=== PATIENT | female | born 1995 | race Caucasian/White ===

== ENCOUNTER 2021-09-30 15:33 | Emergency (ER) | payer MEDICAID, SELFPAY ==
[2021-09-30 15:35] VITALS: BP 120/62; PULSE 78; RESP 16; TEMP 36.8; O2SAT 98; BMI 53.8
[2021-09-30 15:49] LABS: Microscopic, Urine URINE MICROSCOPIC (MICROSCOPIC)
[2021-09-30 15:54] LABS: Appearance,Urine SL CLOUDY (Clear); Bilirubin,Urine Negative (Negative); Blood, Urine Negative (Negative); Color,Urine DK YELLOW (Yellow); Glucose,Urine (UA) Negative (Negative); Ketones,Urine Negative (Negative); Leukocyte Esterase,Urine Negative (Negative); Nitrate,Urine Negative (Negative); PH,Urine 5.5 (5.0-8.5); Protein,Urine Negative (Negative); Specific Gravity, Urine 1.025 (1.005-1.030)
--- NOTE | 2021-09-30 15:56 | HMH.EDGENADL ---
ED Disposition Clinical Impression: Flank pain, Gastroenteritis Disposition: Home, Self-Care Condition on Discharge: Good Instructions: DI for Viral Gastroenteritis -- Adult, DI for Flank Pain Additional Instructions: Ibuprofen for pain. Zofran as needed for nausea. Follow-up with your primary care provider this week if not improved. Prescriptions: Ondansetron [Zofran 4mg ODT] 4 mg PO TIDP PRN #10 tab PRN Reason: Nausea And Vomiting Transmission Status: Pending to [facility] Referrals: Mirtha Lomas [Primary Care Provider] - - Critical Care Critical Care Time: No Attestation: On , the high probability of a clinically significant, sudden or life threatening deterioration of the following system(s) required my full and direct attention, intervention and personal management. The time I documented below is in addition to time spent performing reported procedures but includes the following listed in this critical care notation. Medical Decision Making - Gilberto Inquiry Pt receiving controlled substance: No Gilberto was queried for this patient: Yes Vital Signs: 09/30/21 15:35 Temperature 98.2 F Temperature Source Oral Pulse Rate [Radial] 78 Respiratory Rate 16 Blood Pressure [Right Arm] 120/62 Blood Pressure Mean [Right Arm] 81 Blood Pressure Position [Right Arm] Sitting 02 Sat by Pulse Oximetry 98 Oxygen Delivery Method Room Air - Lab Data Lab Results 09/30/21 15:39: Urine Color Dk yellow, Urine Appearance Sl cloudy, Urine pH 5.5, Ur Specific [place] 1.025, Urine Protein Negative, Urine Glucose (UA) Negative, Urine Ketones Negative, Urine Blood Negative, Urine Nitrate Negative, Urine Bilirubin Negative, Urine Urobilinogen 1.0, Ur Leukocyte Esterase Negative, Urine RBC Occasional, Urine WBC 3-5, Ur Squamous Epith Cells 10-20, Urine Bacteria 1+ 09/30/21 15:39: Urine HCG, Qual Negative 09/30/21 16:05: WBC 3.5 L, RBC 4.75, Hgb 13.3, Hct 39.1, MCV 82.3, MCH 28.1, MCHC 34.1, RDW 14.7, Plt Count 213, MPV 8.9, Neut % (Auto) 58.7, Lymph % (Auto) 31.0, [place] % (Auto) 7.6, Eos % (Auto) 1.1, Baso % (Auto) 1.5, Neut # (Auto) 2.1, Lymph # (Auto) 1.1, [place] # (Auto) 0.3, Eos # (Auto) 0.0, Baso # (Auto) 0.1 09/30/21 16:05: Sodium 141, Potassium 3.4 L, Chloride 109 H, Carbon Dioxide 29, Anion Gap 6.4, BUN 13, Creatinine 0.80, Estimated Creat Clear 80, Estimated GFR 86, Est GFR ( Amer) 104, Glucose 92, Calcium 8.4, Total Bilirubin 0.5, AST 50 H, ALT 57, Alkaline Phosphatase 53, Total Protein 6.5, Albumin 3.9, Globulin 2.6, Albumin/Globulin Ratio 1.5 09/30/21 16:05: Lipase 69 Result diagrams: 09/30/21 16:05 09/30/21 16:05 Orders (Tests/Meds): ED MEDICATIONS Discontinued Medications Generic Name Dose Route Start Last Admin Trade Name Freq PRN Reason Stop Dose Admin Lactated Ringer's 1,000 mls @ 999 mls/hr 09/30/21 16:00 09/30/21 16:10 Lactated Ringer's 1000 Ml Bag IV 09/30/21 17:00 999 mls/hr .Q1H1M BRIANDA Administration Ketorolac Tromethamine 30 mg 09/30/21 15:54 09/30/21 16:10 Ketorolac 30mg/Ml Vial IV 09/30/21 15:55 30 mg ONCE ONE Administration Ondansetron HCl 4 mg 09/30/21 15:54 09/30/21 16:10 Ondansetron 4mg/2ml Vial IV 09/30/21 15:55 4 mg ONCE ONE Administration Ondansetron HCl 4 mg 09/30/21 17:34 09/30/21 17:38 Ondansetron 4mg/2ml Vial IV 09/30/21 17:35 4 mg ONCE ONE Administration - CT Data CT Scan: Abdomen, Pelvis Time Received: 17:[address] Reviewed: Yes: I have viewed the radiologist's interpretation Findings Narrative: PROCEDURE INFORMATION: Exam: CT Abdomen And Pelvis Without Contrast Exam date and time: 09/30/2021 4:34 PM Age: 26 years old Clinical indication: Abdominal pain; Flank; Left; Additional info: Left flank pain, h/o stones TECHNIQUE: Imaging protocol: Computed tomography of the abdomen and pelvis without contrast. Radiation optimization: All CT scans at this facility use at least one of these dose
[2021-09-30 16:11] LABS: Urine Pregnancy, HCG Qual. Negative (Negative)
[2021-09-30 16:13] LABS: Bacteria,Urine 1+ /lpf; RBC,Urine Occasional #/hpf (0-3)
--- NOTE | 2021-09-30 16:22 | CT_ITS ---
PROCEDURE INFORMATION: Exam: CT Abdomen And Pelvis Without Contrast Exam date and time: 09/30/2021 4:34 PM Age: 26 years old Clinical indication: Abdominal pain; Flank; Left; Additional info: Left flank pain, h/o stones TECHNIQUE: Imaging protocol: Computed tomography of the abdomen and pelvis without contrast. Radiation optimization: All CT scans at this facility use at least one of these dose optimization techniques: automated exposure control; mA and/or kV adjustment per patient size (includes targeted exams where dose is matched to clinical indication); or iterative reconstruction. COMPARISON: No relevant prior studies available. FINDINGS: Liver: Fatty infiltration of the liver. Mild hepatomegaly. Gallbladder and bile ducts: Gallbladder partially contracted. Mild increased density suggesting sludge. Pancreas: Normal. No ductal dilation. Spleen: Accessory splenic nodule. Adrenal glands: Normal. No mass. Kidneys and ureters: 4 mm nonobstructing left renal calculus in the lower pole. There is a 2nd smaller punctate focus of calcification in the lower pole of the left kidney which appears to reside within the renal cortex. Stomach and bowel: Unremarkable. No obstruction. No mucosal thickening. Appendix: Postoperative changes in the right lower quadrant which may reflect previous appendectomy. The appendix is not identified. Intraperitoneal space: Unremarkable. No free air. No significant fluid collection. Arteries: Unremarkable. No abdominal aortic aneurysm. Lymph nodes: Unremarkable. No enlarged lymph nodes. Urinary bladder: Unremarkable as visualized. Reproductive: The uterus is anteverted. Bones/joints: Unremarkable. No acute fracture. Soft tissues: Unremarkable. IMPRESSION: 1. 4 mm nonobstructing left renal calculus lower pole. No evidence of hydronephrosis or hydroureter. 2. Appendix not identified. Postoperative changes demonstrated in the right lower quadrant. 3. Mild hepatomegaly. Hepatic steatosis.
[2021-09-30 16:24] LABS: Basophils # 0.1 K/mm3 (0-0.2); Basophils % 1.5 % (0.1-2.0); Eosinophils % 1.1 % (0.1-12.0); Hematocrit 39.1 % (37.0-47.0); Hemoglobin 13.3 g/dL (12.2-16.2); Lymphocytes # 1.1 K/mm3 (0.7-4.5); Mean Corpuscular HGB Conc 34.1 g/dL (31.8-35.4); Mean Corpuscular Hemoglobin 28.1 pg (27.0-31.2); Mean Corpuscular Volume 82.3 fl (81-99); Mean Platelet Volume 8.9 fl (7.4-10.4); Monocytes # 0.3 K/mm3 (0.1-1.0); Monocytes % 7.6 % (1.7-9.3); Neutrophils # 2.1 K/mm3 (1.8-7.8); Neutrophils % 58.7 % (37.0-80.0); Platelet Count 213 K/mm3 (142-424); Red Blood Count 4.75 M/mm3 (4.20-5.40); Red Cell Distribution Width 14.7 % (11.5-17.5); White Blood Count 3.5 K/mm3 (4.8-10.8)
[2021-09-30 16:25] LABS: Alanine Aminotransferase 57 U/L (12-78); Albumin Level 3.9 g/dl (3.5-5.0); Albumin/Globulin Ratio 1.5 (1.1-1.8); Alkaline Phosphatase 53 U/L (38-126); Anion Gap 6.4 mEq/L (5-15); Aspartate Amino Transferase 50 U/L (14-36); Bilirubin,Total 0.5 mg/dl (0.2-1.3); Blood Urea Nitrogen 13 mg/dl (7-17); Calcium 8.4 mg/dl (8.4-10.2); Carbon Dioxide 29 mmol/L (22.0-30.0); Chloride 109 mmol/L (98-107); Creatinine Clearance Estimated 80 mL/min (50-200); Estimated Glomerular Filt Rate 86 ml/min (>60); GFR (African American) 104 ML/MIN (>60); Globulin 2.6 g/dL (1.3-3.2); Glucose 92 mg/dl (74-100); Potassium 3.4 mmoL/L (3.5-5.1); Sodium 141 mmol/L (136-145); Total Protein,Serum 6.5 g/dl (6.3-8.2)
[2021-09-30 16:34] LABS: Lipase 69 U/L (23-300)
[2021-09-30 18:02] VITALS: BP 107/78; PULSE 78; RESP 16; TEMP 36.6; O2SAT 98
== END 2021-09-30 18:04 | disposition home or self-care (01) ==
PROVIDERS: Emergency Provider Emergency Medicine; PCP Family Medicine
DX: K52.9 Noninfective gastroenteritis and colitis, unspecified (principal); R10.30 Lower abdominal pain, unspecified; R30.0 Dysuria; Z88.2 Allergy status to sulfonamides
CPT/HCPCS: 74176; 80053; 81001; 81025; 83690; 85025; 96360; 96374; 96375; 96376; 99284; J2405

== ENCOUNTER 2021-10-08 19:28 | Emergency (ER) | payer MEDICAID, SELFPAY ==
[2021-10-08 20:57] VITALS: BP 153/89; PULSE 69; RESP 18; TEMP 36.7; O2SAT 100; BMI 53.8
--- NOTE | 2021-10-08 21:03 | HMH.EDUTC ---
[facility] [place] Disposition Clinical Impression: UTI (urinary tract infection) Qualifiers: Urinary tract infection type: site unspecified Hematuria presence: with hematuria Qualified Code(s): N39.0 - Urinary tract infection, site not specified Disposition: Home, Self-Care Condition on Discharge: Good Instructions: Urinary Tract Infection, DI for Urinary Tract Infection (UTI) Additional Instructions: Drink plenty of fluids. Take tylenol or ibuprofen for pain or fever. Take the medications as directed. Follow up with your regular doctor. GO TO THE ER FOR ANY WORSENING SYMPTOMS The pyridium will make your urine turn orange, this is an expected side effect. It will stain your clothes if it comes into contact with them. We will culture the urine. That will tell what bacteria is causing your infection and which antibiotics will treat it best. Sometimes the first antibiotic we prescribe turns out to not work against different bacteria. So, make sure you follow up within 3 days if you are not getting better. Prescriptions: Ondansetron [Zofran 4mg ODT] 4 mg PO Q8HP PRN #12 tab PRN Reason: Nausea Transmission Status: Received by [id number] Ciprofloxacin HCl [Cipro 500mg Tab] 500 mg PO BID 7 Days #14 tab Transmission Status: Received by [id number] Phenazopyridine HCl [Pyridium 200mg Tablet] 200 pow PO TID #6 tab Transmission Status: Received by [id number] Referrals: Mirtha Lomas [Primary Care Provider] - Forms: Work/School Release Time of Disposition: 21:52 Medical Decision Making - Medical Records Medical records reviewed: No: I reviewed the patient's medical records. - Gilberto Inquiry Pt receiving controlled substance: No Vital Signs: 10/08/21 20:57 10/08/21 21:51 Temperature 98.0 F 98.0 F Temperature Source Oral Oral Pulse Rate 69 Pulse Rate [Left] 69 Respiratory Rate 18 18 Blood Pressure 153/89 H Blood Pressure [Right Arm] 153/89 H Blood Pressure Mean [Right Arm] 110 02 Sat by Pulse Oximetry 100 - Lab Data Lab results reviewed: Yes: I reviewed the patient's lab results. Lab Results 10/08/21 21:00: Urine Color Liss[place], Urine Appearance Cloudy, Urine pH 6.5, Ur Specific [place] >= 1.030, Urine Protein 1+, Urine Glucose (UA) 1+, Urine Ketones Negative, Urine Blood Negative, Urine Nitrate Positive A, Urine Bilirubin Negative, Urine Urobilinogen 1, Ur Leukocyte Esterase Trace Orders (Tests/Meds): ORDERS Category Date Time Status Urine Culture Stat Micro 10/08/21 21:00 Results [facility] HPI - General Stated complaint: poss UTI Time Seen by Provider: 10/08/21 21:03 Mode of Arrival: Ambulatory Source of Information: Patient Limitations: No Limitations Description of Symptoms (Recalled from Triage Doc. by RN): pt states that she is having UTI symptoms, she was seen in the ER recently and diagnosed with a kidney stone, but hasnot been able to pass it. pt states she has pain in lower back HEENT Symptoms (Recalled from RN notes): No Resp Symptoms (Recalled from RN notes): No Skin Symptoms (Recalled from RN notes): No MS Symptoms (Recalled from RN notes): No Functional Status (Recalled from RN notes): wnl - History of Present Illness Provider Complaint: She has been having dysuria and low back pain for the past 1 day. - Related Data Previous Rx's Medication Instructions Recorded Ondansetron [Zofran 4mg ODT] 4 mg PO TIDP PRN #10 tab 09/30/21 Ciprofloxacin HCl [Cipro 500mg 500 mg PO BID 7 Days #14 tab 10/08/21 Tab] Ondansetron [Zofran 4mg ODT] 4 mg PO Q8HP PRN #12 tab 10/08/21 Phenazopyridine HCl [Pyridium 200 pow PO TID #6 tab 10/08/21 200mg Tablet] Allergies Allergy/AdvReac Type Severity Reaction Status Date / Time nitrofurantoin Allergy Verified 10/08/21 20:59 [From Macrobid] Sulfa (Sulfonamide Allergy Verified 10/08/21 20:59 Antibiotics) - Worker's Comp Is this a Worker's Comp case?: No
[2021-10-08 21:26] LABS: Apearance,Urine Cloudy (Clear); Color,Urine Amber (Yellow); PH,Urine 6.5 (5.0-8.5)
[2021-10-08 21:27] LABS: Protein,Urine 1+ (Negative); Specific Gravity, Urine >= 1.030 (1.005-1.030)
[2021-10-08 21:28] LABS: Bilirubin,Urine Negative (Negative); Blood, Urine Negative (Negative); Glucose,Urine (UA) 1+ (Negative); Ketones,Urine Negative (Negative); UTC Leukocyte Esterase,Urine Trace (Negative); Urobilinogen,Urine 1 EU/dl (0.2)
[2021-10-08 21:29] LABS: UTC Nitrate,Urine Positive (Negative)
[2021-10-08 21:51] VITALS: BP 153/89; PULSE 69; RESP 18; TEMP 36.7
== END 2021-10-08 21:58 | disposition home or self-care (01) ==
PROVIDERS: Emergency Provider Nurse Practitioner Family; PCP Family Medicine
DX: N39.0 Urinary tract infection, site not specified (principal)
CPT/HCPCS: 81003; 87086; 87088; 87186; 99212; G0463

== ENCOUNTER 2021-11-16 17:03 | Emergency (ER) | payer MEDICAID, SELFPAY ==
[2021-11-16 17:15] VITALS: BP 123/74; PULSE 80; RESP 17; TEMP 36.7; O2SAT 97; BMI 42.5
--- NOTE | 2021-11-16 17:24 | HMH.EDUTC ---
[facility] [place] Impression: Viral syndrome Pharyngitis Qualifiers: Pharyngitis/tonsillitis etiology: unspecified etiology Qualified Code(s): J02.9 - Acute pharyngitis, unspecified Disposition: Home, Self-Care Condition on Discharge: Good Instructions: DI for Strep Throat, Preventing the Spread of Coronavirus Discharge Instructions Additional Instructions: Drink plenty of fluids. Take tylenol or ibuprofen for pain or fever. Take the medications as directed. Follow up with your regular doctor. GO TO THE ER FOR ANY WORSENING SYMPTOMS Quarantine until you know the results of your covid-19 test. Notify your school or workplace of your results and follow their instructions regarding return to work/school. Prescriptions: Ondansetron [Zofran 4mg ODT] 4 mg PO Q8HP PRN #20 tab PRN Reason: Nausea Transmission Status: Received by [id number] Benzonatate [Benzonatate 100mg cap] 100 mg PO TIDP PRN #30 cap PRN Reason: Cough Transmission Status: Received by [id number] methylPREDNISolone [Medrol] 4 mg PO DIRECTED 6 Days #21 packet Transmission Status: Received by [id number] Cefdinir [Omnicef 300mg Capsule] 300 mg PO BID #20 cap Transmission Status: Received by [id number] Referrals: Mirtha Lomas [Primary Care Provider] - Forms: Work/School Release Time of Disposition: 19:09 Medical Decision Making - Medical Records Medical records reviewed: No: I reviewed the patient's medical records. - Gilberto Inquiry Pt receiving controlled substance: No Vital Signs: 11/16/21 17:15 11/16/21 18:05 Temperature 98.0 F 98.0 F Temperature Source Oral Pulse Rate 80 Pulse Rate [Right Brachial] 80 Respiratory Rate 17 17 Blood Pressure 123/74 Blood Pressure [Right Arm] 123/74 Blood Pressure Mean [Right Arm] 90 Blood Pressure Source [Right Arm] Automatic Cuff Blood Pressure Position [Right Arm] Sitting 02 Sat by Pulse Oximetry 97 Oxygen Delivery Method Room Air - Lab Data Lab results reviewed: Yes: I reviewed the patient's lab results. Lab Results 11/16/21 17:14: Group A Strep Rapid Negative Orders (Tests/Meds): ORDERS Category Date Time Status Full Resp Panel w/COVID ([facility]) Routine Lab 11/16/21 17:23 Received Strep Screen Confirmation Stat Micro 11/16/21 17:14 Received [facility] UTC HPI - General Stated complaint: Sore throat Time Seen by Provider: 11/16/21 17:24 - History of Present Illness Provider Complaint: She states that she has had a sore throat for the past 2 days. She has ran a low grade fever and had a dry cough also. She denies any known covid-19 exposure. - Related Data Previous Rx's Medication Instructions Recorded Benzonatate [Benzonatate 100mg 100 mg PO TIDP PRN #30 cap 11/16/21 cap] Cefdinir [Omnicef 300mg Capsule] 300 mg PO BID #20 cap 11/16/21 Ondansetron [Zofran 4mg ODT] 4 mg PO Q8HP PRN #20 tab 11/16/21 methylPREDNISolone [Medrol] 4 mg PO DIRECTED 6 Days #21 11/16/21 packet Allergies Allergy/AdvReac Type Severity Reaction Status Date / Time nitrofurantoin Allergy Verified 10/08/21 20:59 [From Macrobid] Sulfa (Sulfonamide Allergy Verified 10/08/21 20:59 Antibiotics) [facility] History - Hepatitis A Screen Attestation statement:: This patient has been screened for Hepatitis A risk factors. I have reviewed the patient's past medical history: Yes ROS Obtained: Yes All systems reviewed & no additional complaints - Constitutional Constitutional: Reports as per HPI - Eyes Eyes: Denies eye discharge - ENT Ears, Nose, Mouth, and Throat: Reports as per HPI - Cardiovascular Cardiovascular: Denies chest pain - Respiratory Respiratory: Denies chest congestion, Reports cough, Denies dyspnea, Denies stridor, Denies wheezing - Gastrointestinal Gastrointestingal: Reports: nausea. Denies: abdominal pain, diarrhea, vomiting - Integumentary
[2021-11-16 17:38] LABS: Adenovirus,PCR Not Detected (NotDetected); Bordetella Pertussis Not Detected (NotDetected); Chlamydophila Pneumoniae, PCR Not Detected (NotDetected); Coronavirus 19, PCR Not Detected (NotDetected); Coronavirus 229E Not Detected (NotDetected); Coronavirus NL63 Not Detected (NotDetected); Coronavirus OC43 Not Detected (NotDetected); Coronovirus HKU1,PCR Not Detected (NotDetected); Human Metapneumovirus Not Detected (NotDetected); Influenza A, PCR Not Detected (NotDetected); Influenza AH1, 2009 Not Detected (NotDetected); Influenza AH1, PCR Not Detected (NotDetected); Influenza AH3,PCR Not Detected (NotDetected); Influenza B, PCR Not Detected (NotDetected); Mycoplasma Pneumoniae, PCR Not Detected (NotDetected); Parainfluenza 1, PCR Not Detected (NotDetected); Parainfluenza 2, PCR Not Detected (NotDetected); Parainfluenza 3, PCR Not Detected (NotDetected); Parainfluenza 4, PCR Not Detected (NotDetected); Respiratory Syncytial Virus Not Detected (NotDetected); Rhinovirus/Enterovirus Not Detected (NotDetected)
[2021-11-16 17:59] LABS: Strep Scrn Group A (Rapid) Negative (Negative)
[2021-11-16 18:05] VITALS: BP 123/74; PULSE 80; RESP 17; TEMP 36.7; O2SAT 97
== END 2021-11-16 18:06 | disposition home or self-care (01) ==
PROVIDERS: Emergency Provider Nurse Practitioner Family; PCP Family Medicine
DX: J02.9 Acute pharyngitis, unspecified (principal); B34.9 Viral infection, unspecified; Z88.2 Allergy status to sulfonamides
CPT/HCPCS: 87430; 87581; 87632; 87798; 87880; 99212; C9803; G0463; U0003; U0005

== ENCOUNTER 2022-01-17 11:20 | Emergency (ER) | payer MEDICAID, SELFPAY ==
[2022-01-17 11:30] VITALS: BP 137/73; PULSE 86; RESP 18; TEMP 37; O2SAT 98; BMI 48.5
[2022-01-17 11:44] LABS: Apearance,Urine Cloudy (Clear); Color,Urine Dark Yellow (Yellow)
[2022-01-17 11:45] LABS: Bilirubin,Urine Negative (Negative); Blood, Urine Negative (Negative); Glucose,Urine (UA) 100 (Negative); Ketones,Urine Negative (Negative); Protein,Urine Negative (Negative); UTC Leukocyte Esterase,Urine Negative (Negative); UTC Nitrate,Urine Positive (Negative); Urobilinogen,Urine 1 EU/dl (0.2)
--- NOTE | 2022-01-17 11:49 | HMH.EDUTC ---
[facility] [place] Clinical Impression: UTI (urinary tract infection) Qualifiers: Urinary tract infection type: site unspecified Hematuria presence: without hematuria Qualified Code(s): N39.0 - Urinary tract infection, site not specified Disposition: Home, Self-Care Condition on Discharge: Good Instructions: Urinary Tract Infection, DI for Urinary Tract Infection (UTI) Additional Instructions: *Increase fluids. Water not Soda or Tea *Start antibiotic immediately and be sure to take as ordered for the FULL length of time although you should start to see improvement over the next 48 hours *Be SURE to follow up anytime for new or worsening symptoms with your family doctor. AND in 48 hours for urine culture results with your family doctor, if you do not have a doctor then you may call back to the [facility] for urine culture results and further treatment. We do recommend that you choose and establish care with a Primary Care Physician. AND follow up with them in 10-14 days to repeat UA to ensure infection is resolved and blood no longer present *Be sure to let your PCP know that we sent urine cultures from the [facility] so they can follow up to ensure that you area the on the correct antibiotic Call your doctor office and make appointment for 48 hours (2 days from today) to follow up and get the results of your urine culture and further treatment Prescriptions: Amoxicillin/Potassium Clav [Amox-Clav 875-125 mg Tablet] 1 tab PO BID 14 Days #28 tab Transmission Status: Pending to [id number] Referrals: Mirtha Lomas [Primary Care Provider] - As needed Jonathan Buitrago MD [Staff Physician] - Time of Disposition: 12:01 Medical Decision Making - Gilberto Inquiry Pt receiving controlled substance: No Gilberto was queried for this patient: No Vital Signs: 01/17/22 11:30 01/17/22 11:53 Temperature 98.6 F 98.6 F Temperature Source Oral Pulse Rate 86 Pulse Rate [Right Brachial] 86 Respiratory Rate 18 18 Blood Pressure 137/73 Blood Pressure [Right Arm] 137/73 Blood Pressure Mean [Right Arm] 94 Blood Pressure Source [Right Arm] Automatic Cuff Blood Pressure Position [Right Arm] Sitting 02 Sat by Pulse Oximetry 98 Oxygen Delivery Method Room Air - Lab Data Lab results reviewed: Yes: I reviewed the patient's lab results. Lab Results 01/17/22 11:25: Urine Color Dark yellow, Urine Appearance Cloudy, Urine pH 7.0, Ur Specific [place] 1.020, Urine Protein Negative, Urine Glucose (UA) 100, Urine Ketones Negative, Urine Blood Negative, Urine Nitrate Positive A, Urine Bilirubin Negative, Urine Urobilinogen 1, Ur Leukocyte Esterase Negative Orders (Tests/Meds): ORDERS Category Date Time Status Urine Culture Stat Micro 01/17/22 11:30 Received Medical Decision Narrative: Due to last urine culture showing ecoli and resistant to Cipro and just got off Cefdinir discussed with pharmacy and will treat with Augmentin for 14 days [facility] [place]PI - General Stated complaint: Possible UTI Time Seen by Provider: 01/17/22 11:49 Mode of Arrival: Ambulatory Source of Information: Patient Limitations: No Limitations Description of Symptoms (Recalled from Triage Doc. by RN): PATIENT C/O RECURRING UTI. SHE REPORTS SHE WAS LAST TREATED ON 01/03 AND JUST FINISHED CEFDINIR HEENT Symptoms (Recalled from RN notes): No Resp Symptoms (Recalled from RN notes): No Skin Symptoms (Recalled from RN notes): No MS Symptoms (Recalled from RN notes): No Functional Status (Recalled from RN notes): WNL - History of Present Illness Provider Complaint: Patient states that she has been having several UTI back to back States that she is having pressure like feeling like she has to go and feeling of urgency and frequency States that she just finished Cefdinir for UTI and now it is back - Related Data Previous Rx's Medication Instructions Recorded Amoxicillin/Potassium Clav 1 tab PO BID 14 Days #28 tab 01/17/22 [Amox-Clav 875-125 mg Tablet] All
[2022-01-17 11:53] VITALS: BP 137/73; PULSE 86; RESP 18; TEMP 37; O2SAT 98
== END 2022-01-17 12:06 | disposition home or self-care (01) ==
PROVIDERS: Emergency Provider Nurse Practitioner; PCP Family Medicine
DX: N39.0 Urinary tract infection, site not specified (principal)
CPT/HCPCS: 81003; 87086; 87088; 87186; 99212; G0463

== ENCOUNTER 2022-02-03 03:02 | Emergency (ER) | payer MEDICAID, SELFPAY ==
[2022-02-03 03:04] VITALS: BP 171/96; PULSE 107; RESP 16; TEMP 36.7; O2SAT 98; BMI 51.3
[2022-02-03 03:18] LABS: Appearance,Urine SL CLOUDY (Clear); Bilirubin,Urine Negative (Negative); Blood, Urine 2+ (Negative); Color,Urine YELLOW (Yellow); Glucose,Urine (UA) Negative (Negative); Ketones,Urine Negative (Negative); Leukocyte Esterase,Urine Negative (Negative); Microscopic, Urine URINE MICROSCOPIC (MICROSCOPIC); Nitrate,Urine Negative (Negative); Protein,Urine Negative (Negative); Specific Gravity, Urine >= 1.030 (1.005-1.030); Urobilinogen,Urine 0.2 EU/dl (0.2)
[2022-02-03 03:23] VITALS: BMI 51.3
--- NOTE | 2022-02-03 03:24 | CT_ITS ---
PROCEDURE INFORMATION: Exam: CT Abdomen And Pelvis With Contrast Exam date and time: 02/03/2022 3:48 AM Age: 26 years old Clinical indication: Nausea and vomiting and other: Diarrhea; Prior surgery; Surgery date: 6+ months; Surgery type: 2 c sections, tubal ligation, appendectomy, d and c; Patient HX: Recent UTI, now nausea , vomiting, diarrhea; Additional info: Abd pain, n/v/d TECHNIQUE: Imaging protocol: Computed tomography of the abdomen and pelvis with contrast. Total images: 44 Radiation optimization: All CT scans at this facility use at least one of these dose optimization techniques: automated exposure control; mA and/or kV adjustment per patient size (includes targeted exams where dose is matched to clinical indication); or iterative reconstruction. Contrast material: ISOVUE; Contrast volume: 75 ml; Contrast route: IV; COMPARISON: CT ABDOMEN PELVIS WO CON 09/30/2021 4:34 PM FINDINGS: Lungs: Clear lung bases. Liver: Suspect hepatic steatosis. Hepatomegaly. Gallbladder and bile ducts: Normal. No calcified stones. No ductal dilation. Pancreas: Normal. No ductal dilation. Spleen: Borderline splenomegaly. Adrenal glands: Normal. No mass. Kidneys and ureters: Nonobstructive bilateral kidney stones measure as large as 5 mm. Stomach and bowel: Moderate infectious/inflammatory colitis. Appendix: Prior appendectomy noted. Intraperitoneal space: Unremarkable. No free air. No significant fluid collection. Vasculature: Unremarkable. No abdominal aortic aneurysm. Lymph nodes: Nonspecific prominent ileocecal distribution lymph nodes are potentially reactive. Urinary bladder: Unremarkable as visualized. Reproductive: Unremarkable as visualized. Bones/joints: Moderate disc space height loss at L5/S1. Soft tissues: Unremarkable. IMPRESSION: 1. Moderate infectious/inflammatory colitis of the ascending colon with mild involvement of the proximal descending colon. 2. Hepatomegaly with suspected hepatic steatosis.
[2022-02-03 03:40] LABS: Basophils # 0.1 K/mm3 (0-0.2); Basophils % 1.2 % (0.1-2.0); Eosinophils # 0.2 K/mm3 (0.0-0.4); Eosinophils % 3.7 % (0.1-12.0); Hematocrit 41.7 % (37.0-47.0); Hemoglobin 13.6 g/dL (12.2-16.2); Lymphocytes # 1.5 K/mm3 (0.7-4.5); Lymphocytes % 28.3 % (10-50); Mean Corpuscular HGB Conc 32.5 g/dL (31.8-35.4); Mean Corpuscular Hemoglobin 27.7 pg (27.0-31.2); Mean Corpuscular Volume 85.2 fl (81-99); Mean Platelet Volume 8.4 fl (7.4-10.4); Monocytes # 0.3 K/mm3 (0.1-1.0); Monocytes % 5.8 % (1.7-9.3); Neutrophils # 3.1 K/mm3 (1.8-7.8); Neutrophils % 61.1 % (37.0-80.0); Platelet Count 229 K/mm3 (142-424); Red Cell Distribution Width 14.1 % (11.5-17.5); White Blood Count 5.1 K/mm3 (4.8-10.8)
--- NOTE | 2022-02-03 03:42 | HMH.EDABDPAI ---
Discharge Plan Disposition Patient Disposition: Home, Self-Care Chief Complaint: Abdominal Pain Prescriptions Prescriptions: New ciprofloxacin HCl [Cipro] 500 mg tablet 500 mg PO BID Qty: 20 0RF Referrals Follow up/Referrals: Mirtha Lomas [Primary Care Provider] - See instructions Clinical Impressions Clinical Impression: Other specified Shiga toxin-producing Escherichia coli [e. coli] [stec] as the cause of diseases classified elsewhere, Enteritis due to Rotavirus, Colitis Instructions Patient Instructions: DI for Rotavirus -- Adult Discharge ED Provider: Moisés Pettit Abdominal Pain HPI General Chief Complaint: Abdominal Pain Stated Complaint: Stomach pain,diarrhea,nausea,chilles Time Seen by Provider: 02/03/22 03:42 Mode of Arrival: Family Vehicle Source of Information: Patient and Medical Record Limitations: No Limitations Description of Symptoms (Recalled from ER Triage Doc. by RN): Pt c/o mid abd pain with n/v/d. She reports she has had a recurrent hx of uti's most recently tx'ed with augmentin on 01/17 from [facility]. Urine cx was + for staph saprophyticus which was resistant to Penicillin. Pt also c/o fever and chills. She was suppposed to follow up with Dr. Buitrago regarding frequent uti's, however pt has not. History of Present Illness HPI narrative: mid abd pain over the last 4 days with bldy diarrhea - has fever/chills complaint: abdominal pain Onset (ago): day(s) Consistency: constant Location: periumbilical Severity: moderate Quality: cramping Context: recent antibiotic use Associated symptoms: denies other symptoms Related Data Previous Rx's Medication Instructions Recorded ciprofloxacin HCl 500 mg tablet 500 mg PO BID #20 tabs 02/03/22 (Cipro) Allergies Allergy/AdvReac Type Severity Reaction Status Date / Time nitrofurantoin Allergy Verified 10/08/21 20:59 [From Macrobid] Sulfa (Sulfonamide Allergy Verified 10/08/21 20:59 Antibiotics) PFSH PFS Surgical History (Updated 02/03/22 @ 03:59 by Padmini Fink RN) H/O dilation and curettage History of appendectomy Previous section Social History (Updated 02/03/22 @ 04:00 by Padmini Fink RN) Smoking Status: Current every day smoker alcohol intake: never current occupational status: other Travel in the last 8 weeks: None ROS Obtained: Yes All systems reviewed & no additional complaints except as documented Gastrointestinal Gastrointestingal: Reports abdominal pain, cramping, diarrhea and hematochezia Physical Exam General General appearance: alert Head Head exam: normocephalic Eye Eye exam: Present PERRL and EOMI ENT ENT exam: Present mucous membranes moist Neck Neck exam: Present trachea midline Respiratory Respiratory exam: Present normal lung sounds bilaterally Cardiovascular Cardiovascular exam: Present regular rate Abdominal Exam Abdominal exam: Present soft and tenderness; Absent guarding or rebound Abdominal tenderness: Present diffuse and moderate Extremities Exam Extremities exam: Absent joint swelling Neurological Exam Neurological exam: Present alert, oriented X3 and CN II-XII intact Psychiatric Psychiatric exam: Present normal affect Skin Skin exam: Absent rash Medical Decision Making Medical Records Medical records reviewed: Yes I reviewed the patient's medical records. Gilberto Inquiry Pt receiving controlled substance: No Vital Signs: 02/03/22 03:04 Temperature 98.1 F Temperature Source Oral Pulse Rate [Right] 107 H Respiratory Rate 16 Blood Pressure [Right Arm] 171/96 H Blood Pressure Mean [Right Arm] 121 Blood Pressure Source [Right Arm] Automatic Cuff 02 Sat by Pulse Oximetry 98 Oxygen Delivery Method Room Air Lab Data Lab results reviewed: Yes I reviewed the patient's lab results. Lab Results 02/03/22 03:07: Urine Color Yellow, Urine Appearance Sl cloudy, Urine pH 6.0, Ur Specific [place] >= 1.030, Urine Protein Negative, Urine Gluc
[2022-02-03 03:45] LABS: Urine Pregnancy, HCG Qual. Negative (Negative)
[2022-02-03 03:51] LABS: Alanine Aminotransferase 33 U/L (12-78); Albumin Level 3.8 g/dl (3.5-5.0); Albumin/Globulin Ratio 1.3 (1.1-1.8); Alkaline Phosphatase 76 U/L (38-126); Amylase 53 U/L (30-110); Anion Gap 10.6 mEq/L (5-15); Aspartate Amino Transferase 38 U/L (14-36); Bilirubin,Total 0.2 mg/dl (0.2-1.3); Blood Urea Nitrogen 7 mg/dl (7-17); Calcium 8.7 mg/dl (8.4-10.2); Carbon Dioxide 27 mmol/L (22.0-30.0); Chloride 106 mmol/L (98-107); Creatinine Clearance Estimated 80 mL/min (50-200); Estimated Glomerular Filt Rate 86 ml/min (>60); GFR (African American) 104 ML/MIN (>60); Globulin 2.9 g/dL (1.3-3.2); Glucose 112 mg/dl (74-100); Lipase 72 U/L (23-300); Potassium 3.6 mmoL/L (3.5-5.1); Sodium 140 mmol/L (136-145); Total Protein,Serum 6.7 g/dl (6.3-8.2)
[2022-02-03 03:56] LABS: C-Reactive Protein 10.7 mg/L (0-4)
[2022-02-03 04:08] LABS: Coronavirus 19, PCR Not Detected (NotDetected); Influenza A, PCR Not Detected (NotDetected); Influenza B, PCR Not Detected (NotDetected)
[2022-02-03 04:10] LABS: Procalcitonin 0.095 ng/mL (0.0-2.0)
[2022-02-03 04:14] LABS: Erythrocyte Sedimentation Rate 21 mm/hr (0-20)
[2022-02-03 04:36] LABS: Adenovirus F 40/41, stool Not Detected (NotDetected); Astrovirus Not Detected (NotDetected); Campylobacter Not Detected (NotDetected); Clostridium Difficile A/B, PCR Not Detected (NotDetected); Cryptosporidium Not Detected (NotDetected); Cyclospora Cayetanesis Not Detected (NotDetected); Entamoeba histolytica Not Detected (NotDetected); Enteroaggregative E coli Not Detected (NotDetected); Enteropathogenic E coli Not Detected (NotDetected); Enterotoxigenic E coli Not Detected (NotDetected); Giardia lamblia Not Detected (NotDetected); Norovirus Not Detected (NotDetected); Plesimonas Shigalloides, PCR Not Detected (NotDetected); Salmonella, PCR Not Detected (NotDetected); Sapovirus Not Detected (NotDetected); Shigella Enterovasive E coli Not Detected (NotDetected); Vibrio Cholerae Not Detected (NotDetected); Vibrio, PCR Not Detected (NotDetected); Yersinia Entercolitica, PCR Not Detected (NotDetected)
[2022-02-03 04:37] LABS: Occult Blood,Stool Positive (Negative)
--- NOTE | 2022-02-03 06:32 | PC.NURSE ---
Pt has ambulated to the bathroom without difficulty
--- NOTE | 2022-02-03 06:34 | PC.NURSE ---
Dr. Pettit notified of diarrhea panel + for Rotavirus and E.Coli Shiga toxin
[2022-02-03 06:35] LABS: Rotavirus A Detected (NotDetected); Shiga-like toxin E coli Detected (NotDetected)
--- NOTE | 2022-02-03 07:26 | PC.NURSE ---
iv fluids infusing pt resting c/o pain
--- NOTE | 2022-02-03 08:04 | PC.NURSE ---
pt given feminine products
[2022-02-03 08:22] VITALS: BP 132/74; PULSE 78; RESP 16; TEMP 36.6; O2SAT 98
== END 2022-02-03 08:24 | disposition home or self-care (01) ==
PROVIDERS: Emergency Provider Emergency Medicine; PCP Family Medicine
DX: R10.9 Unspecified abdominal pain (principal); R11.2 Nausea with vomiting, unspecified; R19.7 Diarrhea, unspecified; R50.9 Fever, unspecified; Z20.822 Contact with and (suspected) exposure to COVID-19; F17.210 Nicotine dependence, cigarettes, uncomplicated; Z79.899 Other long term (current) drug therapy; Z88.2 Allergy status to sulfonamides; Z88.8 Allergy status to other drugs, medicaments and biological substances; Z87.440 Personal history of urinary (tract) infections
CPT/HCPCS: 74177; 80053; 81001; 81025; 82150; 82272; 83605; 83690; 84145; 85025; 85651; 86140; 87040; 87077; 87186; 87507; 96361; 96374; 96375; 99285; C9803; G0328; Q9967; U0003; U0005

== ENCOUNTER 2022-06-17 19:18 | Emergency (ER) | payer MEDICAID, SELFPAY ==
[2022-06-17 19:50] VITALS: BP 113/74; RESP 19; TEMP 37.1; O2SAT 99; BMI 53.8
--- NOTE | 2022-06-17 19:59 | EXP.UTC ---
Discharge Plan Disposition Patient Disposition: Still a Patient Condition: Fair Referrals Follow up/Referrals: Filiberto Baumann [Primary Care Provider] - See instructions Clinical Impressions Clinical Impression: Flank pain Discharge ED Provider: Moisés Pettit [facility] – [place] HPI General Stated complaint: POSS KIDNEY INFECTION Time Seen by Provider: 06/17/22 19:59 History of Present Illness Provider Complaint: She c/o right flank pain for the past 1 day. She states that she has a history of kidney stones and she feels like this pain is one starting. She has had urinary frequency too. She denies fever, but she has had some chilling today. Related Data Allergies Allergy/AdvReac Type Severity Reaction Status Date / Time nitrofurantoin Allergy Verified 06/17/22 20:00 [From Macrobid] Sulfa (Sulfonamide Allergy Verified 06/17/22 20:00 Antibiotics) [facility] Disclaimer: The information contained in this section may have been updated after the patient was seen, as this information can be updated by other users. Surgical History H/O dilation and curettage History of appendectomy Previous section Social History Smoking Status: Current every day smoker alcohol intake: never current occupational status: other Travel in the last 8 weeks: None ROS Obtained: Yes All systems reviewed & no additional complaints except as documented Constitutional Constitutional: Reports system reviewed and no additional complaints, except as documented, Denies chills and Denies fever(s) Eyes Eyes: Denies eye discharge ENT Ears, Nose, Mouth, and Throat: Denies dysphagia, Denies sore throat and Denies throat swelling Cardiovascular Cardiovascular: Denies chest pain and Denies dyspnea Respiratory Respiratory: Denies chest congestion, Denies cough and Denies dyspnea Gastrointestinal Gastrointestingal: Denies abdominal pain, constipation, diarrhea, dysphagia, nausea or vomiting Genitourinary Female Genitourinary: Reports as per HPI, Reports dysuria, Reports urinary frequency, Denies urinary incontinence, Denies urinary hesitancy and Denies urinary urgency Musculoskeletal Musculoskeletal: Denies arthralgias and Reports back pain Integumentary/Breasts Skin/Breast: Denies rash Neurologic Neurologic: Denies paresthesias Allergic/Immunologic Allergic/Immunologic: Denies throat swelling Physical Exam General General appearance: alert and in no apparent distress Head Head exam: atraumatic, normocephalic and normal inspection Eye Eye exam: Present normal appearance, PERRL and EOMI ENT ENT exam: Present normal exam, normal oropharynx, mucous membranes moist, TM's normal bilaterally and normal external ear exam Neck Neck exam: Present normal inspection, full ROM and trachea midline; Absent meningismus or lymphadenopathy Chest Chest inspection: Present normal inspection and symmetric chest wall rise; Absent tenderness Respiratory Respiratory exam: Present normal lung sounds bilaterally; Absent respiratory distress Cardiovascular Cardiovascular exam: Present regular rate and normal rhythm; Absent JVD Abdominal Exam Abdominal exam: Present soft and normal bowel sounds; Absent distention, tenderness or guarding Extremities Exam Extremities exam: Present normal inspection, full ROM and normal capillary refill; Absent calf tenderness Back Exam Back exam: Present normal inspection; Absent tenderness, CVA tenderness (R) or CVA tenderness (L) Neurological Exam Neurological exam: Present alert and oriented X3 Psychiatric Psychiatric exam: Present normal affect and normal mood Skin Skin exam: Present warm, dry, intact and normal color Lymphatic Lymphatic Findings: no adenopathy Medical Decision Making Medical Records Medical records reviewed: No I reviewed the patient's medical records. Gilberto Inquiry Pt receiving controlled subst
[2022-06-17 20:02] LABS: Apearance,Urine Clear (Clear); Color,Urine Dark Yellow (Yellow)
[2022-06-17 20:03] LABS: Bilirubin,Urine Negative (Negative); Blood, Urine Negative (Negative); Glucose,Urine (UA) Negative (Negative); Ketones,Urine Negative (Negative); Protein,Urine 3+ (Negative); UTC Leukocyte Esterase,Urine Negative (Negative); UTC Nitrate,Urine Negative (Negative); Urobilinogen,Urine 0.2 EU/dl (0.2)
[2022-06-17 20:26] VITALS: BP 117/65; PULSE 80; RESP 18; TEMP 36.6; O2SAT 98; BMI 53.8
--- NOTE | 2022-06-17 20:33 | CT_ITS ---
PROCEDURE INFORMATION: Exam: CT Abdomen And Pelvis Without Contrast Exam date and time: 06/17/2022 8:47 PM Age: 27 years old Clinical indication: Abdominal pain; Prior surgery; Surgery type: Appendectomy, 3 csections; Patient HX: C/O right lower and flank pain; Additional info: Abd pain TECHNIQUE: Imaging protocol: Computed tomography of the abdomen and pelvis without contrast. Radiation optimization: All CT scans at this facility use at least one of these dose optimization techniques: automated exposure control; mA and/or kV adjustment per patient size (includes targeted exams where dose is matched to clinical indication); or iterative reconstruction. COMPARISON: CT ABDOMEN PELVIS W CON 02/03/2022 3:48 AM FINDINGS: Liver: Normal. No mass. Gallbladder and bile ducts: Normal. No calcified stones. No ductal dilation. Pancreas: Normal. No ductal dilation. Spleen: Normal. No splenomegaly. Adrenal glands: Normal. No mass. Kidneys and ureters: 2 mm nonobstructing left renal stone. No hydronephrosis. Stomach and bowel: Unremarkable. No obstruction. No mucosal thickening. Appendix: Appendectomy. Intraperitoneal space: Unremarkable. No free air. No significant fluid collection. Vasculature: Unremarkable. No abdominal aortic aneurysm. Lymph nodes: Unremarkable. No enlarged lymph nodes. Urinary bladder: Unremarkable as visualized. Reproductive: Unremarkable as visualized. Bones/joints: Unremarkable. No acute fracture. Soft tissues: Unremarkable. IMPRESSION: No acute findings.
[2022-06-17 20:38] LABS: Microscopic, Urine URINE MICROSCOPIC (MICROSCOPIC)
[2022-06-17 20:41] LABS: Basophils # 0.1 K/mm3 (0-0.2); Basophils % 1.3 % (0.1-2.0); Eosinophils # 0.1 K/mm3 (0.0-0.4); Eosinophils % 2.6 % (0.1-12.0); Hematocrit 39.3 % (37.0-47.0); Hemoglobin 13.3 g/dL (12.2-16.2); Lymphocytes % 38.3 % (10-50); Mean Corpuscular HGB Conc 33.8 g/dL (31.8-35.4); Mean Corpuscular Hemoglobin 27.7 pg (27.0-31.2); Mean Corpuscular Volume 81.9 fl (81-99); Mean Platelet Volume 7.8 fl (7.4-10.4); Monocytes # 0.3 K/mm3 (0.1-1.0); Monocytes % 5.1 % (1.7-9.3); Neutrophils # 2.8 K/mm3 (1.8-7.8); Neutrophils % 52.8 % (37.0-80.0); Platelet Count 240 K/mm3 (142-424); Red Cell Distribution Width 14.5 % (11.5-17.5); White Blood Count 5.3 K/mm3 (4.8-10.8)
[2022-06-17 20:43] LABS: Appearance,Urine CLEAR (Clear); Bilirubin,Urine Negative (Negative); Blood, Urine Negative (Negative); Glucose,Urine (UA) Negative (Negative); Ketones,Urine Negative (Negative); Leukocyte Esterase,Urine Negative (Negative); Nitrate,Urine Negative (Negative); Protein,Urine Negative (Negative); Specific Gravity, Urine >= 1.030 (1.005-1.030); Urobilinogen,Urine 0.2 EU/dl (0.2)
[2022-06-17 20:45] LABS: Color,Urine Dark Yellow (Yellow)
[2022-06-17 20:48] LABS: Chloride 105 mmol/L (98-107); Potassium 3.8 mmoL/L (3.5-5.1); Sodium 140 mmol/L (136-145)
--- NOTE | 2022-06-17 20:49 | PC.NURSE ---
pt going to scan at this time
[2022-06-17 20:50] LABS: Alanine Aminotransferase 41 U/L (12-78); Aspartate Amino Transferase 40 U/L (14-36); Blood Urea Nitrogen 22 mg/dl (7-17); Creatinine Clearance Estimated 90 mL/min (50-200); Estimated Glomerular Filt Rate 100 ml/min (>60); GFR (African American) 121 ML/MIN (>60)
[2022-06-17 20:51] LABS: Albumin/Globulin Ratio 1.4 (1.1-1.8); Alkaline Phosphatase 57 U/L (38-126); Anion Gap 9.8 mEq/L (5-15); Bilirubin,Total 0.4 mg/dl (0.2-1.3); Calcium 8.9 mg/dl (8.4-10.2); Carbon Dioxide 29 mmol/L (22.0-30.0); Globulin 2.8 g/dL (1.3-3.2); Glucose 99 mg/dl (74-100); Total Protein,Serum 6.8 g/dl (6.3-8.2)
[2022-06-17 21:27] LABS: WBC,Urine Occasional #/hpf (0-3)
--- NOTE | 2022-06-17 21:50 | HMH.EDBACK ---
Discharge Plan Disposition Patient Disposition: Home, Self-Care Condition: Fair Prescriptions Prescriptions: New prednisone [prednisone] 20 mg tablet 20 mg PO BID Qty: 10 0RF Referrals Follow up/Referrals: Filiberto Baumann [Primary Care Provider] - See instructions Clinical Impressions Clinical Impression: Flank pain, Sacro-iliac pain Instructions Patient Instructions: DI for Low Back Pain Discharge ED Provider: Moisés Pettit Back Pain HPI General Chief Complaint: Back Pain/Injury Stated Complaint: POSS KIDNEY INFECTION Time Seen by Provider: 06/17/22 19:59 Mode of Arrival: Ambulatory Source of Information: Patient Limitations: No Limitations Description of Symptoms (Recalled from ER Triage Doc. by RN): pt c/o right sided lower back pain since yesterday afternoon. Denies any injury. States the pain radiates into her right lower flank. Also c/o nausea. Denies any painful urination. History of Present Illness HPI Narrative: rt sided back pain - si jt area w/o trauma - no injury - no fever or rash MD Complaint: back pain Onset (ago): day(s) Duration: intermittent Similar Symptoms Previously: No Severity: moderate Associated symptoms: denies other symptoms Related Data Previous Rx's Medication Instructions Recorded prednisone 20 mg tablet 20 mg PO BID #10 tabs 06/17/22 Allergies Allergy/AdvReac Type Severity Reaction Status Date / Time nitrofurantoin Allergy Verified 06/17/22 20:00 [From Macrobid] Sulfa (Sulfonamide Allergy Verified 06/17/22 20:00 Antibiotics) [facility] Disclaimer: The information contained in this section may have been updated after the patient was seen, as this information can be updated by other users. Surgical History H/O dilation and curettage History of appendectomy Previous section Social History Smoking Status: Current every day smoker alcohol intake: never current occupational status: other Travel in the last 8 weeks: None ROS Obtained: Yes All systems reviewed & no additional complaints except as documented Constitutional Constitutional: Reports system reviewed and no additional complaints, except as documented Physical Exam General General appearance: alert and in no apparent distress Head Head exam: normocephalic Eye Eye exam: Present PERRL and EOMI ENT ENT exam: Present mucous membranes moist Neck Neck exam: Present trachea midline Respiratory Respiratory exam: Absent respiratory distress Cardiovascular Cardiovascular exam: Present regular rate Abdominal Exam Abdominal exam: Present soft Extremities Exam Extremities exam: Present normal inspection Back Exam Back exam: Present other (tender rt s/i jt area ); Absent CVA tenderness (R) Neurological Exam Neurological exam: Present alert, oriented X3 and CN II-XII intact; Absent motor sensory deficit Psychiatric Psychiatric exam: Present normal affect Skin Skin exam: Absent rash Medical Decision Making Medical Records Medical records reviewed: Yes I reviewed the patient's medical records. Gilberto Inquiry Pt receiving controlled substance: No Vital Signs: 06/17/22 19:50 06/17/22 20:26 Temperature 98.8 F 98 F Temperature Source Oral Oral Pulse Rate [Apical] 80 Respiratory Rate 19 18 Blood Pressure [Right Arm] 113/74 117/65 Blood Pressure Mean [Right Arm] 87 82 Blood Pressure Source [Right Arm] Automatic Cuff Automatic Cuff Blood Pressure Position [Right Arm] Sitting Sitting 02 Sat by Pulse Oximetry 99 98 Oxygen Delivery Method Room Air Room Air Lab Data Lab results reviewed: Yes I reviewed the patient's lab results. Lab Results 06/17/22 20:01: Urine Color Dark yellow, Urine Appearance Clear, Urine pH 6.0, Ur Specific [place] 1.030, Urine Protein 3+, Urine Glucose (UA) Negative, Urine Ketones Negative, Urine Blood Negative, Urine Nitrate Negative
[2022-06-17 22:06] VITALS: BP 117/62; PULSE 78; RESP 18; TEMP 36.6; O2SAT 99
== END 2022-06-17 22:14 | disposition home or self-care (01) ==
LOC: UTC 19:22 → ER 20:17
PROVIDERS: Nurse Practitioner Family; Emergency Provider Emergency Medicine; PCP Pediatrics
DX: R10.9 Unspecified abdominal pain (principal); M54.50 Low back pain, unspecified; R11.0 Nausea; F17.210 Nicotine dependence, cigarettes, uncomplicated; Z87.59 Personal history of other complications of pregnancy, childbirth and the puerperium; Z90.89 Acquired absence of other organs
CPT/HCPCS: 74176; 80053; 81001; 81003; 85025; 87086; 87088; 87186; 96361; 96374; 96375; 99285; J2405

== ENCOUNTER 2022-07-11 08:00 | Emergency (ER) | payer MEDICAID, SELFPAY ==
[2022-07-11 08:15] VITALS: BP 127/55; PULSE 88; RESP 20; TEMP 37; O2SAT 97; BMI 52.5
--- NOTE | 2022-07-11 08:35 | EXP.UTC ---
Discharge Plan Disposition Patient Disposition: Home, Self-Care Condition: Good Prescriptions Prescriptions: New azithromycin [Zithromax] 250 mg tablet 250 mg PO UD DOSE PK Qty: 6 0RF Rx Instructions: Take two (2) tablets today, then one (1) tablet days #2 thru #5 guaifenesin [Mucinex] 600 mg tablet extended release 12hr 600 - 1,200 mg PO BIDP PRN (Reason: Congestion) Qty: 30 0RF benzonatate [benzonatate] 100 mg capsule 100 mg PO TIDP PRN (Reason: Cough) Qty: 30 0RF methylprednisolone 4 mg Tablets,Dose Pack 4 mg PO DIRECTED Qty: 21 0RF Referrals Follow up/Referrals: Filiberto Baumann [Primary Care Provider] - See instructions Activity Restrictions/Add. Instructions Additional Instructions/Restrictions: Drink plenty of fluids. Take tylenol or ibuprofen for pain or fever. Take the medications as directed. Follow up with your regular doctor. GO TO THE ER FOR ANY WORSENING SYMPTOMS Clinical Impressions Clinical Impression: Acute bronchitis Stand Alone Forms Stand Alone Forms: Work/School Release Instructions Patient Instructions: Acute Bronchitis, DI for Acute Bronchitis Discharge ED Provider: Marshall Meyer [facility] General Stated complaint: cough soa congestion Time Seen by Provider: 07/11/22 08:34 History of Present Illness Provider Complaint: She states that for the past 4 days she has had sinus and chest congestion. Related Data Previous Rx's Medication Instructions Recorded azithromycin 250 mg tablet 250 mg PO UD DOSE PK #6 tabs 07/11/22 (Zithromax) benzonatate 100 mg capsule 100 mg PO TIDP PRN Cough #30 caps 07/11/22 guaifenesin 600 mg tablet, 600 - 1,200 mg PO BIDP PRN 07/11/22 extended release 12 hr (Mucinex) Congestion #30 tabs methylprednisolone 4 mg tablets in 4 mg PO DIRECTED #21 tabs 07/11/22 a dose pack Allergies Allergy/AdvReac Type Severity Reaction Status Date / Time nitrofurantoin Allergy Verified 07/11/22 08:39 [From Macrobid] Sulfa (Sulfonamide Allergy Verified 07/11/22 08:39 Antibiotics) [facility] Disclaimer: The information contained in this section may have been updated after the patient was seen, as this information can be updated by other users. Surgical History H/O dilation and curettage History of appendectomy Previous section Social History Smoking Status: Current every day smoker alcohol intake: never current occupational status: other Travel in the last 8 weeks: None ROS Obtained: Yes All systems reviewed & no additional complaints except as documented Constitutional Constitutional: Reports chills and Denies fever(s) Eyes Eyes: Denies eye discharge ENT Ears, Nose, Mouth, and Throat: Reports as per HPI Cardiovascular Cardiovascular: Denies chest pain Respiratory Respiratory: Denies chest congestion and Reports cough Gastrointestinal Gastrointestingal: Reports nausea; Denies abdominal pain, constipation, cramping, diarrhea or vomiting Musculoskeletal Musculoskeletal: Denies arthralgias Integumentary/Breasts Skin/Breast: Denies rash Neurologic Neurologic: Denies paresthesias Physical Exam General General appearance: alert and in no apparent distress Head Head exam: atraumatic, normocephalic and normal inspection Eye Eye exam: Present normal appearance, PERRL and EOMI ENT ENT exam: Present normal exam, normal oropharynx, mucous membranes moist, TM's normal bilaterally and normal external ear exam Neck Neck exam: Present normal inspection, full ROM and trachea midline; Absent meningismus or lymphadenopathy Chest Chest inspection: Present normal inspection and symmetric chest wall rise; Absent tenderness Respiratory Respiratory exam: Present normal lung sounds bilaterally; Absent respiratory distress Cardiovascular Cardiovascular exam: Present regular rate and normal
[2022-07-11 09:24] VITALS: BP 127/55; PULSE 88; RESP 20; TEMP 37; O2SAT 97
== END 2022-07-11 09:24 | disposition home or self-care (01) ==
PROVIDERS: Emergency Provider Nurse Practitioner Family; PCP Pediatrics
DX: J20.9 Acute bronchitis, unspecified (principal)
CPT/HCPCS: 99212; 99213; G0463

== ENCOUNTER 2022-08-29 07:22 | Emergency (ER) | payer MEDICAID, SELFPAY ==
[2022-08-29 07:23] VITALS: BP 152/97; PULSE 82; RESP 18; TEMP 36.7; O2SAT 100; BMI 52.0
--- NOTE | 2022-08-29 07:38 | CT_ITS ---
FINAL REPORT TECHNIQUE: Axial images through the abdomen and pelvis were performed without contrast. This study was performed with techniques to keep radiation doses as low as reasonably achievable, (ALARA). Individualized dose reduction techniques using automated exposure control or adjustment of mA and/or kV according to the patient's size were employed. CLINICAL HISTORY: left flank pain COMPARISON: 06/17/2022 FINDINGS: ABDOMEN: The lung bases are clear. The heart size is normal. There is moderate fatty infiltration of the liver. The gallbladder is present. The spleen is normal. No adrenal mass is identified. The aorta is normal in caliber. There is no significant free fluid or adenopathy. There is moderate left hydronephrosis. There are small bilateral nonobstructing kidney stones. There is a stone in the left UPJ measuring 5 mm. This is new since the prior. PELVIS: The appendix is not identified. The urinary bladder is contracted. There is no significant free fluid or adenopathy. IMPRESSION: Moderate left hydronephrosis secondary to an obstructing UPJ stone. Bilateral nephrolithiasis. Reviewed, Interpreted and Dictated by Kumar Sears MD Transcribed by Christine Chun Authenticated and [facility]
[2022-08-29 07:39] LABS: Microscopic, Urine URINE MICROSCOPIC (MICROSCOPIC)
[2022-08-29 07:40] LABS: Appearance,Urine CLOUDY (Clear); Blood, Urine 3+ (Negative); Color,Urine YELLOW (Yellow); Glucose,Urine (UA) Negative (Negative); Ketones,Urine Negative (Negative); Leukocyte Esterase,Urine Negative (Negative); Nitrate,Urine Negative (Negative); PH,Urine 5.5 (5.0-8.5); Protein,Urine 1+ (Negative); Specific Gravity, Urine >= 1.030 (1.005-1.030); Urobilinogen,Urine 0.2 EU/dl (0.2)
[2022-08-29 07:43] LABS: Bilirubin,Urine 1+ (Negative); Urine Pregnancy, HCG Qual. Negative (Negative)
--- NOTE | 2022-08-29 07:44 | HMH.EDGENADL ---
Discharge Plan Disposition Patient Disposition: Home, Self-Care Condition: Good Prescriptions Prescriptions: New oxycodone-acetaminophen [Percocet] 5-325 mg tablet 1 tab PO Q6H PRN (Reason: pain) Qty: 14 0RF tamsulosin [Flomax] 0.4 mg capsule 0.4 mg PO HS Qty: 10 0RF ondansetron 4 mg tablet,disintegrating 4 mg PO Q8H PRN (Reason: nausea and vomiting) Qty: 10 0RF ketorolac 10 mg tablet 10 mg PO Q6H PRN (Reason: pain) 3 Days Qty: 10 0RF No Action azithromycin [Zithromax] 250 mg tablet 250 mg PO UD DOSE PK Qty: 6 0RF Rx Instructions: Take two (2) tablets today, then one (1) tablet days #2 thru #5 guaifenesin [Mucinex] 600 mg tablet extended release 12hr 600 - 1,200 mg PO BIDP PRN (Reason: Congestion) Qty: 30 0RF benzonatate [benzonatate] 100 mg capsule 100 mg PO TIDP PRN (Reason: Cough) Qty: 30 0RF methylprednisolone 4 mg Tablets,Dose Pack 4 mg PO DIRECTED Qty: 21 0RF Referrals Follow up/Referrals: Filiberto Baumann [Primary Care Provider] - See instructions Jonathan Buitrago MD [Referring] - See instructions Activity Restrictions/Add. Instructions Additional Instructions/Restrictions: Flomax as prescribed. Toradol and Percocet as needed for pain. Zofran as needed for nausea. Additional instructions for KIDNEY STONE (URETERAL CALCULUS): See your primary care provider or Dr. Buitrago (urology) as soon as possible for further evaluation. Drink plenty of fluids. Strain your urine and save any stones you catch. Return immediately if you develop a fever or have uncontrollable vomiting or uncontrollable pain. Additional instructions for CONTROLLED SUBSTANCES: You have been prescribed a medication that is a controlled substance. Controlled substances include pain medications known as opiates and sedative nerve medications known as benzodiazepines. Tramadol, fioricet, and gabapentin are also controlled substances. Some common opiates include: Codeine (such as Tylenol #3) Hydrocodone (Vicodin, Lortab, Lorcet, [place]) Oxycodone (Percocet, Percodan, Oxycodone, Oxy IR) Some common benzodiazepines include: Diazepam (Valium) Lorazepam (Ativan) Alprazolam (Xanax) Clonazepam (Klonopin) Oxazepam (Serax) All of these controlled substances are highly addictive and frequently abused. Misuse can and frequently does lead to addiction as well as overdose and . Medication should be stored in a locked cabinet or other secure storage unit. Do not store the medication in a motor vehicle. Short term supplies, 3 days or less, are prescribed because of the highly addictive nature of the medication. Any of the controlled substance medication NOT taken should be disposed of properly and NOT SAVED. The recommended method of disposing of unused medications is: Place the medicines in a sealable plastic bag. If the medicine is a solid, crush it or add water to dissolve it. Add something undesirable (cat litter, coffee grounds, etc.) Dispose of sealed bag in household trash Do not flush or pour unused medicines down a sink or drain. Controlled substances should not be shared, given away or sold. Because of the addictive nature and frequent abuse, these medications are sometimes stolen. These medications should be kept in a safe place where they cannot be stolen. Do not keep them in your car or purse. Lost or stolen prescriptions for controlled substances WILL NOT BE REFILLED in this emergency department, regardless of whether a police report was filed. Clinical Impressions Clinical Impression: Left ureteral calculus Stand Alone Forms Stand Alone Forms: Work/School Release Instructions Patient Instructions: DI for Kidney Stones Discharge ED Provider: Herson Conrad General Adult HPI <Tyler Dillard MD - Last Filed: 08/29/22 07:46> General Chief complaint: Abdominal Pain Stated complaint: left side to back pain Time Seen by Provider: 08/29/22 07:30 History
[2022-08-29 07:49] LABS: Basophils # 0.1 K/mm3 (0-0.2); Basophils % 1.5 % (0.1-2.0); Eosinophils # 0.1 K/mm3 (0.0-0.4); Eosinophils % 3.2 % (0.1-12.0); Hematocrit 41.3 % (37.0-47.0); Hemoglobin 13.7 g/dL (12.2-16.2); Lymphocytes # 1.3 K/mm3 (0.7-4.5); Lymphocytes % 34.1 % (10-50); Mean Corpuscular HGB Conc 33.3 g/dL (31.8-35.4); Mean Corpuscular Hemoglobin 27.5 pg (27.0-31.2); Mean Corpuscular Volume 82.8 fl (81-99); Monocytes # 0.2 K/mm3 (0.1-1.0); Monocytes % 4.2 % (1.7-9.3); Neutrophils # 2.2 K/mm3 (1.8-7.8); Platelet Count 207 K/mm3 (142-424); Red Blood Count 4.99 M/mm3 (4.20-5.40); Red Cell Distribution Width 14.4 % (11.5-17.5); White Blood Count 3.9 K/mm3 (4.8-10.8)
--- NOTE | 2022-08-29 07:53 | PC.NURSE ---
Assumed pt care. Pt complains of pain/nausea. Pt just received medications. Will continue to observe for relief.
[2022-08-29 07:55] LABS: Alanine Aminotransferase 35 U/L (12-78); Albumin/Globulin Ratio 1.5 (1.1-1.8); Alkaline Phosphatase 49 U/L (38-126); Aspartate Amino Transferase 35 U/L (14-36); Bilirubin,Total 0.5 mg/dl (0.2-1.3); Blood Urea Nitrogen 15 mg/dl (7-17); Calcium 8.3 mg/dl (8.4-10.2); Carbon Dioxide 24 mmol/L (22.0-30.0); Chloride 106 mmol/L (98-107); Creatinine Clearance Estimated 90 mL/min (50-200); Estimated Glomerular Filt Rate 100 ml/min (>60); GFR (African American) 121 ML/MIN (>60); Globulin 2.6 g/dL (1.3-3.2); Glucose 99 mg/dl (74-100); Sodium 139 mmol/L (136-145); Total Protein,Serum 6.6 g/dl (6.3-8.2)
[2022-08-29 08:01] LABS: Anion Gap 12.9 mEq/L (5-15); Potassium 3.9 mmoL/L (3.5-5.1)
[2022-08-29 08:09] LABS: Bacteria,Urine 4+ /lpf; RBC,Urine 50-100 #/hpf (0-3); WBC,Urine Occasional #/hpf (0-3)
[2022-08-29 08:24] LABS: Lipase 64 U/L (23-300)
[2022-08-29 08:30] VITALS: BP 130/77; PULSE 83; O2SAT 99
[2022-08-29 09:00] VITALS: BP 125/74; PULSE 54; O2SAT 100
[2022-08-29 09:30] VITALS: BP 139/83; PULSE 62; O2SAT 100
--- NOTE | 2022-08-29 09:54 | PC.NURSE ---
Updated patient on awaiting results. Pt verbalizes increased pain. MD notified.
--- NOTE | 2022-08-29 09:56 | PC.NURSE ---
Per MELISSA RIVERO Dilaudid 1mg IV once.
--- NOTE | 2022-08-29 09:58 | PC.NURSE ---
pt resting in bed, told nurse she said her pain meds worked for few and she was hurting again.
[2022-08-29 10:00] VITALS: BP 142/90; PULSE 88; O2SAT 97
[2022-08-29 10:56] VITALS: BP 142/90; PULSE 88; RESP 16; TEMP 36.7; O2SAT 97
--- NOTE | 2022-08-31 14:56 | PC.NURSE ---
pt called ER today stating that she had seen her urine culture results on her patient portal and was concerned. Spoke with ER MD that is on shift today who gave verbal order for levaquin, called into [facility]. Educated pt to follow up with urology, states she was given information to follow up with dr. raphael. encouraged pt to get reseen in an ER if symptoms worsen
== END 2022-08-29 10:58 | disposition home or self-care (01) ==
PROVIDERS: Emergency Medicine; Emergency Provider Emergency Medicine; PCP Pediatrics
DX: N13.0 Hydronephrosis with ureteropelvic junction obstruction (principal); R10.32 Left lower quadrant pain; M54.59 Other low back pain
CPT/HCPCS: 74176; 80053; 81001; 81025; 83690; 85025; 87086; 87088; 87186; 96374; 96375; 99285; J2405

== ENCOUNTER 2022-09-17 16:07 | Emergency (ER) | payer MEDICAID, SELFPAY ==
[2022-09-17 16:20] VITALS: BP 138/88; PULSE 96; RESP 19; TEMP 36.8; O2SAT 100; BMI 49.2
[2022-09-17 16:28] LABS: Apearance,Urine Clear (Clear); Bilirubin,Urine Negative (Negative); Blood, Urine Negative (Negative); Color,Urine Dark Yellow (Yellow); Glucose,Urine (UA) Negative (Negative); Ketones,Urine Negative (Negative); PH,Urine 5.5 (5.0-8.5); Protein,Urine Negative (Negative); UTC Leukocyte Esterase,Urine Negative (Negative); UTC Nitrate,Urine Negative (Negative); Urobilinogen,Urine 0.2 EU/dl (0.2)
--- NOTE | 2022-09-17 17:00 | EXP.UTC ---
Discharge Plan Disposition Patient Disposition: Home, Self-Care Condition: Good Prescriptions Prescriptions: No Action tamsulosin [Flomax] 0.4 mg capsule 0.4 mg PO HS ondansetron 4 mg tablet,disintegrating 4 mg PO Q8H PRN (Reason: nausea and vomiting) Qty: 10 0RF Referrals Follow up/Referrals: Filiberto Baumann [Primary Care Provider] - See instructions Activity Restrictions/Add. Instructions Additional Instructions/Restrictions: Keep appointment with Urology as scheduled Straight to ER if any fever, chills, body aches or difficulty urinating Return if needed Clinical Impressions Clinical Impression: UTI symptoms Instructions Patient Instructions: DI for Kidney Stones, Kidney Stones -- Adult Discharge ED Provider: Eunice Albrecht [facility] [place] General Stated complaint: nausea, weak, back pain Mode of Arrival: Ambulatory Source of Information: Patient Limitations: No Limitations Time Seen by Provider: 09/17/22 17:00 Description of Symptoms (Recalled from Triage Doc. by RN): lower back pain, pressure when urination, nausea, stomach ache, weakness, fatigue HEENT Symptoms (Recalled from RN notes): Yes Resp Symptoms (Recalled from RN notes): No Skin Symptoms (Recalled from RN notes): No MS Symptoms (Recalled from RN notes): No Functional Status (Recalled from RN notes): n/a History of Present Illness Provider Complaint: Patient states that she was seen in the ED the end of August and was told that she had a kidney stone States she had been having back pain, weakness, nausea pain and pressure with urination but that is better States that a few days ago she did pass a stone and she got it out of the toilet and saved it to take to urology with her for her appointment on Friday but today she was feeling a little achy again in her back and feeling a little irritated down there when she urinated and was worried that she may have a UTI and wanted to get her urine checked for it Denies fever, denies abdominal pain denies chills and denies difficulty urinating States that she has been urinating ok Related Data Home Medications Medication Instructions Recorded Confirmed tamsulosin 0.4 mg capsule (Flomax) 0.4 mg PO HS . 09/17/22 09/17/22 Previous Rx's Medication Instructions Recorded ondansetron 4 mg disintegrating 4 mg PO Q8H PRN nausea and 08/29/22 tablet vomiting #10 tabs Allergies Allergy/AdvReac Type Severity Reaction Status Date / Time nitrofurantoin Allergy Verified 09/17/22 16:31 [From Macrobid] Sulfa (Sulfonamide Allergy Verified 09/17/22 16:31 Antibiotics) Worker's Comp Is this a Worker's Comp case?: No [facility] Disclaimer: The information contained in this section may have been updated after the patient was seen, as this information can be updated by other users. Surgical History H/O dilation and curettage History of appendectomy Previous section Social History Smoking Status: Current every day smoker alcohol intake: never current occupational status: other Travel in the last 8 weeks: None ROS Obtained: Yes All systems reviewed & no additional complaints except as documented and Yes Systems reviewed as appropriate & no additional complaints except as documented Constitutional Constitutional: Reports system reviewed and no additional complaints, except as documented, Reports as per HPI, Denies body ache, Denies chills and Denies fever(s) ENT Ears, Nose, Mouth, and Throat: Reports system reviewed and no additional complaints, except as documented and Reports as per HPI Cardiovascular Cardiovascular: Reports system reviewed and no additional complaints, except as documented and Reports as per HPI Respiratory Respiratory: Reports system reviewed and no additional complaints, except as documented and Reports as per HPI Gastrointestinal Gastrointestingal: R
[2022-09-17 17:22] VITALS: BP 136/88; PULSE 96; RESP 20; TEMP 36.8; O2SAT 100
== END 2022-09-17 17:20 | disposition home or self-care (01) ==
PROVIDERS: Emergency Provider Nurse Practitioner; PCP Pediatrics
DX: M54.59 Other low back pain (principal); R30.0 Dysuria; F17.210 Nicotine dependence, cigarettes, uncomplicated; Z87.442 Personal history of urinary calculi
CPT/HCPCS: 81003; 99212; 99214; G0463

== ENCOUNTER 2022-12-13 11:46 | Emergency (ER) | payer MEDICAID, SELFPAY ==
--- NOTE | 2022-12-13 11:54 | XR_ITS ---
FINAL REPORT CLINICAL HISTORY: PAIN. heard a pop FINDINGS: Right wrist Three views were obtained. There is no acute fracture or dislocation. The joint spaces appear normal. No soft tissue abnormality is identified. IMPRESSION: No acute process. Reviewed, Interpreted and Dictated by Dg Ashford III, MD Transcribed by Christine Chun Authenticated and [facility]
--- NOTE | 2022-12-13 11:54 | XR_ITS ---
FINAL REPORT CLINICAL HISTORY: PAIN. heard a pop FINDINGS: Right hand Three views were obtained. There is no acute fracture or dislocation. The joint spaces appear normal. No soft tissue abnormality is identified. IMPRESSION: No acute process. Reviewed, Interpreted and Dictated by Dg Ashford III, MD Transcribed by Christine Chun Authenticated and . [facility]
[2022-12-13 11:55] VITALS: BP 116/46; PULSE 78; RESP 18; TEMP 37; O2SAT 97; BMI 50.4
--- NOTE | 2022-12-13 12:20 | EXP.UTC ---
Discharge Plan Disposition Patient Disposition: Home, Self-Care Condition: Good Referrals Follow up/Referrals: Fernie Sena DO [Staff Physician] - See instructions (Call office for appointment) Provider,Referral, [Primary Care Provider] - See instructions Activity Restrictions/Add. Instructions Additional Instructions/Restrictions: *RICE, Rest the extremity, Ice 15-20 minutes 3-4 times daily, Compress- wear the jamie wrap as discussed as much as possible to help reduce swelling and pain, Elevate the extremity when at rest *Jamie wrap is for support and help control swelling, use it except in the shower. Be sure that is not to tight but not to loose either *Elevate when resting? *Ibuprofen 600-800mg every 6-8 hours as needed for pain an inflammation. If need something more can take Tylenol in between doses of Ibuprofen to help Immediately follow up with your family doctor for new or worsening of symptoms, or no noticeable improvement over the next 3-5 days Clinical Impressions Clinical Impression: Pain in wrist Qualifiers: Laterality: right Qualified Code(s): M25.531 - Pain in right wrist Stand Alone Forms Stand Alone Forms: Work/School Release Instructions Patient Instructions: How To Perform RICE (Rest, Ice, Compress, Elevate), DI for Wrist Pain, Ibuprofen Discharge ED Provider: Eunice Albrecht [facility] General Stated complaint: pain in Rt wrist, no accident Mode of Arrival: Ambulatory Source of Information: Patient Limitations: No Limitations Time Seen by Provider: 12/13/22 12:21 Description of Symptoms (Recalled from Triage Doc. by RN): PATIENT C/O RIGHT HAND AND WRIST PAIN THAT STARTED AROUND THE BEGINNING OF NOVEMBER. NO KNOWN INJURY. SHE STATES TODAY SHE PICKED UP A CLIPBOARD AT WORK AND FELT A POP IN HER RIGHT WRIST HEENT Symptoms (Recalled from RN notes): No Resp Symptoms (Recalled from RN notes): No Skin Symptoms (Recalled from RN notes): No MS Symptoms (Recalled from RN notes): Yes Functional Status (Recalled from RN notes): WNL History of Present Illness Provider Complaint: Patient states that she has been having pain in her right wrist/hand since around the first november States that pain occurs when she bends her wrist, lifting something heavy or certain ways she moves her hand States that the pain will go from her fingers into wrist/forearm area Denies known injury but earlier today she was picking up her clip board and felt a pop Related Data Allergies Allergy/AdvReac Type Severity Reaction Status Date / Time nitrofurantoin Allergy Verified 09/17/22 16:31 [From Macrobid] Sulfa (Sulfonamide Allergy Verified 09/17/22 16:31 Antibiotics) Worker's Comp Is this a Worker's Comp case?: No [facility] Disclaimer: The information contained in this section may have been updated after the patient was seen, as this information can be updated by other users. Medical History (Updated 12/13/22 @ 12:54 by Eunice Albrecht APRN) Anxiety Asthma Depression History of gastroesophageal reflux (GERD) Kidney stone Migraine Urinary tract infection Surgical History (Updated 12/13/22 @ 12:02 by Wendy Zavala RN) H/O dilation and curettage History of appendectomy History of tubal ligation Previous section Social History Smoking Status: Current every day smoker alcohol intake: never current occupational status: other Travel in the last 8 weeks: None ROS Obtained: Yes All systems reviewed & no additional complaints except as documented and Yes Systems reviewed as appropriate & no additional complaints except as documented Constitutional Constitutional: Reports system reviewed and no additional complaints, except as documented and Reports as per HPI ENT Ears, Nose, Mouth, and Throat: Reports system reviewed and no additional complaints, except as documented and Reports as per HPI Cardiovascular Cardiovascular: Rep
[2022-12-13 13:17] VITALS: BP 116/46; PULSE 78; RESP 18; TEMP 37; O2SAT 97
== END 2022-12-13 13:20 | disposition home or self-care (01) ==
PROVIDERS: Emergency Provider Nurse Practitioner
DX: M25.531 Pain in right wrist (principal); F17.210 Nicotine dependence, cigarettes, uncomplicated; J45.909 Unspecified asthma, uncomplicated; F41.9 Anxiety disorder, unspecified; F32.A Depression, unspecified
CPT/HCPCS: 73110; 73130; 99212; 99214; G0463

== ENCOUNTER 2023-02-07 22:06 | Emergency (ER) | payer MEDICAID, SELFPAY ==
[2023-02-07 22:07] VITALS: BP 106/59; PULSE 103; RESP 18; TEMP 37; O2SAT 99; BMI 47.0
[2023-02-07 22:33] LABS: Microscopic, Urine URINE MICROSCOPIC (MICROSCOPIC)
[2023-02-07 22:46] LABS: Urine Pregnancy, HCG Qual. Negative (Negative)
[2023-02-07 22:51] LABS: Basophils % 0.3 % (0.1-2.0); Chloride 106 mmol/L (98-107); Eosinophils # 0.1 K/mm3 (0.0-0.4); Eosinophils % 0.7 % (0.1-12.0); Hematocrit 41.6 % (37.0-47.0); Hemoglobin 14.1 g/dL (12.2-16.2); Lymphocytes # 1.2 K/mm3 (0.7-4.5); Lymphocytes % 13.1 % (10-50); Mean Corpuscular HGB Conc 33.9 g/dL (31.8-35.4); Mean Corpuscular Hemoglobin 29.2 pg (27.0-31.2); Mean Corpuscular Volume 86.3 fl (81-99); Mean Platelet Volume 8.2 fl (7.4-10.4); Monocytes # 0.5 K/mm3 (0.1-1.0); Monocytes % 5.2 % (1.7-9.3); Neutrophils # 7.3 K/mm3 (1.8-7.8); Neutrophils % 80.7 % (37.0-80.0); Platelet Count 181 K/mm3 (142-424); Potassium 3.5 mmoL/L (3.5-5.1); Red Blood Count 4.82 M/mm3 (4.20-5.40); Red Cell Distribution Width 14.1 % (11.5-17.5); White Blood Count 9.1 K/mm3 (4.8-10.8)
[2023-02-07 22:52] LABS: Sodium 140 mmol/L (136-145)
[2023-02-07 22:54] LABS: Alanine Aminotransferase 61 U/L (12-78); Albumin Level 3.7 g/dl (3.5-5.0); Albumin/Globulin Ratio 1.5 (1.1-1.8); Alkaline Phosphatase 48 U/L (38-126); Anion Gap 12.5 mEq/L (5-15); Aspartate Amino Transferase 43 U/L (14-36); Bilirubin,Total 0.6 mg/dl (0.2-1.3); Blood Urea Nitrogen 14 mg/dl (7-17); Calcium 9.1 mg/dl (8.4-10.2); Carbon Dioxide 25 mmol/L (22.0-30.0); Creatinine Clearance Estimated 70 mL/min (50-200); Estimated Glomerular Filt Rate 74 ml/min (>60); GFR (African American) 90 ML/MIN (>60); Globulin 2.5 g/dL (1.3-3.2); Glucose 108 mg/dl (74-100); Total Protein,Serum 6.2 g/dl (6.3-8.2)
[2023-02-07 23:02] LABS: Appearance,Urine Cloudy (Clear); Blood, Urine 2+ (Negative); Color,Urine Yellow (Yellow); Glucose,Urine (UA) Negative (Negative); Ketones,Urine Negative (Negative); PH,Urine 7.5 (5.0-8.5); Protein,Urine 1+ (Negative)
[2023-02-07 23:03] LABS: Bacteria,Urine 1+ /lpf; Bilirubin,Urine Negative (Negative); Leukocyte Esterase,Urine 2+ (Negative); Nitrate,Urine Negative (Negative); Squamous Epithelial Cell,Urine 50-100 #/hpf (0-5); Urobilinogen,Urine 0.2 EU/dl (0.2); WBC,Urine TNTC #/hpf (0-3)
--- NOTE | 2023-02-07 23:13 | HMH.EDGENADL ---
Discharge Plan Disposition Patient Disposition: Home, Self-Care Condition: Good Prescriptions Prescriptions: New cefadroxil 1 gram tablet 1,000 mg PO DAILY 10 Days Qty: 10 0RF ondansetron HCl 4 mg tablet 4 mg PO Q8H PRN (Reason: nausea and vomiting) 5 Days Qty: 30 0RF Referrals Follow up/Referrals: Provider,Referral, [Primary Care Provider] - See instructions Activity Restrictions/Add. Instructions Additional Instructions/Restrictions: Please follow-up with your primary care provider. Please return to the emergency department if you develop any new or worsening symptoms or become concerned for your health. Please take antibiotics as prescribed for kidney infection. Please take Zofran as needed for nausea and vomiting. Clinical Impressions Clinical Impression: Pyelonephritis Instructions Patient Instructions: DI for Acute Abdominal Pain Discharge ED Provider: Nick Mccray Adult HPI General Chief complaint: Abdominal Pain Stated complaint: back pain, abd/pelvic pain Time Seen by Provider: 02/07/23 23:00 Mode of Arrival: Family Vehicle Source of Information: Patient Limitations: No Limitations Description of Symptoms (Recalled from ER Triage Doc. by RN): Pt stated that she has has bilateral flank pain on and off for the last 2 weeks. Last night the pain got worse. She is stated that she has pressure like she needs to urinate and just does little at a time. She stated that she has pelvic pain. She was seen in the [facility] earlier to day and was told to come back if pain got worse. She rates her pain a 4. History of Present Illness HPI narrative: 28-year-old female history of prior urinary tract infections, pyelonephritis and kidney stones in addition to obesity presents with nausea and predominantly right-sided flank pain for the last week or so. Pain is sometimes on the left side as well. Reports that her last kidney stone was in December. She denies fevers at home. Last menstrual period was approximate 2 weeks ago. Related Data Previous Rx's Medication Instructions Recorded cefadroxil 1 gram tablet 1,000 mg PO DAILY 10 days #10 tabs 02/08/23 ondansetron HCl 4 mg tablet 4 mg PO Q8H PRN nausea and 02/08/23 vomiting 5 days #30 tabs Allergies Allergy/AdvReac Type Severity Reaction Status Date / Time nitrofurantoin Allergy Verified 02/07/23 22:24 [From Macrobid] Sulfa (Sulfonamide Allergy Verified 02/07/23 22:24 Antibiotics) [facility] Disclaimer: The information contained in this section may have been updated after the patient was seen, as this information can be updated by other users. Medical History (Updated 02/08/23 @ 00:40 by Nick Mccray MD) Anxiety Asthma Depression History of gastroesophageal reflux (GERD) Kidney stone Migraine Urinary tract infection Surgical History H/O dilation and curettage History of appendectomy History of tubal ligation Previous section Social History Smoking Status: Current every day smoker alcohol intake: never current occupational status: other Travel in the last 8 weeks: None ROS Obtained: Yes All systems reviewed & no additional complaints except as documented Physical Exam General General appearance: alert, in no apparent distress and obese Head Head exam: atraumatic and normocephalic Eye Eye exam: Present normal appearance, PERRL and EOMI ENT ENT exam: Present normal oropharynx and normal external ear exam Neck Neck exam: Present normal inspection and full ROM Chest Chest inspection: Present normal inspection and symmetric chest wall rise; Absent tenderness Respiratory Respiratory exam: Present normal lung sounds bilaterally; Absent respiratory distress Cardiovascular Cardiovascular exam: Present regular rate and normal rhythm Abdominal Exam Abdominal exam: Present soft and tenderness
--- NOTE | 2023-02-07 23:19 | CT_ITS ---
PROCEDURE INFORMATION: Exam: CT Abdomen And Pelvis With Contrast Exam date and time: 02/07/2023 11:41 PM Age: 28 years old Clinical indication: Abdominal pain; Additional info: UTI flank/abd pain HX stones TECHNIQUE: Imaging protocol: Computed tomography of the abdomen and pelvis with contrast. Radiation optimization: All CT scans at this facility use at least one of these dose optimization techniques: automated exposure control; mA and/or kV adjustment per patient size (includes targeted exams where dose is matched to clinical indication); or iterative reconstruction. Contrast material: ISOVUE; Contrast volume: 75 ml; Contrast route: IV; REPORTING DATA: Count of CT and Cardiac NM exams in prior 12 months: This patient has received 2 known CTs and 0 known cardiac nuclear medicine studies in the 12 months prior to the current study. COMPARISON: CT ABDOMEN PELVIS WO CON 08/29/2022 7:57 AM FINDINGS: Liver: Diffuse decreased attenuation within the liver compatible with hepatic steatosis. Gallbladder and bile ducts: Contracted gallbladder. No biliary ductal dilatation. Pancreas: Fatty infiltrative changes of the pancreatic head. Spleen: Normal. No splenomegaly. Adrenal glands: Normal. No mass. Kidneys and ureters: Few punctate nonobstructing nephrolith within the bilateral kidneys inferior poles. Stomach and bowel: Unremarkable. No obstruction. No mucosal thickening. Appendix: Postsurgical changes of appendectomy. Intraperitoneal space: Unremarkable. No free air. No significant fluid collection. Vasculature: Unremarkable. No abdominal aortic aneurysm. Lymph nodes: Unremarkable. No enlarged lymph nodes. Urinary bladder: Mild perivesicular fat stranding. Reproductive: Unremarkable as visualized. Bones/joints: No acute osseous findings. Soft tissues: Chronic fat stranding in the region of the umbilicus. IMPRESSION: 1. Bilateral punctate nonobstructing nephrolithiasis. 2. Mild perivesicular fat stranding which may be seen with cystitis.
[2023-02-08] VITALS: BP 111/70; PULSE 58; RESP 20; O2SAT 98
[2023-02-08 00:30] VITALS: BP 106/61; PULSE 56; RESP 20; O2SAT 96
--- NOTE | 2023-02-08 00:35 | PC.NURSE ---
Rounded on pt stated she is fine and didn't need anything
[2023-02-08 00:47] VITALS: BP 106/61; PULSE 70; RESP 18; TEMP 36.7; O2SAT 95
== END 2023-02-08 00:48 | disposition home or self-care (01) ==
PROVIDERS: Emergency Medicine; Emergency Provider Emergency Medicine
DX: N12 Tubulo-interstitial nephritis, not specified as acute or chronic (principal); F41.9 Anxiety disorder, unspecified; J45.909 Unspecified asthma, uncomplicated; F32.A Depression, unspecified; F17.200 Nicotine dependence, unspecified, uncomplicated
CPT/HCPCS: 74177; 80053; 81001; 81025; 85025; 87040; 87086; 96361; 96365; 96375; 99285; J0696; J2405; Q9967

== ENCOUNTER 2023-04-14 14:03 | Emergency (ER) | payer MEDICAID, SELFPAY ==
[2023-04-14 14:40] VITALS: BP 138/86; PULSE 99; RESP 19; TEMP 37; O2SAT 98; BMI 42.3
--- NOTE | 2023-04-14 15:32 | EXP.UTC ---
Discharge Plan Disposition Patient Disposition: Home, Self-Care Condition: Good Prescriptions Prescriptions: New hydrocortisone acetate [Proctocort] 30 mg suppository 30 mg [place] BID PRN (Reason: hemorrhoids) Qty: 12 0RF ondansetron 4 mg tablet,disintegrating 4 mg PO Q8H PRN (Reason: nausea and vomiting) Qty: 10 0RF Referrals Follow up/Referrals: Provider,Referral, MD [Primary Care Provider] - See instructions Activity Restrictions/Add. Instructions Additional Instructions/Restrictions: Increase fiber Sitz baths Try not to strain Follow up with your Family Doctor Return if needed Clinical Impressions Clinical Impression: Nausea Hemorrhoid Qualifiers: Hemorrhoid type: unspecified Qualified Code(s): K64.9 - Unspecified hemorrhoids Instructions Patient Instructions: DI for Hemorrhoids, Hemorrhoids, DI for Nausea -- Adult Discharge ED Provider: Eunice Albrecht [facility] General Stated complaint: nausea, stomach cramping Mode of Arrival: Ambulatory Source of Information: Patient Limitations: No Limitations Time Seen by Provider: 04/14/23 15:32 Description of Symptoms (Recalled from Triage Doc. by RN): PATIENT C/O NAUSEA, STOMACH CRAMPING, DIARRHEA/CONSTIPATION, BLOOD WITH STOOL, DECREASED APPETITE, AND RECTAL PAIN WITH SITTING HEENT Symptoms (Recalled from RN notes): No Resp Symptoms (Recalled from RN notes): No Skin Symptoms (Recalled from RN notes): No MS Symptoms (Recalled from RN notes): No Functional Status (Recalled from RN notes): WNL History of Present Illness Provider Complaint: Patient states that she is not sure if she may around someone with stomach bug States that she has been having some cramping and nausea but her son has had similar symptoms not sure if she may have a stomach bug States that also she is having issues with a hemorrhoid States she has noticed a little blood on the tissue when she wipes and having itching and burning an hurts when she sits Related Data Previous Rx's Medication Instructions Recorded hydrocortisone acetate 30 mg 30 mg NJ BID PRN hemorrhoids #12 ea 04/14/23 rectal suppository (Proctocort) ondansetron 4 mg disintegrating 4 mg PO Q8H PRN nausea and 04/14/23 tablet vomiting #10 tabs Allergies Allergy/AdvReac Type Severity Reaction Status Date / Time nitrofurantoin Allergy Verified 02/07/23 22:24 [From Macrobid] Sulfa (Sulfonamide Allergy Verified 02/07/23 22:24 Antibiotics) Worker's Comp Is this a Worker's Comp case?: No [facility] Disclaimer: The information contained in this section may have been updated after the patient was seen, as this information can be updated by other users. Medical History (Updated 04/14/23 @ 15:44 by Eunice Albrecht APRN) Anxiety Asthma Depression History of gastroesophageal reflux (GERD) Kidney stone Migraine Urinary tract infection Surgical History H/O dilation and curettage History of appendectomy History of tubal ligation Previous section Social History Smoking Status: Current every day smoker alcohol intake: never current occupational status: other Travel in the last 8 weeks: None ROS Obtained: Yes All systems reviewed & no additional complaints except as documented and Yes Systems reviewed as appropriate & no additional complaints except as documented Constitutional Constitutional: Reports system reviewed and no additional complaints, except as documented, Reports as per HPI, Denies body ache, Denies chills and Denies fever(s) ENT Ears, Nose, Mouth, and Throat: Reports system reviewed and no additional complaints, except as documented and Reports as per HPI Cardiovascular Cardiovascular: Reports system reviewed and no additional complaints, except as documented and Reports as per HPI Respiratory Respiratory: Reports system reviewed and no additional complaints, except as
[2023-04-14 15:36] VITALS: BP 138/86; PULSE 99; RESP 19; TEMP 37; O2SAT 98
== END 2023-04-14 15:49 | disposition home or self-care (01) ==
PROVIDERS: Emergency Provider Nurse Practitioner
DX: R11.0 Nausea (principal); K64.9 Unspecified hemorrhoids; F17.210 Nicotine dependence, cigarettes, uncomplicated; J45.909 Unspecified asthma, uncomplicated
CPT/HCPCS: 99212; 99214; G0463

== ENCOUNTER 2023-04-17 12:01 | Emergency (ER) | payer MEDICAID, SELFPAY ==
[2023-04-17 12:03] VITALS: BP 116/76; PULSE 86; RESP 20; TEMP 36.8; O2SAT 98; BMI 40.2
[2023-04-17 12:12] VITALS: BP 116/76; PULSE 87; O2SAT 96
--- NOTE | 2023-04-17 12:18 | PC.NURSE ---
Dr. Decker at BS for patient eval
--- NOTE | 2023-04-17 12:20 | CT_ITS ---
FINAL REPORT TECHNIQUE: Thin section axial images were obtained through the abdomen after intravenous contrast. Reconstruction images were obtained from the axial data. Exam was performed using dose reduction techniques. CLINICAL HISTORY: no BM or flatus 5 days COMPARISON: 02/07/2023 FINDINGS: The lung bases are clear. There is fatty infiltration of the liver. No focal lesion is seen. The gallbladder is present. The spleen, adrenal glands, and pancreas are unremarkable. There is no hydronephrosis or solid renal mass. Abdominal GI tract is without acute abnormality. There is no evidence of small-bowel obstruction. There is no abdominal lymphadenopathy or ascites. The pelvic solid organs are unremarkable. There is a surgical clip adjacent to the cecum. The appendix is not visualized. The pelvic portions of the GI tract are without acute abnormality. There is no pelvic lymphadenopathy or ascites. No acute osseous abnormalities identified. IMPRESSION: No CT evidence of acute intra-abdominal or intrapelvic abnormality. Fatty liver. Reviewed, Interpreted and Dictated by Mirna Szymanski MD Transcribed by Maylin Lux Authenticated and [facility]
--- NOTE | 2023-04-17 12:21 | HMH.EDGENADL ---
Discharge Plan Disposition Patient Disposition: Home, Self-Care Condition: Good Prescriptions Prescriptions: New polyethylene glycol 3350 [Miralax] 17 gram/dose powder 17 g PO DAILY Qty: 510 0RF sennosides [senna] 8.6 mg tablet 8.6 mg PO DAILY Qty: 30 0RF No Action hydrocortisone acetate [Proctocort] 30 mg suppository 30 mg [place] BID PRN (Reason: hemorrhoids) Qty: 12 0RF ondansetron 4 mg tablet,disintegrating 4 mg PO Q8H PRN (Reason: nausea and vomiting) Qty: 10 0RF Referrals Follow up/Referrals: Zander Rao [Primary Care Provider] - See instructions Activity Restrictions/Add. Instructions Additional Instructions/Restrictions: At this time it was felt you are safe to be discharged home. If new or worsening symptoms please do not hesitate to return the emergency department. Please buy MiraLAX [id number] and take as the package instructs daily to prevent constipation. Clinical Impressions Clinical Impression: Constipation Stand Alone Forms Stand Alone Forms: Work/School Release Instructions Patient Instructions: DI for Acute Abdominal Pain Discharge ED Provider: Lissette Gilbert General Adult HPI <Cole Decker MD - Last Filed: 04/17/23 15:36> General Chief complaint: Abdominal Pain Stated complaint: CANT POOP FOR 2 WEEKS Time Seen by Provider: 04/17/23 12:15 History of Present Illness HPI narrative: Patient is a 28-year-old female with past medical history of GI issues who presents emergency department for evaluation of constipation. Patient has had worsening constipation over the last 2 weeks however has not had a bowel movement since Friday. No flatus since Friday. No vomiting. There is generalized abdominal discomfort. Surgical abdominal history includes previous appendectomy, section x3, tubal ligation. No dysuria, last menstrual period recent. No other acute complaints at this time. Related Data Previous Rx's Medication Instructions Recorded hydrocortisone acetate 30 mg 30 mg [place] BID PRN hemorrhoids #12 ea 04/14/23 rectal suppository (Proctocort) ondansetron 4 mg disintegrating 4 mg PO Q8H PRN nausea and 04/14/23 tablet vomiting #10 tabs polyethylene glycol 3350 17 17 g PO DAILY #510 grams 04/17/23 gram/dose oral powder (Miralax) sennosides 8.6 mg tablet (senna) 8.6 mg PO DAILY #30 tabs 04/17/23 Allergies Allergy/AdvReac Type Severity Reaction Status Date / Time nitrofurantoin Allergy Verified 02/07/23 22:24 [From Macrobid] Sulfa (Sulfonamide Allergy Verified 02/07/23 22:24 Antibiotics) PFSH <Cole Decker MD - Last Filed: 04/17/23 15:36> [facility] Disclaimer: The information contained in this section may have been updated after the patient was seen, as this information can be updated by other users. Medical History (Updated 04/17/23 @ 15:35 by Cole Decker MD) Anxiety Asthma Depression History of gastroesophageal reflux (GERD) Kidney stone Migraine Urinary tract infection Surgical History H/O dilation and curettage History of appendectomy History of tubal ligation Previous section Social History Smoking Status: Current every day smoker alcohol intake: never current occupational status: other Travel in the last 8 weeks: None <Cole Decker MD - Last Filed: 04/17/23 15:36> ROS Obtained: Yes Systems reviewed as appropriate & no additional complaints except as documented Physical Exam <Cole Decker MD - Last Filed: 04/17/23 15:36> General General appearance: alert and in no apparent distress Head Head exam: atraumatic and normocephalic Eye Eye exam: Present PERRL and EOMI ENT ENT exam: Present mucous membranes moist Neck Neck exam: Present normal inspection Chest Chest inspection: Present normal inspection and symmetric chest wall rise Respiratory Respiratory exam: Absent
--- NOTE | 2023-04-17 12:27 | PC.NURSE ---
UA sent to lab; pt given a warm blanket for comfort
[2023-04-17 12:34] LABS: Microscopic, Urine URINE MICROSCOPIC (MICROSCOPIC)
[2023-04-17 12:38] LABS: Blood, Urine 3+ (Negative); Glucose,Urine (UA) Negative (Negative); Ketones,Urine 3+ (Negative); Leukocyte Esterase,Urine TRACE (Negative); Nitrate,Urine Negative (Negative); Protein,Urine 1+ (Negative); Specific Gravity, Urine >= 1.030 (1.005-1.030)
[2023-04-17 12:42] LABS: Appearance,Urine Cloudy (Clear); Bilirubin,Urine 1+ (Negative); Color,Urine Dark Yellow (Yellow)
[2023-04-17 12:44] LABS: Basophils % 0.5 % (0.1-2.0); Eosinophils % 0.6 % (0.1-12.0); Hematocrit 41.5 % (37.0-47.0); Lymphocytes # 0.7 K/mm3 (0.7-4.5); Lymphocytes % 13.6 % (10-50); Mean Corpuscular HGB Conc 36.2 g/dL (31.8-35.4); Mean Corpuscular Hemoglobin 30.8 pg (27.0-31.2); Mean Corpuscular Volume 85.2 fl (81-99); Mean Platelet Volume 8.6 fl (7.4-10.4); Monocytes # 0.2 K/mm3 (0.1-1.0); Monocytes % 4.3 % (1.7-9.3); Neutrophils # 4.4 K/mm3 (1.8-7.8); Platelet Count 199 K/mm3 (142-424); Red Blood Count 4.88 M/mm3 (4.20-5.40); Red Cell Distribution Width 13.5 % (11.5-17.5); White Blood Count 5.4 K/mm3 (4.8-10.8)
[2023-04-17 12:50] LABS: Chloride 106 mmol/L (98-107); Potassium 3.6 mmoL/L (3.5-5.1); Sodium 140 mmol/L (136-145)
[2023-04-17 12:50] LABS: Bacteria,Urine 3+ /lpf
[2023-04-17 12:52] LABS: Blood Urea Nitrogen 15 mg/dl (7-17); Creatinine Clearance Estimated 145 mL/min (50-200); Estimated Glomerular Filt Rate 74 ml/min (>60); GFR (African American) 90 ML/MIN (>60)
[2023-04-17 12:53] LABS: Alanine Aminotransferase 57 U/L (12-78); Albumin Level 4.5 g/dl (3.5-5.0); Albumin/Globulin Ratio 1.6 (1.1-1.8); Alkaline Phosphatase 50 U/L (38-126); Anion Gap 11.6 mEq/L (5-15); Aspartate Amino Transferase 51 U/L (14-36); Bilirubin,Total 0.9 mg/dl (0.2-1.3); Calcium 9.3 mg/dl (8.4-10.2); Carbon Dioxide 26 mmol/L (22.0-30.0); Globulin 2.9 g/dL (1.3-3.2); Glucose 107 mg/dl (74-100); HCG Qualitative, Serum Negative (Negative); Lipase 59 U/L (23-300); Total Protein,Serum 7.4 g/dl (6.3-8.2)
--- NOTE | 2023-04-17 13:25 | PC.NURSE ---
pt taken to ct scan
[2023-04-17 15:15] VITALS: BP 116/78; PULSE 51; O2SAT 94
[2023-04-17 16:57] VITALS: BP 116/61; PULSE 60; O2SAT 100
[2023-04-17 17:52] VITALS: BP 125/71; PULSE 60; RESP 18; TEMP 36.8; O2SAT 100
--- NOTE | 2023-04-21 16:38 | PC.NURSE ---
notified dr. watson of urine culture result- states no treatment needed.
--- NOTE | 2023-04-23 16:45 | PC.NURSE ---
urine results MD Mahendra vizcaino states that no action is needed at this time due to pt being asymptomatic.
== END 2023-04-17 18:15 | disposition home or self-care (01) ==
PROVIDERS: Emergency Medicine; Emergency Provider Emergency Medicine; PCP Internal Medicine
DX: R10.817 Generalized abdominal tenderness (principal); K59.00 Constipation, unspecified; B96.29 Other Escherichia coli [E. coli] as the cause of diseases classified elsewhere; F17.210 Nicotine dependence, cigarettes, uncomplicated
CPT/HCPCS: 74177; 80053; 81001; 83690; 84703; 85025; 87086; 99284; Q9967

== ENCOUNTER 2023-05-23 06:28 | Emergency (ER) | payer MEDICAID, SELFPAY ==
[2023-05-23 06:30] VITALS: BP 118/80; PULSE 85; RESP 18; TEMP 36.4; O2SAT 98; BMI 40.0
[2023-05-23 06:35] VITALS: PULSE 99; O2SAT 100
--- NOTE | 2023-05-23 06:39 | HMH.EDGENADL ---
Discharge Plan Disposition Patient Disposition: Home, Self-Care Condition: Good Prescriptions Prescriptions: New hydroxyzine pamoate [Vistaril] 25 mg capsule 25 mg PO Q8H PRN (Reason: anxiety and panic attack) Qty: 14 0RF No Action hydrocortisone acetate [Proctocort] 30 mg suppository 30 mg [place] BID PRN (Reason: hemorrhoids) Qty: 12 0RF ondansetron 4 mg tablet,disintegrating 4 mg PO Q8H PRN (Reason: nausea and vomiting) Qty: 10 0RF polyethylene glycol 3350 [Miralax] 17 gram/dose powder 17 g PO DAILY Qty: 510 0RF sennosides [senna] 8.6 mg tablet 8.6 mg PO DAILY Qty: 30 0RF Referrals Follow up/Referrals: Zander Rao [Primary Care Provider] - See instructions Cat Madison APRN [Nurse Practitioner] - See instructions (Undiagnosed anxiety, depression, BPD) Clinical Impressions Clinical Impression: Anxiety, Depression Instructions Patient Instructions: Anxiety Disorders, Anxiety and Panic Attacks (Alternative Therapy), Yoga May Help Reduce Anxiety and Stress Discharge ED Provider: Foreign Jarrell General Adult HPI General Chief complaint: Anxiety Stated complaint: anxiety, heart racing, sweating Time Seen by Provider: 05/23/23 06:39 History of Present Illness HPI narrative: Patient has a PMHx significant for Gandhi cirrhosis, anxiety, depression, panic attacks, asthma, unofficially bipolar disease who presents to the ED with complaints of anxiety. Patient notes that last week, she was sick with flulike symptoms prior over the past 3 days, patient notes that she has been having worsening anxiety. Patient notes that she has been having numbness and tingling in all extremities and her face patient is also having insomnia, not able to sleep due to her anxiety, increased agitation, decreased appetite intermittent palpitations when she is anxious. Patient does not identify any triggers, but notes that she has been more stressed due to financial issues. Patient notes that she is not on any medications at this time. Patient has not seen a psychiatrist. Related Data Previous Rx's Medication Instructions Recorded hydrocortisone acetate 30 mg 30 mg [place] BID PRN hemorrhoids #12 ea 04/14/23 rectal suppository (Proctocort) ondansetron 4 mg disintegrating 4 mg PO Q8H PRN nausea and 04/14/23 tablet vomiting #10 tabs polyethylene glycol 3350 17 17 g PO DAILY #510 grams 04/17/23 gram/dose oral powder (Miralax) sennosides 8.6 mg tablet (senna) 8.6 mg PO DAILY #30 tabs 04/17/23 hydroxyzine pamoate 25 mg capsule 25 mg PO Q8H PRN anxiety and panic 05/23/23 (Vistaril) attack #14 caps Allergies Allergy/AdvReac Type Severity Reaction Status Date / Time nitrofurantoin Allergy Verified 02/07/23 22:24 [From Macrobid] Sulfa (Sulfonamide Allergy Verified 02/07/23 22:24 Antibiotics) [facility] Disclaimer: The information contained in this section may have been updated after the patient was seen, as this information can be updated by other users. Medical History (Updated 05/23/23 @ 06:44 by Maude Urias RN) Anxiety Asthma Chronic pancreatitis Depression Gallstones History of gastroesophageal reflux (GERD) Kidney stone Migraine GANDHI (nonalcoholic steatohepatitis) Urinary tract infection Surgical History H/O dilation and curettage History of appendectomy History of tubal ligation Previous section Social History Smoking Status: Current every day smoker alcohol intake: never current occupational status: other Travel in the last 8 weeks: None ROS Obtained: Yes All systems reviewed & no additional complaints except as documented Physical Exam General General appearance: alert and in no apparent distress Head Head exam: atraumatic, normocephalic and normal inspection Eye Eye exam: Present normal appearance, PERRL and EOMI; Absent scleral icterus or nystag
[2023-05-23 06:47] LABS: POC Glucose,Bedside 123 (70-110)
[2023-05-23 07:00] VITALS: BP 106/74; PULSE 76; O2SAT 98
--- NOTE | 2023-05-23 07:27 | PC.NURSE ---
Dr. Morris at bedside
[2023-05-23 07:30] VITALS: BP 113/84; PULSE 86; O2SAT 100
[2023-05-23 08:00] VITALS: BP 102/70; PULSE 63; O2SAT 98
--- NOTE | 2023-05-23 08:18 | HMH.EDGENADL ---
Discharge Plan Disposition Patient Disposition: Home, Self-Care Condition: Good Prescriptions Prescriptions: New hydroxyzine pamoate [Vistaril] 25 mg capsule 25 mg PO Q8H PRN (Reason: anxiety and panic attack) Qty: 14 0RF No Action hydrocortisone acetate [Proctocort] 30 mg suppository 30 mg CO BID PRN (Reason: hemorrhoids) Qty: 12 0RF ondansetron 4 mg tablet,disintegrating 4 mg PO Q8H PRN (Reason: nausea and vomiting) Qty: 10 0RF polyethylene glycol 3350 [Miralax] 17 gram/dose powder 17 g PO DAILY Qty: 510 0RF sennosides [senna] 8.6 mg tablet 8.6 mg PO DAILY Qty: 30 0RF Referrals Follow up/Referrals: Zander Rao [Primary Care Provider] - See instructions Cat Madison APRN [Nurse Practitioner] - See instructions (Undiagnosed anxiety, depression, BPD) Activity Restrictions/Add. Instructions Additional Instructions/Restrictions: Please follow-up with your primary care provider. Please return to the emergency department if you develop any new or worsening symptoms or become concerned for your health. You have been provided with a prescription for hydroxyzine, please take this as directed. Additionally, recommend that you establish care with a primary care provider for management of underlying anxiety, depression. You have also been given follow-up with behavioral health to assist with this as well. Clinical Impressions Clinical Impression: Anxiety, Depression Instructions Patient Instructions: Anxiety Disorders, Anxiety and Panic Attacks (Alternative Therapy), Yoga May Help Reduce Anxiety and Stress Discharge ED Provider: Donato Morris I General Adult HPI General Chief complaint: Anxiety Stated complaint: anxiety, heart racing, sweating Time Seen by Provider: 05/23/23 06:39 Mode of Arrival: Ambulatory Source of Information: Patient Limitations: No Limitations Description of Symptoms (Recalled from ER Triage Doc. by RN): Patient reports that for the last 3 days she has had generalized shaking, skin tingling and numbness, insomnia, decreased appetite and eating without any known trigger or stressor. Patient reports that they have financial stress but had this before symptoms started. Patient also reports the family was recently diagnosed with the flu and symptoms started 1 week ago. Related Data Previous Rx's Medication Instructions Recorded hydrocortisone acetate 30 mg 30 mg CO BID PRN hemorrhoids #12 ea 04/14/23 rectal suppository (Proctocort) ondansetron 4 mg disintegrating 4 mg PO Q8H PRN nausea and 04/14/23 tablet vomiting #10 tabs polyethylene glycol 3350 17 17 g PO DAILY #510 grams 04/17/23 gram/dose oral powder (Miralax) sennosides 8.6 mg tablet (senna) 8.6 mg PO DAILY #30 tabs 04/17/23 hydroxyzine pamoate 25 mg capsule 25 mg PO Q8H PRN anxiety and panic 05/23/23 (Vistaril) attack #14 caps Allergies Allergy/AdvReac Type Severity Reaction Status Date / Time nitrofurantoin Allergy Verified 02/07/23 22:24 [From Macrobid] Sulfa (Sulfonamide Allergy Verified 02/07/23 22:24 Antibiotics) [facility] Disclaimer: The information contained in this section may have been updated after the patient was seen, as this information can be updated by other users. Medical History (Updated 05/23/23 @ 06:44 by Maude Urias RN) Anxiety Asthma Chronic pancreatitis Depression Gallstones History of gastroesophageal reflux (GERD) Kidney stone Migraine HERNANDEZ (nonalcoholic steatohepatitis) Urinary tract infection Surgical History H/O dilation and curettage History of appendectomy History of tubal ligation Previous section Social History Smoking Status: Current every day smoker alcohol intake: never current occupational status: other Travel in the last 8 weeks: None Physical Exam General General appearance: alert and in no apparent distr
[2023-05-23 08:53] VITALS: BP 104/77; PULSE 70; RESP 18; TEMP 36.6; O2SAT 99
== END 2023-05-23 08:55 | disposition home or self-care (01) ==
PROVIDERS: Emergency Medicine; Emergency Provider Emergency Medicine; PCP Internal Medicine
DX: F41.9 Anxiety disorder, unspecified (principal); F32.A Depression, unspecified; J45.909 Unspecified asthma, uncomplicated; K75.81 Nonalcoholic steatohepatitis (NASH); F17.200 Nicotine dependence, unspecified, uncomplicated
CPT/HCPCS: 82962; 99283

== ENCOUNTER 2023-06-12 03:15 | Emergency (ER) | payer MEDICAID, SELFPAY ==
[2023-06-12 03:18] VITALS: BP 134/83; PULSE 101; RESP 18; TEMP 36.6; O2SAT 98; BMI 40.4
[2023-06-12 03:48] LABS: Urine Pregnancy, HCG Qual. Negative (Negative)
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
[2023-06-12 04:25] VITALS: BP 132/80; PULSE 77; RESP 16; TEMP 36.6; O2SAT 98
== END 2023-06-12 04:26 | disposition home or self-care (01) ==
PROVIDERS: Emergency Provider Emergency Medicine; PCP Internal Medicine
DX: S13.4XXA Sprain of ligaments of cervical spine, initial encounter (principal); R51.9 Headache, unspecified; F17.200 Nicotine dependence, unspecified, uncomplicated; V49.00XA Driver injured in collision with unspecified motor vehicles in nontraffic accident, initial encounter
CPT/HCPCS: 81025; 96372; 99283

== ENCOUNTER 2023-06-21 11:30 | Emergency (ER) | payer MEDICAID, SELFPAY ==
[2023-06-21 11:45] VITALS: BP 127/73; PULSE 79; RESP 18; TEMP 36.6; O2SAT 99; BMI 39.6
[2023-06-21 12:00] LABS: Apearance,Urine Clear (Clear); Bilirubin,Urine 1+ (Negative); Blood, Urine Negative (Negative); Color,Urine Dark Yellow (Yellow); Glucose,Urine (UA) Negative (Negative); Ketones,Urine Negative (Negative); Protein,Urine Negative (Negative); Specific Gravity, Urine 1.025 (1.005-1.030); UTC Leukocyte Esterase,Urine Negative (Negative); UTC Nitrate,Urine Negative (Negative); Urobilinogen,Urine 0.2 EU/dl (0.2)
--- NOTE | 2023-06-21 12:24 | ED_ITS ---
Discharge Plan Disposition Patient Disposition: Home, Self-Care Condition: Good Prescriptions Prescriptions: No Action hydroxyzine pamoate [Vistaril] 25 mg capsule 25 mg PO Q8H PRN (Reason: anxiety and panic attack) Qty: 14 0RF ondansetron 4 mg tablet,disintegrating 4 mg PO Q8H 4 Days Qty: 12 1RF omeprazole 20 mg capsule,delayed release(DR/EC) 20 mg PO DAILY Patient Comments: TAKE 1 CAPSULE BY MOUTH ONCE DAILY 30 MINUTES BEFORE A MEAL FOR 30 DAYS Referrals Follow up/Referrals: Zander Rao [Primary Care Provider] - See instructions Clinical Impressions Clinical Impression: Constipation Qualifiers: Constipation type: unspecified constipation type Qualified Code(s): K59.00 - Constipation, unspecified Instructions Patient Instructions: DI for Constipation, Increased Dietary Fiber May Improve Constipation Conditions With Pelvic Bakari Discharge ED Provider: Chery Aguirre [facility] [place] General Stated complaint: bladder pain, freguent urinating Mode of Arrival: Ambulatory Source of Information: Patient Limitations: No Limitations Time Seen by Provider: 06/21/23 12:24 Description of Symptoms (Recalled from Triage Doc. by RN): Pt's symptoms are urgency, pain in bladder, and nausea. HEENT Symptoms (Recalled from RN notes): Yes Resp Symptoms (Recalled from RN notes): No Skin Symptoms (Recalled from RN notes): No MS Symptoms (Recalled from RN notes): No Functional Status (Recalled from RN notes): n/a History of Present Illness Provider Complaint: Pt relates that she has had urinary frequency and abdominal discomfort and low back pain today. She is concerned that she may have an UTI. Related Data Home Medications Medication Instructions Recorded Confirmed omeprazole 20 mg capsule,delayed 20 mg PO DAILY 06/21/23 06/21/23 release Previous Rx's Medication Instructions Recorded hydroxyzine pamoate 25 mg capsule 25 mg PO Q8H PRN anxiety and panic 05/23/23 (Vistaril) attack #14 caps ondansetron 4 mg disintegrating 4 mg PO Q8H 4 days #12 tabs 05/23/23 tablet Allergies Allergy/AdvReac Type Severity Reaction Status Date / Time nitrofurantoin Allergy Verified 06/21/23 12:01 [From Macrobid] Sulfa (Sulfonamide Allergy Verified 06/21/23 12:01 Antibiotics) Worker's Comp Is this a Worker's Comp case?: No [facility] Disclaimer: The information contained in this section may have been updated after the patient was seen, as this information can be updated by other users. Medical History Anxiety Asthma Chronic pancreatitis Depression Gallstones History of gastroesophageal reflux (GERD) Kidney stone Migraine HERNANDEZ (nonalcoholic steatohepatitis) Urinary tract infection Surgical History H/O dilation and curettage History of appendectomy History of tubal ligation Previous section Social History Smoking Status: Current every day smoker alcohol intake: never current occupational status: other Travel in the last 8 weeks: None ROS Obtained: Yes All systems reviewed & no additional complaints except as documented Constitutional Constitutional: Reports system reviewed and no additional complaints, except as documented Eyes Eyes: Reports system reviewed and no additional complaints, except as documented ENT Ears, Nose, Mouth, and Throat: Reports system reviewed and no additional complaints, except as documented Cardiovascular Cardiovascular: Reports system reviewed and no additional complaints, except as documented Respiratory Respiratory: Reports system reviewed and no additional complaints, except as documented Gastrointestinal Gastrointestingal: Reports system reviewed and no additional complaints, except as documented, abdominal pain, constipation and nausea Genitourinary Female Genitourinary: Reports system reviewed and no additional complaints, except as documented, Reports urinary frequency and Reports urinary incontinence Musculoskeletal Musculoskeletal: Reports system reviewed and no additional complaints, except as documented and Reports back pain Integumentary/Breasts Skin/Breast: Reports system reviewed and no additional complaints, except as documented Neurologic Neurologic: Reports system reviewed and no additional complaints, except as documented Endocrine Endocrine: Reports system reviewed and no additional complaints, except as documented Hematologic/Lymphatic Henatologic/Lymphatic: Reports system reviewed and no additional complaints, except as documented Allergic/Immunologic Allergic/Immunologic: Reports system reviewed and no additional complaints, except as documented Physical Exam General General appearance: alert and in no apparent distress Head Head exam: atraumatic and normocephalic Eye Eye exam: Present normal appearance ENT ENT exam: Present normal exam and normal oropharynx Neck Neck exam: Present normal inspection Chest Chest inspection: Present normal inspection and symmetric chest wall rise Respiratory Respiratory exam: Present normal lung sounds bilaterally Cardiovascular Cardiovascular exam: Present regular rate and normal rhythm Abdominal Exam Abdominal exam: Present soft, tenderness and normal bowel sounds Abdominal tenderness: Present diffuse and mild Extremities Exam Extremities exam: Present normal inspection Back Exam Back exam: Present normal inspection; Absent tenderness, CVA tenderness (R) or CVA tenderness (L) Neurological Exam Neurological exam: Present alert and oriented X3 Psychiatric Psychiatric exam: Present normal affect and normal mood Skin Skin exam: Present warm, dry and intact Lymphatic Lymphatic Findings: no adenopathy Medical Decision Making Gilberto Inquiry Pt receiving controlled substance: No Gilberto was queried for this patient: No Vital Signs: 06/21/23 11:45 Temperature 97.9 F Temperature Source Oral Pulse Rate [Right Radial] 79 Respiratory Rate 18 Blood Pressure [Right Arm] 127/73 Blood Pressure Mean [Right Arm] 91 Blood Pressure Source [Right Arm] Automatic Cuff Blood Pressure Position [Right Arm] Sitting 02 Sat by Pulse Oximetry 99 Oxygen Delivery Method Room Air Lab Data Lab results reviewed: Yes I reviewed the patient's lab results. 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 Saw GI yesterday.
[2023-06-21 12:39] VITALS: BP 127/73; PULSE 79; RESP 18; TEMP 36.6; O2SAT 99
== END 2023-06-21 12:39 | disposition home or self-care (01) ==
PROVIDERS: Emergency Provider Nurse Practitioner Family; PCP Internal Medicine
DX: R10.84 Generalized abdominal pain (principal); K59.00 Constipation, unspecified; R30.0 Dysuria; R35.0 Frequency of micturition; M54.59 Other low back pain; F17.210 Nicotine dependence, cigarettes, uncomplicated; K21.9 Gastro-esophageal reflux disease without esophagitis
CPT/HCPCS: 81003; 99212; 99213; G0463

== ENCOUNTER 2023-09-05 13:08 | Emergency (ER) | payer MEDICAID, SELFPAY ==
[2023-09-05 13:20] VITALS: BP 105/44; PULSE 66; RESP 20; TEMP 36.6; O2SAT 100; BMI 42.5
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
[2023-09-05 13:37] LABS: Apearance,Urine Cloudy (Clear); Bilirubin,Urine Negative (Negative); Blood, Urine Negative (Negative); Color,Urine Yellow (Yellow); Glucose,Urine (UA) Negative (Negative); Ketones,Urine Negative (Negative); PH,Urine 5.5 (5.0-8.5); Protein,Urine Negative (Negative); Specific Gravity, Urine >= 1.030 (1.005-1.030); UTC Leukocyte Esterase,Urine Negative (Negative); UTC Nitrate,Urine Negative (Negative); Urobilinogen,Urine 0.2 EU/dl (0.2)
[2023-09-05 13:46] LABS: UTC Pregnancy Test, Urine Negative (Negative)
[2023-09-05 13:50] VITALS: BP 105/44; PULSE 66; RESP 20; TEMP 36.6; O2SAT 100
== END 2023-09-05 13:52 | disposition home or self-care (01) ==
PROVIDERS: Emergency Provider Physician Assistant
DX: N39.0 Urinary tract infection, site not specified (principal); B96.89 Other specified bacterial agents as the cause of diseases classified elsewhere; M54.59 Other low back pain; F17.210 Nicotine dependence, cigarettes, uncomplicated; K21.9 Gastro-esophageal reflux disease without esophagitis; Z56.0 Unemployment, unspecified
CPT/HCPCS: 81003; 81025; 87086; 99212; 99214; G0463

== ENCOUNTER 2024-02-11 08:19 | Emergency (ER) | payer MEDICAID, SELFPAY ==
[2024-02-11 08:30] VITALS: BP 114/61; PULSE 83; RESP 20; TEMP 36.9; O2SAT 99; BMI 42.1
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
[2024-02-11 08:53] VITALS: BP 114/61; PULSE 83; RESP 20; TEMP 36.9; O2SAT 99
== END 2024-02-11 08:56 | disposition home or self-care (01) ==
PROVIDERS: Emergency Provider Nurse Practitioner
DX: J01.90 Acute sinusitis, unspecified (principal); J20.9 Acute bronchitis, unspecified; R09.81 Nasal congestion; R09.89 Other specified symptoms and signs involving the circulatory and respiratory systems
CPT/HCPCS: 99212; 99214; G0463

== ENCOUNTER 2024-07-29 17:52 | Emergency (ER) | payer MEDICAID, SELFPAY ==
[2024-07-29] VITALS (9 sets, daily range): BP systolic 121–156; BP diastolic 58–96; PULSE 62–87; RESP 16–18; TEMP 36.7–36.9; O2SAT 98–99; BMI 42.5
[2024-07-29 18:46] LABS: Microscopic, Urine URINE MICROSCOPIC (MICROSCOPIC)
[2024-07-29 18:56] LABS: Bilirubin,Urine Negative (Negative); Blood, Urine Negative (Negative); Color,Urine YELLOW (Yellow); Glucose,Urine (UA) Negative (Negative); Ketones,Urine Negative (Negative); Leukocyte Esterase,Urine TRACE (Negative); Nitrate,Urine Negative (Negative); Protein,Urine Negative (Negative); Specific Gravity, Urine 1.025 (1.005-1.030); Urobilinogen,Urine 0.2 EU/dl (0.2)
[2024-07-29 18:57] LABS: Urine Pregnancy, HCG Qual. Negative (Negative)
[2024-07-29 19:21] LABS: Appearance,Urine Slightly Cloudy (Clear)
[2024-07-29 19:22] LABS: Bacteria,Urine 4+ /lpf; Mucus,Urine 3+ /lpf; Squamous Epithelial Cell,Urine 20-50 #/hpf (0-5); WBC,Urine 20-50 #/hpf (0-3)
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
--- NOTE | 2024-07-29 19:56 | PC.NURSE ---
pt ambulatory to restroom with slow steady gait to attempt to provide second urine sample.
--- NOTE | 2024-07-29 19:59 | CT_ITS ---
PROCEDURE INFORMATION: Exam: CT Abdomen And Pelvis With Contrast Exam date and time: 07/29/2024 8:44 PM Age: 29 years old Clinical indication: Abdominal pain TECHNIQUE: Imaging protocol: Computed tomography of the abdomen and pelvis with contrast. Radiation optimization: All CT scans at this facility use at least one of these dose optimization techniques: automated exposure control; mA and/or kV adjustment per patient size (includes targeted exams where dose is matched to clinical indication); or iterative reconstruction. Contrast material: ISOVUE; Contrast volume: 75 ml; Contrast route: IV; COMPARISON: 1. CT ABDOMEN PELVIS W CON 04/17/2023 2:[address] ABDOMEN PELVIS WO CON 08/29/2022 7:57 AM FINDINGS: Lungs: Lung bases are clear. Liver: Fatty liver changes with associated hepatomegaly measuring 20 cm. Liver otherwise unremarkable. Gallbladder and biliary ducts: Normal. No calcified stones. No ductal dilation. Pancreas: Normal. No ductal dilation. Spleen: Normal. No splenomegaly. Adrenal glands: Normal. No mass. Kidneys and ureters: A 1 mm nonobstructing stone in the anterior inferior left kidney redemonstrated. Kidneys and ureters otherwise unremarkable with no obstructing stones or uropathy. Stomach and bowel: Unremarkable. No obstruction. No mucosal thickening. Appendix: Appendectomy. Intraperitoneal space: Unremarkable. No free air. No significant fluid collection. Vasculature: Unremarkable. No abdominal aortic aneurysm. Lymph nodes: Unremarkable. No enlarged lymph nodes. Urinary bladder: Unremarkable as visualized. Reproductive: Unremarkable as visualized. Bones/joints: Unremarkable. No acute fracture. Soft tissues: Unremarkable. IMPRESSION: No acute abnormalities of the abdomen and pelvis. Nonemergent findings as above.
[2024-07-29 20:08] LABS: Microscopic, Urine URINE MICROSCOPIC (MICROSCOPIC)
[2024-07-29 20:14] LABS: Appearance,Urine CLEAR (Clear); Bilirubin,Urine Negative (Negative); Blood, Urine Negative (Negative); Color,Urine YELLOW (Yellow); Glucose,Urine (UA) Negative (Negative); Ketones,Urine Negative (Negative); Leukocyte Esterase,Urine Negative (Negative); Nitrate,Urine Negative (Negative); PH,Urine 6.5 (5.0-8.5); Protein,Urine Negative (Negative); Urobilinogen,Urine 0.2 EU/dl (0.2)
[2024-07-29 20:25] LABS: Basophils % 0.5 % (0.1-2.0); Eosinophils # 0.2 K/mm3 (0.0-0.4); Eosinophils % 2.3 % (0.1-12.0); Hematocrit 40.2 % (37.0-47.0); Hemoglobin 13.7 g/dL (12.2-16.2); Lymphocytes # 1.5 K/mm3 (0.7-4.5); Lymphocytes % 23.6 % (10-50); Mean Corpuscular HGB Conc 34.1 g/dL (31.8-35.4); Mean Corpuscular Hemoglobin 28.1 pg (27.0-31.2); Mean Corpuscular Volume 82.4 fl (81-99); Mean Platelet Volume 10.1 fl (7.4-10.4); Monocytes # 0.4 K/mm3 (0.1-1.0); Monocytes % 5.5 % (1.7-9.3); Neutrophils # 4.3 K/mm3 (1.8-7.8); Neutrophils % 67.9 % (37.0-80.0); Platelet Count 211 K/mm3 (142-424); Red Blood Count 4.88 M/mm3 (4.20-5.40); Red Cell Distribution Width 12.2 % (11.5-17.5); White Blood Count 6.4 K/mm3 (4.8-10.8)
[2024-07-29 20:30] LABS: Albumin Level 4.2 g/dl (3.5-5.0); Chloride 105 mmol/L (98-107)
[2024-07-29] MEDS: ACETAMINOPHEN 500MG TAB 1000 MG PO (20:30)
[2024-07-29 20:31] LABS: Potassium 4.2 mmoL/L (3.5-5.1); Sodium 137 mmol/L (136-145)
[2024-07-29 20:31] LABS: Bacteria,Urine 1+ /lpf; Mucus,Urine 1+ /lpf; WBC,Urine 20-50 #/hpf (0-3)
[2024-07-29 20:33] LABS: Alanine Aminotransferase 20 U/L (12-78); Albumin/Globulin Ratio 1.6 (1.1-1.8); Alkaline Phosphatase 44 U/L (38-126); Anion Gap 10.2 mEq/L (5-15); Aspartate Amino Transferase 37 U/L (14-36); Bilirubin,Total 0.3 mg/dl (0.2-1.3); Blood Urea Nitrogen 16 mg/dl (7-17); Carbon Dioxide 26 mmol/L (22.0-30.0); Creatinine Clearance Estimated 78 mL/min (50-200); Estimated Glomerular Filt Rate 84 ml/min (>60); GFR (African American) 102 ML/MIN (>60); Globulin 2.7 g/dL (1.3-3.2); Total Protein,Serum 6.9 g/dl (6.3-8.2)
[2024-07-29 20:34] LABS: Glucose 93 mg/dl (74-100); Lipase 80 U/L (23-300)
[2024-07-29] MEDS: KETOROLAC 30MG/ML VIAL 15 MG IV (20:34)
[2024-07-29] MEDS: IOPAMIDOL-370 (76%);100ML BOTTLE 75 ML IV (20:44)
[2024-07-29] MEDS: SODIUM CHLORIDE 0.9% 10ML SYR (RAD ONLY) 10 ML IV (20:44)
[2024-07-29 21:20] LABS: Procalcitonin 0.049 ng/mL (0.0-2.0)
--- NOTE | 2024-08-01 10:37 | PC.NURSE ---
URINE CULTURE DISCUSSED WITH DR CHAMPAGNE, NO NEW ORDERS
== END 2024-07-29 22:27 | disposition home or self-care (01) ==
PROVIDERS: Physician Assistant; Emergency Provider Emergency Medicine; PCP Nurse Practitioner Family
DX: N12 Tubulo-interstitial nephritis, not specified as acute or chronic (principal); R10.31 Right lower quadrant pain; R11.0 Nausea; R39.15 Urgency of urination; R30.9 Painful micturition, unspecified
CPT/HCPCS: 74177; 80053; 81001; 81025; 83690; 84145; 85025; 87086; 87088; 87186; 96374; 99285; J1885; Q9967

== ENCOUNTER 2025-03-31 08:25 | Outpatient (CLI) | payer MEDICAID, SELFPAY ==
--- OUTSIDE RECORDS SUMMARY | 2025-03-17 15:20 | XMS_ITS | Encounter Summary ---
Author Organization [facility] Address [address] [place] [address] Care Team Providers Care Stem Assembler Name Role Phone Jazmyn Mattson APRN Primary Care Provider [phone] Reason for Referral * Consultation (Routine) - Authorized Specialty Diagnoses / Procedures Referred By Contac t Referred To Contact Diagnoses PVC (premature ventricular contraction) Destini Ojeda MD [address] [place] [address] Phone: tel: fax: Referral ID Status Reason Start Date Expiration Date V isits Requested Visits Authorized [id number] Authorized 03/17/2025 09/16/2026 1 1 * Consultation (Routine) - Authorized Specialty Diagnoses / Procedures Referred By Contac t Referred To Contact Internal Medicine Diagnoses Class 3 obesity Destini Ojeda MD [address] [place] [address] Phone: tel: fax: [facility] [address], [address] [place] [address] Phone: tel: fax: Referral ID Status Reason Start Date Expiration Date Visits Requested Visits Authorized [id number] Authorized Specialty Services Required 03/17/2025 09/16/2026 1 1 * Imaging (Routine) - Authorized Specialty Diagnoses / Procedures Referred By Olman santos Referred To Contact Cardiology Diagnoses PVC (premature ventricular contraction) Procedures Echo, Adult Transthoracic Complete Destini Ojeda MD [address] [place] [address] Phone: tel: fax: Referral ID Status Reason Start Date Expiration Date Visits Requested Visits Authorized [id number] Authorized Perform Procedure 03/17/2025 09/16/2026 1 1 Reason for Visit * Consultation (Routine) - Closed Specialty Diagnoses / Procedures Referred By Olman santos Referred To Contact Cardiology Diagnoses PVC's (premature ventricular contractions) Dizziness Tachycardia Marcia Thacker, WATCH DIAL STONER, [facility] [address] [place] [address] Phone: tel: fax: Referral ID Status Reason Start Date Expiration Date V isits Requested Visits Authorized [id number] Closed Specialty Services Required 12/22/2024 06/23/2026 1 1 Encounter Details Date Type Department Care Team (Late st Contact Info) Description 03/17/2025 3:20 PM EDT Office Visit [facility] [address], [address] [place] [address] Destini Ojeda MD [address] [place] [address] Bradycardia (Primary Dx); PVC (premature ventricular contraction); Class 3 obesity Social History Tobacco Use Types Packs/Day Years Used Date Smoking Tobacco: Former Cigarettes Q uit: 03/2022 Passive Smoke Exposure: Never Smokeless Tobacco: Never Alcohol Use Standard Drinks/Week Comments Not Currently 0 (1 standard drink = 0.6 oz pur e alcohol) Social Connection and Isolation Panel Answer Date Recorded In a typical week, how many times do you talk on the phone with family, friends, or neighbors? More than three times a week 07/06/2024 How often do you get togethe r with friends or relatives? More than three times a week 07/06/2024 How often do you attend chur or zoroastrianism services? More than 4 times per year 07/06/2024 Do you belong to any clubs o r organizations such as religion groups, unions, fraternal or athletic groups, or school groups? Yes 07/06/2024 How often do you attend meet ings of the clubs or organizations you belong to? More than 4 times per year 07/06/2024 Are you , , di vorced, , never , or living with a partner? Living with partner 07/06/2024 AUDIT-C Answer Date Recorded Q1: How often do you have a drink containing alcohol? Never 07/06/2024 Q2: How many drinks containi ng alcohol do you have on a typical day when you are drinking? Patient does not drink Q3: How often do you have si x or more drinks on one occasion? Never 07/06/2024 Overall Financial Resource Strain (CARDIA) Answe r Date Recorded How hard is it for you to pa y for the very basics like food, housing, medical care, and heating? Not hard at all 07/06/2024 PHQ-2 Answer Date Recorded Patient Health Questionnaire-2 Score 0 12/22/2024 [facility] - Occupational Stress Questionnaire Answer Date Recorded Do you feel stress - tense, restless, nervous, or anxious, or unable to sleep at night because your mind is troubled all the time - these days? Only a little 07/06/2024 Exercise Vital Sign Answer Date Recorde d On average, how many days pe r week do you engage in moderate to strenuous exercise (like a brisk walk)? 3 days 07/06/2024 On average, how many minutes do you engage in exercise at this level? 30 min 07/06/2024 PHQ-9 Answer Date Recorded Patient Health Questionnaire-9 Score 0 12/22/2024 Humiliation, Afraid, Rape, and Kick questionnair e Answer Date Recorded Within the last year, have y ou been afraid of your partner or ex-partner? No 12/22/2024 Within the last year, have y ou been humiliated or emotionally abused in other ways by your partner or ex-partner? No Within the last year, have y ou been kicked, hit, slapped, or otherwise physically hurt by your partner or ex-partner? No 12/22/2024 Within the last year, have y ou been raped or forced to have any kind of sexual activity by your partner or ex-partner? No 12/22/2024 Hunger Vital Sign Answer Date Recorded Within the past 12 months, y ou worried that your food would run out before you got the money to buy more. Never true 12/23/19 25 Within the past 12 months, t he food you bought just didn't last and you didn't have money to get more. Never true 12/22/2024 PRAPARE - Transportation Answer Date Re corded In the past 12 months, has l ack of transportation kept you from medical appointments or from getting medications? No 12/07 In the past 12 months, has l ack of transportation kept you from meetings, work, or from getting things needed for daily living? No 12/22/2024 Housing Stability Vital Sign Answer Santosh e Recorded In the last 12 months, was t here a time when you were not able to pay the mortgage or rent on time? No 12/22/2024 In the past 12 months, how m any times have you moved where you were living? 1 12/22/2024 At any time in the past 12 m [facility], were you homeless or living in a custodial (including now)? No 12/22/2024 Utilities Answer Date Recorded In the past 12 months has th e Between, gas, oil, or water company threatened to shut off services in your home? No 12/22/2024 PHQ-2A Answer Date Recorded Patient Health Questionnaire-2 Score 0 10/21/2022 Comments No Sex and Gender Information Value Date Recorded Sex Assigned at Female 12/24/2022 9:54 PM EDT Legal Sex Female 8:45 PM EDT Gender Identity Female 12/24/2022 9:54 PM EDT Sexual Orientation Straight 12/24/2022 9: 54 PM EDT documented as of this encounter Last Filed Vital Signs Vital Sign Reading Time Taken Comments Blood Pressure 115/80 03/17/2025 3:46 PM EDT Patient is shaking and dizzy. Hands got red. She states sometimes they swell. Pulse 104 03/17/2025 3:46 PM EDT Temperature - - Respiratory Rate - - Oxygen Saturation 97% 03/17/2025 3:4 6 PM EDT Inhaled Oxygen Concentration - - Weight 104 kg (228 lb 9.9 oz) 03/17/2025 3:23 PM EDT Height 154.9 cm (5' 1 ) 03/17/2025 3:23 PM EDT Body Mass Index 43.2 03/17/2025 3:23 PM EDT documented in this encounter Plan of Treatment Upcoming Encounters Date Type Department Care Team (Late st Contact Info) Description 04/05/2025 9:30 AM EDT Appointment Medical Office Building Cardiac Diagnostic Testing Medical Office Building Echo Lab [address], [address] [place] [address] 06/20/2025 9:40 AM EST Office Visit [facility] [place] [address], [address] [place] [address] Destini Ojeda MD [address] [place] [address] 10/07/2025 8:40 AM EDT Office Visit [facility] [address] [place] [address] Winter Pineda MD [address] [place] [address] Scheduled Orders Name Type Priority Associated Diagnoses Orde r Schedule Echo, Adult Transthoracic Complete Echocardiography Routine PVC (premature ventricular contraction) Expected: 03/17/2025 (Approximate), Expires: 09/18/2026 Scheduled Referrals Name Type Priority Associated Diagnoses Order Schedule Ambulatory referral to [facility] Outpatient Referral Routine Class 3 obesity 1 Occurrences starting 03/17/2025 until 09/18/2026 Follow Up Cardiology Outpatient Referral Routine PVC (premature ventricular contraction) Expected: 06/17/2025, Expires: 09/15/2026 documented as of this encounter Procedures Procedure Name Priority Date/Time Associated Diagnosis Comments BASIC METABOLIC PANEL, PLASMA Routine 03/17/2025 4:38 PM EDT PVC (premature ventricular contraction) ECG ADULT Routine 03/17/2025 3:38 PM EDT Bradycardia documented in this encounter Results * (ABNORMAL) Basic metabolic panel (03/17/2025 4:38 PM EDT) Glucose, Plasma 106(H) 74 - 99 mg/dL 03/17/2025 5:48 PM EDT [facility] BUN, Plasma 9 7 - 21 mg/dL 03/17/2025 5:48 PM EDT [facility] Creatinine, Plasma 0.82 0.60 - 1.10 mg/dL 03/17/2025 5:48 PM EDT [facility] BUN/Creatinine Ratio 11 03/17/2025 5:48 PM EDT [facility] Sodium, Plasma 140 136 - 145 mmol/L 03/17/2025 5:48 PM EDT [facility] Potassium, Plasma 4.0 3.6 - 4.9 mmol/L 03/17/2025 5:48 PM EDT [facility] Chloride, Plasma 106 97 - 107 mmol/L 03/17/2025 5:48 PM EDT [facility] CO2, Plasma 23 22 - 29 mmol/L 03/17/2025 5:48 PM EDT [facility] Anion Gap 11 6 - 16 mmol/L 03/17/2025 5:48 PM EDT [facility] Total Calcium, Plasma 9.0 8.9 - 10.2 mg/dL 03/17/2025 5:48 PM EDT [facility] eGFRcr 98.2 mL/min/1.7 3m*2 03/17/2025 5:48 PM EDT [facility] Comment:Reported eGFRcr in m L/min/1.73m2 is based the CKD-EPI 2020 equation that does not use a race coefficient. Blood Venous blood specimen / Unknown Venipuncture / Unknown 03/17/2025 4:38 PM EDT 03/17/2025 4:39 PM EDT us Destini Ojeda MD LAB BLOOD ORDERABLES Final Re sult [facility] [address] [place] [address] * ECG Adult (Now - Performed in your clinic) (03/17/2025 3:38 PM EDT) EKG DIAGNOSIS CLASS Abnormal MUSE ECG Ventricular Rate 73 BPM MUSE ECG Atrial Rate 73 BPM MUSE ECG IA Interval 146 ms MUSE ECG QRSD Interval 82 ms MUSE ECG QT Interval 372 ms MUSE ECG QTC Interval 409 ms MUSE ECG P [place] 19 degrees MUSE ECG R [place] 8 degrees MUSE ECG T Wave [place] 41 degrees MUSE ECG Diagnosis Sinus rhythm with sinus arrhythmia with occasional premature ventricular complexes MUSE ECG Diagnosis Nonspecific T wave abnormality MUSE ECG Diagnosis Abnormal ECG MUSE ECG Diagnosis MUSE ECG Diagnosis Confirmed by Joel Cullen ([id number]) on 03/17/2025 4:21:39 PM MUSE ECG 03/17/2025 3:38 PM EDT 03/17/2025 4:21 PM EDT Destini Ojeda MD ECG ORDERABLES Final Result Performing Organization Address [facility] Co de Phone Number MUSE ECG documented in this encounter Visit Diagnoses Diagnosis Bradycardia- Primary Other specified cardiac dysrhythmias PVC (premature ventricular contraction) Other premature beats Class 3 obesity documented in this encounter Additional Health Concerns Infection Onset Date Last Indicated Resolved Time C. difficile 07/05/2024 07/05/2024 Assessment Noted Time PHQ-9 Depression Total Score: 0 12/23/19 1:23 PM EDT A fall risk assessment has been complete d for the patient 03/17/2025 3:32 PM EDT A Body Mass Index follow-up plan has been documented for the patient 12/22/2024 1:48 PM EDT documented as of this encounter Care Teams Stem Assembler Relationship Specialty Start Date End Date Jazmyn Mattson APRN [facility] [place] [address] PCP - General Family Medicine 07/06/24 documented as of this encounter
--- OUTSIDE RECORDS SUMMARY | 2025-04-01 10:44 | XMS_ITS | Encounter Summary ---
Author Organization [employer] ([place], [place], [place], [place]) Address [address] [place] [address] Care Team Providers Care Rug Cleaner Name Role Phone Unavailable Primary Care Provider Unavailabl e Encounter Details Date Type Department Care Team (Late st Contact Info) Description 01/24/2021 Transcribed Document [facility] Family Medicine [facility] [place] [address] ProviderKmi MD [address] [place] [id number] Social History Tobacco Use Types Packs/Day Years Used Date Smoking Tobacco: Never Assessed Comments Unknown Sex and Gender Information Value Date Recorded Sex Assigned at Not on file Legal Sex Female 5:43 PM CDT Gender Identity Not on file Sexual Orientation Not on file documented as of this encounter Miscellaneous Notes * Cerner Conversion Note - Historical ProviderMD - 01/24/2021 7:52 PM CDT ED Event Note Entered On: 01/24/2021 19:54 EDT Performed On: 01/24/2021 19:52 EDT by Zaki Kwong RN-PATIENT CARE BEDSIDE NON-EXEMPT ED Event Note ED Event Date/Time : 01/24/2021 19:52 EDT ED Description of Event : Walking pulse Ox compelted as ordered. Patient maintained O2 of 90-91 % for the majority of the walk, but did desat to 87-88% towards end of walk. Dr. Reza notified Zaki Kwong RN-PATIENT CARE BEDSIDE NON-EXEMPT - 01/24/2021 19:52 EDT Electronically signed by Ramos Del Valle Conversion Acute Care Occupational Therapist Cerner at 09/23/2022 5:00 PM CDT documented in this encounter Plan of Treatment Not on file documented as of this encounter Visit Diagnoses Not on filedocumented in this encounter
--- OUTSIDE RECORDS SUMMARY | 2025-04-01 10:44 | XMS_ITS | Encounter Summary ---
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 Name Role Phone Unavailable Primary Care Provider Unavailabl e Encounter Details Date Type Department Care Team (Late st Contact Info) Description 01/24/2021 Transcribed Document [facility] [place] [facility] Family Medicine [facility] [place] [address] ProviderKim MD [address] [place] [id number] Social History Tobacco Use Types Packs/Day Years Used Date Smoking Tobacco: Never Assessed Comments Unknown Sex and Gender Information Value Date Recorded Sex Assigned at Not on file Legal Sex Female 5:43 PM CDT Gender Identity Not on file Sexual Orientation Not on file documented as of this encounter Miscellaneous Notes * Cerner Conversion Note - Kim Guillaume MD - 01/24/2021 9:43 PM CDT [facility] [place] [address] ANIBAL CAM :1995 Visit Time:01/24/2021 Your Visit Summary Your Care Team Primary Provider: MARGARETTE LANG MD Secondary Provider: Your Diagnosis Cough COVID-19 virus infection Fever Sepsis SOA - Shortness of Air Medical Information You may obtain a copy of your Emergency Department visit from Medical Records by calling the hospital phone number listed above and asking to be directed to the Medical Records Department. If you had special tests, such as EKG???s or X-rays, the interpretation of your tests given to you by the Emergency Department Physician is a preliminary report. Some fractures and illnesses fail to show up on preliminary tests. These will be reviewed again and we will call you if there are any new suggestions. If your symptoms continue notify your physician. After you leave, you should follow the instructions provided. What to do next Follow-Up Appointments Follow Up with ROSA THOMAS When Within 2 to 3 days Where: [place] [address]- Business (1) Allergies Macrobid (Nausea present) sulfa drugs (Rash) Immunizations This Visit No Immunizations Found Medications What How Much When Instructions Next Dose multivitamin, ( Multivitamins) Oral Every Day tamsulosin (Flomax 0.4 mg oral capsule) 1 Capsule(s) Oral Every Day Duration: 7 Day(s) The home medications listed are only as accurate as the information you provided. Please continue taking all of your medications prescribed by your Primary Care Provider unless specifically told to change or discontinue the medication. Please direct any questions regarding your home medications to your Primary Care Provider. Take your medications faithfully. Do NOT skip medication. Do NOT stop taking medications without the direction of a physician. Carry a list of your medications with you at all times, and take this medication list with you to your first follow up visit. Report any side effects. Avoid herbal remedies unless discussed with your physician. As part of your treatment plan, your physician may have prescribed a limited course of a controlled substance. This medication may be given to help people with moderate or severe pain or for other medical conditions, but there are risks involved with treatment. Common side effects may include nausea, constipation, drowsiness, sweating, itching, dry mouth, and rash. More serious side effects may include cognitive and motor impairment, like problems with thinking, concentrating, alertness, and movement (e.g. slowed reflexes), and driving and operating heavy machinery can be dangerous. It is important for you to talk to your physician if you have these side effects or questions. These controlled substances can produce physical dependence and be habit-forming if taken for an extended period of time, which means that the body has gotten used to them and may experience withdrawal symptoms if they are abruptly stopped. Withdrawal symptoms can include runny nose, sweating, goose bumps, diarrhea, abdominal cramping, rapid heartbeat, difficulty sleeping, and nervousness. Please dispose of unused and medications per pharmacy guidance. Test Results Laboratory or Other Results This Visit (last charted value for your 01/24/2021 visit) Hematology 01/24/2021 5:46 PM WBC: 2.8 K/uL -- Normal range between ( 4.5 and 10.5 ) RBC: 4.83 Million/uL -- Normal range between ( 3.93 and 5.22 ) Hct: 38.0 % -- Normal range between ( 34.1 and 44.9 ) Hgb: 11.8 g/dL -- Normal range between ( 11.2 and 15.7 ) Platelet Count: 172 K/uL -- Normal range between ( 163 and 369 ) MCH: 24.4 pg -- Normal range between ( 25.6 and 32.2 ) MCHC: 31.1 Gram/dL -- Normal range between ( 32.2 and 36.5 ) MCV: 78.7 fL -- Normal range between ( 79.0 and 94.8 ) Slide Review: Add Diff Man ALYC #: 1 K/uL Microcytosis: 2+ Band Percent Man: 7 % -- Normal range between ( 5 and 11 ) Hypochromia: 1+ RBC Morphology: Abnormal Polychromasia: 1+ RDW: 14.9 % -- Normal range between ( 11.7 and 14.9 ) ANC #: 2 K/uL [place] Percent Man: 9 % -- Normal range between ( 4 and 5 ) Neutrophil Percent Man: 60 % -- Normal range between ( 50 and 65 ) Anisocytosis: 2+ Platelet Ct Estimate: Adequate MPV: 10.2 fL -- Normal range between ( 9.4 and 12.4 ) Poikilocytosis: 1+ Lymph Percent Man: 24 % -- Normal range between ( 24 and 44 ) General Chemistry 01/24/2021 5:46 PM Creatinine Level: 0.70 mg/dL -- Normal range between ( 0.55 and 1.02 ) Sodium Level: 140 mmol/L -- Normal range between ( 136 and 146 ) Potassium Level: 3.6 mmol/L -- Normal range between ( 3.5 and 5.1 ) Chloride Level: 106 mmol/L -- Normal range between ( 102 and 112 ) Carbon Dioxide Level: 28 mmol/L -- Normal range between ( 21 and 32 ) Anion Gap: 10 -- Normal range between ( 9 and 20 ) Bilirubin Total: 0.4 mg/dL -- Normal range between ( 0.2 and 1.2 ) A/G Ratio: 0.8 -- Normal range between ( 1.1 and 2.5 ) ALT: 46 Units/Liter -- Normal range between ( 13 and 56 ) AST: 46 Units/Liter -- Normal range between ( 5 and 37 ) Globulin: 3.9 Gram/dL -- Normal range between ( 1.5 and 4.5 ) Alk Phos: 86 Units/Liter -- Normal range between ( 27 and 136 ) Bun/Creatinine: 11.4 -- Normal range between ( 8.0 and 20.0 ) Calcium Level: 8.9 mg/dL -- Normal range between ( 8.4 and 10.1 ) eGFR : >60 mL/min/1.73m2 eGFR NonAfrican: >60 mL/min/1.73m2 Glucose Level: 103 mg/dL -- Normal range between ( 74 and 106 ) Blood Urea Nitrogen: 8 mg/dL -- Normal range between ( 7 and 22 ) Lactic Acid Level: .83 mmol/L -- Normal range between ( .90 and 1.70 ) Protein Total: 7.1 Gram/dL -- Normal range between ( 6.4 and 8.2 ) Albumin Level: 3.2 Gram/dL -- Normal range between ( 3.4 and 5.0 ) Education Materials COVID-19: How to Protect Yourself and Others Know how it spreads ??? There is currently no vaccine to prevent coronavirus disease 2019 (COVID-19). ??? The best way to prevent illness is to avoid being exposed to this virus. ??? The virus is thought to spread mainly from winhvl-cq-cngygg. ? Between people who are in close contact with one another (within about 6 feet). ? Through respiratory droplets produced when an infected person coughs, sneezes or talks. ? These droplets can land in the mouths or noses of people who are nearby or possibly be inhaled into the lungs. ? COVID-19 may be spread by people who are not showing symptoms. Everyone should Clean your hands often ??? Wash your hands often with soap and water for at least 20 seconds especially after you have been in a public place, or after blowing your nose, coughing, or sneezing. ??? If soap and water are not readily available, use a hand utility assembler that contains at least 60% alcohol. Cover all surfaces of your hands and rub them together until they feel dry. ??? Avoid touching your eyes, nose, and mouth with unwashed hands. Avoid close contact ??? Limit contact with others as much as possible. ??? Avoid close contact with people who are sick. ??? Put distance between yourself and other people. ? Remember that some people without symptoms may be able to spread virus. ? This is especially important for people who are at higher risk of getting very sick.www.cdc.gov/coronavirus/2019-ncov/ohjb-mvgpr-vpaleumroju/kjpxod-gm-ugctkh -risk.html Cover your mouth and nose with a mask when around others ??? You could spread COVID-19 to others even if you do not feel sick. ??? Everyone should wear a mask in public settings and when around people not living in their household, especially when social distancing is difficult to maintain. ? Masks should not be placed on young children under age 2, anyone who has trouble breathing, or is unconscious, incapacitated or otherwise unable to remove the mask without assistance. ??? The mask is meant to protect other people in case you are infected. ??? Do NOT use a facemask meant for a healthcare worker. ??? Continue to keep about 6 feet between yourself and others. The mask is not a substitute for social distancing. Cover coughs and sneezes ??? Always cover your mouth and nose with a tissue when you cough or sneeze or use the inside of your elbow. ??? Throw used tissues in the trash. ??? Immediately wash your hands with soap and water for at least 20 seconds. If soap and water are not readily available, clean your hands with a hand utility assembler that contains at least 60% alcohol. Clean and disinfect ??? Clean AND disinfect frequently touched surfaces daily. This includes tables, doorknobs, light switches, countertops, handles, desks, phones, keyboards, toilets, faucets, and sinks. www.cdc.gov/coronavirus/2019-ncov/kllvjuc-gmceovf-dlnq/iokswojxaorh-rnyy-qhec. html ??? If surfaces are dirty, clean them: Use detergent or soap and water prior to disinfection. ??? Then, use a household disinfectant. You can see a list of [facility]-registered household disinfectants here. cdc.gov/coronavirus 02/09/2020 This information is not intended to replace advice given to you by your health care provider. Make sure you discuss any questions you have with your health care provider. Document Revised: 02/17/2020 Document Reviewed: 12/16/2019 Elsevier Patient Education ?? 2020 [employer] COVID-19 COVID-19 is a respiratory infection that is caused by a virus called severe acute respiratory syndrome coronavirus 2 (SARS-CoV-2). The disease is also known as coronavirus disease or novel coronavirus. In some people, the virus may not cause any symptoms. In others, it may cause a serious infection. The infection can get worse quickly and can lead to complications, such as: ??? Pneumonia, or infection of the lungs. ??? Acute respiratory distress syndrome, or ARDS. This is a condition in which fluid buildup in the lungs prevents the lungs from filling with air and passing oxygen into the blood. ??? Acute respiratory failure. This is a condition in which there is not enough oxygen passing from the lungs to the body or when carbon dioxide is not passing from the lungs out of the body. ??? Sepsis or septic shock. This is a serious bodily reaction to an infection. ??? Blood-clotting problems. ??? Secondary infections due to bacteria or fungus. ??? Organ failure. This is when your body's organs stop working. The virus that causes COVID-19 is contagious. This means that it can spread from person to person through droplets from coughs and sneezes (respiratory secretions). What are the causes? This illness is caused by a virus. You may catch the virus by: ??? Breathing in droplets from an infected person. Droplets can be spread by a person breathing, speaking, singing, coughing, or sneezing. ??? Touching something, like a table or a doorknob, that was exposed to the virus (contaminated) and then touching your mouth, nose, or eyes. What increases the risk? Risk for infection You are more likely to be infected with this virus if you: ??? Are within 6 ft (2 m) of a person with COVID-19. ??? Provide care for or live with a person who is infected with COVID-19. ??? Spend time in crowded indoor spaces or live in shared housing. Risk for serious illness You are more likely to become seriously ill from the virus if you: ??? Are 50 years of age or older. The higher your age, the more you are at risk for serious illness. ??? Live in a prison or long-term care facility. ??? Have cancer. ??? Have a long-term (chronic) disease such as: ? Chronic lung disease, including chronic obstructive pulmonary disease or asthma. ? A long-term disease that lowers your body's ability to fight infection (immunocompromised). ? Heart disease, including: ? Heart failure. ? Coronary artery disease, a condition in which the arteries that lead to the heart become narrow or blocked. ? A disease that makes the heart muscle thick, weak, or stiff (cardiomyopathy). ? Diabetes. ? Chronic kidney disease. ? Sickle cell disease, a condition in which red blood cells have an abnormal sickle shape. ? Liver disease. ??? Are obese. What are the signs or symptoms? Symptoms of this condition can range from mild to severe. Symptoms may appear any time from 2 to 14 days after being exposed to the virus. They include: ??? A fever or chills. ??? A cough. ??? Difficulty breathing or feeling short of breath. ??? Feeling tired. ??? Headaches, body aches, or muscle aches. ??? Runny or stuffy (congested) nose. ??? A sore throat. ??? New loss of taste or smell. Some people may also have stomach problems, such as nausea, vomiting, or diarrhea. Other people may not have any symptoms of COVID-19. How is this diagnosed? This condition may be diagnosed based on: ??? Your signs and symptoms, especially if: ? You provide care for or live with a person who was diagnosed with COVID-19. ? You were exposed to a person who was diagnosed with COVID-19. ??? A physical exam. ??? Lab tests, which may include: ? Using a swab to take a sample of fluid from the back of your nose and throat (nasopharyngeal fluid), from your nose, or from your throat. ? Testing a sample of saliva from your mouth. ? Testing a sample of coughed-up mucus from your lungs (sputum). ? Blood tests. ??? Imaging tests, which may include X-rays, CT scan, or ultrasound. How is this treated? Your health care provider will talk with you about ways to treat your symptoms. For most people, the infection is mild and can be managed at home with rest, fluids, and owpy-gxu-noghrmj medicines. There are currently no prescription medicines that have been approved for treatment of people with mild cases of COVID-19. Some medicines that treat other diseases are being used on a trial basis to see if they are effective for treating mild cases of COVID-19. Treatment for a serious infection usually takes place in a hospital intensive care unit (ICU). It may include one or more of the following treatments. These treatments are given until your symptoms improve. ??? Receiving fluids and medicines through an IV. ? Some medicines have been approved for the treatment of people with serious infection who are being treated in the hospital. In addition, certain medicines that treat other diseases are being used on a trial basis to see if they are effective for treating severe cases of COVID-19. ??? Supplemental oxygen. Extra oxygen is given through a tube in the nose, a face mask, or a manriquez. ??? Positioning you to lie on your stomach (prone position). This makes it easier for oxygen to get into the lungs. ??? Continuous positive airway pressure (CPAP) or bi-level positive airway pressure (BPAP) machine. This treatment uses mild air pressure to keep the airways open. A tube that is connected to a motor delivers oxygen to the body. ??? Ventilator. This treatment moves air into and out of the lungs by using a tube that is placed in your windpipe. ??? Tracheostomy. This is a procedure to create a hole in the neck so that a breathing tube can be inserted. ??? Extracorporeal membrane oxygenation (ECMO). This procedure gives the lungs a chance to recover by taking over the functions of the heart and lungs. It supplies oxygen to the body and removes carbon dioxide. Follow these instructions at home: Lifestyle ??? If you are sick, stay home except to get medical care. Your health care provider will tell you how long to stay home. Call your health care provider before you go for medical care. ??? Rest at home as told by your health care provider. ??? Do not use any products that contain nicotine or tobacco, such as cigarettes, e-cigarettes, and chewing tobacco. If you need help quitting, ask your health care provider. ??? Return to your normal activities as told by your health care provider. Ask your health care provider what activities are safe for you. General instructions ??? Take amye-wef-xguqjha and prescription medicines only as told by your health care provider. ??? Drink enough fluid to keep your urine pale yellow. ??? Keep all follow-up visits as told by your health care provider. This is important. How is this prevented? Some vaccines to prevent the virus that causes COVID-19 have been authorized for emergency use. This means that the vaccines are still being tested, but they have been deemed safe for use and have been effective in preventing COVID-19 in trials. These vaccines may not be available to everyone right away. The vaccines will likely be given to certain groups at higher risk first until there is enough supply available for everyone. Until the vaccines are available for everyone, it is important to continue to take steps to protect yourself and others from this virus. To protect yourself: Take precautions to avoid infection. ??? Stay away from people who are sick. ??? Wash your hands often with soap and water for at least 20 seconds. If soap and water are not available, use an alcohol-based hand utility assembler. ??? Avoid touching your mouth, face, eyes, or nose. ??? Avoid going out in public. Follow guidance from your state and local health authorities. ??? If you must go out in public, wear a cloth face covering or face mask. Make sure your mask covers your nose and mouth. ??? Avoid crowded indoor spaces. Stay at least 6 ft (2 m) away from others. ??? Disinfect objects and surfaces that are frequently touched every day. This may include: ? Counters and tables. ? Doorknobs and light switches. ? Sinks and faucets. ? Electronics such as phones, remote controls, keyboards, computers, and tablets. To protect others: If you have symptoms of COVID-19, take steps to prevent the virus from spreading to others. ??? If you think you have a COVID-19 infection, contact your health care provider right away. Tell your health care team that you think you may have a COVID-19 infection. ??? Stay home. Leave your house only to seek medical care. Do not use public transport, if possible. ??? Do not travel while you are sick. ??? Wash your hands often with soap and water for at least 20 seconds. If soap and water are not available, use alcohol-based hand utility assembler. ??? Stay away from other members of your household. Let healthy household members care for children and pets, if possible. If you have to care for children or pets, wash your hands often and wear a mask. If possible, stay in your own room, separate from others. Use a different bathroom. ??? Make sure that all people in your household wash their hands well and often. ??? Cough or sneeze into a tissue or your sleeve or elbow. Do not cough or sneeze into your hand or into the air. ??? Wear a cloth face covering or face mask. Make sure your mask covers your nose and mouth. Where to find more information ??? Centers for Disease Control and Prevention: www.cdc.gov/coronavirus ??? World Health Organization: www.who.int/health-topics/coronavirus Contact a health care provider if: ??? You have symptoms of COVID-19. ??? You have been exposed to someone who has COVID-19, even if you do not have symptoms. Get help right away if: ??? You have trouble breathing. ??? You have pain or pressure in your chest. ??? You have confusion. ??? You have bluish lips and fingernails. ??? You have difficulty waking from sleep. ??? You have symptoms that get worse. These symptoms may represent a serious problem that is an emergency. Do not wait to see if the symptoms will go away. Get medical help right away. Call your local emergency services (911 in the [place] Do not drive yourself to the hospital. Let the emergency medical personnel know if you think you have COVID-19. Summary ??? COVID-19 is a respiratory infection that is caused by a virus. It is also known as coronavirus disease or novel coronavirus. It can cause serious infections, such as pneumonia, acute respiratory distress syndrome, acute respiratory failure, or sepsis. ??? The virus that causes COVID-19 is contagious. This means that it can spread from person to person through droplets from breathing, speaking, singing, coughing, or sneezing. ??? You are more likely to develop a serious illness if you are 50 years of age or older, have a weak immune system, live in a prison, or have a chronic disease. ??? There is no approved medicine to treat mild cases of COVID-19. Your health care provider will talk with you about ways to treat your symptoms. ??? Take steps to protect yourself and others from infection. Wash your hands often and disinfect objects and surfaces that are frequently touched every day. Stay away from people who are sick, and wear a mask if you are sick. This information is not intended to replace advice given to you by your health care provider. Make sure you discuss any questions you have with your health care provider. Document Revised: 05/23/2020 Document Reviewed: 05/23/2020 [employer] Patient Education ?? 2020 [employer]. Emergency Awareness and Preventative Care STROKE is an EMERGENCY Every Minute Counts Act FAST and Check for these signs: FACE Does the face look uneven? ARM Does one arm drift down? SPEECH Does their speech sound strange? TIME Call at any sign of stroke Stroke Risk Factors Atrial Fibrillation (irregular heartbeat) Diabetes Family history of stroke Heart Disease Heavy alcohol use High Blood Pressure High Cholesterol Physical inactivity and obesity Smoking Cigarette Smoking The facts are clear, cigarette smoking will shorten your life. Smoking can cause many illnesses along the way. As a healthcare provider, we recommend that you stop smoking. Assistance with quitting is available by contacting 6-878-PKAX-NOW. This is a free resource providing counseling, support, and referral. Or you may contact your personal physician. National Suicide Prevention Lifeline: The National Suicide Prevention Lifeline is a national network of local crisis centers that provides free and confidential emotional support to people in suicidal crisis or emotional distress 24 hours a day, 7 days a week. Don't Wait! Stop a Heart Attack Before it Starts What is a heart attack? A heart attack is damage or to a part of the heart from severely decreased or lack of blood flow to the heart. Over time, arteries can become narrow from the buildup of fat and cholesterol, which is called plaque. The plaque can rupture causing a blood clot to form. When the blood clot forms, the artery can become severely narrowed or completely blocked, causing a heart attack. Heart attack is the leading cause of in the [place]. 85% of muscle damage occurs within the first 2 hours. Delay in the recognition of heart attack symptoms increases the chances of . Know the early symptoms of a heart attack: Nausea Feeling of fullness in chest Jaw Pain Pain that travels down one or both arms Fatigue/being tired Anxiety Back Pain Chest pressure, squeezing, or discomfort Shortness of breath Sweating, or a cold sweat Feeling of impending doom There are unusual signs of a heart attack, too! Women, the elderly, and diabetics may present with atypical symptoms: Fainting/dizziness Weakness Confusion Risk Factors for a Heart Attack Some heart disease risk factors, such as age and family history, cannot be changed. Others, like smoking and lack of exercise, can be changed. Smoking High Cholesterol High Blood Pressure Family History Obesity Age Gender (Males are at higher risk) Lack of Exercise Diabetes Diet Stress Excessive Alcohol Intake If you or someone you know is experiencing the signs and symptoms of a heart attack, DON???T DELAY. Call immediately and seek help. If someone collapses, perform CPR! Do not attempt to drive if you are having symptoms of heart attack. Hands-Only CPR Why Hands-Only CPR? Hands-Only CPR has been shown to be as effective as conventional CPR for cardiac arrests that occur outside of a hospital. Survival depends on immediately receiving CPR from someone nearby. How do you perform Hands-Only CPR? There are two easy steps: Call if you see a teen or adult collapse Push hard and fast in the center of the chest at a beat of 100 beats per minute. Save a life! 4 WAYS TO GET AHEAD OF SEPSIS SEPSIS is a MEDICAL EMERGENCY. Time matters! Infections put you and your family at risk for a life-threatening condition called sepsis. Sepsis is the body's extreme response to an infection. It is life-threatening, and without timely treatment, sepsis can rapidly lead to tissue damage, organ failure, and . Sepsis happens when an infection you already have-in your skin, lungs, urinary tract or somewhere else-triggers a chain reaction throughout your body. 1 PREVENT INFECTIONS Take good care of chronic conditions. Talk to your doctor about getting the recommended vaccines. 2 PRACTICE GOOD HYGIENE Wash your hands frequently. Keep cuts or open sores clean and covered until they are healed. 3 KNOW THE SYMPTOMS Confusion or disorientation Shortness of breath High heart rate Fever, shivering, or feeling very cold Extreme pain or discomfort Clammy or sweaty skin 4 ACT FAST Get medical care IMMEDIATELY if you suspect sepsis or if you have an infection that is not getting better or is getting worse. To learn more about sepsis and how to prevent infections, visit www.cdc.gov/sepsis. The examination and treatment you have received in the Emergency Department has been done to provide an appropriate evaluation and stabilizing treatment on an emergency basis only. Given the limited resources, it is not meant to be a substitute for complete medical care. The follow-up doctor you named will receive a copy of your records and all test reports. IT IS IMPORTANT THAT YOU SCHEDULE A FOLLOW-UP APPOINTMENT AND ARE RE-EVALUATED. You should report any new complaints, symptoms, or remaining problems at that time. IT IS IMPOSSIBLE FOR THE EMERGENCY DEPARTMENT TO RECOGNIZE AND TREAT ALL ELEMENTS OF INJURY OR ILLNESS IN A SINGLE VISIT. If you have been referred to a specialist physician, it means that we believe you may have a condition that requires the expertise of a specialist. These physicians work in partnership with the hospital and have agreed to see referred patients in their office for further evaluation. KEEP IN MIND THAT THE SPECIALIST HAS HIS/HER OWN OFFICE POLICIES WHICH MAY REQUIRE PROPER INSURANCE OR PAYMENT UP FRONT BEFORE THE SPECIALIST WILL SEE YOU. It is your responsibility to call the specialist physician to make an appointment. We do not have the ability to refer patients to specialists/physicians that work with specific insurance companies. Please be advised that all financial charges or billing practices are determined by that practice, not the hospital. If your insurance company requires that you see a specialist from their approved list, it is your responsibility to contact your insurance company to make those arrangements. It is also your responsibility to follow any other requirements of your insurance company necessary to obtain coverage for claims submitted. We will bill your insurance; however, you are responsible today for any co-pay amounts. You will receive a separate bill for any services you may have received including: emergency, radiology, or pathology physicians. Patient Name:ANIBAL CAM I have received this information and was given the opportunity to ask questions. Patient/Group Fitness Instructor Name: Patient/Group Fitness Instructor Signature: Relationship to Patient: Clinician/Hospital Group Fitness Instructor Signature: Please Provide a Telephone Number Where You Can Be Reached: Is it Permissible To Leave a Message? Date: documented in this encounter Plan of Treatment Not on file documented as of this encounter Visit Diagnoses Not on filedocumented in this encounter
--- OUTSIDE RECORDS SUMMARY | 2025-04-01 10:44 | XMS_ITS | Encounter Summary ---
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 Name Role Phone Unavailable Primary Care Provider Unavailabl e Encounter Details Date Type Department Care Team (Late st Contact Info) Description 12/30/2020 Transcribed Document [facility] Family Medicine [place] [address] ProviderKim MD [facility] [place] [id number] Social History Tobacco Use Types Packs/Day Years Used Date Smoking Tobacco: Never Assessed Comments Unknown Sex and Gender Information Value Date Recorded Sex Assigned at Not on file Legal Sex Female 5:43 PM CDT Gender Identity Not on file Sexual Orientation Not on file documented as of this encounter Miscellaneous Notes * Cerner Conversion Note - Kim ProviderMD - 12/30/2020 11:16 AM CDT ED Triage Entered On: 12/30/2020 11:30 EDT Performed On: 12/30/2020 11:25 EDT by Anabell Howard RN-PATIENT CARE BEDSIDE NON-EXEMPT ED Triage Across the Room Chief Complaint : Pt complains of L flank pain starting 0300. Took tylenol & ibuprofen at 0300. Pt stated she has had kidney stones in the past. Pt complains of N Triage Date/Time : 12/30/2020 11:25 EDT Anabell Howard RN-PATIENT CARE BEDSIDE NON-EXEMPT - 12/30/2020 11:25 EDT DCP GENERIC CODE Tracking Acuity : 3 - Urgent Tracking Group : [facility] Anabell Howard RN-PATIENT CARE BEDSIDE NON-EXEMPT - 12/30/2020 11:25 EDT Mode of Arrival : Ambulatory Transported to ED by : Private vehicle To Room Via : Ambulate Accompanied By : Unaccompanied ED Vital Signs : Document Height & Weight : Document ED Allergies : Document ED Reason for Visit : Document Last Menstrual Period : 10/07/2020 EDT Tetanus Immunization : Unknown Anabell Howard RN-PATIENT CARE BEDSIDE NON-EXEMPT - 12/30/2020 11:25 EDT Infectious Disease History Has the patient ever been tested for COVID-19? : Yes, Patient stated results Negative Date of COVID-19 test known? : No Does patient have symptoms of COVID-19? : No COVID19 Screening : No Experiencing Infectious Disease Symptoms : No symptoms Physical contact outside [place] in the last 30 days : No Infectious Disease History : None Tuberculosis Symptoms : None Anabell Howard RN-PATIENT CARE BEDSIDE NON-EXEMPT - 12/30/2020 11:25 EDT Vital Signs ED Temperature Source : Oral Temperature Mode : Fahrenheit Temperature, Fahrenheit : 98.4 Deg F ED Pain : Yes Clinical Temperature, C : 36.9 Deg C Oxygen Therapy Mode : Room air Peripheral Pulse Rate : 89 bpm Respiratory Rate : 18 Breaths/Min Systolic Blood Pressure : 147 mmHg (HI) Diastolic Blood Pressure : 82 mmHg Oxygen Saturation : 97 % Anabell Howard RN-PATIENT CARE BEDSIDE NON-EXEMPT - 12/30/2020 11:25 EDT Allergy (As Of: 12/30/2020 11:30:55 EDT) Allergies (Active) Macrobid Estimated Onset Date: Unspecified ; Reactions: Nausea present ; Created By: RONY GROSSMAN RN; Reaction Status: Active ; Category: Drug ; Substance: Macrobid ; Type: Allergy ; Updated By: RONY GROSSMAN RN; Reviewed Date: 12/30/2020 11:29 EDT sulfa drugs Estimated Onset Date: Unspecified ; Reactions: Rash ; Created By: RONY GROSSMAN RN; Reaction Status: Active ; Category: Drug ; Substance: sulfa drugs ; Type: Allergy ; Updated By: RONY GROSSMAN RN; Reviewed Date: 12/30/2020 11:29 EDT Diagnosis Control ED (As Of: 12/30/2020 11:30:55 EDT) Problems(Active) Dislocated knee (SNOMED CT :9671009861 ) Name of Problem: Dislocated knee ; Recorder: TRANG GONZALEZ MD-OBG; Confirmation: Confirmed ; Classification: Medical ; Code: [id number] ; Contributor System: [id number] ; Last Updated: 11/18/2013 19:27 EDT ; Life Cycle Date: 07/07/2013 ; Life Cycle Status: Active ; Responsible Provider: TRANG GONZALEZ MD-OBG; Vocabulary: SNOMED CT Vaginal delivery with forceps including care (SNOMED CT :[id number] ) Name of Problem: Vaginal delivery with forceps including care ; Recorder: TRANG GONZALEZ MD-OBG; Confirmation: Confirmed ; Classification: Medical ; Code: [id number] ; Contributor System: PowerChart ; Last Updated: 11/23/2013 15:16 EDT ; Life Cycle Date: 07/07/2013 ; Life Cycle Status: Active ; Responsible Provider: TRANG GONZALEZ MD-OBG; Vocabulary: SNOMED CT Diagnoses(Active) Flank pain Date: 12/30/2020 ; Diagnosis Type: Reason For Visit ; Confirmation: Complaint of ; Clinical Dx: Flank pain ; Classification: Medical ; Clinical Service: Emergency medicine ; Code: PNED ; Probability: 0 ; Diagnosis Code: [id number] Nausea Date: 12/30/2020 ; Diagnosis Type: Reason For Visit ; Confirmation: Complaint of ; Clinical Dx: Nausea ; Classification: Medical ; Clinical Service: Emergency medicine ; Code: PNED ; Probability: 0 ; Diagnosis Code: [id number] ED Height and Weight Height Source : Stated Height Entry Format : [place] Height, Feet : 5 ft(Converted to: 152 cm, 60 Inch) Height, Inches : 1 Inch(Converted to: 0 ft 1 Inch, 2.54 cm) Clinical Height : 154.94 cm Weight Source, ED : Critical estimated dosing weight Weight Entry Format : [place] Weight, Pounds : 285 lb Clinical Dosing Weight : 129.55 kg Body Surface Area (BSA) : 2.2 m2 Body Mass Index : 54 kg/m2 (>HHI) [place] Body Weight (IBW) : 47.45 kg Anabell Howard RN-PATIENT CARE BEDSIDE NON-EXEMPT - 12/30/2020 11:25 EDT Pain Assessment Pain Assessment : Initial assessment Pain Scale Used : 0-10 Scale Anabell Howard RN-PATIENT CARE BEDSIDE NON-EXEMPT - 12/30/2020 11:25 EDT Pain Scale Intensity : 7 Anabell Howard RN-PATIENT CARE BEDSIDE NON-EXEMPT - 12/30/2020 11:25 EDT Image 4 - Images currently included in the form version of this document have not been included in the text rendition version of the form. documented in this encounter Plan of Treatment Not on file documented as of this encounter Visit Diagnoses Not on filedocumented in this encounter
--- OUTSIDE RECORDS SUMMARY | 2025-04-01 10:44 | XMS_ITS | Encounter Summary ---
Author Organization [employer] ([place], [place], [place], [place]) Address [address] [place] [address] Care Team Providers Care Sports Equipment Supervisor Name Role Phone Unavailable Primary Care Provider Unavailabl e Encounter Details Date Type Department Care Team (Late st Contact Info) Description 12/30/2020 Transcribed Document [facility] [place] [address] ProviderKim MD [address] [place] [address] [id number] Social History Tobacco Use Types Packs/Day Years Used Date Smoking Tobacco: Never Assessed Comments Unknown Sex and Gender Information Value Date Recorded Sex Assigned at Not on file Legal Sex Female 5:43 PM CDT Gender Identity Not on file Sexual Orientation Not on file documented as of this encounter Miscellaneous Notes * Cerner Conversion Note - Kim ProviderMD - 12/30/2020 3:24 PM CDT [address] [address] ANIBAL CAM :1995 Visit Time:12/30/2020 Your Visit Summary Your Care Team Primary Provider: TABITHA SHAY MD Secondary Provider: Your Diagnosis Flank pain Hypertension Nausea Ureterolithiasis Medical Information You may obtain a copy [...] do next Follow-Up Appointments Follow Up with [facility] When Within 2 to 3 days Comments Your blood pressure was elevated during your visit to the emergency department today. There are many reasons as to why this may be, including your condition upon arrival to the hospital, as well as the stress involved with your situation. I have provided you a phone contact in order to arrange follow-up for this condition and its potential complications. You may certainly arrange follow up with your primary provider. Return or go to the nearest ER for worsening uncontrolled pain, fever inability urinate and/or persistent vomiting with inability keep medications down. Prescriptions (3) Active Flomax 0.4 mg oral capsule 0.4 mg = 1 Cap, Daily, Oral, 7 Day(s), 7 Cap, 0 refill(s), Route to Pharmacy Electronically, [place] [address] Percocet 7.5/325 oral tablet 1 Tab, Tab, Q4H, Oral, PRN, for pain, 2 Day(s), 12 Tab, 0 refill(s), Route to Pharmacy Electronically, [place] [address] Zofran ODT 8 mg oral tablet, disintegrating 8 mg = 1 Tab, TID, Oral, PRN, Vomiting, 3 Day(s), 9 Tab, 0 refill(s), Route to Pharmacy Electronically, [place] [address] Where: [address] [facility] [place] [address]- Business (1) Follow Up with ROSA THOMAS When Within 2 to 3 days Where: [address] [place] [phone] Business (1) Allergies Macrobid (Nausea present) sulfa drugs (Rash) Immunizations This Visit No Immunizations Found Medications What How Much When Instructions Next Dose acetaminophen-oxyCODONE (Percocet 7.5/ 325 oral tablet) 1 Tablet(s) Oral Every 4 Hours as needed for for pain Duration: 2 Day(s) Pickup at [place] [address] ondansetron (Zofran ODT 8 mg oral tablet, disintegrating) 1 Tablet(s) Oral Three Times A Day as needed for Vomiting Duration: 3 Day(s) Pickup at [facility] [address] tamsulosin (Flomax 0.4 mg oral capsule) 1 Capsule(s) Oral Every Day Duration: 7 Day(s) Pickup at [facility] 737 multivitamin, ( Multivitamins) Oral Every Day Pharmacy Information [facility] 737: [address] [place], [place] [id number] [phone] The home medications listed are only as [...] This Visit (last charted value for your 12/30/2020 visit) Hematology 12/30/2020 11:51 AM WBC: 4.8 K/uL -- Normal range between ( 3.9 and 10.0 ) RBC: 4.79 Million/uL -- Normal range between ( 3.93 and 5.22 ) Hct: 38.2 % -- Normal range between ( 34.1 and 44.9 ) Hgb: 12.0 Gram/dL -- Normal range between ( 11.2 and 15.7 ) Platelet Count: 218 K/uL -- Normal range between ( 163 and 369 ) MCH: 25.1 pg -- Normal range between ( 25.6 and 32.2 ) MCHC: 31.4 Gram/dL -- Normal range between ( 32.3 and 36.5 ) MCV: 79.7 fL -- Normal range between ( 79.0 and 94.8 ) Slide Review: No Eos %: 2.5 % -- Normal range between ( 1.0 and 7.0 ) [place] #: 0.37 K/uL -- Normal range between ( 0.24 and 0.82 ) Eos #: 0.12 K/uL -- Normal range between ( 0.04 and 0.54 ) [place] %: 7.8 % -- Normal range between ( 4.7 and 12.5 ) Baso %: 0.4 % -- Normal range between ( 0.0 and 1.0 ) Baso #: 0.02 K/uL -- Normal range between ( 0.01 and 0.08 ) RDW: 15.2 % -- Normal range between ( 11.6 and 14.4 ) Neut %: 59.4 % -- Normal range between ( 34.0 and 71.0 ) Neut #: 2.82 K/uL -- Normal range between ( 1.56 and 6.13 ) Lymph %: 29.9 % -- Normal range between ( 19.3 and 53.0 ) Lymph #: 1.42 K/uL -- Normal range between ( 1.18 and 3.74 ) MPV: 9.9 fL -- Normal range between ( 9.4 and 12.4 ) Urinalysis 12/30/2020 11:29 AM Ur RBC: 10-20 /HPF Urine Nitrite: Negative Urine Leukocyte Esterase: Negative Urine Appearance: Cloudy Urine Glucose Dipstick: Negative Urine Blood Dipstick: Large Urine Urobilinogen Dipstick: 0.2 EU/dL -- Normal range between ( 0.2 and 1.0 ) Urine Protein Dipstick: Trace Ur Bacteria: 3+ Ur Squamous Epithelial Cells: 20-50 /HPF Urine Color: Yellow Ur WBC: 5-10 /HPF Urine Ketones Dipstick: Negative Urine pH Dipstick: 5.5 -- Normal range between ( 6.0 and 8.0 ) Urine Bilirubin Dipstick: Negative Urine Specific [place]: 1.016 -- Normal range between ( 1.005 and 1.030 ) Urine Type.: U CleanCatch Urine Culture if Indicated: Not Indicated General Chemistry 12/30/2020 11:51 AM Creatinine Level: 0.86 mg/dL -- Normal range between ( 0.55 and 1.02 ) Sodium Level: 142 mmol/L -- Normal range between ( 136 and 146 ) Potassium Level: 3.6 mmol/L -- Normal range between ( 3.5 and 5.1 ) Chloride Level: 111 mmol/L -- Normal range between ( 102 and 112 ) Carbon Dioxide Level: 25 mmol/L -- Normal range between ( 21 and 32 ) Anion Gap: 10 -- Normal range between ( 9 and 20 ) Bun/Creatinine: 22.1 -- Normal range between ( 8.0 and 20.0 ) Calcium Level: 8.4 mg/dL -- Normal range between ( 8.5 and 10.1 ) eGFR : >60 mL/min/1.73m2 eGFR NonAfrican: >60 mL/min/1.73m2 Glucose Level: 86 mg/dL -- Normal range between ( 74 and 106 ) Blood Urea Nitrogen: 19 mg/dL -- Normal range between ( 7 and 22 ) Endocrinology 12/30/2020 11:51 AM HCG Serum Quant: <1.0 mIU/mL Computed Tomography 12/30/2020 12:[address] Abdomen Pelvis WO: CT Abdomen Pelvis WO [employer] Managing Your Hypertension Hypertension is commonly called high blood pressure. This is when the force of your blood pressing against the samuel of your arteries is too strong. Arteries are blood vessels that carry blood from your heart throughout your body. Hypertension forces the heart to work harder to pump blood, and may cause the arteries to become narrow or stiff. Having untreated or uncontrolled hypertension can cause heart attack, stroke, kidney disease, and other problems. What are blood pressure readings? A blood pressure reading consists of a higher number over a lower number. Ideally, your blood pressure should be below 120/80. The first ( top ) number is called the systolic pressure. It is a measure of the pressure in your arteries as your heart beats. The second ( bottom ) number is called the diastolic pressure. It is a measure of the pressure in your arteries as the heart relaxes. What does my blood pressure reading mean? Blood pressure is classified into four stages. Based on your blood pressure reading, your health care provider may use the following stages to determine what type of treatment you need, if any. Systolic pressure and diastolic pressure are measured in a unit called mm Hg. Normal ??? Systolic pressure: below 120. ??? Diastolic pressure: below 80. Elevated ??? Systolic pressure: 120-129. ??? Diastolic pressure: below 80. Hypertension stage 1 ??? Systolic pressure: 130-139. ??? Diastolic pressure: 80-89. Hypertension stage 2 ??? Systolic pressure: 140 or above. ??? Diastolic pressure: 90 or above. What health risks are associated with hypertension? Managing your hypertension is an important responsibility. Uncontrolled hypertension can lead to: ??? A heart attack. ??? A stroke. ??? A weakened blood vessel (aneurysm). ??? Heart failure. ??? Kidney damage. ??? Eye damage. ??? Metabolic syndrome. ??? Memory and concentration problems. What changes can I make to manage my hypertension? Hypertension can be managed by making lifestyle changes and possibly by taking medicines. Your health care provider will help you make a plan to bring your blood pressure within a normal range. Eating and drinking ??? Eat a diet that is high in fiber and potassium, and low in salt (sodium), added sugar, and fat. An example eating plan is called the DASH (Dietary Approaches to Stop Hypertension) diet. To eat this way: ? Eat plenty of fresh fruits and vegetables. Try to fill half of your plate at each meal with fruits and vegetables. ? Eat whole grains, such as whole wheat pasta, brown rice, or whole grain bread. Fill about one quarter of your plate with whole grains. ? Eat low-fat diary products. ? Avoid fatty cuts of meat, processed or cured meats, and poultry with skin. Fill about one quarter of your plate with lean proteins such as fish, chicken without skin, beans, eggs, and tofu. ? Avoid premade and processed foods. These tend to be higher in sodium, added sugar, and fat. ??? Reduce your daily sodium intake. Most people with hypertension should eat less than 1,500 mg of sodium a day. ??? Limit alcohol intake to no more than 1 drink a day for non women and 2 drinks a day for men. One drink equals 12 oz of beer, 5 oz of wine, or 1?? oz of hard liquor. Lifestyle ??? Work with your health care provider to maintain a healthy body weight, or to lose weight. Ask what an ideal weight is for you. ??? Get at least 30 minutes of exercise that causes your heart to beat faster (aerobic exercise) most days of the week. Activities may include walking, swimming, or biking. ??? Include exercise to strengthen your muscles (resistance exercise), such as weight lifting, as part of your weekly exercise routine. Try to do these types of exercises for 30 minutes at least 3 days a week. ??? Do not use any products that contain nicotine or tobacco, such as cigarettes and e-cigarettes. If you need help quitting, ask your health care provider. ??? Control any long-term (chronic) conditions you have, such as high cholesterol or diabetes. Monitoring ??? Monitor your blood pressure at home as told by your health care provider. Your personal target blood pressure may vary depending on your medical conditions, your age, and other factors. ??? Have your blood pressure checked regularly, as often as told by your health care provider. Working with your health care provider ??? Review all the medicines you take with your health care provider because there may be side effects or interactions. ??? Talk with your health care provider about your diet, exercise habits, and other lifestyle factors that may be contributing to hypertension. ??? Visit your health care provider regularly. Your health care provider can help you create and adjust your plan for managing hypertension. Will I need medicine to control my blood pressure? Your health care provider may prescribe medicine if lifestyle changes are not enough to get your blood pressure under control, and if: ??? Your systolic blood pressure is 130 or higher. ??? Your diastolic blood pressure is 80 or higher. Take medicines only as told by your health care provider. Follow the directions carefully. Blood pressure medicines must be taken as prescribed. The medicine does not work as well when you skip doses. Skipping doses also puts you at risk for problems. Contact a health care provider if: ??? You think you are having a reaction to medicines you have taken. ??? You have repeated (recurrent) headaches. ??? You feel dizzy. ??? You have swelling in your ankles. ??? You have trouble with your vision. Get help right away if: ??? You develop a severe headache or confusion. ??? You have unusual weakness or numbness, or you feel faint. ??? You have severe pain in your chest or abdomen. ??? You vomit repeatedly. ??? You have trouble breathing. Summary ??? Hypertension is when the force of blood pumping through your arteries is too strong. If this condition is not controlled, it may put you at risk for serious complications. ??? Your personal target blood pressure may vary depending on your medical conditions, your age, and other factors. For most people, a normal blood pressure is less than 120/80. ??? Hypertension is managed by lifestyle changes, medicines, or both. Lifestyle changes include weight loss, eating a healthy, low-sodium diet, exercising more, and limiting alcohol. This information is not intended to replace advice given to you by your health care provider. Make sure you discuss any questions you have with your health care provider. Document Revised: 09/17/2019 Document Reviewed: 04/23/2017 [employer] Patient Education ?? 2020 [employer]. Hypertension, Adult High blood pressure (hypertension) is when the force of blood pumping through the arteries is too strong. The arteries are the blood vessels that carry blood from the heart throughout the body. Hypertension forces the heart to work harder to pump blood and may cause arteries to become narrow or stiff. Untreated or uncontrolled hypertension can cause a heart attack, heart failure, a stroke, kidney disease, and other problems. A blood pressure reading consists of a higher number over a lower number. Ideally, your blood pressure should be below 120/80. The first ( top ) number is called the systolic pressure. It is a measure of the pressure in your arteries as your heart beats. The second ( bottom ) number is called the diastolic pressure. It is a measure of the pressure in your arteries as the heart relaxes. What are the causes? The exact cause of this condition is not known. There are some conditions that result in or are related to high blood pressure. What increases the risk? Some risk factors for high blood pressure are under your control. The following factors may make you more likely to develop this condition: ??? Smoking. ??? Having type 2 diabetes mellitus, high cholesterol, or both. ??? Not getting enough exercise or physical activity. ??? Being overweight. ??? Having too much fat, sugar, calories, or salt (sodium) in your diet. ??? Drinking too much alcohol. Some risk factors for high blood pressure may be difficult or impossible to change. Some of these factors include: ??? Having chronic kidney disease. ??? Having a family history of high blood pressure. ??? Age. Risk increases with age. ??? Race. You may be at higher risk if you are . ??? Gender. Men are at higher risk than women before age 45. After age 65, women are at higher risk than men. ??? Having obstructive sleep apnea. ??? Stress. What are the signs or symptoms? High blood pressure may not cause symptoms. Very high blood pressure (hypertensive crisis) may cause: ??? Headache. ??? Anxiety. ??? Shortness of breath. ??? Nosebleed. ??? Nausea and vomiting. ??? Vision changes. ??? Severe chest pain. ??? Seizures. How is this diagnosed? This condition is diagnosed by measuring your blood pressure while you are seated, with your arm resting on a flat surface, your legs uncrossed, and your feet flat on the floor. The cuff of the blood pressure monitor will be placed directly against the skin of your upper arm at the level of your heart. It should be measured at least twice using the same arm. Certain conditions can cause a difference in blood pressure between your right and left arms. Certain factors can cause blood pressure readings to be lower or higher than normal for a short period of time: ??? When your blood pressure is higher when you are in a health care provider's office than when you are at home, this is called white coat hypertension. Most people with this condition do not need medicines. ??? When your blood pressure is higher at home than when you are in a health care provider's office, this is called masked hypertension. Most people with this condition may need medicines to control blood pressure. If you have a high blood pressure reading during one visit or you have normal blood pressure with other risk factors, you may be asked to: ??? Return on a different day to have your blood pressure checked again. ??? Monitor your blood pressure at home for 1 week or longer. If you are diagnosed with hypertension, you may have other blood or imaging tests to help your health care provider understand your overall risk for other conditions. How is this treated? This condition is treated by making healthy lifestyle changes, such as eating healthy foods, exercising more, and reducing your alcohol intake. Your health care provider may prescribe medicine if lifestyle changes are not enough to get your blood pressure under control, and if: ??? Your systolic blood pressure is above 130. ??? Your diastolic blood pressure is above 80. Your personal target blood pressure may vary depending on your medical conditions, your age, and other factors. Follow these instructions at home: Eating and drinking ??? Eat a diet that is high in fiber and potassium, and low in sodium, added sugar, and fat. An example eating plan is called the DASH (Dietary Approaches to Stop Hypertension) diet. To eat this way: ? Eat plenty of fresh fruits and vegetables. Try to fill one half of your plate at each meal with fruits and vegetables. ? Eat whole grains, such as whole-wheat pasta, brown rice, or whole-grain bread. Fill about one fourth of your plate with whole grains. ? Eat or drink low-fat dairy products, such as skim milk or low-fat yogurt. ? Avoid fatty cuts of meat, processed or cured meats, and poultry with skin. Fill about one fourth of your plate with lean proteins, such as fish, chicken without skin, beans, eggs, or tofu. ? Avoid pre-made and processed foods. These tend to be higher in sodium, added sugar, and fat. ??? Reduce your daily sodium intake. Most people with hypertension should eat less than 1,500 mg of sodium a day. ??? Do not drink alcohol if: ? Your health care provider tells you not to drink. ? You are , may be , or are planning to become . ??? If you drink alcohol: ? Limit how much you use to: ? 0???1 drink a day for women. ? 0???2 drinks a day for men. ? Be aware of how much alcohol is in your drink. In the [place] one drink equals one 12 oz bottle of beer (355 mL), one 5 oz glass of wine (148 mL), or one 1?? oz glass of hard liquor (44 mL). Lifestyle ??? Work with your health care provider to maintain a healthy body weight or to lose weight. Ask what an ideal weight is for you. ??? Get at least 30 minutes of exercise most days of the week. Activities may include walking, swimming, or biking. ??? Include exercise to strengthen your muscles (resistance exercise), such as Pilates or lifting weights, as part of your weekly exercise routine. Try to do these types of exercises for 30 minutes at least 3 days a week. ??? Do not use any products that contain nicotine or tobacco, such as cigarettes, e-cigarettes, and chewing tobacco. If you need help quitting, ask your health care provider. ??? Monitor your blood pressure at home as told by your health care provider. ??? Keep all follow-up visits as told by your health care provider. This is important. Medicines ??? Take yavm-vuh-vfgrgcy and prescription medicines only as told by your health care provider. Follow directions carefully. Blood pressure medicines must be taken as prescribed. ??? Do not skip doses of blood pressure medicine. Doing this puts you at risk for problems and can make the medicine less effective. ??? Ask your health care provider about side effects or reactions to medicines that you should watch for. Contact a health care provider if you: ??? Think you are having a reaction to a medicine you are taking. ??? Have headaches that keep coming back (recurring). ??? Feel dizzy. ??? Have swelling in your ankles. ??? Have trouble with your vision. Get help right away if you: ??? Develop a severe headache or confusion. ??? Have unusual weakness or numbness. ??? Feel faint. ??? Have severe pain in your chest or abdomen. ??? Vomit repeatedly. ??? Have trouble breathing. Summary ??? Hypertension is when the force of blood pumping through your arteries is too strong. If this condition is not controlled, it may put you at risk for serious complications. ??? Your personal target blood pressure may vary depending on your medical conditions, your age, and other factors. For most people, a normal blood pressure is less than 120/80. ??? Hypertension is treated with lifestyle changes, medicines, or a combination of both. Lifestyle changes include losing weight, eating a healthy, low-sodium diet, exercising more, and limiting alcohol. This information is not intended to replace advice given to you by your health care provider. Make sure you discuss any questions you have with your health care provider. Document Revised: 02/03/2019 Document Reviewed: 02/03/2019 [employer] Patient Education ?? 2020 [employer]. Kidney Stones Kidney stones are solid, rock-like deposits that form inside of the kidneys. The kidneys are a pair of organs that make urine. A kidney stone may form in a kidney and move into other parts of the urinary tract, including the tubes that connect the kidneys to the bladder (ureters), the bladder, and the tube that carries urine out of the body (urethra). As the stone moves through these areas, it can cause intense pain and block the flow of urine. Kidney stones are created when high levels of certain minerals are found in the urine. The stones are usually passed out of the body through urination, but in some cases, medical treatment may be needed to remove them. What are the causes? Kidney stones may be caused by: ??? A condition in which certain glands produce too much parathyroid hormone (primary hyperparathyroidism), which causes too much calcium buildup in the blood. ??? A buildup of uric acid crystals in the bladder (hyperuricosuria). Uric acid is a chemical that the body produces when you eat certain foods. It usually exits the body in the urine. ??? Narrowing (stricture) of one or both of the ureters. ??? A kidney blockage that is present at (congenital obstruction). ??? Past surgery on the kidney or the ureters, such as gastric bypass surgery. What increases the risk? The following factors may make you more likely to develop this condition: ??? Having had a kidney stone in the past. ??? Having a family history of kidney stones. ??? Not drinking enough water. ??? Eating a diet that is high in protein, salt (sodium), or sugar. ??? Being overweight or obese. What are the signs or symptoms? Symptoms of a kidney stone may include: ??? Pain in the side of the abdomen, right below the ribs (flank pain). Pain usually spreads (radiates) to the groin. ??? Needing to urinate frequently or urgently. ??? Painful urination. ??? Blood in the urine (hematuria). ??? Nausea. ??? Vomiting. ??? Fever and chills. How is this diagnosed? This condition may be diagnosed based on: ??? Your symptoms and medical history. ??? A physical exam. ??? Blood tests. ??? Urine tests. These may be done before and after the stone passes out of your body through urination. ??? Imaging tests, such as a CT scan, abdominal X-ray, or ultrasound. ??? A procedure to examine the inside of the bladder (cystoscopy). How is this treated? Treatment for kidney stones depends on the size, location, and makeup of the stones. Kidney stones will often pass out of the body through urination. You may need to: ??? Increase your fluid intake to help pass the stone. In some cases, you may be given fluids through an IV and may need to be monitored at the hospital. ??? Take medicine for pain. ??? Make changes in your diet to help prevent kidney stones from coming back. Sometimes, medical procedures are needed to remove a kidney stone. This may involve: ??? A procedure to break up kidney stones using: ? A focused beam of light (laser therapy). ? Shock waves (extracorporeal shock wave lithotripsy). ??? Surgery to remove kidney stones. This may be needed if you have severe pain or have stones that block your urinary tract. Follow these instructions at home: Medicines ??? Take osxe-qaf-yxmkvoj and prescription medicines only as told by your health care provider. ??? Ask your health care provider if the medicine prescribed to you requires you to avoid driving or using heavy machinery. Eating and drinking ??? Drink enough fluid to keep your urine pale yellow. You may be instructed to drink at least 8???10 glasses of water each day. This will help you pass the kidney stone. ??? If directed, change your diet. This may include: ? Limiting how much sodium you eat. ? Eating more fruits and vegetables. ? Limiting how much animal protein???such as red meat, poultry, fish, and eggs???you eat. ??? Follow instructions from your health care provider about eating or drinking restrictions. General instructions ??? Collect urine samples as told by your health care provider. You may need to collect a urine sample: ? 24 hours after you pass the stone. ? 8???12 weeks after passing the kidney stone, and every 6???12 months after that. ??? Strain your urine every time you urinate, for as long as directed. Use the strainer that your health care provider recommends. ??? Do not throw out the kidney stone after passing it. Keep the stone so it can be tested by your health care provider. Testing the makeup of your kidney stone may help prevent you from getting kidney stones in the future. ??? Keep all follow-up visits as told by your health care provider. This is important. You may need follow-up X-rays or ultrasounds to make sure that your stone has passed. How is this prevented? To prevent another kidney stone: ??? Drink enough fluid to keep your urine pale yellow. This is the best way to prevent kidney stones. ??? Eat a healthy diet and follow recommendations from your health care provider about foods to avoid. You may be instructed to eat a low-protein diet. Recommendations vary depending on the type of kidney stone that you have. ??? Maintain a healthy weight. Where to find more information ??? National Kidney Foundation (NKF): www.kidney.org ??? U[employer] Care Foundation (UCF): www.urologyhealth.org Contact a health care provider if: ??? You have pain that gets worse or does not get better with medicine. Get help right away if: ??? You have a fever or chills. ??? You develop severe pain. ??? You develop new abdominal pain. ??? You faint. ??? You are unable to urinate. Summary ??? Kidney stones are solid, rock-like deposits that form inside of the kidneys. ??? Kidney stones can cause nausea, vomiting, blood in the urine, abdominal pain, and the urge to urinate frequently. ??? Treatment for kidney stones depends on the size, location, and makeup of the stones. Kidney stones will often pass out of the body through urination. ??? Kidney stones can be prevented by drinking enough fluids, eating a healthy diet, and maintaining a healthy weight. This information is not intended to replace advice given to you by your health care provider. Make sure you discuss any questions you have with your health care provider. Document Revised: 10/12/2019 Document Reviewed: 10/12/2019 [employer] Patient Education ?? 2020 [employer]. Emergency Awareness and Preventative Care STROKE is [...] Assistance with quitting is available by contacting 8-356-OUDTNOW. This is a free resource providing counseling, [...] was given the opportunity to ask questions. Patient/Banana Room Cutter Name: Patient/Banana Room Cutter Signature: Relationship to Patient: Clinician/Hospital Banana Room Cutter Signature: Please Provide a Telephone Number Where You Can Be Reached: Is it Permissible To Leave a Message? Date: documented in this encounter Plan of Treatment Not on file documented as of this encounter Visit Diagnoses Not on filedocumented in this encounter
--- OUTSIDE RECORDS SUMMARY | 2025-04-01 10:44 | XMS_ITS | Encounter Summary ---
Author Organization [email or web address] ([place], [place], [place], [place]) Address [address] [place] [address] Care Team Providers Care Streetcar Repairer Name Role Phone Unavailable Primary Care Provider Unavailabl e Encounter Details Date Type Department Care Team (Late st Contact Info) Description 12/30/2020 Transcribed Document [facility] [place] Family Medicine [facility] [place] [place] [address] ProviderKim MD [address] [place] [id number] Social History Tobacco Use Types Packs/Day Years Used Date Smoking Tobacco: Never Assessed Comments Unknown Sex and Gender Information Value Date Recorded Sex Assigned at Not on file Legal Sex Female 5:43 PM CDT Gender Identity Not on file Sexual Orientation Not on file documented as of this encounter Miscellaneous Notes * Cerner Conversion Note - Kim Guillaume MD - 12/30/2020 11:20 AM CDT Patient: ANIBAL CAM Age: 25 years Sex: Female : 1995 Associated Diagnoses: Ureterolithiasis; Hypertension Author: TABITHA SHAY MD Basic Information Time seen: Date & time 12/30/2020 11:20:00, Voice recognition / batch still operator technology used for some documentation in this chart in attempt to mitigate substantial inefficiencies created by this electronic health record technology. As a result, there may be some typos and/or non-sensical language introduced into the chart that either are overlooked in editing/review and/or that I am unable to correct as patient care needs require me to prioritize my attention to bedside patient care rather than electronic documentation.. . History source: Patient. Arrival mode: Private vehicle. History limitation: None. Additional information: Chief Complaint from Nursing Triage Note : Chief Complaint 12/30/2020 11:25 EDT Chief Complaint Pt complains of L flank pain starting 0300. Took tylenol & ibuprofen at 0300. Pt stated she has had kidney stones in the past. Pt complains of N . History of Present Illness Ms. Cam, presents via POV to room #11, alone. She states that she was awakened abruptly at 3:00 this morning with severe left-sided flank pain that radiates down into her left groin. She states that she has a long history of kidney stones and this is very reminiscent of prior kidney stones. She states that she has the urge to urinate but is unable to urinate other than a few drops at a time. She denies any fevers or chills. There is no precipitating, exacerbating or mitigating measures. She states that she recently had a section in October of this year. The patient presents with flank pain. The onset was 7 hours ago. The course/duration of symptoms is constant and worsening. The character of symptoms is pressure. The degree at onset was moderate. The Location of pain at onset was flank. The degree at present is moderate. The Location of pain at present is left and flank. Radiating pain: left side of the back. lower back. The exacerbating factor is none. The relieving factor is none. Therapy today: none. Risk factors consist of obesity, not diabetes mellitus, not hypertension, not age, not , not recent surgery, not diverticulosis, not coronary artery disease, not arrhythmia, not Crohn's disease, not Irritable bowel syndrome and not immunocompromised patient. Associated symptoms: nausea, back pain, denies chest pain, denies vomiting, denies diarrhea, denies shortness of breath, denies fever, denies chills, denies headache and denies dizziness. Additional history: See note above.. Review of Systems Constitutional symptoms: No fever, no chills, no weakness, no fatigue, no decreased activity. Skin symptoms: No jaundice, no rash, no pruritus, no abrasions, no petechiae. Eye symptoms: Vision unchanged. ENMT symptoms: No sore throat, no nasal congestion. Respiratory symptoms: No shortness of breath, no orthopnea, no cough. Cardiovascular symptoms: No chest pain, no palpitations. Gastrointestinal symptoms: Abdominal pain, nausea, no vomiting, no diarrhea, no constipation, no rectal bleeding. Genitourinary symptoms: No dysuria, no hematuria, no vaginal bleeding, no vaginal discharge. Musculoskeletal symptoms: Back pain, no Muscle pain, no Joint pain. Neurologic symptoms: No headache, no dizziness, no altered level of consciousness, no numbness, no tingling, no weakness. Psychiatric symptoms: No anxiety, no depression. Endocrine symptoms: No polyuria, no polydipsia. Hematologic/Lymphatic symptoms: Bleeding tendency negative, bruising tendency negative, no petechiae. Allergy/immunologic symptoms: No recurrent infections, no impaired immunity. Health Status Allergies: Allergic Reactions (Selected) Severity Not Documented Macrobid- Nausea present. Sulfa drugs- Rash.. Medications: (Selected) Documented Medications Documented Multivitamins: Oral, Daily. Immunizations: Unknown. Menstrual history: Unknown. Past Medical/ Family/ Social History Medical history Genitourinary: renal stone. Surgical history: Appendectomy ([id number]). section ([id number]).. Family history: Kidney stones.. Mother . Social history: Social & Psychosocial Habits Alcohol 06/07/2020 Alcohol Use History, Social Habits No Alcohol Use in Last Twelve Months No Substance Abuse 06/07/2020 Recreational Drug Use History No Recreational Drug Use Last 12 Months No Tobacco 06/07/2020 Second Hand Smoke Exposure No 06/07/2020 Smoking Status Never (less than 100 in l Smokeless Tobacco Status Never . Problem list: Active Problems (2) Dislocated knee Vaginal delivery with forceps including care . Physical Examination Vital Signs Vital Signs/Vital Measures 12/30/2020 11:25 EDT Systolic Blood Pressure 147 mmHg HI Diastolic Blood Pressure 82 mmHg Temperature Source Oral Temperature Mode Fahrenheit Temperature, Fahrenheit 98.4 Deg F Clinical Temperature, C 36.9 Deg C Peripheral Pulse Rate 89 bpm Respiratory Rate 18 Breaths/Min Oxygen Saturation 97 % Oxygen Therapy Mode Room air . Measurements 12/30/2020 11:25 EDT Height Source Stated Height Entry Format Charles Mix Height/Length, GIBRALT[place]IAN (ft) 5 ft Height/Length G[place]RALT[place] 1 Inch CLINICALHEIGHT 154.94 cm [place] Body Weight 47.45 kg Weight Source, ED Critical estimated dosing weight Weight Entry Format Charles Mix Weight [place] lb 285 lb CLINICALWEIGHT 129.55 kg Body Surface Area (BSA) 2.2 m2 Body Mass Index 54 kg/m2 >HHI . Oxygen Saturation 12/30/2020 11:25 EDT Oxygen Saturation 97 % . General: Alert, no acute distress, well nourished, calm, cooperative, well hydrated, Ambulation status: With steady gait. Skin: Warm, dry, pink, intact, no pallor, no rash. Head: Normocephalic, atraumatic. Neck: Supple, trachea midline, no tenderness. Eye: Pupils are equal, round and reactive to light, extraocular movements are intact, normal conjunctiva. Ears, nose, mouth and throat: Oral mucosa moist. Cardiovascular: Regular rate and rhythm, No murmur, Normal peripheral perfusion, No edema. Respiratory: Lungs are clear to auscultation, respirations are non-labored, breath sounds are equal, Symmetrical chest wall expansion. Chest wall: No tenderness, No deformity. Back: Normal range of motion. Musculoskeletal: Normal ROM, normal strength, no tenderness, no swelling. Gastrointestinal: Soft, Non distended, Obese, Tenderness: Mild, left upper quadrant, Guarding: Negative, Rebound: Negative, Bowel sounds: Normal, Organomegaly: Negative. Genitourinary: Exam deferred. Neurological: Alert and oriented to person, place, time, and situation. Lymphatics: No lymphadenopathy. Psychiatric: Cooperative, appropriate mood & affect. Medical Decision Making Documents reviewed: Emergency department nurses' notes. Orders Include Previous Orders (Selected) Inpatient Orders Ordered Consult to Dietitian: Discharge: Durable Medical Equipment for Discharge: Completed .Automated Differential: .Urinalysis Microscopic: BMP Basic Metabolic Panel: Broset Violence Assessment: CBC w/ Auto Diff: CT Abdomen Pelvis WO: ED Adult Fall Risk Assessment: ED Adult Triage: ED C-SSRS: ED Clinical Reconciliation: ED soil conservation teacher: HCG Serum Quantitative: Normal Saline Flush: 10 mL, IV Push, 1-Time, PRN: Other (See Comment) Saline Lock Insert: Toradol: 30 mg, IV Push, 1-Time Urinalysis UA Rflx Microscopic Cult if Ind: Zofran: 4 mg, IV Push, 1-Time Discontinued Toradol: 15 mg, IV Push, 1-Time Prescriptions Prescribed Flomax 0.4 mg oral capsule: 1 Cap, Oral, Daily, for 7 Day(s), 7 Cap, 0 Refill(s) Percocet 7.5/325 oral tablet: 1 Tab, Oral, Q4H, for 2 Day(s), PRN: for pain, 12 Tab, 0 Refill(s) Zofran ODT 8 mg oral tablet, disintegratin Tab, Oral, TID, for 3 Day(s), PRN: Vomiting, 9 Tab, 0 Refill(s). Results review: Lab results : Lab Results 12/30/2020 11:51 EDT Sodium Level 142 mmol/L Potassium Level 3.6 mmol/L Chloride Level 111 mmol/L Carbon Dioxide Level 25 mmol/L Anion Gap 10 Glucose Level 86 mg/dL Blood Urea Nitrogen 19 mg/dL Creatinine Level 0.86 mg/dL eGFR >60 mL/min/1.73m2 eGFR NonAfrican >60 mL/min/1.73m2 Bun/Creatinine 22.1 HI Calcium Level 8.4 mg/dL LOW WBC 4.8 K/uL RBC 4.79 Million/uL Hgb 12.0 Gram/dL Hct 38.2 % MCV 79.7 fL MCH 25.1 pg LOW MCHC 31.4 Gram/dL LOW Platelet Count 218 K/uL MPV 9.9 fL RDW 15.2 % HI Neut % 59.4 % Neut # 2.82 K/uL Lymph % 29.9 % Lymph # 1.42 K/uL [place] % 7.8 % [place] # 0.37 K/uL Eos % 2.5 % Eos # 0.12 K/uL Baso % 0.4 % Baso # 0.02 K/uL Slide Review No HCG Serum Quant <1.0 mIU/mL NA 12/30/2020 11:29 EDT Urine Type. U CleanCatch Urine Color Yellow Urine Appearance Cloudy Urine Specific [place] 1.016 Urine pH Dipstick 5.5 LOW Urine Leukocyte Esterase Negative Urine Nitrite Negative Urine Protein Dipstick Trace Urine Glucose Dipstick Negative Urine Ketones Dipstick Negative Urine Urobilinogen Dipstick 0.2 EU/dL Urine Bilirubin Dipstick Negative Urine Blood Dipstick Large Ur RBC 10-20 /HPF Ur WBC 5-10 /HPF Ur Bacteria 3+ Ur Squamous Epithelial Cells 20-50 /HPF Urine Culture if Indicated Not Indicated . Radiology results: Radiology Results (Last 48 hours) [id number] -- 12/30/2020 11:16 CT Abdomen Pelvis WO (12/30/2020 12:47) Result: CT SCAN OF THE ABDOMEN AND PELVIS WITHOUT CONTRAST; 12/30/2020 11:29AM HISTORY: Left upper flank pain.COMPARISON: None.PROCEDURE: Axial images were obtained from the lung bases to the pubicsymphysis by computed tomography. This study was performed withtechniques to keep radiation doses as low as reasonably achievable,(ALARA). Individualized dose reduction techniques using automatedexposure control or adjustment of mA and/or kV according to the patientsize were employed.FINDINGS: ABDOMEN: The lung bases are clear. The liver is mildly fattyinfiltrated. The gallbladder is unremarkable. The right kidney isunremarkable. There is a 4 mm nonobstructing stone in the left kidney.There is mild left hydronephrosis. The solid organs are otherwiseunremarkable. There is no free fluid or adenopathy.PELVIS: The uterus is midline. The appendix is not identified. There em 4 mm stone in the distal left ureter. There are postoperative changesin the anterior abdominal wall.IMPRESSION: Mild left hydronephrosis from a 4 mm stone in the distalureter.Images reviewed, interpreted, and dictated by Priyanka Peters MD . Impression and Plan Diagnosis Ureterolithiasis - Discharge, Emergency medicine, Medical Hypertension - Discharge, Emergency medicine, Medical Plan Condition: Improved, Stable. Disposition: Discharged Admit/Transfer/Discharge: Discharge (Order): Start: 12/30/2020 14:52 EDT, Discharge to: Home. Prescriptions: Prescription Train Examiner Pharmacy: [facility] ODT 8 mg oral tablet, disintegrating (Prescribe): 1 Tab, Oral, TID, for 3 Day(s), PRN: Vomiting, 9 Tab, 0 Refill(s) Percocet 7.5/325 oral tablet (Prescribe): 1 Tab, Oral, Q4H, for 2 Day(s), PRN: for pain, 12 Tab, 0 Refill(s) Flomax 0.4 mg oral capsule (Prescribe): 1 Cap, Oral, Daily, for 7 Day(s), 7 Cap, 0 Refill(s). Patient was given the following educational materials: Kidney Stones, Hypertension, Adult, Managing Your Hypertension. Limitations: Limited activity. Follow up with: ROSA THOMAS Within 2 to 3 days; TIN KO Within 2 to 3 days Your blood pressure was elevated during your [...] Cap, 0 refill(s), Route to Pharmacy Electronically, [facility] Percocet 7.5/325 oral tablet 1 Tab, Tab, Q4H, Oral, PRN, for pain, 2 Day(s), 12 Tab, 0 refill(s), Route to Pharmacy Electronically, [facility] Zofran ODT 8 mg oral tablet, disintegrating 8 mg = 1 Tab, TID, Oral, PRN, Vomiting, 3 Day(s), 9 Tab, 0 refill(s), Route to Pharmacy Electronically, [facility] . Counseled: Patient, Regarding diagnosis, Regarding diagnostic results, Regarding treatment plan, Regarding prescription, Patient indicated understanding of instructions, Pre-hypertension/Hypertension: The patient has been informed that they may have pre-hypertension or Hypertension based on a blood pressure reading in the emergency department. I recommend that the patient call the primary care provider listed on their discharge instructions or a physician of their choice this week to arrange follow up for further evaluation of possible pre-hypertension or Hypertension.. documented in this encounter Plan of Treatment Not on file documented as of this encounter Visit Diagnoses Not on filedocumented in this encounter
--- OUTSIDE RECORDS SUMMARY | 2025-04-01 10:44 | XMS_ITS | Encounter Summary ---
Author Organization [employer] ([place], [place], [place], [place]) Address [address] [place] [address] Care Team Providers Care Controller Repairer And Tester Name Role Phone Unavailable Primary Care Provider Unavailabl e Encounter Details Date Type Department Care Team (Late st Contact Info) Description 12/30/2020 Transcribed Document [facility] [place] [facility] [place] [address] ProviderKim MD [address] [place] [address] [phone] Social History Tobacco Use Types Packs/Day Years Used Date Smoking Tobacco: Never Assessed Comments Unknown Sex and Gender Information Value Date Recorded Sex Assigned at Not on file Legal Sex Female 5:43 PM CDT Gender Identity Not on file Sexual Orientation Not on file documented as of this encounter Miscellaneous Notes * Cerner Conversion Note - Kim ProviderMD - 12/30/2020 2:57 PM CDT [address] [address] ANIBAL CAM :1995 Visit Time:12/30/2020 [...] Cap, 0 refill(s), Route to Pharmacy Electronically, [place] [address] Percocet 7.5/325 oral tablet 1 Tab, Tab, Q4H, Oral, PRN, for pain, 2 Day(s), 12 Tab, 0 refill(s), Route to Pharmacy Electronically, [place] [address] Zofran ODT 8 mg oral tablet, disintegrating 8 mg = 1 Tab, TID, Oral, PRN, Vomiting, 3 Day(s), 9 Tab, 0 refill(s), Route to Pharmacy Electronically, [place] [address] Where: [address] [facility] [place] [address]- Business (1) Follow Up with ROSA THOMAS When Within 2 to 3 days Where: [address] [place] [phone]- Business (1) Allergies Macrobid (Nausea present) sulfa drugs (Rash) Immunizations This Visit No Immunizations Found Medications What How Much When Instructions Next Dose acetaminophen-oxyCODONE (Percocet 7.5/ 325 oral tablet) 1 Tablet(s) Oral Every 4 Hours as needed for for pain Duration: 2 Day(s) Pickup at [place] [address] ondansetron (Zofran ODT 8 mg oral tablet, disintegrating) 1 Tablet(s) Oral Three Times A Day as needed for Vomiting Duration: 3 Day(s) Pickup at [facility] [address] tamsulosin (Flomax 0.4 mg oral capsule) 1 Capsule(s) Oral Every Day Duration: 7 Day(s) Pickup at [facility] 737 multivitamin, ( Multivitamins) Oral Every Day Pharmacy Information [facility] 737: [address] [place], [place] [id number] [phone] The home medications listed are only as [...] range between ( 1.0 and 7.0 ) [place] #: 0.37 K/uL -- Normal range between ( 0.24 and 0.82 ) Eos #: 0.12 K/uL -- Normal range between ( 0.04 and 0.54 ) [place] %: 7.8 % -- Normal range between [...] ) Urine Bilirubin Dipstick: Negative Urine Specific [place]: 1.016 -- Normal range between ( 1.005 [...] provider. Document Revised: 09/17/2019 Document Reviewed: 04/23/2017 [employer] Patient Education ?? 2020 [employer]. Hypertension, Adult High blood pressure (hypertension) is [...] provider. This is important. Medicines ??? Take wkzz-zdb-wszgatn and prescription medicines only as told by [...] provider. Document Revised: 02/03/2019 Document Reviewed: 02/03/2019 [employer] Patient Education ?? 2020 [employer]. Kidney Stones Kidney stones are solid, rock-like [...] these instructions at home: Medicines ??? Take kdqz-vew-ufyjikj and prescription medicines only as told by [...] provider. Document Revised: 10/12/2019 Document Reviewed: 10/12/2019 [employer] Patient Education ?? 2020 [employer]. Emergency Awareness and Preventative Care STROKE is [...] Assistance with quitting is available by contacting 2-402-TQIANOW. This is a free resource providing counseling, [...] was given the opportunity to ask questions. Patient/Premium Note Interest Calculator Clerk Name: Patient/Premium Note Interest Calculator Clerk Signature: Relationship to Patient: Clinician/Hospital Premium Note Interest Calculator Clerk Signature: Please Provide a Telephone Number Where You Can Be Reached: Is it Permissible To Leave a Message? Date: documented in this encounter Plan of Treatment Not on file documented as of this encounter Visit Diagnoses Not on filedocumented in this encounter
--- OUTSIDE RECORDS SUMMARY | 2025-04-01 10:44 | XMS_ITS | Encounter Summary ---
Author Organization [facility] ([place], [place], [place], [place]) Address [address] [place] [address] Care Team Providers Care Environmental Technical Officer Name Role Phone Unavailable Primary Care Provider Unavailabl e Encounter Details Date Type Department Care Team (Late st Contact Info) Description 12/30/2020 Transcribed Document [facility] [place] Family Medicine [address] [place] [address] ProviderKim MD [address] [place], [place] [address] Social History Tobacco Use Types Packs/Day Years Used Date Smoking Tobacco: Never Assessed Comments Unknown Sex and Gender Information Value Date Recorded Sex Assigned at Not on file Legal Sex Female 5:43 PM CDT Gender Identity Not on file Sexual Orientation Not on file documented as of this encounter Miscellaneous Notes * Cerner Conversion Note - Kim ProviderMD - 12/30/2020 11:16 AM CDT Broset Violence Assessment Entered On: 12/30/2020 11:58 EDT Performed On: 12/30/2020 11:22 EDT by Anabell Howard RN-PATIENT CARE BEDSIDE NON-EXEMPT Broset Violence Assessment Broset Violence Checklist of Symptoms : None Broset Violence Symptoms Subtotal : 0 Broset Violence Symptoms Indicator : Low risk (0) Anabell Howard RN-PATIENT CARE BEDSIDE NON-EXEMPT - 12/30/2020 11:55 EDT documented in this encounter Plan of Treatment Not on file documented as of this encounter Visit Diagnoses Not on filedocumented in this encounter
--- OUTSIDE RECORDS SUMMARY | 2025-04-01 10:45 | XMS_ITS | Encounter Summary ---
Author Organization [employer] ([place], [place], [place], [place]) Address [address] [place] [address] Care Team Providers Care Rubber Cutter And Shape Carver Name Role Phone Unavailable Primary Care Provider Unavailabl e Encounter Details Date Type Department Care Team (Late st Contact Info) Description 01/24/2021 Transcribed Document [facility] [place] Family Medicine [address] [place] [address] ProviderKim MD [address] [place] [place], [place] [address] Social History Tobacco Use Types Packs/Day Years Used Date Smoking Tobacco: Never Assessed Comments Unknown Sex and Gender Information Value Date Recorded Sex Assigned at Not on file Legal Sex Female 5:43 PM CDT Gender Identity Not on file Sexual Orientation Not on file documented as of this encounter Miscellaneous Notes * Cerner Conversion Note - Historical ProviderMD - 01/24/2021 5:08 PM CDT Broset Violence Assessment Entered On: 01/24/2021 18:09 EDT Performed On: 01/24/2021 18:09 EDT by ANDREEA GARCIA RN Broset Violence Assessment Broset Violence Checklist of Symptoms : None Broset Violence Symptoms Subtotal : 0 Broset Violence Symptoms Indicator : Low risk (0) ANDREEA GARCIA RN - 01/24/2021 18:09 EDT documented in this encounter Plan of Treatment Not on file documented as of this encounter Visit Diagnoses Not on filedocumented in this encounter
--- OUTSIDE RECORDS SUMMARY | 2025-04-01 10:45 | XMS_ITS | Encounter Summary ---
Author Organization [employer] ([place], [place], [place], [place]) Address [address] [place] [address] Care Team Providers Care Brass Wind Instrument Maker Name Role Phone Unavailable Primary Care Provider Unavailabl e Encounter Details Date Type Department Care Team (Late st Contact Info) Description 01/11/2021 Transcribed Document [facility] [place] [facility] [place] [address] ProviderKim MD [facility] [place], [place] [address] Social History Tobacco Use Types Packs/Day Years Used Date Smoking Tobacco: Never Assessed Comments Unknown Sex and Gender Information Value Date Recorded Sex Assigned at Not on file Legal Sex Female 5:43 PM CDT Gender Identity Not on file Sexual Orientation Not on file documented as of this encounter Miscellaneous Notes * Cerner Conversion Note - Historical ProviderMD - 01/11/2021 12:01 AM CDT Electronically signed by Eligio [facility] Conversion Bullet Casting Operator Jose Luis at 09/23/2022 4:53 PM CDT documented in this encounter Plan of Treatment Not on file documented as of this encounter Visit Diagnoses Not on filedocumented in this encounter
--- OUTSIDE RECORDS SUMMARY | 2025-04-01 10:45 | XMS_ITS | Encounter Summary ---
Author Organization [employer] ([place], [place], [place], [place]) Address [address] [place] [address] Care Team Providers Care Toll Gate Keeper Name Role Phone Unavailable Primary Care Provider Unavailabl e Encounter Details Date Type Department Care Team (Late st Contact Info) Description 01/11/2021 Transcribed Document [facility] [place] Family Medicine [facility] [place] [address] ProviderKim MD [address] [place] [address] Social History Tobacco Use Types Packs/Day Years Used Date Smoking Tobacco: Never Assessed Comments Unknown Sex and Gender Information Value Date Recorded Sex Assigned at Not on file Legal Sex Female 5:43 PM CDT Gender Identity Not on file Sexual Orientation Not on file documented as of this encounter Miscellaneous Notes * Cerner Conversion Note - Kim Guillaume MD - 01/11/2021 12:11 AM CDT [facility] [place] [address] ANIBAL CAM :1995 Visit Time:01/10/2021 Your Visit Summary Your Care Team Primary Provider: BEN PARK Secondary Provider: Your Diagnosis Flank pain, Flank pain Ureterolithiasis Medical Information You may obtain a [...] do next Follow-Up Appointments Follow Up with KRYSTLE BILLINGS When Within 2 to 3 days Where: [address] [place] [address]- Business (1) Follow Up with ROSA THOMAS When Within 2 to 3 days Where: [address] [place] [address] [place] [address]- Business (1) Allergies Macrobid (Nausea present) sulfa [...] This Visit (last charted value for your 01/10/2021 visit) Hematology 01/10/2021 10:26 PM WBC: 5.0 K/uL -- Normal range between ( 4.5 and 10.5 ) RBC: 4.82 Million/uL -- Normal range between ( 3.93 and 5.22 ) Hct: 38.2 % -- Normal range between ( 34.1 and 44.9 ) Hgb: 11.9 g/dL -- Normal range between ( 11.2 and 15.7 ) Platelet Count: 257 K/uL -- Normal range between ( 163 and 369 ) MCH: 24.7 pg -- Normal range between ( 25.6 and 32.2 ) MCHC: 31.2 Gram/dL -- Normal range between ( 32.2 and 36.5 ) MCV: 79.3 fL -- Normal range between ( 79.0 and 94.8 ) Hypochromia: 1+ RBC Morphology: Abnormal RDW: 14.8 % -- Normal range between ( 11.7 and 14.9 ) Turner Percent Man: 3 % -- Normal range between ( 4 and 5 ) Ovalocytes: 1+ Baso Percent Man: 1 % -- Normal range between ( 0 and 1 ) Neutrophil Percent Man: 50 % -- Normal range between ( 50 and 65 ) Eos Percent Man: 5 % -- Normal range between ( 0 and 3 ) Platelet Ct Estimate: Adequate MPV: 10.1 fL -- Normal range between ( 9.4 and 12.4 ) Poikilocytosis: 1+ Lymph Percent Man: 41 % -- Normal range between ( 24 and 44 ) Urinalysis 01/10/2021 10:43 PM Specimen Type, Urine POC: Urine 01/10/2021 10:26 PM Ur RBC: 2-5 /HPF Urine Nitrite: Negative Urine Leukocyte Esterase: Negative Ur Epithelial Cells: 2-5 /HPF Urine Appearance: Cloudy Urine Glucose Dipstick: Negative Urine Blood Dipstick: Trace Urine Urobilinogen Dipstick: 0.2 EU/dL Urine Protein Dipstick: Negative Ur Amorph: Trace Ur Bacteria: 1+ Urine Color: Yellow Ur WBC: 2-5 /HPF Urine Ketones Dipstick: Negative Ur Mucous: 1+ Urine pH Dipstick: 5.5 -- Normal range between ( 6.0 and 8.0 ) Urine Bilirubin Dipstick: Negative Urine Specific [place]: 1.024 -- Normal range between ( 1.005 and 1.030 ) Urine Type.: U CleanCatch Urine Culture if Indicated: Not Indicated General Chemistry 01/10/2021 10:26 PM Creatinine Level: 0.80 mg/dL -- Normal range between ( 0.55 and 1.02 ) Sodium Level: 141 mmol/L -- Normal range between ( 136 and 146 ) Potassium Level: 3.7 mmol/L -- Normal range between ( 3.5 and 5.1 ) Chloride Level: 108 mmol/L -- Normal range between ( 102 and 112 ) Carbon Dioxide Level: 29 mmol/L -- Normal range between ( 21 and 32 ) Anion Gap: 8 -- Normal range between ( 9 and 20 ) Bilirubin Total: 0.2 mg/dL -- Normal range between ( 0.2 and 1.2 ) A/G Ratio: 1.1 -- Normal range between ( 1.1 and 2.5 ) ALT: 52 Units/Liter -- Normal range between ( 13 and 56 ) AST: 37 Units/Liter -- Normal range between ( 5 and 37 ) Globulin: 3.5 Gram/dL -- Normal range between ( 1.5 and 4.5 ) Alk Phos: 68 Units/Liter -- Normal range between ( 27 and 136 ) Bun/Creatinine: 20.0 -- Normal range between ( 8.0 and 20.0 ) Calcium Level: 9.2 mg/dL -- Normal range between ( 8.4 and 10.1 ) eGFR : >60 mL/min/1.73m2 eGFR NonAfrican: >60 mL/min/1.73m2 Glucose Level: 95 mg/dL -- Normal range between ( 74 and 106 ) Blood Urea Nitrogen: 16 mg/dL -- Normal range between ( 7 and 22 ) Protein Total: 7.2 Gram/dL -- Normal range between ( 6.4 and 8.2 ) Albumin Level: 3.7 Gram/dL -- Normal range between ( 3.4 and 5.0 ) Lipase Level: 119 Units/Liter -- Normal range between ( 73 and 393 ) Computed Tomography 01/10/2021 9:[address] Abdomen Pelvis WO: CT Abdomen Pelvis WO Education Materials Kidney Stones Kidney stones are solid, rock-like [...] these instructions at home: Medicines ??? Take [id number] and prescription medicines only as told by [...] provider. Document Revised: 10/12/2019 Document Reviewed: 10/12/2019 Elsevier Patient Education ?? 2020 [employer] Emergency Awareness and Preventative Care STROKE is [...] Assistance with quitting is available by contacting 3-280-MJXK-NOW. This is a free resource providing counseling, support, and referral. Or you may contact your personal physician. [employer] Suicide Prevention Lifeline: The National Suicide Prevention [...] was given the opportunity to ask questions. Patient/Professor Of Religion Name: Patient/Professor Of Religion Signature: Relationship to Patient: Clinician/Hospital Professor Of Religion Signature: Please Provide a Telephone Number Where You Can Be Reached: Is it Permissible To Leave a Message? Date: Electronically signed by [facility] Conversion Chef Teacher Jose Luis at 09/23/2022 4:59 PM CDT documented in this encounter Plan of Treatment Not on file documented as of this encounter Visit Diagnoses Not on filedocumented in this encounter
--- OUTSIDE RECORDS SUMMARY | 2025-04-01 10:45 | XMS_ITS | Encounter Summary ---
Author Organization [employer] ([place], [place], [place], [place]) Address [address] [place] [address] Care Team Providers Care Director Auto Name Role Phone Unavailable Primary Care Provider Unavailabl e Encounter Details Date Type Department Care Team (Late st Contact Info) Description 01/21/2021 Transcribed Document [facility] [place] Family Medicine [facility] [place] [address] ProviderKim MD [address] [place] [id number] Social History Tobacco Use Types Packs/Day Years Used Date Smoking Tobacco: Never Assessed Comments Unknown Sex and Gender Information Value Date Recorded Sex Assigned at Not on file Legal Sex Female 5:43 PM CDT Gender Identity Not on file Sexual Orientation Not on file documented as of this encounter Miscellaneous Notes * Cerner Conversion Note - Kim ProviderMD - 01/21/2021 6:24 PM CDT Patient: ANIBAL CAM Age: 25 years Sex: Female : 1995 Associated Diagnoses: COVID-19; Fever Author: VICTORIA EVANS APRN Basic Information Time seen: Immediately upon arrival. History source: Patient. Arrival mode: Private vehicle. History limitation: None. Additional information: Chief Complaint from Nursing Triage Note : Chief Complaint 01/21/2021 15:54 EDT Chief Complaint Pt c known covid 19 exposure c/o loss of taste and smell, fever, body aches, STERLING, decreased UOP. Also reports known renal stone. Hx asthma. . History of Present Illness Patient presents to the ER after significant other tested positive for Covid. Patient states that she was tested at [facility] failed but her result was negative. However patient has had loss of taste and smell, body aches, fever, headaches, decreased urine output. Patient states that she has not really been able to eat or drink because she has been nauseated. Patient's temp upon arrival was 103. Patient is alert and in no acute distress. She is nontoxic in appearance. Review of Systems Constitutional symptoms: Fever, chills, weakness, fatigue. Skin symptoms: Negative except as documented in HPI. Eye symptoms: Negative except as documented in HPI. ENMT symptoms: Negative except as documented in HPI. Respiratory symptoms: Cough. Cardiovascular symptoms: Negative except as documented in HPI. Gastrointestinal symptoms: Nausea. Genitourinary symptoms: Negative except as documented in HPI. Musculoskeletal symptoms: Negative except as documented in HPI. Neurologic symptoms: Headache. Psychiatric symptoms: Negative except as documented in HPI. Endocrine symptoms: Negative except as documented in HPI. Hematologic/Lymphatic symptoms: Negative except as documented in HPI. Allergy/immunologic symptoms: Negative except as documented in HPI. Health Status Allergies: Allergic Reactions (Selected) Severity Not Documented Macrobid- Nausea present. Sulfa drugs- Rash.. Medications: (Selected) Prescriptions Prescribed Flomax 0.4 mg oral capsule: 1 Cap, Oral, Daily, for 7 Day(s), 7 Cap, 0 Refill(s) Documented Medications Documented Multivitamins: Oral, Daily. Past Medical/ Family/ Social History Surgical history: Appendectomy ([id number]). section ([id number])., Reviewed as documented in chart. Family history: Kidney stones.. Mother , Reviewed as documented in chart. Social history: Social & Psychosocial Habits Alcohol 06/07/2020 Alcohol Use History, Social Habits No Alcohol Use in Last Twelve Months No Substance Abuse 06/07/2020 Recreational Drug Use History No Recreational Drug Use Last 12 Months No Tobacco 06/07/2020 Second Hand Smoke Exposure No 06/07/2020 Smoking Status Never (less than 100 in l Smokeless Tobacco Status Never , Reviewed as documented in chart. Problem list: Active Problems (3) Disease caused by 2019 novel coronavirus Dislocated knee Vaginal delivery with forceps including care . Physical Examination Vital Signs Vital Signs/Vital Measures 01/21/2021 16:54 EDT Oxygen Saturation 95 % Oxygen Therapy Mode Room air 01/21/2021 15:54 EDT Systolic Blood Pressure 100 mmHg Diastolic Blood Pressure 72 mmHg Temperature Source Oral Temperature Mode Fahrenheit Temperature, Fahrenheit 103 Deg F HI Clinical Temperature, C 39.4 Deg C Peripheral Pulse Rate 123 bpm HI Respiratory Rate 20 Breaths/Min Oxygen Saturation 95 % Oxygen Therapy Mode Room air . Measurements 01/21/2021 15:54 EDT Height Source Stated Height Entry Format [place] Height/Length, ZAMBIAN (ft) 5 ft Height/Length ZAMBIAN 1 Inch CLINICALHEIGHT 154.94 cm [place] Body Weight 47.45 kg Weight Source, ED Critical estimated dosing weight Weight Entry Format [place] Weight Trin[place] lb 286 lb CLINICALWEIGHT 130 kg Body Surface Area (BSA) 2.2 m2 Body Mass Index 54.2 kg/m2 >HHI . Oxygen Saturation 01/21/2021 16:54 EDT Oxygen Saturation 95 % 01/21/2021 15:54 EDT Oxygen Saturation 95 % . General: Alert, no acute distress. Skin: Warm, pink, intact. Cardiovascular: Regular rate and rhythm, No murmur. Respiratory: Lungs are clear to auscultation, respirations are non-labored, breath sounds are equal. Gastrointestinal: Soft, Nontender. Neurological: Alert and oriented to person, place, time, and situation. Lymphatics: No lymphadenopathy. Psychiatric: Cooperative. Medical Decision Making Differential Diagnosis: Fever, viral syndrome, pneumonia, bronchitis, pharyngitis, covid. Orders Include Previous Orders (Selected) Inpatient Orders Completed .Automated Differential: Broset Violence Assessment: CBC w/ Auto Diff: CMP Comprehensive Metabolic Panel: COVID-19: ED Adult Fall Risk Assessment: ED Adult Triage: ED C-SSRS: ED Clinical Reconciliation: ED spray painter: Normal Saline Bolus: 1,000 mL, 1,000 mL/Hr, IV Piggyback, 1-Time Normal Saline Flush: 10 mL, IV Push, 1-Time Toradol: 30 mg, IV Push, 1-Time Tylenol: 325 mg, Oral, 1-Time Tylenol: 650 mg, Oral, 1-Time Urinalysis UA Rflx Microscopic Cult if Ind: Zofran: 8 mg, IV Push, 1-Time. Results review: Lab results : Lab Results 01/21/2021 15:58 EDT Sodium Level 137 mmol/L Potassium Level 3.8 mmol/L Chloride Level 105 mmol/L Carbon Dioxide Level 25 mmol/L Anion Gap 11 Glucose Level 98 mg/dL Blood Urea Nitrogen 8 mg/dL Creatinine Level 0.90 mg/dL eGFR >60 mL/min/1.73m2 eGFR NonAfrican >60 mL/min/1.73m2 Bun/Creatinine 8.9 Calcium Level 8.5 mg/dL Protein Total 7.1 Gram/dL Albumin Level 3.5 Gram/dL Globulin 3.6 Gram/dL A/G Ratio 1.0 LOW Bilirubin Total 0.3 mg/dL Alk Phos 80 Units/Liter AST 55 Units/Liter HI ALT 60 Units/Liter HI WBC 2.4 K/uL LOW RBC 4.78 Million/uL Hgb 12.0 g/dL Hct 38.5 % MCV 80.5 fL MCH 25.1 pg LOW MCHC 31.2 Gram/dL LOW Platelet Count 169 K/uL MPV 10.7 fL RDW 14.9 % Neut % 68.5 % Neut # 1.61 K/uL Lymph % 23.4 % Lymph # 0.55 x10(3)/uL LOW [place] % 7.7 % [place] # 0.18 K/uL Eos % 0.0 % Eos # 0.00 x10(3)/uL Baso % 0.4 % Baso # 0.01 x10(3)/uL Slide Review No IG# 0.00 x10(3)/uL IG% 0.00 % Urine Type. U CleanCatch Urine Color Yellow Urine Appearance Clear Urine Specific [place] 1.019 Urine pH Dipstick 5.5 LOW Urine Leukocyte Esterase Negative Urine Nitrite Negative Urine Protein Dipstick Negative Urine Glucose Dipstick Negative Urine Ketones Dipstick Negative Urine Urobilinogen Dipstick 0.2 EU/dL Urine Bilirubin Dipstick Negative Urine Blood Dipstick Negative Urine Culture if Indicated Not Indicated SARS-CoV-2 (COVID19 PCR) Positive . Radiology results: No Radiology Results Found. Reexamination/ Reevaluation Time: 01/21/2021 18:32:00 . Vital signs per nurse's notes Course: improving. Pain status: decreased. Assessment: exam improved. Impression and Plan Diagnosis COVID-19 - Discharge, Emergency medicine, Medical Fever - Discharge, Emergency medicine, Medical Plan Condition: Stable. Disposition: Discharged Admit/Transfer/Discharge: Discharge (Order): Start: 01/21/2021 18:32 EDT, Discharge to: Home. Prescriptions: Prescription Associate Curator Pharmacy: Michael ODT 8 mg oral tablet, disintegrating (Prescribe): 1 Tab, Oral, TID, for 3 Day(s), 9 Tab, 0 Refill(s). Patient was given the following educational materials: COVID-19, COVID-19 Frequently Asked Questions, COVID-19 Vaccine Information, COVID-19: How to Protect Yourself and Others - CDC, COVID-19: Quarantine vs. Isolation - CDC, COVID-19: What Your Test Results Mean - CDC. Follow up with: ROSA THOMAS Within 2 to 3 days; Follow up with primary care provider Within 2 to 3 days; Return to Emergency Department Within 2 to 3 days Follow-up as instructed Return if condition worsens. Counseled: Patient, Regarding diagnosis, Regarding diagnostic results, Regarding treatment plan, Regarding prescription, Patient indicated understanding of instructions. Electronically signed by Ramos Del Valle Conversion Warehouse Distribution Manager Cerner at 09/23/2022 5:07 PM CDT documented in this encounter Plan of Treatment Not on file documented as of this encounter Visit Diagnoses Not on filedocumented in this encounter
--- OUTSIDE RECORDS SUMMARY | 2025-04-01 10:45 | XMS_ITS | Encounter Summary ---
Author Organization [employer] ([place], [place], [place], [place]) Address [address] [place] [address] Care Team Providers Care Watch Assembly Instructor Name Role Phone Unavailable Primary Care Provider Unavailabl e Encounter Details Date Type Department Care Team (Late st Contact Info) Description 01/21/[address] [facility] [place] Family Medicine [facility] [place] [address] ProviderKim MD [facility] [place], [place] [id number] Social History Tobacco Use Types Packs/Day Years Used Date Smoking Tobacco: Never Assessed Comments Unknown Sex and Gender Information Value Date Recorded Sex Assigned at Not on file Legal Sex Female 5:43 PM CDT Gender Identity Not on file Sexual Orientation Not on file documented as of this encounter Miscellaneous Notes * Cerner Conversion Note - Historical ProviderMD - 01/21/2021 3:23 PM CDT [place] Suicide Severity Rating Scale (C-SSRS) Entered On: 01/21/2021 16:57 EDT Performed On: 01/21/2021 16:54 EDT by BLAYNE OLIVERA RN [place] Suicide Severity Rating Scale (C-SSRS) CSSRS Past Month Wish to be : No CSSRS Past Month Suicidal Thoughts : No CSSRS Lifetime Suicide Behavior : No Suicide Severity Rating Score : 0 Suicide Severity Rating : No Additional Care Required at this time BLAYNE OLIVERA RN - 01/21/2021 16:54 EDT documented in this encounter Plan of Treatment Not on file documented as of this encounter Visit Diagnoses Not on filedocumented in this encounter
--- OUTSIDE RECORDS SUMMARY | 2025-04-01 10:45 | XMS_ITS | Encounter Summary ---
Author Organization [employer] ([place], [place], [place], [place]) Address [address] [place] [address] Care Team Providers Care Billboard Erector Name Role Phone Unavailable Primary Care Provider Unavailabl e Encounter Details Date Type Department Care Team (Late st Contact Info) Description 01/10/2021 Transcribed Document [facility] [place] [address] ProviderKim MD [address] [place] [id number] Social History Tobacco Use Types Packs/Day Years Used Date Smoking Tobacco: Never Assessed Comments Unknown Sex and Gender Information Value Date Recorded Sex Assigned at Not on file Legal Sex Female 5:43 PM CDT Gender Identity Not on file Sexual Orientation Not on file documented as of this encounter Miscellaneous Notes * Cerner Conversion Note - Kim ProviderMD - 01/10/2021 8:18 PM CDT ED Triage Entered On: 01/10/2021 21:53 EDT Performed On: 01/10/2021 21:51 EDT by SOLE JOSEPH RN ED Triage Across the Room Chief Complaint : pt fromhome c/o left flank pain with vaginal pain. states was seen 2wks ago [place] [facility] states does not think she is passing the stone because pain is worse. Triage Date/Time : 01/10/2021 21:51 EDT SOLE JOSEPH RN - 01/10/2021 21:51 EDT DCP GENERIC CODE Tracking Acuity : 3 - Urgent Tracking Group : [facility] ED SOLE JOSEPH RN - 01/10/2021 21:51 EDT Mode of Arrival : Ambulatory Transported to ED by : Walk in To Room Via : Ambulate Accompanied By : Unaccompanied ED Vital Signs : Document Height & Weight : Document ED Allergies : Document ED Reason for Visit : Document Tetanus Immunization : Unknown SOLE JOSEPH RN - 01/10/2021 21:51 EDT Infectious Disease History Has the patient ever been tested for COVID-19? : No, Patient stated Does patient have symptoms of COVID-19? : No COVID19 Screening : No Experiencing Infectious Disease Symptoms : No symptoms Physical contact outside US in the last 30 days : No Infectious Disease History : None Tuberculosis Symptoms : None SOLE JOSEPH RN - 01/10/2021 21:51 EDT Vital Signs ED Temperature Source : Oral Temperature Mode : Fahrenheit Temperature, Fahrenheit : 98.2 Deg F ED Pain : Yes Clinical Temperature, C : 36.8 Deg C Oxygen Therapy Mode : Room air Peripheral Pulse Rate : 91 bpm Respiratory Rate : 16 Breaths/Min Blood Pressure Location : Arm, right upper Blood Pressure Source : Non-Invasive BP Device Systolic Blood Pressure : 115 mmHg Diastolic Blood Pressure : 70 mmHg Oxygen Saturation : 99 % SOLE JOSEPH RN - 01/10/2021 21:51 EDT Allergy (As Of: 01/10/2021 21:53:47 EDT) Allergies (Active) Macrobid Estimated Onset Date: Unspecified ; Reactions: Nausea present ; Created By: RONY GROSSMAN RN; Reaction Status: Active ; Category: Drug ; Substance: Macrobid ; Type: Allergy ; Updated By: RONY GROSSMAN RN; Reviewed Date: 01/10/2021 21:53 EDT sulfa drugs Estimated Onset Date: Unspecified ; Reactions: Rash ; Created By: RONY GROSSMAN RN; Reaction Status: Active ; Category: Drug ; Substance: sulfa drugs ; Type: Allergy ; Updated By: RONY GROSSMAN RN; Reviewed Date: 01/10/2021 21:53 EDT Diagnosis Control ED (As Of: 01/10/2021 21:53:47 EDT) Problems(Active) Dislocated knee (SNOMED CT :3935587766 ) Name of Problem: Dislocated knee ; Recorder: TRANG OGNZALEZ MD-OBG; Confirmation: Confirmed ; Classification: Medical ; Code: [id number] ; Contributor System: Frengo ; Last Updated: 11/18/2013 19:27 EDT ; Life Cycle Date: 07/07/2013 ; Life Cycle Status: Active ; Responsible Provider: TRANG GONZALEZ MD-OBG; Vocabulary: SNOMED CT Vaginal delivery with forceps including care (SNOMED CT :63787171 ) Name of Problem: Vaginal delivery with forceps including care ; Recorder: TRANG GONZALEZ MD-OBG; Confirmation: Confirmed ; Classification: Medical ; Code: [id number] ; Contributor System: [email or web address] ; Last Updated: 11/23/2013 15:16 EDT ; Life Cycle Date: 07/07/2013 ; Life Cycle Status: Active ; Responsible Provider: TRANG GONZALEZ MD-OBG; Vocabulary: SNOMED CT Diagnoses(Active) Flank pain Date: 01/10/2021 ; Diagnosis Type: Reason For Visit ; Confirmation: Complaint of ; Clinical Dx: Flank pain ; Classification: Medical ; Clinical Service: Non-Specified ; Code: PNED ; Probability: 0 ; Diagnosis Code: [id number] ED Height and Weight Height Source : Stated Height Entry Format : [place] Height, Feet : 5 ft(Converted to: 152 cm, 60 Inch) Height, Inches : 1 Inch(Converted to: 0 ft 1 Inch, 2.54 cm) Clinical Height : 154.94 cm Weight Source, ED : Critical estimated dosing weight Weight Entry Format : [place] Weight, Pounds : 286 lb Clinical Dosing Weight : 130 kg Body Surface Area (BSA) : 2.2 m2 Body Mass Index : 54.2 kg/m2 (>HHI) [place] Body Weight (IBW) : 47.45 kg SOLE JOSEPH RN - 01/10/2021 21:51 EDT Pain Assessment Pain Assessment : Initial assessment Pain Scale Used : 0-10 Scale Location : Flank, left, Flank, right, Vaginal Onset : Constant Quality : Throbbing Pain Radiation : No SOLE JOSEPH RN - 01/10/2021 21:51 EDT Pain Scale Intensity : 5 SOLE JOSEPH RN - 01/10/2021 21:51 EDT Image 4 - Images currently included in the form version of this document have not been included in the text rendition version of the form. documented in this encounter Plan of Treatment Not on file documented as of this encounter Visit Diagnoses Not on filedocumented in this encounter
--- OUTSIDE RECORDS SUMMARY | 2025-04-01 10:45 | XMS_ITS | Encounter Summary ---
Author Organization [employer] ([place], [place], [place]) Address [address] [place] [address] Care Team Providers Care Channel Rebuilder Name Role Phone Unavailable Primary Care Provider Unavailabl e Encounter Details Date Type Department Care Team (Late st Contact Info) Description 01/24/2021 Transcribed Document [facility] Family Medicine [facility] [place] [address] ProviderKim MD [address] [place] [address] [id number] Social History Tobacco Use Types Packs/Day Years Used Date Smoking Tobacco: Never Assessed Comments Unknown Sex and Gender Information Value Date Recorded Sex Assigned at Not on file Legal Sex Female 5:43 PM CDT Gender Identity Not on file Sexual Orientation Not on file documented as of this encounter Miscellaneous Notes * Cerner Conversion Note - Historical ProviderMD - 01/24/2021 8:33 PM CDT Electronically signed by Eligio [facility] Conversion Biological Sciences Instructor Jose Luis at 09/23/2022 4:54 PM CDT documented in this encounter Plan of Treatment Not on file documented as of this encounter Visit Diagnoses Not on filedocumented in this encounter
--- OUTSIDE RECORDS SUMMARY | 2025-04-01 10:45 | XMS_ITS | Encounter Summary ---
Author Organization [employer] ([place], [place], [place], [place]) Address [address] [place] [address] Care Team Providers Care Slate Cutter Operator Name Role Phone Unavailable Primary Care Provider Unavailabl e Encounter Details Date Type Department Care Team (Late st Contact Info) Description 01/24/2021 Transcribed Document [facility] Family [place] [facility] [place] [address] ProviderKim MD [address] [place] [address] [id number] Social History Tobacco Use Types Packs/Day Years Used Date Smoking Tobacco: Never Assessed Comments Unknown Sex and Gender Information Value Date Recorded Sex Assigned at Not on file Legal Sex Female 5:43 PM CDT Gender Identity Not on file Sexual Orientation Not on file documented as of this encounter Miscellaneous Notes * Cerner Conversion Note - Historical ProviderMD - 01/24/2021 5:08 PM CDT ED Triage Entered On: 01/24/2021 17:17 EDT Performed On: 01/24/2021 17:15 EDT by Ruth Madison MARITIME GUARD Triage Across the Room Chief Complaint : dx with covid on friday, c/o the inability to keep temp down and increase in soa, portable spo2 monitor provided to pt friday upon discharge. pt reports that her spo2 has been as low as 83% today Triage Date/Time : 01/24/2021 17:15 EDT Ruth Madison RN - 01/24/2021 17:15 EDT DCP GENERIC CODE Tracking Acuity : 2 - Emergent Tracking Group : [facility] ED Ruth Madison RN - 01/24/2021 17:15 EDT Mode of Arrival : Ambulatory Transported to ED by : Private vehicle To Room Via : Wheelchair Accompanied By : Significant other ED Vital Signs : Document Height & Weight : Document ED Allergies : Document ED Reason for Visit : Document Tetanus Immunization : Unknown Grain Ii Farmworker Needed : No Ruth Madison RN - 01/24/2021 17:15 EDT Infectious Disease History Has the patient ever been tested for COVID-19? : Yes, Patient stated results Positive Date of COVID-19 test known? : Yes Date of COVID-19 Test : 01/21/2021 EDT Does patient have symptoms of COVID-19? : No COVID19 Screening : No Experiencing Infectious Disease Symptoms : No symptoms Physical contact outside US in the last 30 days : No Infectious Disease History : None Tuberculosis Symptoms : None Ruth Madison RN - 01/24/2021 17:15 EDT Vital Signs ED Temperature Source : Oral Temperature Mode : Fahrenheit Temperature, Fahrenheit : 102.1 Deg F (HI) Clinical Temperature, C : 38.9 Deg C Oxygen Therapy Mode : Room air Peripheral Pulse Rate : 115 bpm (HI) Respiratory Rate : 23 Breaths/Min (HI) Systolic Blood Pressure : 121 mmHg Diastolic Blood Pressure : 71 mmHg Oxygen Saturation : 94 % Ruth Madison RN - 01/24/2021 17:15 EDT Allergy (As Of: 01/24/2021 17:17:23 EDT) Allergies (Active) Macrobid Estimated Onset Date: Unspecified ; Reactions: Nausea present ; Created By: RONY GROSSMAN RN; Reaction Status: Active ; Category: Drug ; Substance: Macrobid ; Type: Allergy ; Updated By: RONY GROSSMAN RN; Reviewed Date: 01/24/2021 17:16 EDT sulfa drugs Estimated Onset Date: Unspecified ; Reactions: Rash ; Created By: RONY GROSSMAN RN; Reaction Status: Active ; Category: Drug ; Substance: sulfa drugs ; Type: Allergy ; Updated By: RONY GROSSMAN RN; Reviewed Date: 01/24/2021 17:16 EDT Diagnosis Control ED (As Of: 01/24/2021 17:17:23 EDT) Problems(Active) Disease caused by 2019 novel coronavirus (SNOMED CT :2902447264 ) Name of Problem: Disease caused by 2019 novel coronavirus ; Recorder: SYSTEM, SYSTEM; Confirmation: Confirmed ; Classification: Medical ; Code: [id number] ; Last Updated: 01/21/2021 17:22 EDT ; Life Cycle Date: 01/21/2021 ; Life Cycle Status: Active ; Vocabulary: SNOMED CT ; Comments: 01/21/2021 17:22 - SYSTEM, SYSTEM Problem added by a rule: [id number]. Dislocated knee (SNOMED CT :0080692230 ) Name of Problem: Dislocated knee ; Recorder: TRANG GONZALEZ MD-OBG; Confirmation: Confirmed ; Classification: Medical ; Code: [id number] ; Contributor System: PowerChart ; Last Updated: 11/18/2013 19:27 EDT ; Life Cycle Date: 07/07/2013 ; Life Cycle Status: Active ; Responsible Provider: TRANG GONZALEZ MD-OBG; Vocabulary: SNOMED CT Vaginal delivery with forceps including care (SNOMED CT :50840852 ) Name of Problem: Vaginal delivery with forceps including care ; Recorder: TRANG GONZALEZ MD-OBG; Confirmation: Confirmed ; Classification: Medical ; Code: [id number] ; Contributor System: PowerChart ; Last Updated: 11/23/2013 15:16 EDT ; Life Cycle Date: 07/07/2013 ; Life Cycle Status: Active ; Responsible Provider: TRANG GONZALEZ MD-OBG; Vocabulary: SNOMED CT Diagnoses(Active) Fever Date: 01/24/2021 ; Diagnosis Type: Reason For Visit ; Confirmation: Complaint of ; Clinical Dx: Fever ; Classification: Medical ; Clinical Service: Emergency medicine ; Code: PNED ; Probability: 0 ; Diagnosis Code: [id number] SOA - Shortness of Air Date: 01/24/2021 ; Diagnosis Type: Reason For Visit ; Confirmation: Complaint of ; Clinical Dx: SOA - Shortness of Air ; Classification: Medical ; Clinical Service: Emergency medicine ; Code: PNED ; Probability: 0 ; Diagnosis Code: [id number] ED Height and Weight Height Source : Stated Height Entry Format : [place] Height, Feet : 5 ft(Converted to: 152 cm, 60 Inch) Height, Inches : 1 Inch(Converted to: 0 ft 1 Inch, 2.54 cm) Clinical Height : 154.94 cm Weight Source, ED : Critical estimated dosing weight Weight Entry Format : [place] Weight, Pounds : 286 lb Clinical Dosing Weight : 130 kg Body Surface Area (BSA) : 2.2 m2 Body Mass Index : 54.2 kg/m2 (>HHI) [place] Body Weight (IBW) : 47.45 kg Ruth Madison RN - 01/24/2021 17:15 EDT documented in this encounter Plan of Treatment Not on file documented as of this encounter Visit Diagnoses Not on filedocumented in this encounter
--- OUTSIDE RECORDS SUMMARY | 2025-04-01 10:45 | XMS_ITS | Encounter Summary ---
Author Organization [employer] ([place], [place], [place], [place]) Address [address] [place] [address] Care Team Providers Care Cna Caregiver Name Role Phone Unavailable Primary Care Provider Unavailabl e Encounter Details Date Type Department Care Team (Late st Contact Info) Description 01/21/2021 Transcribed Document [facility] Family [place] [facility] [place] [address] ProviderKim MD [address] [place] [id number] Social History Tobacco Use Types Packs/Day Years Used Date Smoking Tobacco: Never Assessed Comments Unknown Sex and Gender Information Value Date Recorded Sex Assigned at Not on file Legal Sex Female 5:43 PM CDT Gender Identity Not on file Sexual Orientation Not on file documented as of this encounter Miscellaneous Notes * Cerner Conversion Note - Kim ProviderMD - 01/21/2021 7:24 PM CDT ED Discharge Entered On: 01/21/2021 19:24 EDT Performed On: 01/21/2021 19:24 EDT by MARIANNE SHEPHERD motel manager Process Patient Disposition : Discharge Personal Belongings With Patient : Yes Patient Education Completed : Yes Teaching Evaluation : Verbalizes understanding IV Discontinued : Yes Nursing Documentation Completed : Yes MARIANNE SHEPHERD RN - 01/21/2021 19:24 EDT ED Discharge Discharge To : Home with ambulatory/outpatient follow-up Mode Of Departure : Ambulatory Accompanied By : Unaccompanied Discharge Instructions Reviewed With, Opportunity For Questions Given : Patient Prescriptions Given to Patient : No Medications Given to Patient : No MARIANNE SHEPHERD RN - 01/21/2021 19:24 EDT documented in this encounter Plan of Treatment Not on file documented as of this encounter Visit Diagnoses Not on filedocumented in this encounter
--- OUTSIDE RECORDS SUMMARY | 2025-04-01 10:45 | XMS_ITS | Encounter Summary ---
Author Organization [employer] ([place], [place], [place], [place]) Address [address] [place] [address] Care Team Providers Care Mailing Specialist Name Role Phone Unavailable Primary Care Provider Unavailabl e Encounter Details Date Type Department Care Team (Late st Contact Info) Description 06/07/2020 Transcribed Document [facility] [place] [facility] [place] [address] ProviderKim MD [address] [place] [id number] Social History Tobacco Use Types Packs/Day Years Used Date Smoking Tobacco: Never Assessed Comments Unknown Sex and Gender Information Value Date Recorded Sex Assigned at Not on file Legal Sex Female 5:43 PM CDT Gender Identity Not on file Sexual Orientation Not on file documented as of this encounter Miscellaneous Notes * Cerner Conversion Note - Historical ProviderMD - 06/07/2020 8:55 PM TOY STUFFER Electronically signed by Eligio [facility] Conversion Mash Filter Press Operator Cerner at 09/23/2022 4:52 PM CDT documented in this encounter Plan of Treatment Not on file documented as of this encounter Visit Diagnoses Not on filedocumented in this encounter
--- OUTSIDE RECORDS SUMMARY | 2025-04-01 10:45 | XMS_ITS | Encounter Summary ---
Author Organization [employer] ([place], [place], [place], [place]) Address [address] [place] [address] Care Team Providers Care Traffic Warehouse Supervisor Name Role Phone Unavailable Primary Care Provider Unavailabl e Encounter Details Date Type Department Care Team (Late st Contact Info) Description 01/22/2021 Transcribed Document [facility] Family [facility] [place] [address] ProviderKim MD [address] [place] [address] [id number] Social History Tobacco Use Types Packs/Day Years Used Date Smoking Tobacco: Never Assessed Comments Unknown Sex and Gender Information Value Date Recorded Sex Assigned at Not on file Legal Sex Female 5:43 PM CDT Gender Identity Not on file Sexual Orientation Not on file documented as of this encounter Miscellaneous Notes * Cerner Conversion Note - Historical ProviderMD - 01/22/2021 5:27 PM CDT CR Chest 2 Vws Ordered: 01/21/2021 Auth (Verified) Reason for Exam: pain 01/22/2021 07:48 01/22/2021 17:27 (RONY CRAFT) No further action required documented in this encounter Plan of Treatment Not on file documented as of this encounter Visit Diagnoses Not on filedocumented in this encounter
--- OUTSIDE RECORDS SUMMARY | 2025-04-01 10:45 | XMS_ITS | Encounter Summary ---
Author Organization [employer] ([place], [place], [place], [place]) Address [address] [place] [address] Care Team Providers Care Personal Development Educator Name Role Phone Unavailable Primary Care Provider Unavailabl e Encounter Details Date Type Department Care Team (Late st Contact Info) Description 12/30/2020 Transcribed Document [facility] [place] [address] [place] [address] ProviderKim MD [facility] [place], [place] [phone] Social History Tobacco Use Types Packs/Day Years [...] ProviderMD - 12/30/2020 11:16 AM CDT ED Assessment Entered On: 12/30/2020 11:58 EDT Performed On: 12/30/2020 11:22 EDT by Anabell Howard RN-PATIENT CARE BEDSIDE NON-EXEMPT ED Quick Look Assessment Level of Consciousness : Alert, Awake Affect/Behavior : Appropriate, Cooperative Orientation : Oriented x 4 Skin Temperature : Warm Anabell Howard RN-PATIENT CARE BEDSIDE NON-EXEMPT - 12/30/2020 11:55 EDT ED General-Functional Assess Information Obtained From : Patient Preferred Communication Mode : Verbal Communication Barrier : None Primary Language : Iranian Any Spiritual/Cultural Needs or Requests : No Currently in Unsafe Situation : No Anabell Howard RN-PATIENT CARE BEDSIDE NON-EXEMPT - 12/30/2020 11:55 EDT Social Habits Smoking Status : Never (less than 100 in lifetime; none in last 30 days) Smokeless Tobacco Status : Never Desires Tobacco Cessation Calc : 0 Anabell Howard RN-PATIENT CARE BEDSIDE NON-EXEMPT - 12/30/2020 11:55 EDT Social History (As Of: 12/30/2020 11:58:38 EDT) Tobacco: Second Hand Smoke Exposure: No. (Last Updated: 06/07/2020 18:45:57 EST by DEBRA CAMARILLO RN) Never (less than 100 in lifetime) Smoking Status. Never Smokeless Tobacco Status. (Last Updated: 06/07/2020 18:46:08 EST by DEBRA CAMARILLO, ZANDRA) Alcohol: Alcohol Use History No. Use in Last 12 Months: No. (Last Updated: 06/07/2020 18:46:14 EST by DEBRA CAMARILLO RN) Substance Abuse: Drug Use Hx: No. Use in Last 12 Months: No. (Last Updated: 06/07/2020 18:46:21 EST by DEBRA CAMARILLO RN) Genitourinary Assessment, ED Genitourinary Assessment WDL : WDL with exceptions Genitourinary Assessment Comment : Pt complains of L flank pain starting at 0300. Pt stated pain of 7 out of 10. Pt stated she has had kidney stones in the past. Anabell Howard RN-PATIENT CARE BEDSIDE NON-EXEMPT - 12/30/2020 11:55 EDT documented in this encounter Plan of Treatment Not on file documented as of this encounter Visit Diagnoses Not on filedocumented in this encounter
--- OUTSIDE RECORDS SUMMARY | 2025-04-01 10:45 | XMS_ITS | Encounter Summary ---
Author Organization [employer] ([place], [place], [place], [place]) Address [address] [place] [address] Care Team Providers Care Full Decator Operator Name Role Phone Unavailable Primary Care Provider Unavailabl e Encounter Details Date Type Department Care Team (Late st Contact Info) Description 06/07/2020 Transcribed Document [facility] [place] Family Medicine [address] [place] [address] ProviderKim MD [address] [place] [address] Social History Tobacco Use Types Packs/Day Years Used Date Smoking Tobacco: Never Assessed Comments Unknown Sex and Gender Information Value Date Recorded Sex Assigned at Not on file Legal Sex Female 5:43 PM CDT Gender Identity Not on file Sexual Orientation Not on file documented as of this encounter Miscellaneous Notes * Cerner Conversion Note - Historical ProviderMD - 06/07/2020 6:08 PM MARKETING BUSINESS ANALYST Broset Violence Assessment Entered On: 06/07/2020 18:48 EST Performed On: 06/07/2020 18:44 EST by DEBRA CAMARILLO RN Broset Violence Assessment Broset Violence Checklist of Symptoms : None Broset Violence Symptoms Subtotal : 0 Broset Violence Symptoms Indicator : Low risk (0) DEBRA CAMARILLO RN - 06/07/2020 18:44 EST Electronically signed by Eligio [facility] Conversion Follow Up Specialist Cerner at 09/23/2022 5:16 PM CDT documented in this encounter Plan of Treatment Not on file documented as of this encounter Visit Diagnoses Not on filedocumented in this encounter
--- OUTSIDE RECORDS SUMMARY | 2025-04-01 10:45 | XMS_ITS | Encounter Summary ---
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 Name Role Phone Unavailable Primary Care Provider Unavailabl e Encounter Details Date Type Department Care Team (Late st Contact Info) Description 01/21/2021 Transcribed Document [facility] Family Medicine [facility] [place] [address] ProviderKim MD [address] [place] [id number] Social History Tobacco Use Types Packs/Day Years Used Date Smoking Tobacco: Never Assessed Comments Unknown Sex and Gender Information Value Date Recorded Sex Assigned at Not on file Legal Sex Female 5:43 PM CDT Gender Identity Not on file Sexual Orientation Not on file documented as of this encounter Miscellaneous Notes * Cerner Conversion Note - Kim ProviderMD - 01/21/2021 7:21 PM CDT [facility] [address] ANIBAL CAM :1995 Visit Time:01/21/2021 Your Visit Summary Your Care Team Primary Provider: VICTORIA EVANS Secondary Provider: Your Diagnosis COVID-19 Fever, Fever Fever Medical Information You may obtain a copy [...] do next Follow-Up Appointments Follow Up with Return to Emergency Department When Within 2 to 3 days Comments Follow-up as instructed Return if condition worsens Follow Up with Follow up with primary care provider When Within 2 to 3 days Follow Up with ROSA THOMAS When Within 2 to 3 days Where: [address] [place] [address]- [facility] (1) Allergies Macrobid (Nausea present) sulfa drugs (Rash) Immunizations This Visit No Immunizations Found Medications What How Much When Instructions Next Dose ondansetron (Zofran ODT 8 mg oral tablet, disintegrating) 1 Tablet(s) Oral Three Times A Day Duration: 3 Day(s) Pickup at [facility] multivitamin, ( Multivitamins) Oral Every Day tamsulosin (Flomax 0.4 mg oral capsule) 1 Capsule(s) Oral Every Day Duration: 7 Day(s) Pharmacy Information [facility]: [address] [place], [place] [id number] [phone] The home medications listed are only as [...] This Visit (last charted value for your 01/21/2021 visit) Hematology 01/21/2021 3:58 PM WBC: 2.4 K/uL -- Normal range between ( 4.5 and 10.5 ) RBC: 4.78 Million/uL -- Normal range between ( 3.93 and 5.22 ) Hct: 38.5 % -- Normal range between ( 34.1 and 44.9 ) Hgb: 12.0 g/dL -- Normal range between ( 11.2 and 15.7 ) Platelet Count: 169 K/uL -- Normal range between ( 163 and 369 ) MCH: 25.1 pg -- Normal range between ( 25.6 and 32.2 ) MCHC: 31.2 Gram/dL -- Normal range between ( 32.2 and 36.5 ) MCV: 80.5 fL -- Normal range between ( 79.0 and 94.8 ) Slide Review: No Eos %: 0.0 % -- Normal range between ( 0.0 and 7.0 ) [place] #: 0.18 K/uL -- Normal range between ( 0.16 and 1.00 ) Eos #: 0.00 x10(3)/uL -- Normal range between ( 0.00 and 0.80 ) [place] %: 7.7 % -- Normal range between ( 3.0 and 9.0 ) Baso %: 0.4 % -- Normal range between ( 0.0 and 1.5 ) Baso #: 0.01 x10(3)/uL -- Normal range between ( 0.00 and 0.20 ) RDW: 14.9 % -- Normal range between ( 11.7 and 14.9 ) Neut %: 68.5 % -- Normal range between ( 34.0 and 71.0 ) Neut #: 1.61 K/uL -- Normal range between ( 1.56 and 6.13 ) Lymph %: 23.4 % -- Normal range between ( 19.3 and 53.1 ) Lymph #: 0.55 x10(3)/uL -- Normal range between ( 1.00 and 3.90 ) MPV: 10.7 fL -- Normal range between ( 9.4 and 12.4 ) IG#: 0.00 x10(3)/uL -- Normal range between ( 0.00 and 0.05 ) IG%: 0.00 % -- Normal range between ( 0.00 and 0.60 ) Urinalysis 01/21/2021 3:58 PM Urine Nitrite: Negative Urine Leukocyte Esterase: Negative Urine Appearance: Clear Urine Glucose Dipstick: Negative Urine Blood Dipstick: Negative Urine Urobilinogen Dipstick: 0.2 EU/dL Urine Protein Dipstick: Negative Urine Color: Yellow Urine Ketones Dipstick: Negative Urine pH Dipstick: 5.5 -- Normal range between ( 6.0 and 8.0 ) Urine Bilirubin Dipstick: Negative Urine Specific [place]: 1.019 -- Normal range between ( 1.005 and 1.030 ) Urine Type.: U CleanCatch Urine Culture if Indicated: Not Indicated Microbiology 01/21/2021 3:58 PM SARS-CoV-2 (COVID19 PCR): Positive General Chemistry 01/21/2021 3:58 PM Creatinine Level: 0.90 mg/dL -- Normal range between ( 0.55 and 1.02 ) Sodium Level: 137 mmol/L -- Normal range between ( 136 and 146 ) Potassium Level: 3.8 mmol/L -- Normal range between ( 3.5 and 5.1 ) Chloride Level: 105 mmol/L -- Normal range between ( 102 and 112 ) Carbon Dioxide Level: 25 mmol/L -- Normal range between ( 21 and 32 ) Anion Gap: 11 -- Normal range between ( 9 and 20 ) Bilirubin Total: 0.3 mg/dL -- Normal range between ( 0.2 and 1.2 ) A/G Ratio: 1.0 -- Normal range between ( 1.1 and 2.5 ) ALT: 60 Units/Liter -- Normal range between ( 13 and 56 ) AST: 55 Units/Liter -- Normal range between ( 5 and 37 ) Globulin: 3.6 Gram/dL -- Normal range between ( 1.5 and 4.5 ) Alk Phos: 80 Units/Liter -- Normal range between ( 27 and 136 ) Bun/Creatinine: 8.9 -- Normal range between ( 8.0 and 20.0 ) Calcium Level: 8.5 mg/dL -- Normal range between ( 8.4 and 10.1 ) eGFR : >60 mL/min/1.73m2 eGFR NonAfrican: >60 mL/min/1.73m2 Glucose Level: 98 mg/dL -- Normal range between ( 74 and 106 ) Blood Urea Nitrogen: 8 mg/dL -- Normal range between ( 7 and 22 ) Protein Total: 7.1 Gram/dL -- Normal range between ( 6.4 and 8.2 ) Albumin Level: 3.5 Gram/dL -- Normal range between ( 3.4 and 5.0 ) Education Materials COVID-19: What Your Test Results Mean If you test positive for COVID-19 Take steps to help prevent the spread of COVID-19 Stay home. Do not leave your home, except to get medical care. Do not visit public areas. Get rest and stay hydrated. Take nbmm-hlj-aslobgm medicines, such as acetaminophen, to help you feel better. Stay in touch with your doctor. Separate yourself from other people. As much as possible, stay in a specific room and away from other people and pets in your home. If you test negative for COVID-19 ??? You probably were not infected at the time your sample was collected. ??? However, that does not mean you will not get sick. ??? It is possible that you were very early in your infection when your sample was collected and that you could test positive later. A negative test result does not mean you won't get sick later. cdc.gov/coronavirus 11/06/2019 This information is not intended to replace advice given to you by your health care provider. Make sure you discuss any questions you have with your health care provider. Document Revised: 05/11/2020 Document Reviewed: 05/11/2020 [employer] Patient Education ?? 2020 [employer] COVID-19: Quarantine vs. Isolation QUARANTINE keeps someone who was in close contact with someone who has COVID-19 away from others. If you had close contact with a person who has COVID-19 ??? Stay home until 14 days after your last contact. ??? Check your temperature twice a day and watch for symptoms of COVID-19. ??? If possible, stay away from people who are at higher-risk for getting very sick from COVID-19. ISOLATION keeps someone who is sick or tested positive for COVID-19 without symptoms away from others, even in their own home. If you are sick and think or know you have COVID-19 ??? Stay home until after ? At least 10 days since symptoms first appeared and ? At least 24 hours with no fever without fever-reducing medication and ? Symptoms have improved If you tested positive for COVID-19 but do not have symptoms ??? Stay home until after ? 10 days have passed since your positive test If you live with others, stay in a specific sick room or area and away from other people or animals, including pets. Use a separate bathroom, if available. cdc.gov/coronavirus 12/27/2019 This information is not intended to replace advice given to you by your health care provider. Make sure you discuss any questions you have with your health care provider. Document Revised: 05/11/2020 Document Reviewed: 05/11/2020 [employer] Patient Education ?? 2020 [employer] COVID-19: How to Protect Yourself and Others Know how it spreads ??? There is currently no vaccine to prevent coronavirus disease 2019 (COVID-19). ??? The best way to prevent illness is to avoid being exposed to this virus. ??? The virus is thought to spread mainly from rrovii-si-wgwiib. ? Between people who are in close [...] are not readily available, use a hand decorative cutting machine tender that contains at least 60% alcohol. Cover [...] are at higher risk of getting very sick.www.cdc.gov/coronavirus/2019-ncov/drcz-ycwyo-rscuqjwksoi/cezzlc-pj-jccfml -risk.html Cover your mouth and nose with [...] available, clean your hands with a hand decorative cutting machine tender that contains at least 60% alcohol. Clean and disinfect ??? Clean AND disinfect frequently touched surfaces daily. This includes tables, doorknobs, light switches, countertops, handles, desks, phones, keyboards, toilets, faucets, and sinks. www.cdc.gov/coronavirus/2019-ncov/pomdyks-oebsmhl-mfav/uofgldqlozsn-dkpm-vzox. html ??? If surfaces are dirty, clean them: Use detergent or soap and water prior to disinfection. ??? Then, use a household disinfectant. You can see a list of EPA-registered household disinfectants here. cdc.gov/coronavirus 02/09/2020 This information is not intended to replace advice given to you by your health care provider. Make sure you discuss any questions you have with your health care provider. Document Revised: 02/17/2020 Document Reviewed: 12/16/2019 [employer] Patient Education ?? 2020 [employer] COVID-19 Vaccine Information The COVID-19 vaccines are vaccines that can help to prevent infection with the virus that causes COVID-19. These vaccines have been authorized for emergency use. These vaccines may not be available to everyone right away. Until the vaccines are available for everyone, it is important to continue taking steps to protect yourself and others from the virus. What does emergency use authorization mean? Emergency use authorization means that the vaccines are still being tested, but that people can receive the vaccines sooner because the vaccines have been deemed safe and effective in preventing COVID-19. Emergency use authorization is not the same as approval. A final approval will be given later after more information is known about the vaccines. The U.S. Food and Drug Administration (FDA) can give emergency use authorization for a vaccine that has not gone through the full approval process if: ??? There is a public health emergency, such as the COVID-19 pandemic. ??? There are no other approved alternatives that can prevent the disease. ??? Enough tests have been done to show that the vaccine is effective against the virus and is safe for people. Are the vaccines safe? No serious safety concerns were found during research studies to test these vaccines. Although the approval process was sped up so that people could get the vaccine sooner, the vaccines are still going through a rigorous approval process to make sure that they are safe. Are the vaccines effective? In research studies to test the vaccines, the COVID-19 vaccines were found to be 90???95% effective. This means that if you get one of these vaccines, your chance of getting COVID-19 is reduced by 90???95%. To put it another way, if 100 people got a vaccine that is 90% effective, then: ??? 90 of those people would not get COVID-19. ??? 10 of those people may get COVID-19. Or, if 100 people got a vaccine that is 95% effective, then: ??? 95 of those people would not get COVID-19. ??? 5 of those people may get COVID-19. Will there be enough vaccines for everyone? No. At the start, there will be a limited supply of the vaccines. Experts are deciding who should get the vaccines first. Everyone else will get the vaccine when more supply becomes available. The people who are likely to get the vaccines first are: ??? Those who are at higher risk of getting COVID-19. These include health care workers, those serving in the , and people who are considered essential workers. Essential workers are people who do any work that is so important that it must continue during the pandemic. Examples include people who work in law enforcement, energy, childcare, transportation, and retail (such as grocery stores). ??? Those who are at higher risk of getting serious illness and complications from COVID-19. These include older people and people with underlying health problems. Talk to your health care provider about your risk for serious complications from COVID-19. Who should not get the vaccine? If you are allergic to any ingredients in the vaccine, you should not receive the vaccine. Also, if you have had a severe allergic reaction to a vaccine or other shot, you should talk to your health care provider before receiving the vaccine. More studies are needed to find out if the vaccines are safe for people who have a weakened disease-fighting system (are immunocompromised) and for women who are or . If you are or or if you are immunocompromised, you should talk to your health care provider about the benefits and risks of receiving the vaccine. You may choose to receive the vaccine if you are at high risk of being exposed to the virus or becoming very ill from the virus. How much will the vaccine cost? The government is working to make sure that the vaccine is available for everyone regardless of cost. Will I get COVID-19 from the vaccine? No. You cannot get COVID-19 from getting the vaccine. It is possible to be infected with COVID-19 before or just after you get the vaccine and then get sick before your body has had enough time to make immunity. Also, as with any vaccine, there is a chance of having some side effects. In research studies of the COVID-19 vaccine, some people had a fever, felt very tired (fatigued), or had a headache. Getting these symptoms does not mean that you have COVID-19. This is a normal reaction to the vaccine when your body is making immunity against the virus. How many shots will I need? Most COVID-19 vaccines that are being tested require you to get more than one shot. The first shot starts the process of building immunity in your body. The second shot ensures that you get the most protection possible from the vaccine. How do the vaccines work? The vaccines that have been authorized for emergency use rely on mRNA (messenger RNA) to help your body build an immune response. When mRNA is put into your body as a vaccine, it gives instructions to your cells to create a protein like that found on the virus. Your body creates this protein, then destroys the instructions. Your body sees this protein as an invader and creates an immune response. This immune response builds memory so that if you are exposed to the virus in the future, your body can fight off the virus. Your body needs time to build immunity after you get the vaccine. You can get COVID-19 if you are exposed to the virus that causes the disease before your body has had a chance to build immunity. Do I still need to social distance and wear a mask if I get the vaccine? Yes. The COVID-19 vaccines are very effective, but even if you get the vaccine, there is still a chance of getting COVID-19. Take the following actions: ??? Stay away from people who are sick. ??? Wash your hands often with soap and water for at least 20 seconds. If soap and water are not available, use alcohol-based hand decorative cutting machine tender. ??? Avoid going out in public. Follow guidance from your state and local health authorities. ??? If you must go out in public, wear a cloth face covering or face mask. Make sure your mask covers your nose and mouth. ??? Avoid crowded indoor spaces. Stay at least 6 ft (2 m) away from others. Where to find more information ??? Centers for Disease Control and Prevention: https://www.cdc.gov/coronavirus/2019-ncov/vaccines/index.html ??? U.S. Food and Drug Administration: https://www.fda.gov/zcrvfrktd-aheqrerlrbnm-kpb-response/bii-mmgml-onpnmtosqy-a ey-flttjh-ykjevkcaf/twpfabmtv-rhw-qahoiajflgcal#gmreu01wofh ??? World Health Organization: https://www.who.int/news-room/q-a-detail/coronavirus-disease-(covid-19)-vaccin es Summary ??? The COVID-19 vaccines are vaccines that can help to prevent infection with the virus that causes COVID-19. These vaccines have been authorized for emergency use. ??? In research studies to test the vaccines, the COVID-19 vaccines were found to be 90???95% effective. ??? You cannot get COVID-19 from getting the vaccine. ??? Until the vaccines are available for everyone, it is important to continue taking steps to protect yourself and others from the virus. This information is not intended to replace advice given to you by your health care provider. Make sure you discuss any questions you have with your health care provider. Document Revised: 06/13/2020 Document Reviewed: 06/13/2020 [employer] Patient Education ?? 2020 [employer] COVID-19 Frequently Asked Questions COVID-19 (coronavirus disease) is an infection that is caused by a virus called severe acute respiratory syndrome coronavirus 2 (SARS-CoV-2). Coronaviruses are a large family of viruses. Some of these viruses cause illness in people, and others cause illness in animals like camels, cats, and bats. In some cases, the viruses that cause illness in animals can spread to humans. Where did the coronavirus come from? In May 2019, [place] told the World Health Organization (WHO) about several cases of lung disease (human respiratory illness). These cases were linked to an open seafood and livestock market in the city of [facility]. The link to the seafood and livestock market suggests that the virus may have spread from animals to humans. However, since that first outbreak in May 2019, the virus has also been shown to spread from person to person. What is the name of the disease and the virus? Disease name Early on, this disease was called novel coronavirus. This is because scientists determined that the disease was caused by a new (novel) respiratory virus. The World Health Organization (WHO) has now named the disease COVID-19, or coronavirus disease. Virus name The virus that causes the disease is called severe acute respiratory syndrome coronavirus 2 (SARS-CoV-2). More information on disease and virus naming ??? World Health Organization: www.who.int/emergencies/diseases/iuifn-zxecwbiprig-2601/technical-guidance Who is at risk for complications from coronavirus disease? Some people may be at higher risk for complications from coronavirus disease. This includes older adults and people who have chronic diseases, such as heart disease, diabetes, and lung disease. If you are at higher risk for complications, take these extra precautions: ??? Stay home as much as possible. ??? Avoid social gatherings and travel. ??? Avoid close contact with others. Stay at least 6 ft (2 m) away from others, if possible. ??? Wash your hands often with soap and water for at least 20 seconds. ??? Avoid touching your face, mouth, nose, or eyes. ??? Keep supplies on hand at home, such as food, medicine, and cleaning supplies. ??? If you must go out in public, wear a cloth face covering or face mask. Make sure your mask covers your nose and mouth. How does coronavirus disease spread? The virus that causes coronavirus disease spreads easily from person to person (is contagious). You may catch the virus by: ??? Breathing in droplets from an infected person. Droplets can be spread by a person breathing, speaking, singing, coughing, or sneezing. ??? Touching something, like a table or a doorknob, that was exposed to the virus (contaminated) and then touching your mouth, nose, or eyes. Can I get the virus from touching surfaces or objects? There is still a lot that we do not know about the virus that causes coronavirus disease. Scientists are basing a lot of information on what they know about similar viruses, such as: ??? Viruses cannot generally survive on surfaces for long. They need a human body (host) to survive. ??? It is more likely that the virus is spread by close contact with people who are sick (direct contact), such as through: ? Shaking hands or hugging. ? Breathing in respiratory droplets that travel through the air. Droplets can be spread by a person breathing, speaking, singing, coughing, or sneezing. ??? It is less likely that the virus is spread when a person touches a surface or object that has the virus on it (indirect contact). The virus may be able to enter the body if the person touches a surface or object and then touches his or her face, eyes, nose, or mouth. Can a person spread the virus without having symptoms of the disease? It may be possible for the virus to spread before a person has symptoms of the disease, but this is most likely not the main way the virus is spreading. It is more likely for the virus to spread by being in close contact with people who are sick and by breathing in the respiratory droplets spread when a person breathes, speaks, sings, coughs, or sneezes. What are the symptoms of coronavirus disease? Symptoms vary from person to person and can range from mild to severe. Symptoms may include: ??? Fever or chills. ??? Cough. ??? Difficulty breathing or feeling short of breath. ??? Feeling tired. ??? Headaches, body aches, or muscle aches. ??? Runny or stuffy (congested) nose. ??? Sore throat. ??? New loss of taste or smell. ??? Nausea, vomiting, or diarrhea. These symptoms can appear anywhere from 2 to 14 days after you have been exposed to the virus. Some people may not have any symptoms. If you develop symptoms, call your health care provider. People with severe symptoms may need hospital care. Should I be tested for this virus? Your health care provider will decide whether to test you based on your symptoms, history of exposure, and your risk factors. How does a health care provider test for this virus? Health care providers will collect samples to send for testing. Samples may include: ??? Taking a swab of fluid from the back of your nose and throat, from your nose, or from your throat. ??? Testing a sample of saliva from your mouth. ??? Taking fluid from the lungs by having you cough up mucus (sputum) into a sterile cup. ??? Taking a blood sample. Is there a treatment or vaccine for this virus? Some medicines have been approved for the treatment of people with severe cases of COVID-19 who are being treated in the hospital. There are no medicines that have been approved for treatment of people with mild cases of COVID-19 who do not need hospitalization. Certain medicines used to treat other diseases are being used on a trial basis to see if there are more options for the treatment of COVID-19. If you develop symptoms, call your health care provider. People with severe symptoms may need hospital care. Some vaccines to prevent the virus that causes COVID-19 have been authorized for emergency use. This means that the vaccines are still being tested, but they have been deemed safe for use and have been effective in preventing COVID-19 in trials. These vaccines may not be available for everyone right away. The vaccines will likely be given to certain groups at higher risk first until there is enough supply available for everyone. Until the vaccines are available for everyone, it is important to continue to take steps to protect yourself and others from this virus. What can I do to protect myself and my family from this virus? You can protect yourself and your family by taking the same actions that you would take to prevent the spread of other viruses. Take the following actions: ??? Wash your hands often with soap and water for at least 20 seconds. If soap and water are not available, use alcohol-based hand decorative cutting machine tender. ??? Avoid touching your face, mouth, nose, or eyes. ??? Cough or sneeze into a tissue, sleeve, or elbow. Do not cough or sneeze into your hand or the air. ? If you cough or sneeze into a tissue, throw it away immediately and wash your hands. ??? Disinfect objects and surfaces that are frequently touched every day. ??? Stay away from people who are sick. ??? Avoid going out in public. Follow guidance from your state and local health authorities. ??? Avoid crowded indoor spaces. Stay at least 6 ft (2 m) away from others. ??? If you must go out in public, wear a cloth face covering or face mask. Make sure your mask covers your nose and mouth. ??? Stay home if you are sick, except to get medical care. Call your health care provider before you get medical care. Your health care provider will tell you how long to stay home. ??? Make sure your vaccines are up to date. Ask your health care provider what vaccines you need. What should I do if I need to travel? Follow travel recommendations from your local health authority, the CDC, and WHO. Travel information and advice ??? Centers for Disease Control and Prevention (CDC): www.cdc.gov/coronavirus/2019-ncov/travelers ??? World Health Organization (WHO): www.who.int/emergencies/diseases/btdhl-olayphvffcc-1412/travel-advice What should I do if I am sick? General instructions to stop the spread of infection ??? Wash your hands often with soap and water for at least 20 seconds. If soap and water are not available, use alcohol-based hand decorative cutting machine tender. ??? Cough or sneeze into a tissue, sleeve, or elbow. Do not cough or sneeze into your hand or the air. ??? If you cough or sneeze into a tissue, throw it away immediately and wash your hands. ??? Stay home unless you must get medical care. Call your health care provider or local health authority before you get medical care. ??? Avoid public areas. Do not take public transportation, if possible. ??? If you can, wear a mask if you must go out of the house or if you are in close contact with someone who is not sick. Make sure your mask covers your nose and mouth. Keep your home clean ??? Disinfect objects and surfaces that are frequently touched every day. This may include: ? Counters and tables. ? Doorknobs and light switches. ? Sinks and faucets. ? Electronics such as phones, remote controls, keyboards, computers, and tablets. ??? Wash dishes in hot, soapy water or use a tool design drafter. Air-dry your dishes. ??? Wash laundry in hot water. Prevent infecting other household members ??? Let healthy household members care for children and pets, if possible. If you have to care for children or pets, wash your hands often and wear a mask. ??? If possible, sleep in a different bedroom or bed, separate from others. Use a different bathroom. ??? Do not share personal items, such as razors, toothbrushes, deodorant, haji, brushes, towels, and washcloths. Where to find more information Centers for Disease Control and Prevention (CDC) ??? Information and news updates: www.cdc.gov/coronavirus/2019-ncov World Health Organization (WHO) ??? Information and news updates: www.who.int/emergencies/diseases/tmlfk-iztkgmfrtox-3567 ??? Coronavirus health topic: www.who.int/health-topics/coronavirus ??? Questions and answers on COVID-19: www.who.int/news-room/q-a-detail/m-m-ncjstprmuqdgq ??? Global tracker: crowdSPRING [employer] (AAP) ??? Information for families: www.healthychildren.org/[place]/health-issues/conditions/chest-lungs/Pages/201 0-Aigol-Keyzpkxagsh.aspx The coronavirus situation is changing rapidly. Check your local health authority website or the CDC and WHO websites for updates and news. When should I contact a health care provider? Contact your health care provider if you have symptoms of an infection, such as fever or cough, and you: ? Have been near anyone who is known to have coronavirus disease. ? Have come into contact with a person who is suspected to have coronavirus disease. ? Have traveled to an area where there is an outbreak of COVID-19. When should I get emergency medical care? Get help right away by calling your local emergency services (911 in the [place] if you have: ? Trouble breathing. ? Pain or pressure in your chest. ? Confusion. ? Blue-tinged lips and fingernails. ? Difficulty waking from sleep. ? Symptoms that get worse. Let the emergency medical personnel know if you think you have coronavirus disease. Summary ??? A new respiratory virus is spreading from person to person and causing COVID-19 (coronavirus disease). ??? The virus that causes COVID-19 appears to spread easily. It spreads from one person to another through droplets from breathing, speaking, singing, coughing, or sneezing. ??? Older adults and those with chronic diseases are at higher risk of disease. If you are at higher risk for complications, take extra precautions. ??? Some vaccines for the virus that causes COVID-19 have been authorized for emergency use. This means that the vaccines are still being tested, but they have been deemed safe for use and have been effective in preventing COVID-19 in trials. ??? You can protect yourself and your family by washing your hands often, avoiding touching your face, and covering your coughs and sneezes. This information is not intended to replace advice given to you by your health care provider. Make sure you discuss any questions you have with your health care provider. Document Revised: 05/23/2020 Document Reviewed: 05/23/2020 [employer] Patient Education ?? 2020 [employer]. COVID-19 COVID-19 is a respiratory infection that [...] for serious illness. ??? Live in a group home or long-term care facility. ??? Have cancer. [...] managed at home with rest, fluids, and vyot-clx-fgbophr medicines. There are currently no prescription medicines [...] safe for you. General instructions ??? Take dkde-jfn-skxooro and prescription medicines only as told by [...] are not available, use an alcohol-based hand decorative cutting machine tender. ??? Avoid touching your mouth, face, eyes, [...] water are not available, use alcohol-based hand decorative cutting machine tender. ??? Stay away from other members of [...] a weak immune system, live in a group home, or have a chronic disease. ??? There [...] provider. Document Revised: 05/23/2020 Document Reviewed: 05/23/2020 [employer] Patient Education ?? 2020 [employer]. Emergency Awareness and Preventative Care STROKE is [...] Assistance with quitting is available by contacting 0-729-MCGQ-NOW. This is a free resource providing counseling, [...] was given the opportunity to ask questions. Patient/Transition Rn Name: Patient/Transition Rn Signature: Relationship to Patient: Clinician/Hospital Transition Rn Signature: Please Provide a Telephone Number Where You Can Be Reached: Is it Permissible To Leave a Message? Date: documented in this encounter Plan of Treatment Not on file documented as of this encounter Visit Diagnoses Not on filedocumented in this encounter
--- OUTSIDE RECORDS SUMMARY | 2025-04-01 10:45 | XMS_ITS | Encounter Summary ---
Author Organization [employer] ([place], [place], [place], [place]) Address [address] [place] [address] Care Team Providers Care Cafe Site Attendant Name Role Phone Unavailable Primary Care Provider Unavailabl e Encounter Details Date Type Department Care Team (Late st Contact Info) Description 01/10/[address] [facility] [place] [facility] [place] [address] ProviderKim MD [address] [place] [id number] Social History Tobacco Use Types Packs/Day Years Used Date Smoking Tobacco: Never Assessed Comments Unknown Sex and Gender Information Value Date Recorded Sex Assigned at Not on file Legal Sex Female 5:43 PM CDT Gender Identity Not on file Sexual Orientation Not on file documented as of this encounter Miscellaneous Notes * Cerner Conversion Note - Kim ProviderMD - 01/10/2021 10:17 PM CDT Patient: ANIBAL CAM Age: 25 years Sex: Female : 1995 Associated Diagnoses: Ureterolithiasis Author: BEN PARK MD Basic Information Additional information: Chief Complaint from Nursing Triage Note : Chief Complaint 01/10/2021 21:51 EDT Chief Complaint pt fromhome c/o left flank pain with vaginal pain. states was seen 2wks ago for kidneys stones at [facility] states does not think she is passing the stone because pain is worse. . History of Present Illness The patient presents with flank pain and L flank pain 2wks ago, dx with 4mm kidney stone. Hasn't seen it pass yet and still has left sided pain. Now has new R flank pain. . The onset was 2 weeks ago. The course/duration of symptoms is worsening. The character of symptoms is sharp. The degree at onset was moderate. The Location of pain at onset was bilateral and flank. The degree at present is moderate. The Location of pain at present is bilateral and flank. Radiating pain: none. The exacerbating factor is none. Risk factors consist of none. Associated symptoms: nausea, denies chest pain, denies vomiting, denies diarrhea, denies back pain, denies shortness of breath, denies fever, denies chills, denies headache and denies dizziness. Review of Systems Constitutional symptoms: No fever, no chills, no sweats, no weakness, no fatigue. Skin symptoms: No rash, Eye symptoms: Vision unchanged, no pain, no discharge, no blurred vision. ENMT symptoms: No ear pain, no sore throat, no nasal congestion. Respiratory symptoms: No shortness of breath, no cough. Cardiovascular symptoms: No chest pain, no palpitations, no syncope. Gastrointestinal symptoms: Abdominal pain, nausea, no vomiting, no diarrhea. Genitourinary symptoms: No dysuria, no hematuria. Musculoskeletal symptoms: No back pain, no Joint pain. Neurologic symptoms: No headache, no dizziness, no numbness, no weakness. Health Status Allergies: Allergic Reactions (Selected) Severity Not Documented Macrobid- Nausea present. Sulfa drugs- Rash.. Medications: (Selected) Inpatient Medications Ordered Normal Saline Flush: 10 mL, IV Push, See Comment Zofran: 4 mg, IV Push, 1-Time fentaNYL: 100 mcg, IV Push, 1-Time Prescriptions Prescribed Flomax 0.4 mg oral capsule: 1 Cap, Oral, Daily, for 7 Day(s), 7 Cap, 0 Refill(s) Documented Medications Documented Multivitamins: Oral, Daily. Past Medical/ Family/ Social History Surgical history: Appendectomy (SNOMED CT [id number]). section (SNOMED CT [id number])., Reviewed as documented in chart. Family history: [...] documented in chart. Problem list: Active Problems (2) Dislocated knee Vaginal delivery with forceps including care , per nurse's notes. Physical Examination Vital Signs Vital Signs/Vital Measures 01/10/2021 21:51 EDT Blood Pressure Location Arm, right upper Blood Pressure Source Non-Invasive BP Device Systolic Blood Pressure 115 mmHg Diastolic Blood Pressure 70 mmHg Temperature Source Oral Temperature Mode Fahrenheit Temperature, Fahrenheit 98.2 Deg F Clinical Temperature, C 36.8 Deg C Peripheral Pulse Rate 91 bpm Respiratory Rate 16 Breaths/Min Oxygen Saturation 99 % Oxygen Therapy Mode Room air . Measurements 01/10/2021 21:51 EDT Height Source Stated Height Entry Format [place] Height/Length, MONTENEGRIN (ft) 5 ft Height/Length MONTENEGRIN 1 Inch CLINICALHEIGHT 154.94 cm [place] Body Weight 47.45 kg Weight Source, ED Critical estimated dosing weight Weight Entry Format [place] Weight [place] lb 286 lb CLINICALWEIGHT 130 kg Body Surface Area (BSA) 2.2 m2 Body Mass Index 54.2 kg/m2 >HHI . Oxygen Saturation 01/10/2021 21:51 EDT Oxygen Saturation 99 % . General: Alert, no acute distress. Skin: Warm. Head: Normocephalic. Neck: Supple. Eye: Sclera: not icteric. Ears, nose, mouth and throat: Oral mucosa moist. Cardiovascular: Regular rate and rhythm, No murmur, Normal peripheral perfusion, No edema. Respiratory: Lungs are clear to auscultation, respirations are non-labored, breath sounds are equal. Chest wall: No tenderness. Back: Nontender. Gastrointestinal: Soft, Non distended, Normal bowel sounds, Tenderness: Moderate, right flank, left flank, Guarding: Negative, Rebound: Negative. Neurological: No focal neurological deficit observed. Lymphatics: No lymphadenopathy. Psychiatric: Cooperative. Medical Decision Making Documents reviewed: Emergency department nurses' notes. Results review: Lab results : Lab Results 01/10/2021 22:43 EDT Specimen Type, Urine POC Urine 01/10/2021 22:28 EDT HCG Result Negative Internal Control Line Present Yes Internal Control Background Clear Yes 01/10/2021 22:26 EDT Sodium Level 141 mmol/L Potassium Level 3.7 mmol/L Chloride Level 108 mmol/L Carbon Dioxide Level 29 mmol/L Anion Gap 8 LOW Glucose Level 95 mg/dL Blood Urea Nitrogen 16 mg/dL Creatinine Level 0.80 mg/dL eGFR >60 mL/min/1.73m2 eGFR NonAfrican >60 mL/min/1.73m2 Bun/Creatinine 20.0 Calcium Level 9.2 mg/dL Protein Total 7.2 Gram/dL Albumin Level 3.7 Gram/dL Globulin 3.5 Gram/dL A/G Ratio 1.1 Bilirubin Total 0.2 mg/dL Alk Phos 68 Units/Liter AST 37 Units/Liter ALT 52 Units/Liter Lipase Level 119 Units/Liter WBC 5.0 K/uL RBC 4.82 Million/uL Hgb 11.9 g/dL Hct 38.2 % MCV 79.3 fL MCH 24.7 pg LOW MCHC 31.2 Gram/dL LOW Platelet Count 257 K/uL MPV 10.1 fL RDW 14.8 % Urine Type. U CleanCatch Urine Color Yellow Urine Appearance Cloudy Urine Specific [place] 1.024 Urine pH Dipstick 5.5 LOW Urine Leukocyte Esterase Negative Urine Nitrite Negative Urine Protein Dipstick Negative Urine Glucose Dipstick Negative Urine Ketones Dipstick Negative Urine Urobilinogen Dipstick 0.2 EU/dL Urine Bilirubin Dipstick Negative Urine Blood Dipstick Trace Ur RBC 2-5 /HPF Ur WBC 2-5 /HPF Ur Bacteria 1+ Ur Mucous 1+ Ur Amorph Trace Ur Epithelial Cells 2-5 /HPF Urine Culture if Indicated Not Indicated . Radiology results: Radiology Results (Last 48 hours) [id number] -- 01/10/2021 20:18 CT Abdomen Pelvis WO (01/10/2021 21:46) Result: CT OF THE ABDOMEN AND PELVIS WITHOUT CONTRASTHISTORY: Flank pain, recurrent stone disease suspected.PROCEDURE: Routine axial images were obtained from the lung bases tothe pubic symphysis. No contrast was given. This study was performedwith techniques to keep radiation doses as low as reasonably achievable,(ALARA). Individualized dose reduction techniques using automatedexposure control or adjustment of mA and/or kV according to the patientsize were employed.COMPARISON: December 30, 2020.FINDINGS: Abdomen: There are nonobstructing left renal calculi. There is anonobstructing 4 mm calculus in the distal ureter, unchanged from theprior examination. The gallbladder is unremarkable. The other solidabdominal organs and right ureter are unremarkable. The GI tract isunremarkable. The appendix has been removed.Pelvis: The uterus, ovaries and urinary bladder are normal. There is nopelvic or abdominal ascites, adenopathy or acute osseous abnormality.IMPRESSION: Stable 4 mm nonobstructing distal left ureteral calculus.Nonobstructing renal calculi.Images reviewed, interpreted, and dictated by Dr. Marshall Fan.Transcribed by Toño Pace.I have personally viewed, interpreted and dictated the examination. Ihave read and agree with the above final transcribed report. . Impression and Plan Diagnosis Ureterolithiasis - Discharge, Medical Plan Condition: Stable. Disposition: Discharged Admit/Transfer/Discharge: Discharge (Order): Start: 01/11/2021 0:00 EDT, Discharge to: Home. Patient was given the following educational materials: Kidney Stones. Follow up with: ROSA THOMAS Within 2 to 3 days; ; KYRSTLE BILLINGS Within 2 to 3 days. Counseled: Patient, Regarding diagnosis, Regarding diagnostic results, Regarding treatment plan, Patient indicated understanding of instructions. Notes: Patient presented ongoing left flank pain and new right flank pain. Left kidney stone in similar location and nonobstructing. No right-sided ureterolithiasis. Labs stable. Discharged home with urology follow-up and given clear return instructions.. documented in this encounter Plan of Treatment Not on file documented as of this encounter Visit Diagnoses Not on filedocumented in this encounter
--- OUTSIDE RECORDS SUMMARY | 2025-04-01 10:45 | XMS_ITS | Encounter Summary ---
Author Organization [employer] ([place], [place], [place], [place]) Address [address] [place] [address] Care Team Providers Care Radio Sportscaster Name Role Phone Unavailable Primary Care Provider Unavailabl e Encounter Details Date Type Department Care Team (Late st Contact Info) Description 06/07/2020 Transcribed Document [facility] [place] [facility] [place] [address] ProviderKim MD [address] [place] [id number] Social History Tobacco Use Types Packs/Day Years Used Date Smoking Tobacco: Never Assessed Comments Unknown Sex and Gender Information Value Date Recorded Sex Assigned at Not on file Legal Sex Female 5:43 PM CDT Gender Identity Not on file Sexual Orientation Not on file documented as of this encounter Miscellaneous Notes * Cerner Conversion Note - Historical ProviderMD - 06/07/2020 6:08 PM LEAD CASHIER ED Triage Entered On: 06/07/2020 18:20 EST Performed On: 06/07/2020 18:18 EST by Ruth Madison FITNESS LEADER Triage Across the Room Chief Complaint : pt is 17 weeks , c/o right flank pain, dx with uti and possible kidney stones @ [facility] friday, pt reports increase in pain in flank pain area that radiates around to right groin Triage Date/Time : 06/10/2020 18:18 EST Ruth Madison RN - 06/07/2020 18:18 EST DCP GENERIC CODE Tracking Acuity : 3 - Urgent Tracking Group : [facility] ED Ruth Madison RN - 06/07/2020 18:18 EST Mode of Arrival : Ambulatory Transported to ED by : Private vehicle To Room Via : Ambulate Accompanied By : Significant other Height & Weight : Document ED Allergies : Document ED Reason for Visit : Document Tetanus Immunization : Unknown Operations Inspector Needed : No Ruth Madison RN - 06/07/2020 18:18 EST Infectious Disease History Has the patient ever been tested for COVID-19? : No, Patient stated Does patient have symptoms of COVID-19? : No COVID19 Screening : No Experiencing Infectious Disease Symptoms : No symptoms Physical contact outside [place] in the last 30 days : No Infectious Disease History : None Tuberculosis Symptoms : None Ruth Madison RN - 06/07/2020 18:18 EST Allergy (As Of: 06/07/2020 18:20:26 EST) Allergies (Active) Macrobid Estimated Onset Date: Unspecified ; Reactions: Nausea present ; Created By: RONY GROSSMAN RN; Reaction Status: Active ; Category: Drug ; Substance: Macrobid ; Type: Allergy ; Updated By: RONY GROSSMAN RN; Reviewed Date: 06/07/2020 18:19 EST sulfa drugs Estimated Onset Date: Unspecified ; Reactions: Rash ; Created By: RONY GROSSMAN RN; Reaction Status: Active ; Category: Drug ; Substance: sulfa drugs ; Type: Allergy ; Updated By: RONY GROSSMAN RN; Reviewed Date: 06/07/2020 18:19 EST Diagnosis Control ED (As Of: 06/07/2020 18:20:26 EST) Problems(Active) Dislocated knee (SNOMED CT :[id number] ) Name of Problem: Dislocated knee ; Recorder: TRANG GONZALEZ MD-OBG; Confirmation: Confirmed ; Classification: Medical ; Code: [id number] ; Contributor System: PowerChart ; Last Updated: 11/18/2013 19:27 EDT ; Life Cycle Date: 07/07/2013 ; Life Cycle Status: Active ; Responsible Provider: TRAGN GONZALEZ MD-OBG; Vocabulary: SNOMED CT Vaginal delivery with forceps including care (SNOMED CT :98996771 ) Name of Problem: Vaginal delivery with forceps including care ; Recorder: TRANG GONZALEZ MD-OBG; Confirmation: Confirmed ; Classification: Medical ; Code: [id number] ; Contributor System: PowerChart ; Last Updated: 11/23/2013 15:16 EDT ; Life Cycle Date: 07/07/2013 ; Life Cycle Status: Active ; Responsible Provider: TRANG GONZALEZ MD-OBG; Vocabulary: SNOMED CT Diagnoses(Active) Flank pain Date: 06/07/2020 ; Diagnosis Type: Reason For Visit ; Confirmation: Complaint of ; Clinical Dx: Flank pain ; Classification: Medical ; Clinical Service: Emergency medicine ; Code: PNED ; Probability: 0 ; Diagnosis Code: [id number] ED Height and Weight Height Source : Stated Height Entry Format : [place] Height, Feet : 5 ft(Converted to: 152 cm, 60 Inch) Height, Inches : 1 Inch(Converted to: 0 ft 1 Inch, 2.54 cm) Clinical Height : 154.94 cm Weight Source, ED : Critical estimated dosing weight Weight Entry Format : [place] Weight, Pounds : 292 lb Clinical Dosing Weight : 132.73 kg Body Surface Area (BSA) : 2.22 m2 Body Mass Index : 55.3 kg/m2 (>HHI) [place] Body Weight (IBW) : 47.45 kg Ruth Madison RN - 06/07/2020 18:18 EST documented in this encounter Plan of Treatment Not on file documented as of this encounter Visit Diagnoses Not on filedocumented in this encounter
--- OUTSIDE RECORDS SUMMARY | 2025-04-01 10:45 | XMS_ITS | Encounter Summary ---
Author Organization [employer] ([place], [place], [place], [place]) Address [address] [place] [address] Care Team Providers Care Improvement Auditor Name Role Phone Unavailable Primary Care Provider Unavailabl e Encounter Details Date Type Department Care Team (Late st Contact Info) Description 01/21/2021 Transcribed Document [facility] [place] [facility] [place] [address] ProviderKim MD [address] [place] [id number] Social History Tobacco Use Types Packs/Day Years Used Date Smoking Tobacco: Never Assessed Comments Unknown Sex and Gender Information Value Date Recorded Sex Assigned at Not on file Legal Sex Female 5:43 PM CDT Gender Identity Not on file Sexual Orientation Not on file documented as of this encounter Miscellaneous Notes * Cerner Conversion Note - Kim ProviderMD - 01/21/2021 3:23 PM CDT ED Triage Entered On: 01/21/2021 15:56 EDT Performed On: 01/21/2021 15:54 EDT by Haydee Lamb RN ED Triage Across the Room Chief Complaint : Pt c known covid 19 exposure c/o loss of taste and smell, fever, body aches, STERLING, decreased UOP. Also reports known renal stone. Hx asthma. Triage Date/Time : 01/21/2021 15:54 EDT Haydee Lamb RN - 01/21/2021 15:54 EDT DCP GENERIC CODE Tracking Acuity : 3 - Urgent Tracking Group : [facility] ED Haydee Lamb RN - 01/21/2021 15:54 EDT Mode of Arrival : Ambulatory Transported to ED by : Private vehicle To Room Via : Ambulate Accompanied By : Unaccompanied ED Vital Signs : Document Height & Weight : Document ED Allergies : Document ED Reason for Visit : Document Tetanus Immunization : Unknown Haydee Lamb RN - 01/21/2021 15:54 EDT Infectious Disease History Has the patient ever been tested for COVID-19? : Yes, Patient stated results Negative Date of COVID-19 test known? : Yes Date of COVID-19 Test : 01/18/2021 EDT Does patient have symptoms of COVID-19? : Yes COVID19 Screening : Yes Experiencing Infectious Disease Symptoms : Fever >/=38.6C/101 F / Physical contact outside [place] in the last 30 days : No Infectious Disease History : None Tuberculosis Symptoms : None Haydee Lamb RN - 01/21/2021 15:54 EDT Vital Signs ED Temperature Source : Oral Temperature Mode : Fahrenheit Temperature, Fahrenheit : 103 Deg F (HI) Clinical Temperature, C : 39.4 Deg C Oxygen Therapy Mode : Room air Peripheral Pulse Rate : 123 bpm (HI) Respiratory Rate : 20 Breaths/Min Systolic Blood Pressure : 100 mmHg Diastolic Blood Pressure : 72 mmHg Oxygen Saturation : 95 % Haydee Lamb RN - 01/21/2021 15:54 EDT Allergy (As Of: 01/21/2021 15:56:53 EDT) Allergies (Active) Macrobid Estimated Onset Date: Unspecified ; Reactions: Nausea present ; Created By: RONY GROSSMAN RN; Reaction Status: Active ; Category: Drug ; Substance: Macrobid ; Type: Allergy ; Updated By: RONY GROSSMAN RN; Reviewed Date: 01/10/2021 22:17 EDT sulfa drugs Estimated Onset Date: Unspecified ; Reactions: Rash ; Created By: RONY GROSSMAN RN; Reaction Status: Active ; Category: Drug ; Substance: sulfa drugs ; Type: Allergy ; Updated By: RONY GROSSMAN RN; Reviewed Date: 01/10/2021 22:17 EDT Diagnosis Control ED (As Of: 01/21/2021 15:56:53 EDT) Problems(Active) Dislocated knee (SNOMED CT :4968321777 ) Name of Problem: Dislocated knee ; Recorder: TRANG GONZALEZ MD-OBG; Confirmation: Confirmed ; Classification: Medical ; Code: [id number] ; Contributor System: [email or web address] ; Last Updated: 11/18/2013 19:27 EDT ; Life Cycle Date: 07/07/2013 ; Life Cycle Status: Active ; Responsible Provider: TRANG GONZALEZ MD-OBG; Vocabulary: SNOMED CT Vaginal delivery with forceps including care (SNOMED CT :50755669 ) Name of Problem: Vaginal delivery with forceps including care ; Recorder: TRANG GONZALEZ MD-OBG; Confirmation: Confirmed ; Classification: Medical ; Code: [id number] ; Contributor System: [email or web address] ; Last Updated: 11/23/2013 15:16 EDT ; Life Cycle Date: 07/07/2013 ; Life Cycle Status: Active ; Responsible Provider: TRANG GONZALEZ MD-OBG; Vocabulary: SNOMED CT Diagnoses(Active) Fever Date: 01/21/2021 ; Diagnosis Type: Reason For Visit ; Confirmation: Complaint of ; Clinical Dx: Fever ; Classification: Medical ; Clinical Service: Non-Specified ; Code: PNED ; Probability: 0 ; Diagnosis Code: [id number] ED Height and Weight Height Source : Stated Height Entry Format : [place] Height, Feet : 5 ft(Converted to: 152 cm, 60 Inch) Height, Inches : 1 Inch(Converted to: 0 ft 1 Inch, 2.54 cm) Clinical Height : 154.94 cm Weight Source, ED : Critical estimated dosing weight Weight Entry Format : [place] Weight, Pounds : 286 lb Clinical Dosing Weight : 130 kg Body Surface Area (BSA) : 2.2 m2 Body Mass Index : 54.2 kg/m2 (>HHI) [place] Body Weight (IBW) : 47.45 kg Haydee Lamb RN - 01/21/2021 15:54 EDT documented in this encounter Plan of Treatment Not on file documented as of this encounter Visit Diagnoses Not on filedocumented in this encounter
--- OUTSIDE RECORDS SUMMARY | 2025-04-01 10:45 | XMS_ITS | Encounter Summary ---
Author Organization [employer] ([place], [place], [place], [place]) Address [address] [place] [address] Care Team Providers Care Rug Renovator Name Role Phone Unavailable Primary Care Provider Unavailabl e Encounter Details Date Type Department Care Team (Late st Contact Info) Description 06/07/2020 Transcribed Document [facility] [place] [address] ProviderKim MD [address] [place] [id number] Social History Tobacco Use Types Packs/Day Years Used Date Smoking Tobacco: Never Assessed Comments Unknown Sex and Gender Information Value Date Recorded Sex Assigned at Not on file Legal Sex Female 5:43 PM CDT Gender Identity Not on file Sexual Orientation Not on file documented as of this encounter Miscellaneous Notes * Cerner Conversion Note - Kim Guillaume MD - 06/07/2020 9:07 PM LIABILITY CLAIM[place] [address] ANIBAL CAM :1995 Visit Time:06/07/2020 Your Visit Summary Your Care Team Primary Provider: GEOFF CLEMENTE MD-EMR Secondary Provider: Your Diagnosis Flank pain Flank pain Kidney stone complicating Medical Information You may obtain a copy [...] do next Follow-Up Appointments Follow Up with Joel Butcher When Within 5 to 7 days Where: [address] [place] [address]- Business (1) Follow Up with KRISTAL KELLY When Within 3 to 5 days Where: [address] [place] [address]- Business (1) Allergies Macrobid (Nausea present) sulfa drugs (Rash) Immunizations This Visit No Immunizations Found Medications What How Much When Instructions Next Dose acetaminophen-hydrocodone ([place] 5 mg-325 mg oral tablet) 1 Tablet(s) Oral Every 4 Hours as needed for for pain Duration: 3 Day(s) Printed Prescription metoclopramide (Reglan 10 mg oral tablet) 1 Tablet(s) Oral Every 6 Hours as needed for Nausea/Vomiting Duration: 7 Day(s) Printed Prescription multivitamin, ( Multivitamins) Oral Every Day The home medications listed are only as [...] This Visit (last charted value for your 06/07/2020 visit) Hematology 06/07/2020 6:51 PM WBC: 9.7 K/uL -- Normal range between ( 4.5 and 10.5 ) RBC: 4.41 Million/uL -- Normal range between ( 3.93 and 5.22 ) Hct: 37.5 % -- Normal range between ( 34.1 and 44.9 ) Hgb: 12.4 g/dL -- Normal range between ( 11.2 and 15.7 ) Platelet Count: 196 K/uL -- Normal range between ( 163 and 369 ) MCH: 28.1 pg -- Normal range between ( 25.6 and 32.2 ) MCHC: 33.1 Gram/dL -- Normal range between ( 32.2 and 36.5 ) MCV: 85.0 fL -- Normal range between ( 79.0 and 94.8 ) Slide Review: No Eos %: 0.3 % -- Normal range between ( 0.0 and 7.0 ) [place] #: 0.50 K/uL -- Normal range between ( 0.16 and 1.00 ) Eos #: 0.03 x10(3)/uL -- Normal range between ( 0.00 and 0.80 ) [place] %: 5.1 % -- Normal range between ( 3.0 and 9.0 ) Baso %: 0.2 % -- Normal range between ( 0.0 and 1.5 ) Baso #: 0.02 x10(3)/uL -- Normal range between ( 0.00 and 0.20 ) RDW: 13.5 % -- Normal range between ( 11.7 and 14.9 ) Neut %: 82.9 % -- Normal range between ( 34.0 and 71.0 ) Neut #: 8.05 K/uL -- Normal range between ( 1.56 and 6.13 ) Lymph %: 11.1 % -- Normal range between ( 19.3 and 53.1 ) Lymph #: 1.08 x10(3)/uL -- Normal range between ( 1.00 and 3.90 ) MPV: 10.4 fL -- Normal range between ( 9.4 and 12.4 ) IG#: 0.04 x10(3)/uL -- Normal range between ( 0.00 and 0.05 ) IG%: 0.40 % -- Normal range between ( 0.00 and 0.60 ) Urinalysis 06/07/2020 7:34 PM Urine Nitrite: Negative Urine Leukocyte Esterase: Large Urine Appearance: Clear Urine Glucose Dipstick: Negative Urine Blood Dipstick: Small Urine Type: U CleanCatch Urine Urobilinogen Dipstick: 0.2 EU/dL Urine Protein Dipstick: Negative Ur Amorph: Trace Ur Squamous Epithelial Cells: 0-2 /HPF Urine Color: Yellow Ur WBC: 0-2 /HPF Urine Ketones Dipstick: Negative Urine pH Dipstick: 6.5 -- Normal range between ( 6.0 and 8.0 ) Urine Bilirubin Dipstick: Negative Urine Specific [place]: 1.006 -- Normal range between ( 1.005 and 1.030 ) General Chemistry 06/07/2020 6:51 PM Creatinine Level: 0.80 mg/dL -- Normal range between ( 0.55 and 1.02 ) Sodium Level: 138 mmol/L -- Normal range between ( 136 and 146 ) Potassium Level: 3.9 mmol/L -- Normal range between ( 3.5 and 5.1 ) Chloride Level: 108 mmol/L -- Normal range between ( 102 and 112 ) Carbon Dioxide Level: 22 mmol/L -- Normal range between ( 21 and 32 ) Anion Gap: 12 -- Normal range between ( 9 and 20 ) Bilirubin Total: 0.2 mg/dL -- Normal range between ( 0.2 and 1.2 ) A/G Ratio: 0.7 -- Normal range between ( 1.1 and 2.5 ) ALT: 19 Units/Liter -- Normal range between ( 13 and 56 ) AST: 20 Units/Liter -- Normal range between ( 5 and 37 ) Globulin: 3.9 Gram/dL -- Normal range between ( 1.5 and 4.5 ) Alk Phos: 42 Units/Liter -- Normal range between ( 27 and 136 ) Bun/Creatinine: 11.2 -- Normal range between ( 8.0 and 20.0 ) Calcium Level: 9.7 mg/dL -- Normal range between ( 8.4 and 10.1 ) eGFR : >60 mL/min/1.73m2 eGFR NonAfrican: >60 mL/min/1.73m2 Glucose Level: 110 mg/dL -- Normal range between ( 74 and 106 ) Blood Urea Nitrogen: 9 mg/dL -- Normal range between ( 7 and 22 ) Protein Total: 6.8 Gram/dL -- Normal range between ( 6.4 and 8.2 ) Albumin Level: 2.9 Gram/dL -- Normal range between ( 3.4 and 5.0 ) Lipase Level: 90 Units/Liter -- Normal range between ( 73 and 393 ) Education Materials Kidney Stones Kidney stones (urolithiasis) are solid, rock-like deposits that form inside of the organs that make urine (kidneys). A kidney stone may form in a kidney and move into the bladder, where it can cause intense pain and block the flow of urine. Kidney stones are created when high levels of certain minerals are found in the urine. They are usually passed through urination, but in some cases, medical treatment may be needed to remove them. What are the causes? Kidney stones may be caused by: ??? A condition in which certain glands produce too much parathyroid hormone (primary hyperparathyroidism), which causes too much calcium buildup in the blood. ??? Buildup of uric acid crystals in the bladder (hyperuricosuria). Uric acid is a chemical that the body produces when you eat certain foods. It usually exits the body in the urine. ??? Narrowing (stricture) of one or both of the tubes that drain urine from the kidneys to the bladder (ureters). ??? A kidney blockage that is present at (congenital obstruction). ??? Past surgery on the kidney or the ureters, such as gastric bypass surgery. What increases the risk? The following factors make you more likely to develop kidney stones: ??? Having had a kidney stone in the past. ??? Having a family history of kidney stones. ??? Not drinking enough water. ??? Eating a diet that is high in protein, salt (sodium), or sugar. ??? Being overweight or obese. What are the signs or symptoms? Symptoms of a kidney stone may include: ??? Nausea. ??? Vomiting. ??? Blood in the urine (hematuria). ??? Pain in the side of the abdomen, right below the ribs (flank pain). Pain usually spreads (radiates) to the groin. ??? Needing to urinate frequently or urgently. How is this diagnosed? This condition may be diagnosed based on: ??? Your medical history. ??? A physical exam. ??? Blood tests. ??? Urine tests. ??? CT scan. ??? Abdominal X-ray. ??? A procedure to examine the inside of the bladder (cystoscopy). How is this treated? Treatment for kidney stones depends on the size, location, and makeup of the stones. Treatment may involve: ??? Analyzing your urine before and after you pass the stone through urination. ??? Being monitored at the hospital until you pass the stone through urination. ??? Increasing your fluid intake and decreasing the amount of calcium and protein in your diet. ??? A procedure to break up kidney stones in the bladder using: ? A focused beam of light (laser therapy). ? Shock waves (extracorporeal shock wave lithotripsy). ??? Surgery to remove kidney stones. This may be needed if you have severe pain or have stones that block your urinary tract. Follow these instructions at home: Eating and drinking ??? Drink enough fluid to keep your urine clear or pale yellow. This will help you to pass the kidney stone. ??? If directed, change your diet. This may include: ? Limiting how much sodium you eat. ? Eating more fruits and vegetables. ? Limiting how much meat, poultry, fish, and eggs you eat. ??? Follow instructions from your health [...] getting kidney stones in the future. ??? Take [id number] and prescription medicines only as told by your health care provider. ??? Keep all follow-up visits as told by your health care provider. This is important. You may need follow-up X-rays or ultrasounds to make sure that your stone has passed. How is this prevented? To prevent another kidney stone: ??? Drink enough fluid to keep your urine clear or pale yellow. This is the best way to prevent kidney stones. ??? Eat a healthy diet and follow recommendations from your health care provider about foods to avoid. You may be instructed to eat a low-protein diet. Recommendations vary depending on the type of kidney stone that you have. ??? Maintain a healthy weight. Contact a health care provider if: ??? You have pain that gets worse or does not get better with medicine. Get help right away if: ??? You have a fever or chills. ??? You develop severe pain. ??? You develop new abdominal pain. ??? You faint. ??? You are unable to urinate. This information is not intended to replace advice given to you by your health care provider. Make sure you discuss any questions you have with your health care provider. Document Released: 05/26/2006 Document Revised: 01/05/2019 Document Reviewed: 11/08/2016 [employer] Patient Education ?? 2020 [employer] Emergency Awareness and Preventative Care STROKE [...] Assistance with quitting is available by contacting 9-716-DWVYNOW. This is a free resource providing counseling, [...] was given the opportunity to ask questions. Patient/Leadership Program Intern Name: Patient/Leadership Program Intern Signature: Relationship to Patient: Clinician/Hospital Leadership Program Intern Signature: Please Provide a Telephone Number Where You Can Be Reached: Is it Permissible To Leave a Message? Date: Electronically signed by Interface, [employer] Sales And Service Associate Cerner at 09/23/2022 4:59 PM CDT documented in this encounter Plan of Treatment Not on file documented as of this encounter Visit Diagnoses Not on filedocumented in this encounter
--- OUTSIDE RECORDS SUMMARY | 2025-04-01 10:45 | XMS_ITS | Encounter Summary ---
Author Organization [employer] ([place], [place], [place], [place]) Address [address] [place] [address] Care Team Providers Care Gas Refrigerator Servicer Name Role Phone Unavailable Primary Care Provider Unavailabl e Encounter Details Date Type Department Care Team (Late st Contact Info) Description 01/11/2021 Transcribed Document [facility] [place] [facility] [place] [address] ProviderKim MD [address] [place] [id number] Social History Tobacco Use Types Packs/Day Years Used Date Smoking Tobacco: Never Assessed Comments Unknown Sex and Gender Information Value Date Recorded Sex Assigned at Not on file Legal Sex Female 5:43 PM CDT Gender Identity Not on file Sexual Orientation Not on file documented as of this encounter Miscellaneous Notes * Cerner Conversion Note - Kim ProviderMD - 01/11/2021 12:18 AM CDT ED Discharge Entered On: 01/11/2021 0:19 EDT Performed On: 01/11/2021 0:18 EDT by Lizette Fuentes Chief Financial Officer Process Patient Disposition : Discharge Personal Belongings With Patient : Yes Patient Education Completed : Yes Teaching Evaluation : Verbalizes understanding IV Discontinued : Yes Nursing Documentation Completed : Yes Lizette Fuentes Rn - 01/11/2021 0:18 EDT ED Discharge Discharge To : Home with ambulatory/outpatient follow-up Mode Of Departure : Ambulatory Accompanied By : Unaccompanied Discharge Instructions Reviewed With, Opportunity For Questions Given : Patient Prescriptions Given to Patient : No Lizette Fuentes Rn - 01/11/2021 0:18 EDT documented in this encounter Plan of Treatment Not on file documented as of this encounter Visit Diagnoses Not on filedocumented in this encounter
--- OUTSIDE RECORDS SUMMARY | 2025-04-01 10:45 | XMS_ITS | Encounter Summary ---
Author Organization [employer] ([place], [place], [place], [place]) Address [address] [place] [address] Care Team Providers Care Claim Trainee Name Role Phone Unavailable Primary Care Provider Unavailabl e Encounter Details Date Type Department Care Team (Late st Contact Info) Description 06/07/2020 Transcribed Document [facility] [place] Family Medicine [address] [place] [address] ProviderKim MD [address] [place] [address] Social History Tobacco Use Types Packs/Day Years Used Date Smoking Tobacco: Never Assessed Comments Unknown Sex and Gender Information Value Date Recorded Sex Assigned at Not on file Legal Sex Female 5:43 PM CDT Gender Identity Not on file Sexual Orientation Not on file documented as of this encounter Miscellaneous Notes * Cerner Conversion Note - Historical ProviderMD - 06/07/2020 6:08 PM PROJECT FINANCE ANALYST [place] Suicide Severity Rating Scale (C-SSRS) Entered On: 06/07/2020 18:49 EST Performed On: 06/07/2020 18:44 EST by DEBRA CAMARILLO RN [place] Suicide Severity Rating Scale (C-SSRS) CSSRS Past Month Wish to be : No CSSRS Past Month Suicidal Thoughts : No CSSRS Lifetime Suicide Behavior : No Suicide Severity Rating Score : 0 Suicide Severity Rating : No Additional Care Required at this time DEBRA CAMARILLO RN - 06/07/2020 18:44 EST Electronically signed by Eligio [facility] Conversion Treater Helper Cerner at 09/23/2022 5:19 PM CDT documented in this encounter Plan of Treatment Not on file documented as of this encounter Visit Diagnoses Not on filedocumented in this encounter
--- OUTSIDE RECORDS SUMMARY | 2025-04-01 10:45 | XMS_ITS | Encounter Summary ---
Author Organization [employer] ([place], [place], [place], [place]) Address [address] [place] [address] Care Team Providers Care Tetryl Boiling Tub Operator Name Role Phone Unavailable Primary Care Provider Unavailabl e Encounter Details Date Type Department Care Team (Late st Contact Info) Description 06/07/2020 Transcribed Document [facility] Family Medicine [facility] [place] [address] ProviderKim MD [address] [place] [id number] Social History Tobacco Use Types Packs/Day Years Used Date Smoking Tobacco: Never Assessed Comments Unknown Sex and Gender Information Value Date Recorded Sex Assigned at Not on file Legal Sex Female 5:43 PM CDT Gender Identity Not on file Sexual Orientation Not on file documented as of this encounter Miscellaneous Notes * Cerner Conversion Note - Kim Guillaume MD - 06/07/2020 6:45 PM SOCIAL WORK MSW Patient: ANIBAL CAM Age: 25 years Sex: Female : 1995 Associated Diagnoses: Kidney stone complicating Author: GEOFF CLEMENTE MD-EMR Basic Information Additional information: Chief Complaint from Nursing Triage Note : Chief Complaint 06/07/2020 18:18 EST Chief Complaint pt is 17 weeks , c/o right flank pain, dx with uti and possible kidney stones @ [facility] friday, pt reports increase in pain in flank pain area that radiates around to right groin . History of Present Illness The patient who is G5, and 17 weeks presents with right-sided flank pain for 2 days. Patient notes she went to an outlying emergency department initially with symptoms. She was diagnosed with a urinary tract infection, started on Keflex and also told she may have a kidney stone. She does have a history of multiple prior kidney stones. She notes that this pain feels similar in quality though it is more intense than usual kidney stones. The pain is worse after urination. Patient states she followed up with her back winder yesterday who rechecked her urine and told her that there did not appear to be any signs of infection. Her pain had improved but has worsened today. There have been no fever or chills. Review of Systems Constitutional symptoms: Negative except as documented in HPI. Skin symptoms: Negative except as documented in HPI. Eye symptoms: Negative except as documented in HPI. ENMT symptoms: Negative except as documented in HPI. Respiratory symptoms: Negative except as documented in HPI. Cardiovascular symptoms: Negative except as documented in HPI. Gastrointestinal symptoms: Negative except as documented in HPI. Genitourinary symptoms: Negative except as documented in HPI. Musculoskeletal symptoms: Negative except as documented in HPI. Neurologic symptoms: Negative except as documented in HPI. Psychiatric symptoms: Negative except as documented in HPI. Endocrine symptoms: Negative except as documented in HPI. Hematologic/Lymphatic symptoms: Negative except as documented in HPI. Allergy/immunologic symptoms: Negative except as documented in HPI. Additional review of systems information: All other systems reviewed and otherwise negative. Health Status Allergies: Allergic Reactions (Selected) Severity Not Documented Macrobid- Nausea present. Sulfa drugs- Rash.. Medications: (Selected) Inpatient Medications Ordered NaCl 0.9% bolus: 1,000 mL, 1,000 mL/Hr, IV Piggyback, 1-Time Zofran: 4 mg, IV Push, 1-Time morphine: 4 mg, IV Push, 1-Time Documented Medications Documented Multivitamins: Oral, Daily, Medication List Active Medications Ordered morphine: 4 mg, IV Push, 1-Time. ondansetron: 4 mg, IV Push, 1-Time. Sodium Chloride 0.9% intravenous solution: 1,000 mL, 1,000 mL/Hr, IV Piggyback, 1-Time. Documented multivitamin, : Oral, Daily. Medications Inactivated in the Last 72 Hours No medications found. . Past Medical/ Family/ Social History Medical history Reviewed as documented in chart. Surgical history: section (SNOMED CT 44625518). Appendectomy (SNOMED CT 426351076).. Family history: No family history items have been selected or recorded.. Social history: Social & Psychosocial Habits Tobacco 06/07/2020 Second Hand Smoke Exposure No 06/07/2020 Smoking Status Never (less than 100 in l Smokeless Tobacco Status Never . Problem list: All Problems Dislocated knee / SNOMED CT 5788911938 / Confirmed Vaginal delivery with forceps including care / SNOMED CT 52740030 / Confirmed, Active Problems (2) Dislocated knee Vaginal delivery with forceps including care . Physical Examination Vital Signs Measurements 06/07/2020 18:18 EST Height Source Stated Height Entry Format [place] Height/Length, MACANESE (ft) 5 ft Height/Length MACANESE 1 Inch CLINICALHEIGHT 154.94 cm [place] Body Weight 47.45 kg Weight Source, ED Critical estimated dosing weight Weight Entry Format [place] Weight Mongolian lb 292 lb CLINICALWEIGHT 132.73 kg Body Surface Area (BSA) 2.22 m2 Body Mass Index 55.3 kg/m2 >HHI . Oxygen saturation. General: Alert, mild distress. Skin: Warm, dry, pink. Cardiovascular: Normal peripheral perfusion. Respiratory: Respirations are non-labored. Gastrointestinal: Soft, Non distended, Tenderness: Mild, right flank, Guarding: Negative, Rebound: Negative. Neurological: Normal sensory observed, normal motor observed. Psychiatric: Cooperative. Medical Decision Making Documents reviewed: Emergency department nurses' notes. Orders Medications (3) Active Scheduled: (3) morphine 4 mg/1 mL inj 4 mg 1 mL, IV Push, 1-Time NaCl 0.9% 1,000 mL, IV Piggyback, 1-Time ondansetron 4 mg/2 mL inj 4 mg 2 mL, IV Push, 1-Time Continuous: (0) PRN: (0) . Results review: Lab results : Lab Results 06/07/2020 19:34 EST Urine Type U CleanCatch Urine Color Yellow Urine Appearance Clear Urine Specific [place] 1.006 Urine pH Dipstick 6.5 Urine Leukocyte Esterase Large Urine Nitrite Negative Urine Protein Dipstick Negative Urine Glucose Dipstick Negative Urine Ketones Dipstick Negative Urine Urobilinogen Dipstick 0.2 EU/dL Urine Bilirubin Dipstick Negative Urine Blood Dipstick Small Ur WBC 0-2 /HPF Ur Amorph Trace Ur Squamous Epithelial Cells 0-2 /HPF 06/07/2020 18:51 EST Sodium Level 138 mmol/L Potassium Level 3.9 mmol/L Chloride Level 108 mmol/L Carbon Dioxide Level 22 mmol/L Anion Gap 12 Glucose Level 110 mg/dL HI Blood Urea Nitrogen 9 mg/dL Creatinine Level 0.80 mg/dL eGFR >60 mL/min/1.73m2 eGFR NonAfrican >60 mL/min/1.73m2 Bun/Creatinine 11.2 Calcium Level 9.7 mg/dL Protein Total 6.8 Gram/dL Albumin Level 2.9 Gram/dL LOW Globulin 3.9 Gram/dL A/G Ratio 0.7 LOW Bilirubin Total 0.2 mg/dL Alk Phos 42 Units/Liter AST 20 Units/Liter ALT 19 Units/Liter Lipase Level 90 Units/Liter WBC 9.7 K/uL RBC 4.41 Million/uL Hgb 12.4 g/dL Hct 37.5 % MCV 85.0 fL MCH 28.1 pg MCHC 33.1 Gram/dL Platelet Count 196 K/uL MPV 10.4 fL RDW 13.5 % Neut % 82.9 % HI Neut # 8.05 K/uL HI Lymph % 11.1 % LOW Lymph # 1.08 x10(3)/uL [place] % 5.1 % [place] # 0.50 K/uL Eos % 0.3 % Eos # 0.03 x10(3)/uL Baso % 0.2 % Baso # 0.02 x10(3)/uL Slide Review No IG# 0.04 x10(3)/uL IG% 0.40 % . Impression and Plan Diagnosis Kidney stone complicating - Discharge, Emergency medicine, Medical Plan Condition: Stable. Prescriptions: Prescription [facility]: Reglan 10 mg oral tablet (Prescribe): 1 Tab, Oral, Q6H, for 7 Day(s), PRN: Nausea/Vomiting, 12 Tab, 0 Refill(s) Clive 5 mg-325 mg oral tablet (Prescribe): 1 Tab, Oral, Q4H, for 3 Day(s), PRN: for pain, 15 Tab, 0 Refill(s). Patient was given the following educational materials: Kidney Stones. Follow up with: ; KRISTAL MENDOZA Within 3 to 5 days; Joel Butcher Within 5 to 7 days. documented in this encounter Plan of Treatment Not on file documented as of this encounter Visit Diagnoses Not on filedocumented in this encounter
--- OUTSIDE RECORDS SUMMARY | 2025-04-01 10:45 | XMS_ITS | Encounter Summary ---
Author Organization [employer] ([place], [place], [place], [place]) Address [address] [place] [address] Care Team Providers Care Associate Oracle Retail Name Role Phone Unavailable Primary Care Provider Unavailabl e Encounter Details Date Type Department Care Team (Late st Contact Info) Description 01/24/2021 Transcribed Document [facility] [place] Family Medicine [facility] [place] [address] ProviderKim MD [facility] [place], [place] [id number] Social History Tobacco Use Types Packs/Day Years Used Date Smoking Tobacco: Never Assessed Comments Unknown Sex and Gender Information Value Date Recorded Sex Assigned at Not on file Legal Sex Female 5:43 PM CDT Gender Identity Not on file Sexual Orientation Not on file documented as of this encounter Miscellaneous Notes * Cerner Conversion Note - Historical ProviderMD - 01/24/2021 5:08 PM CDT Hardy Suicide Severity Rating Scale (C-SSRS) Entered On: 01/24/2021 18:09 EDT Performed On: 01/24/2021 18:09 EDT by ANDREEA GARCIA RN Hardy Suicide Severity Rating Scale (C-SSRS) CSSRS Past Month Wish to be : No CSSRS Past Month Suicidal Thoughts : No CSSRS Lifetime Suicide Behavior : No Suicide Severity Rating Score : 0 Suicide Severity Rating : No Additional Care Required at this time ANDREEA GARCIA RN - 01/24/2021 18:09 EDT Electronically signed by [facility] Conversion Field Crop Ii Farmworker Cerner at 09/23/2022 5:00 PM CDT documented in this encounter Plan of Treatment Not on file documented as of this encounter Visit Diagnoses Not on filedocumented in this encounter
--- OUTSIDE RECORDS SUMMARY | 2025-04-01 10:45 | XMS_ITS | Encounter Summary ---
Author Organization [employer] ([place], [place], [place], [place]) Address [address] [place] [address] Care Team Providers Care Manager Math Name Role Phone Unavailable Primary Care Provider Unavailabl e Encounter Details Date Type Department Care Team (Late st Contact Info) Description 01/24/2021 Transcribed Document [facility] [place] [facility] [place] [address] ProviderKim MD [address] [place] [id number] Social History Tobacco Use Types Packs/Day Years Used Date Smoking Tobacco: Never Assessed Comments Unknown Sex and Gender Information Value Date Recorded Sex Assigned at Not on file Legal Sex Female 5:43 PM CDT Gender Identity Not on file Sexual Orientation Not on file documented as of this encounter Miscellaneous Notes * Cerner Conversion Note - Historical ProviderMD - 01/24/2021 5:33 PM CDT Patient: ANIBAL CAM Age: 25 years Sex: Female : 1995 Associated Diagnoses: Sepsis; COVID-19 virus infection Author: BEN PARK MD Basic Information Additional information: Chief Complaint from Nursing Triage Note : Chief Complaint 01/24/2021 17:15 EDT Chief Complaint dx with covid on friday, c/o the inability to keep temp down and increase in soa, portable spo2 monitor provided to pt friday upon discharge. pt reports that her spo2 has been as low as 83% today . History of Present Illness The patient presents with cough. The onset was 5 days ago. The course/duration of symptoms is worsening. Character productive. The degree at onset was minimal. The degree at present is moderate. The exacerbating factor is none. The relieving factor is none. Risk factors consist of asthma. Prior episodes: occasional. Therapy today: over the counter medications including tylenol. Associated symptoms: shortness of breath, nasal congestion, fever, chills, nausea, denies chest pain and denies sore throat. Review of Systems Constitutional symptoms: Fever, chills, no sweats, no weakness, no fatigue. Skin symptoms: No rash, Eye symptoms: Vision unchanged, no pain, no discharge, no blurred vision. ENMT symptoms: No ear pain, no sore throat, no nasal congestion. Respiratory symptoms: Shortness of breath, cough. Cardiovascular symptoms: No chest pain, no palpitations, no syncope. Gastrointestinal symptoms: Nausea, no abdominal pain, no vomiting, no diarrhea. Genitourinary symptoms: No dysuria, no hematuria. Musculoskeletal symptoms: No back pain, no Joint pain. Neurologic symptoms: No headache, no dizziness, no numbness, no weakness. Health Status Allergies: Allergic Reactions (Selected) Severity Not Documented Macrobid- Nausea present. Sulfa drugs- Rash.. Medications: (Selected) Inpatient Medications Ordered Normal Saline Flush: 10 mL, IV Push, See Comment Sodium Chloride 0.9% bolus: 1,000 mL, 1,000 mL/Hr, IV Piggyback, 1-Time Zofran: 4 mg, IV Push, 1-Time cefTRIAXone: 2 Gram, 100 mL/Hr, IV Piggyback, [id number] dexAMETHasone: 10 mg, IV Push, 1-Time doxycycline: 100 mg, IV Piggyback, [id number] Prescriptions Prescribed Flomax 0.4 mg oral capsule: 1 Cap, Oral, Daily, for 7 Day(s), 7 Cap, 0 Refill(s) Zofran ODT 8 mg oral tablet, disintegratin Tab, Oral, TID, for 3 Day(s), 9 Tab, 0 Refill(s) Documented Medications Documented Multivitamins: Oral, Daily. Past Medical/ Family/ Social History Surgical history: Appendectomy (SNOMED CT 450970157). section (SNOMED CT 11833423)., Reviewed as documented in chart. Family history: [...] Physical Examination Vital Signs Vital Signs/Vital Measures 01/24/2021 17:15 EDT Systolic Blood Pressure 121 mmHg Diastolic Blood Pressure 71 mmHg Temperature Source Oral Temperature Mode Fahrenheit Temperature, Fahrenheit 102.1 Deg F HI Clinical Temperature, C 38.9 Deg C Peripheral Pulse Rate 115 bpm HI Respiratory Rate 23 Breaths/Min HI Oxygen Saturation 94 % Oxygen Therapy Mode Room air . Measurements 01/24/2021 17:15 EDT Height Source Stated Height Entry Format [place] Height/Length, GREEK (ft) 5 ft Height/Length G[place] 1 Inch CLINICALHEIGHT 154.94 cm [place] Body Weight 47.45 kg Weight Source, ED Critical estimated dosing weight Weight Entry Format [place] Weight Togolese lb 286 lb CLINICALWEIGHT 130 kg Body Surface Area (BSA) 2.2 m2 Body Mass Index 54.2 kg/m2 >HHI . Oxygen Saturation 01/24/2021 17:15 EDT Oxygen Saturation 94 % . General: Alert, no acute distress. Skin: Warm. Head: Normocephalic. Neck: Supple. Eye: Sclera: not icteric. Ears, nose, mouth and throat: Oral mucosa moist. Cardiovascular: Regular rate and rhythm, No murmur, Normal peripheral perfusion, No edema, Tachycardia. Respiratory: Respirations are non-labored, breath sounds are equal, Breath sounds: Bilateral, diminished, wheezes present mild. Chest wall: No tenderness. Back: Nontender. Gastrointestinal: Soft, Nontender, Non distended, Normal bowel sounds. Neurological: No focal neurological deficit observed. Lymphatics: No lymphadenopathy. Psychiatric: Cooperative. Medical Decision Making Documents reviewed: Emergency department nurses' notes. Results review: Lab results : Lab Results 01/24/2021 17:46 EDT Sodium Level 140 mmol/L Potassium Level 3.6 mmol/L Chloride Level 106 mmol/L Carbon Dioxide Level 28 mmol/L Anion Gap 10 Glucose Level 103 mg/dL Blood Urea Nitrogen 8 mg/dL Creatinine Level 0.70 mg/dL eGFR >60 mL/min/1.73m2 eGFR NonAfrican >60 mL/min/1.73m2 Bun/Creatinine 11.4 Calcium Level 8.9 mg/dL Protein Total 7.1 Gram/dL Albumin Level 3.2 Gram/dL LOW Globulin 3.9 Gram/dL A/G Ratio 0.8 LOW Bilirubin Total 0.4 mg/dL Alk Phos 86 Units/Liter AST 46 Units/Liter HI ALT 46 Units/Liter Lactic Acid Level 0.83 mmol/L LOW WBC 2.8 K/uL LOW RBC 4.83 Million/uL Hgb 11.8 g/dL Hct 38.0 % MCV 78.7 fL LOW MCH 24.4 pg LOW MCHC 31.1 Gram/dL LOW Platelet Count 172 K/uL MPV 10.2 fL RDW 14.9 % . Impression and Plan Diagnosis Sepsis - Discharge, Medical COVID-19 virus infection - Discharge, Medical Plan Condition: Stable. Disposition: Discharged Admit/Transfer/Discharge: Discharge (Order): Start: 01/24/2021 20:33 EDT, Discharge to: Home , Patient care transitioned to: Time: 01/24/2021 18:41:00, MARGARETTE LANG MD. Patient was given the following educational materials: COVID-19, COVID-19: How to Protect Yourself and Others - [facility]. Follow up with: ROSA THOMAS Within 2 to 3 days. Counseled: Patient, Regarding diagnosis, Regarding diagnostic results, Regarding treatment plan, Patient indicated understanding of instructions. Addendum Patient care transferred to ia at approximately 1900. She is able to ambulate and maintain oxygen saturations primarily around 90 to 91%, is 94% at rest in bed. Patient is a candidate for Regen given her obesity and asthma. Discussed risks and benefits and including allergic reaction, worsening condition, lack of efficacy versus benefit of decreased hospitalization rate. The patient would like to receive the infusion, given the fact sheet. Patient discharged home. documented in this encounter Plan of Treatment Not on file documented as of this encounter Visit Diagnoses Not on filedocumented in this encounter
--- OUTSIDE RECORDS SUMMARY | 2025-04-01 10:45 | XMS_ITS | Encounter Summary ---
Author Organization [employer] ([place], [place], [place], [place]) Address [address] [place] [address] Care Team Providers Care Segmental Paving Supervisor Name Role Phone Unavailable Primary Care Provider Unavailabl e Encounter Details Date Type Department Care Team (Late st Contact Info) Description 01/10/2021 Transcribed Document [facility] [place] Family Medicine [facility] [place] [address] ProviderKim MD [address] [place] [id number] Social History Tobacco Use Types Packs/Day Years Used Date Smoking Tobacco: Never Assessed Comments Unknown Sex and Gender Information Value Date Recorded Sex Assigned at Not on file Legal Sex Female 5:43 PM CDT Gender Identity Not on file Sexual Orientation Not on file documented as of this encounter Miscellaneous Notes * Cerner Conversion Note - Historical ProviderMD - 01/10/2021 8:18 PM CDT ED Assessment Entered On: 01/10/2021 22:45 EDT Performed On: 01/10/2021 22:44 EDT by Lizette Fuentes Rn ED Quick Look Assessment Level of Consciousness : Alert, Awake Affect/Behavior : Appropriate, Calm, Cooperative Orientation : Oriented x 4 Skin Temperature : Warm Skin Description : Normal for ethnicity Lizette Fuentes Rn - 01/10/2021 22:44 EDT ED General-Functional Assess Information Obtained From : Patient Preferred Communication Mode : Verbal Communication Barrier : None Primary Language : Swiss Any Spiritual/Cultural Needs or Requests : No Currently in Unsafe Situation : No Lizette Fuentes Rn - 01/10/2021 22:44 EDT Social Habits Smoking Status : Never (less than 100 in lifetime; none in last 30 days) Smokeless Tobacco Status : Never Desires Tobacco Cessation Calc : 0 Lizette Fuentes Rn - 01/10/2021 22:44 EDT Social History (As Of: 01/10/2021 22:45:12 EDT) Tobacco: Second Hand Smoke Exposure: No. (Last Updated: 06/07/2020 18:45:57 EST by DEBRA CAMARILLO, ZANDRA) Never (less than 100 in lifetime) Smoking Status. Never Smokeless Tobacco Status. (Last Updated: 06/07/2020 18:46:08 EST by DEBRA CAMARILLO, ZANDRA) Alcohol: Alcohol Use History No. Use in Last 12 Months: No. (Last Updated: 06/07/2020 18:46:14 EST by DEBRA CAMARILLO, ZANDRA) Substance Abuse: Drug Use Hx: No. Use in Last 12 Months: No. (Last Updated: 06/07/2020 18:46:21 EST by DEBRA CAMARILLO RN) Cardiovascular ASMT, ED Cardiovascular Assessment WDL : Lizette Workman Rn - 01/10/2021 22:44 EDT Respiratory Respiratory Assessment WDL : Lizette Workman Rn - 01/10/2021 22:44 EDT Genitourinary Assessment, ED Genitourinary Assessment WDL : WDL with exceptions (Comment: pt c/o L flank pain and vaginal pain x 2 wks. pt states she was dx at [facility] w/ kidney stones 2 wks ago, states she was told that she should be able to pass stone, however states she doesnt think that she has. reports pain has increased despite otc meds at home. [Lizette Fuentes Rn - 01/10/2021 22:44 EDT] ) Lizette Fuentes Rn - 01/10/2021 22:44 EDT Neurologic ASMT, ED Neurologic Assessment WDL : Lizette Workman Rn - 01/10/2021 22:44 EDT Electronically signed by [facility] Conversion Aquatics Lifeguard Cerner at 09/23/2022 5:13 PM CDT documented in this encounter Plan of Treatment Not on file documented as of this encounter Visit Diagnoses Not on filedocumented in this encounter
--- OUTSIDE RECORDS SUMMARY | 2025-04-01 10:45 | XMS_ITS | Encounter Summary ---
Author Organization [employer] ([place], [place], [place], [place]) Address [address] [place] [address] Care Team Providers Care Attendant Coin Operated Laundry Name Role Phone Unavailable Primary Care Provider Unavailabl e Encounter Details Date Type Department Care Team (Late st Contact Info) Description 01/21/2021 Transcribed Document [facility] [place] Family Medicine [facility] [place] [address] ProviderKim MD [address] [place] [id number] Social History Tobacco Use Types Packs/Day Years Used Date Smoking Tobacco: Never Assessed Comments Unknown Sex and Gender Information Value Date Recorded Sex Assigned at Not on file Legal Sex Female 5:43 PM CDT Gender Identity Not on file Sexual Orientation Not on file documented as of this encounter Miscellaneous Notes * Cerner Conversion Note - Historical ProviderMD - 01/21/2021 3:23 PM CDT ED Assessment Entered On: 01/21/2021 16:57 EDT Performed On: 01/21/2021 16:54 EDT by BLAYNE OLIVERA RN ED Quick Look Assessment Level of Consciousness : Alert, Awake Affect/Behavior : Appropriate, Calm, Cooperative Orientation : Oriented x 4 Skin Temperature : Warm Skin Description : Normal for ethnicity BLAYNE OLIVERA RN - 01/21/2021 16:54 EDT ED General-Functional Assess Information Obtained From : Patient Preferred Communication Mode : Verbal Communication Barrier : None Primary Language : Italian Any Spiritual/Cultural Needs or Requests : No Currently in Unsafe Situation : No BLAYNE OLIVERA RN - 01/21/2021 16:54 EDT ED Psychosocial Assessment Affect/Behavior : Appropriate, Calm, Cooperative BLAYNE OLIVERA RN - 01/21/2021 16:54 EDT Social Habits Smoking Status : Never (less than 100 in lifetime; none in last 30 days) Smokeless Tobacco Status : Never Desires Tobacco Cessation Calc : 0 BLAYNE OLIVERA RN - 01/21/2021 16:54 EDT Social History (As Of: 01/21/2021 16:57:08 EDT) Tobacco: Second Hand Smoke Exposure: No. [...] (Last Updated: 06/07/2020 18:46:21 EST by DEBRA CAMARILLO, ZANDRA) EENT Assessment EENT Assessment WDL : WDL BLAYNE OLIVERA RN - 01/21/2021 16:54 EDT Cardiovascular ASMT, ED Cardiovascular Assessment WDL : WD Nail Bed Color : [place] Chest Pain : No BLAYNE OLIVERA RN - 01/21/2021 16:54 EDT Respiratory Respiratory Assessment WDL : WD with exceptions Cough : Congested Respiratory Pattern Description : Regular Sputum Amount : None BLAYNE OLIVERA RN - 01/21/2021 16:54 EDT Oxygen Therapy Oxygen Therapy Mode : Room air O2 Saturation Monitoring Frequency : Continuous Oxygen Saturation (%) : 95 % BLAYNE OLIVERA RN - 01/21/2021 16:54 EDT Gastrointestinal ED Gastrointestinal Assessment WDL : WDL with exceptions Gastrointestinal Symptoms : Nausea, Vomiting BLAYNE OLIVERA RN - 01/21/2021 16:54 EDT Genitourinary Assessment, ED Genitourinary Assessment WDL : WDL with exceptions Genitourinary Assessment Comment : pain with urination BLAYNE OLIVERA RN - 01/21/2021 16:54 EDT Musculoskeletal Musculoskeletal Assessment WDL : WDL ALEXANDRE OLIVERAA, RN - 01/21/2021 16:54 EDT Integumentary Assessment Skin Description : Normal for ethnicity Skin Temperature : Warm Integumentary Assessment WDL : WDL Skin Turgor : Elastic BLAYNE OLIVERAZANDRA - 01/21/2021 16:54 EDT Neurologic ASMT, ED Neurologic Assessment WDL : WDL Neurological Symptoms : Dizziness, Headache Level of Consciousness : Alert, Awake Affect/Behavior : Appropriate, Calm, Cooperative Speech : Clear Orientation : Oriented x 4 Pupil Description, Left : Regular Pupil Reaction, Left : Brisk Pupil Description, Right : Regular Pupil Reaction, Right : Brisk OLIVERAANDRZEJ BECKETTZANDRA COREA - 01/21/2021 16:54 EDT Pain Assessment Pain Assessment : Initial assessment Pain Scale Used : 0-10 Scale BLAYNE OLIVERA RN - 01/21/2021 16:54 EDT Pain Scale Intensity : 5 BLAYNE OLIVERA RN - 01/21/2021 16:54 EDT Image 4 - Images currently included in the form version of this document have not been included in the text rendition version of the form. Electronically signed by Ramos Del Valle Conversion Paint Coating Machine Operator Cerner at 09/23/2022 4:57 PM CDT documented in this encounter Plan of Treatment Not on file documented as of this encounter Visit Diagnoses Not on filedocumented in this encounter
--- OUTSIDE RECORDS SUMMARY | 2025-04-01 10:45 | XMS_ITS | Encounter Summary ---
Author Organization [employer] ([place], [place], [place], [place]) Address [address] [place] [address] Care Team Providers Care Clinical Partner Name Role Phone Unavailable Primary Care Provider Unavailabl e Encounter Details Date Type Department Care Team (Late st Contact Info) Description 06/07/2020 Transcribed Document [facility] [place] [address] [place] [address] ProviderKim MD [place] [address] Social History Tobacco Use Types Packs/Day Years Used Date Smoking Tobacco: Never Assessed Comments Unknown Sex and Gender Information Value Date Recorded Sex Assigned at Not on file Legal Sex Female 5:43 PM CDT Gender Identity Not on file Sexual Orientation Not on file documented as of this encounter Miscellaneous Notes * Cerner Conversion Note - Kim ProviderMD - 06/07/2020 6:08 PM [facility] ED Assessment Entered On: 06/07/2020 18:48 EST Performed On: 06/07/2020 18:44 EST by DEBRA CAMARILLO RN ED Quick Look Assessment Level of Consciousness : Alert, Awake Affect/Behavior : Calm, Cooperative Orientation : Oriented x 4 Skin Temperature : Warm Skin Description : Dry DEBRA CAMARILLO RN - 06/07/2020 18:44 EST ED General-Functional Assess Preferred Communication Mode : Verbal Communication Barrier : None Primary Language : Montserratian Any Spiritual/Cultural Needs or Requests : No Currently in Unsafe Situation : No DEBRA CAMARILLO RN - 06/07/2020 18:44 EST Social Habits Smoking Status : Never (less than 100 in lifetime; none in last 30 days) Smokeless Tobacco Status : Never Desires Tobacco Cessation Calc : 0 DEBRA CAMARILLO RN - 06/07/2020 18:44 EST Social History (As Of: 06/07/2020 18:48:51 EST) Tobacco: Second Hand Smoke Exposure: No. (Last Updated: 06/07/2020 18:45:57 EST by DEBRA CAMARILLO RN) Never (less than 100 in lifetime) Smoking Status. Never Smokeless Tobacco Status. (Last Updated: 06/07/2020 18:46:08 EST by DEBRA CAMARILLO RN) Alcohol: Alcohol Use History No. Use in Last 12 Months: No. (Last Updated: 06/07/2020 18:46:14 EST by DEBRA CAMARILLO RN) Substance Abuse: Drug Use Hx: No. Use in Last 12 Months: No. (Last Updated: 06/07/2020 18:46:21 EST by DEBRA CAMARILLO RN) EENT Assessment EENT Assessment WDL : WD DEBRA CAMARILLO RN - 06/07/2020 18:44 EST Cardiovascular ASMT, ED Cardiovascular Assessment WDL : WD DEBRA CAMARILLO RN - 06/07/2020 18:44 EST Respiratory Respiratory Assessment WDL : WD DEBRA CAMARILLO RN - 06/07/2020 18:44 EST Gastrointestinal ED Gastrointestinal Assessment WDL : WD with exceptions Gastrointestinal Symptoms : Nausea Gastrointestinal Assessment Comment : right flank pain that radiates to right groin DEBRA CAMARILLO RN - 06/07/2020 18:44 EST Genitourinary Assessment, ED Genitourinary Assessment WDL : WD with exceptions Genitourinary Symptoms : Other: recent UTI DEBRA CAMARILLO RN - 06/07/2020 18:44 EST Electronically signed by Ramos Del Valle Conversion Long Chain Dyeing Machine Operator Cerner at 09/23/2022 4:57 PM CDT documented in this encounter Plan of Treatment Not on file documented as of this encounter Visit Diagnoses Not on filedocumented in this encounter
--- OUTSIDE RECORDS SUMMARY | 2025-04-01 10:45 | XMS_ITS | Encounter Summary ---
Author Organization [employer] ([place], [place], [place], [place]) Address [address] [place] [address] Care Team Providers Care Golf Tournament Consultant Name Role Phone Unavailable Primary Care Provider Unavailabl e Encounter Details Date Type Department Care Team (Late st Contact Info) Description 06/07/2020 Transcribed Document [facility] [place] [address] [place] [address] ProviderKim MD [facility] [place] [address] Social History Tobacco Use Types Packs/Day Years Used Date Smoking Tobacco: Never Assessed Comments Unknown Sex and Gender Information Value Date Recorded Sex Assigned at Not on file Legal Sex Female 5:43 PM CDT Gender Identity Not on file Sexual Orientation Not on file documented as of this encounter Miscellaneous Notes * Cerner Conversion Note - Historical ProviderMD - 06/07/2020 9:16 PM COOLER CONVEYOR LOADER ED Discharge Entered On: 06/07/2020 21:21 EST Performed On: 06/07/2020 21:16 EST by DEBRA CAMARILLO RN Discharge Process Patient Disposition : Discharge Personal Belongings With Patient : Yes Patient Education Completed : Yes Teaching Evaluation : Verbalizes understanding Link to Valuables and Belongings form : No IV Discontinued : Yes Nursing Documentation Completed : Yes DEBRA CAMARILLO RN - 06/07/2020 21:16 EST ED Discharge Discharge To : Home with ambulatory/outpatient follow-up Mode Of Departure : Ambulatory Accompanied By : Spouse Prescriptions Given to Patient : Yes Number of Prescriptions Given : 2 DEBRA CAMARILLO RN - 06/07/2020 21:16 EST Electronically signed by Eligio [facility] Conversion Memorial Marker Designer Cerner at 09/23/2022 5:19 PM CDT documented in this encounter Plan of Treatment Not on file documented as of this encounter Visit Diagnoses Not on filedocumented in this encounter
--- OUTSIDE RECORDS SUMMARY | 2025-04-01 10:45 | XMS_ITS | Encounter Summary ---
Author Organization [employer] ([place], [place], [place], [place]) Address [address] [place] [address] Care Team Providers Care Medical Records Coder Name Role Phone Unavailable Primary Care Provider Unavailabl e Encounter Details Date Type Department Care Team (Late st Contact Info) Description 01/10/2021 Transcribed Document [facility] [place] Family Medicine [address] [place] [address] ProviderKim MD [address] [place], [place] [id number] Social History Tobacco Use Types Packs/Day Years Used Date Smoking Tobacco: Never Assessed Comments Unknown Sex and Gender Information Value Date Recorded Sex Assigned at Not on file Legal Sex Female 5:43 PM CDT Gender Identity Not on file Sexual Orientation Not on file documented as of this encounter Miscellaneous Notes * Cerner Conversion Note - Historical ProviderMD - 01/10/2021 9:35 PM CDT ED POC - URINE HCG Entered On: 01/10/2021 22:28 EDT Performed On: 01/10/2021 22:28 EDT by SOLE GUTIERREZ RN Point of Care Urine HCG HCG Result : Negative Internal Control Line Present : Yes Internal Control Background Clear : Yes SOLE GUTIERREZ RN - 01/10/2021 22:28 EDT Electronically signed by Eligio [facility] Conversion Cigar Head Puncher Jose Luis at 09/23/2022 5:11 PM CDT documented in this encounter Plan of Treatment Not on file documented as of this encounter Visit Diagnoses Not on filedocumented in this encounter
--- OUTSIDE RECORDS SUMMARY | 2025-04-01 10:45 | XMS_ITS | Encounter Summary ---
Author Organization [employer] ([place], [place], [place], [place]) Address [address] [place] [address] Care Team Providers Care Casino Slot Supervisor Name Role Phone Unavailable Primary Care Provider Unavailabl e Encounter Details Date Type Department Care Team (Late st Contact Info) Description 01/21/2021 Transcribed Document [facility] [place] [facility] [place] [address] ProviderKim MD [address] [place] [id number] Social History Tobacco Use Types Packs/Day Years Used Date Smoking Tobacco: Never Assessed Comments Unknown Sex and Gender Information Value Date Recorded Sex Assigned at Not on file Legal Sex Female 5:43 PM CDT Gender Identity Not on file Sexual Orientation Not on file documented as of this encounter Miscellaneous Notes * Cerner Conversion Note - Historical ProviderMD - 01/21/2021 7:21 PM CDT ED Discharge Entered On: 01/21/2021 19:21 EDT Performed On: 01/21/2021 19:21 EDT by Gali Pearson NON EMP senior quality methods specialist Process Patient Disposition : Discharge Personal Belongings With Patient : Yes Teaching Evaluation : Verbalizes understanding IV Discontinued : Yes Gali Pearson NON EMP RN - 01/21/2021 19:21 EDT ED Discharge Discharge To : Home with ambulatory/outpatient follow-up Mode Of Departure : Private vehicle Discharge Instructions Reviewed With, Opportunity For Questions Given : Patient Gali Pearson NON EMP RN - 01/21/2021 19:21 EDT Electronically signed by Ramos Del Valle Conversion Assistant Professor Of Forestry Cerner at 09/23/2022 4:54 PM CDT documented in this encounter Plan of Treatment Not on file documented as of this encounter Visit Diagnoses Not on filedocumented in this encounter
--- OUTSIDE RECORDS SUMMARY | 2025-04-01 10:45 | XMS_ITS | Encounter Summary ---
Author Organization [employer] ([place], [place], [place], [place]) Address [address] [place] [address] Care Team Providers Care Brand Mgr Name Role Phone Unavailable Primary Care Provider Unavailabl e Encounter Details Date Type Department Care Team (Late st Contact Info) Description 01/22/2021 Transcribed Document [facility] [place] [facility] [place] [address] ProviderKim MD [facility] [place] [address] Social History Tobacco Use Types Packs/Day Years Used Date Smoking Tobacco: Never Assessed Comments Unknown Sex and Gender Information Value Date Recorded Sex Assigned at Not on file Legal Sex Female 5:43 PM CDT Gender Identity Not on file Sexual Orientation Not on file documented as of this encounter Miscellaneous Notes * Cerner Conversion Note - Historical ProviderMD - 01/22/2021 12:22 PM CDT SARS-CoV-2 (COVID19 PCR) - - Positive 01/21/2021 17:22 01/22/2021 12:22 (VICTORIA EVANS APRN) Reviewed by Provider, No further action required, Patient Contacted documented in this encounter Plan of Treatment Not on file documented as of this encounter Visit Diagnoses Not on filedocumented in this encounter
--- OUTSIDE RECORDS SUMMARY | 2025-04-01 10:46 | XMS_ITS | Encounter Summary ---
Author Organization [employer] ([place], [place], [place], [place]) Address [address] [place] [address] Care Team Providers Care Shirring Tender Name Role Phone Unavailable Primary Care Provider Unavailabl e Encounter Details Date Type Department Care Team (Late st Contact Info) Description 01/21/2021 Transcribed Document [facility] [place] [address] ProviderKim MD [address] [place] [id number] Social History Tobacco Use Types Packs/Day Years Used Date Smoking Tobacco: Never Assessed Comments Unknown Sex and Gender Information Value Date Recorded Sex Assigned at Not on file Legal Sex Female 5:43 PM CDT Gender Identity Not on file Sexual Orientation Not on file documented as of this encounter Miscellaneous Notes * Cerner Conversion Note - Historical ProviderMD - 01/21/2021 6:33 PM CDT Electronically signed by Eligio [facility] Conversion Storm Chaser Jose Luis at 09/23/2022 5:09 PM CDT documented in this encounter Plan of Treatment Not on file documented as of this encounter Visit Diagnoses Not on filedocumented in this encounter
--- OUTSIDE RECORDS SUMMARY | 2025-04-01 10:46 | XMS_ITS | Encounter Summary ---
Author Organization [employer] ([place], [place], [place], [place]) Address [address] [place] [address] Care Team Providers Care Cna Name Role Phone Unavailable Primary Care Provider Unavailabl e Encounter Details Date Type Department Care Team (Late st Contact Info) Description 01/24/2021 Transcribed Document [facility] [place] Medicine [facility] [place] [address] ProviderKim MD [address] [place] [id number] Social History Tobacco Use Types Packs/Day Years Used Date Smoking Tobacco: Never Assessed Comments Unknown Sex and Gender Information Value Date Recorded Sex Assigned at Not on file Legal Sex Female 5:43 PM CDT Gender Identity Not on file Sexual Orientation Not on file documented as of this encounter Miscellaneous Notes * Cerner Conversion Note - Kim ProviderMD - 01/24/2021 5:08 PM CDT ED Assessment Entered On: 01/24/2021 18:15 EDT Performed On: 01/24/2021 18:11 EDT by ANDREEA GARCIA, SIDING MECHANIC Quick Look Assessment Level of Consciousness : Alert, Awake Orientation : Oriented x 4 ANDREEA GARCIA RN - 01/24/2021 18:11 EDT ED General-Functional Assess Information Obtained From : Patient Preferred Communication Mode : Verbal Communication Barrier : None Primary Language : Fijian Any Spiritual/Cultural Needs or Requests : No Currently in Unsafe Situation : No ANDREEA GARCIA RN - 01/24/2021 18:11 EDT Social Habits Smoking Status : Never (less than 100 in lifetime; none in last 30 days) Smokeless Tobacco Status : Never Desires Tobacco Cessation Calc : 0 ANDREEA GARCIA RN - 01/24/2021 18:11 EDT Social History (As Of: 01/24/2021 18:15:24 EDT) Tobacco: Second Hand Smoke Exposure: No. [...] 06/07/2020 18:46:21 EST by DEBRA CAMARILLO, ZANDRA) Respiratory Respiratory Assessment WDL : WDL with exceptions (Comment: Pt presents to the ER with an increase in SOB. Pt states her 02 sats were inthe mid 80s. Was diagnosed on Friday. Reports cough and body aches. [ANDREEA GARCIA RN - 01/24/2021 18:11 EDT] ) ANDREEA GARCIA RN - 01/24/2021 18:11 EDT documented in this encounter Plan of Treatment Not on file documented as of this encounter Visit Diagnoses Not on filedocumented in this encounter
--- OUTSIDE RECORDS SUMMARY | 2025-04-01 10:46 | XMS_ITS | Encounter Summary ---
Author Organization [employer] ([place], [place], [place], [place]) Address [address] [place] [address] Care Team Providers Care Cover Marker Name Role Phone Unavailable Primary Care Provider Unavailabl e Encounter Details Date Type Department Care Team (Late st Contact Info) Description 12/30/2020 Transcribed Document [facility] [place] [facility] [place] [address] ProviderKim MD [facility] [place] [address] Social History Tobacco Use Types Packs/Day Years Used Date Smoking Tobacco: Never Assessed Comments Unknown Sex and Gender Information Value Date Recorded Sex Assigned at Not on file Legal Sex Female 5:43 PM CDT Gender Identity Not on file Sexual Orientation Not on file documented as of this encounter Miscellaneous Notes * Cerner Conversion Note - Kim ProviderMD - 12/30/2020 3:33 PM CDT ED Discharge Entered On: 12/30/2020 15:33 EDT Performed On: 12/30/2020 15:33 EDT by Anabell [place] RN-PATIENT CARE BEDSIDE NON-EXEMPT Discharge Process Patient Disposition : Discharge Personal Belongings With Patient : Yes Patient Education Completed : Yes Teaching Evaluation : Verbalizes understanding IV Discontinued : Yes Anabell [place] RN-PATIENT CARE BEDSIDE NON-EXEMPT - 12/30/2020 15:33 EDT ED Discharge Discharge To : Home with ambulatory/outpatient follow-up Mode Of Departure : Ambulatory Accompanied By : Unaccompanied Discharge Instructions Reviewed With, Opportunity For Questions Given : Patient Prescriptions Given to Patient : Electronically sent Number of Prescriptions Given : 3 Anabell [place] RN-PATIENT CARE BEDSIDE NON-EXEMPT - 12/30/2020 15:33 EDT documented in this encounter Plan of Treatment Not on file documented as of this encounter Visit Diagnoses Not on filedocumented in this encounter
--- OUTSIDE RECORDS SUMMARY | 2025-04-01 10:46 | XMS_ITS | Clinical Summary ---
Author Organization [email or web address] ([place], [place], [place], [place]) Address [address] [place] [address] Care Team Providers Care Civil Engineering Design Draftsperson Name Role Phone Unavailable Primary Care Provider Unavailabl e Social History Tobacco Use Types Packs/Day Years Used Date Smoking Tobacco: Never Assessed Comments Unknown Sex and Gender Information Value Date Recorded Sex Assigned at Not on file Legal Sex Female 5:43 PM CDT Gender Identity Not on file Sexual Orientation Not on file Plan of Treatment Health Maintenance Due Date Last Done Comments DTAP/TDAP/TD VACCINES (6 - Tdap) 2005 03/13/1998, 03/13/1998, 09/08/1995, Additional history exists Depression Screening (12+) 2006 Tobacco Cessation Counseling and Screening (12+) 2006 HIV Screening 2009 Hepatitis C Screening 02/08/2012 Pap Smear 2015 COVID-19 VACCINE ( season) 2025 Influenza Vaccine (#1) 2025 Pneumococcal Vaccine: 0-49 Years Aged Out No longer eligible based on patient's age to complete this topic Insurance [id number] MEDICAID [facility]
--- OUTSIDE RECORDS SUMMARY | 2025-04-01 10:46 | XMS_ITS | Encounter Summary ---
Author Organization [employer] ([place], [place], [place], [place]) Address [address] [place] [address] Care Team Providers Care Felled Seam Operator Name Role Phone Unavailable Primary Care Provider Unavailabl e Encounter Details Date Type Department Care Team (Late st Contact Info) Description 01/21/2021 Transcribed Document [facility] [place] [address] [place] [address] ProviderKim MD [address] [place], [place] [id number] Social History Tobacco Use Types Packs/Day Years Used Date Smoking Tobacco: Never Assessed Comments Unknown Sex and Gender Information Value Date Recorded Sex Assigned at Not on file Legal Sex Female 5:43 PM CDT Gender Identity Not on file Sexual Orientation Not on file documented as of this encounter Miscellaneous Notes * Cerner Conversion Note - Historical ProviderMD - 01/21/2021 3:23 PM CDT Broset Violence Assessment Entered On: 01/21/2021 16:57 EDT Performed On: 01/21/2021 16:54 EDT by BLAYNE OLIVERA RN Broset Violence Assessment Broset Violence Checklist of Symptoms : None Broset Violence Symptoms Subtotal : 0 Broset Violence Symptoms Indicator : Low risk (0) BLAYNE OLIVERA RN - 01/21/2021 16:54 EDT documented in this encounter Plan of Treatment Not on file documented as of this encounter Visit Diagnoses Not on filedocumented in this encounter
--- OUTSIDE RECORDS SUMMARY | 2025-04-01 10:46 | XMS_ITS | Encounter Summary ---
Author Organization Healthcare Address [address] [place] [address] Care Team Providers Care Resident In Diagnostic Radiology Name Role Phone Jazmyn Mattson APRN Primary Care Provider [phone] Encounter Details Date Type Department Care Team (Latest Contact Info) Description 03/29/2025 Travel Social History Tobacco Use Types Packs/Day Years [...] week 07/06/2024 How often do you attend [facility] or [facility] services? More than 4 times per year 07/06/2024 Do you belong to any clubs o r organizations such as scientologist groups, unions, fraternal or athletic groups, or [...] Recorded Patient Health Questionnaire-2 Score 0 12/22/2024 [facility] - Occupational Stress Questionnaire Answer Date Recorded [...] any time in the past 12 m [facility], were you homeless or living in a care home (including now)? No 12/22/2024 Utilities Answer Date Recorded In the past 12 months has th e electric, gas, oil, or water company threatened to [...] PM EDT documented as of this encounter Plan of Treatment Upcoming Encounters Date Type Department Care Team (Late st Contact Info) Description 04/05/2025 9:30 AM EDT Appointment Medical Office Building Cardiac Diagnostic Testing Medical Office Building Echo Lab [address], [address] [place] [address] 06/20/2025 9:40 AM EST Office Visit [facility] [place] [address], [address] [place] [address] Destini Ojeda MD [address] [place] [address] 10/07/2025 8:40 AM EDT Office Visit [facility] [address], [address] [place] [address] Winter Pineda MD [address] [place] [address] documented as of this encounter Visit Diagnoses Not on filedocumented in this encounter Additional Health Concerns Infection [...] documented as of this encounter Care Teams Resident In Diagnostic Radiology Relationship Specialty Start Date End Date Jazmyn Mtatson APRN [address] [place] [address] PCP - General Family Medicine 07/06/24 documented as of this encounter
--- OUTSIDE RECORDS SUMMARY | 2025-04-01 10:46 | XMS_ITS | Encounter Summary ---
Author Organization [employer] ([place], [place], [place], [place]) Address [address] [place] [address] Care Team Providers Care Galvanometer Assembler Name Role Phone Unavailable Primary Care Provider Unavailabl e Encounter Details Date Type Department Care Team (Late st Contact Info) Description 12/30/2020 Transcribed Document [facility] [place] Family Medicine [address] [place] [address] ProviderKim MD [facility] [place], [place] [address] Social History Tobacco Use Types Packs/Day Years Used Date Smoking Tobacco: Never Assessed Comments Unknown Sex and Gender Information Value Date Recorded Sex Assigned at Not on file Legal Sex Female 5:43 PM CDT Gender Identity Not on file Sexual Orientation Not on file documented as of this encounter Miscellaneous Notes * Cerner Conversion Note - Historical ProviderMD - 12/30/2020 11:16 AM CDT [facility] Suicide Severity Rating Scale (C-SSRS) Entered On: 12/30/2020 11:58 EDT Performed On: 12/30/2020 11:22 EDT by Anabell Howard RN-PATIENT CARE BEDSIDE NON-EXEMPT [facility] Suicide Severity Rating Scale (C-SSRS) CSSRS Past Month Wish to be : No CSSRS Past Month Suicidal Thoughts : No CSSRS Lifetime Suicide Behavior : No Suicide Severity Rating Score : 0 Suicide Severity Rating : No Additional Care Required at this time Anabell Howard RN-PATIENT CARE BEDSIDE NON-EXEMPT - 12/30/2020 11:55 EDT Electronically signed by Ramos Del Valle Conversion Building Maintenance Mechanic Cernat at 09/23/2022 5:18 PM CDT documented in this encounter Plan of Treatment Not on file documented as of this encounter Visit Diagnoses Not on filedocumented in this encounter
--- OUTSIDE RECORDS SUMMARY | 2025-04-01 10:46 | XMS_ITS | Encounter Summary ---
Author Organization [employer] ([place], [place], [place], [place]) Address [address] [place] [address] Care Team Providers Care Jump Roll Operator Name Role Phone Unavailable Primary Care Provider Unavailabl e Encounter Details Date Type Department Care Team (Late st Contact Info) Description 01/24/2021 Transcribed Document [facility] [place] [facility] [place] [address] ProviderKim MD [address] [place] [address] Social History Tobacco Use Types Packs/Day Years Used Date Smoking Tobacco: Never Assessed Comments Unknown Sex and Gender Information Value Date Recorded Sex Assigned at Not on file Legal Sex Female 5:43 PM CDT Gender Identity Not on file Sexual Orientation Not on file documented as of this encounter Miscellaneous Notes * Cerner Conversion Note - Kim Guillaume MD - 01/24/2021 9:44 PM CDT [facility] [place] [id number] ANIBAL CAM :1995 Visit Time:01/24/2021 Your [...] Within 2 to 3 days Where: [place] [address]- Business (1) Allergies Macrobid (Nausea present) sulfa [...] and 14.9 ) ANC #: 2 K/uL [place] Percent Man: 9 % -- Normal range [...] virus is thought to spread mainly from gqftlf-ei-njufvv. ? Between people who are in close [...] are not readily available, use a hand racecourse barrier attendant that contains at least 60% alcohol. Cover [...] are at higher risk of getting very sick.www.cdc.gov/coronavirus/2019-ncov/sium-quupq-iganehnhnfv/napeut-oa-tyrirz -risk.html Cover your mouth and nose with [...] available, clean your hands with a hand racecourse barrier attendant that contains at least 60% alcohol. Clean and disinfect ??? Clean AND disinfect frequently touched surfaces daily. This includes tables, doorknobs, light switches, countertops, handles, desks, phones, keyboards, toilets, faucets, and sinks. www.cdc.gov/coronavirus/2019-ncov/gngeozn-zwbuarv-daqz/wljajzaooava-hvty-upgx. html ??? If surfaces are dirty, clean them: Use detergent or soap and water prior to disinfection. ??? Then, use a household disinfectant. You can see a list of [facility]-registered household disinfectants here. cdc.gov/coronavirus 02/09/2020 This information is not intended to replace advice given to you by your health care provider. Make sure you discuss any questions you have with your health care provider. Document Revised: 02/17/2020 Document Reviewed: 12/16/2019 Elsevier Patient Education ?? 2020 [employer] COVID-19 COVID-19 is a respiratory infection [...] for serious illness. ??? Live in a shelter or long-term care facility. ??? Have cancer. [...] managed at home with rest, fluids, and ryqv-egs-hlxwbbc medicines. There are currently no prescription medicines [...] safe for you. General instructions ??? Take zdzq-qyv-hcdgthh and prescription medicines only as told by [...] are not available, use an alcohol-based hand racecourse barrier attendant. ??? Avoid touching your mouth, face, eyes, [...] water are not available, use alcohol-based hand racecourse barrier attendant. ??? Stay away from other members of [...] a weak immune system, live in a shelter, or have a chronic disease. ??? There [...] provider. Document Revised: 05/23/2020 Document Reviewed: 05/23/2020 [employer] Patient Education ?? 2020 [employer]. Emergency Awareness and Preventative Care STROKE is [...] Assistance with quitting is available by contacting 9-658-PKZD-NOW. This is a free resource providing counseling, [...] was given the opportunity to ask questions. Patient/Trains Dispatcher Supervisor Name: Patient/Trains Dispatcher Supervisor Signature: Relationship to Patient: Clinician/Hospital Trains Dispatcher Supervisor Signature: Please Provide a Telephone Number Where You Can Be Reached: Is it Permissible To Leave a Message? Date: documented in this encounter Plan of Treatment Not on file documented as of this encounter Visit Diagnoses Not on filedocumented in this encounter
--- OUTSIDE RECORDS SUMMARY | 2025-04-01 10:46 | XMS_ITS | Encounter Summary ---
Author Organization [email or web address] ([place], [place], [place], [place]) Address [address] [place] [address] Care Team Providers Care Disaster Or Damage Control Specialist Name Role Phone Unavailable Primary Care Provider Unavailabl e Encounter Details Date Type Department Care Team (Late st Contact Info) Description 01/24/2021 Transcribed Document [facility] [place] [facility] [place] [facility] [place] [address] ProviderKim MD [address] [place] [id number] Social History Tobacco Use Types Packs/Day Years Used Date Smoking Tobacco: Never Assessed Comments Unknown Sex and Gender Information Value Date Recorded Sex Assigned at Not on file Legal Sex Female 5:43 PM CDT Gender Identity Not on file Sexual Orientation Not on file documented as of this encounter Miscellaneous Notes * Cerner Conversion Note - Kim ProviderMD - 01/24/2021 9:53 PM CDT ED Discharge Entered On: 01/24/2021 21:54 EDT Performed On: 01/24/2021 21:53 EDT by Zaki Kwong RN-PATIENT CARE BEDSIDE NON-EXEMPT Discharge Process Patient Disposition : Discharge Teaching Evaluation : Verbalizes understanding IV Discontinued : Yes Zaki Kwong RN-PATIENT CARE BEDSIDE NON-EXEMPT - 01/24/2021 21:53 EDT ED Discharge Discharge To : Home with ambulatory/outpatient follow-up Mode Of Departure : Ambulatory Discharge Instructions Reviewed With, Opportunity For Questions Given : Patient Zaki Kwong RN-PATIENT CARE BEDSIDE NON-EXEMPT - 01/24/2021 21:53 EDT documented in this encounter Plan of Treatment Not on file documented as of this encounter Visit Diagnoses Not on filedocumented in this encounter
--- OUTSIDE RECORDS SUMMARY | 2025-04-01 10:46 | XMS_ITS | Encounter Summary ---
Author Organization [employer] ([place], [place], [place], [place]) Address [address] [place] [address] Care Team Providers Care Washing Machine Loader Name Role Phone Unavailable Primary Care Provider Unavailabl e Encounter Details Date Type Department Care Team (Late st Contact Info) Description 12/30/2020 Transcribed Document [facility] [place] Family Medicine [facility] [place] [address] ProviderKim MD [address] [place] [id number] Social History Tobacco Use Types Packs/Day Years Used Date Smoking Tobacco: Never Assessed Comments Unknown Sex and Gender Information Value Date Recorded Sex Assigned at Not on file Legal Sex Female 5:43 PM CDT Gender Identity Not on file Sexual Orientation Not on file documented as of this encounter Miscellaneous Notes * Cerner Conversion Note - Historical ProviderMD - 12/30/2020 2:54 PM CDT Electronically signed by [facility] Conversion Property Condition Assessor Jose Luis at 09/23/2022 5:18 PM CDT documented in this encounter Plan of Treatment Not on file documented as of this encounter Visit Diagnoses Not on filedocumented in this encounter
--- OUTSIDE RECORDS SUMMARY | 2025-04-01 10:46 | XMS_ITS | Clinical Summary ---
Author Organization [facility] Address [address] [place] [address] Care Team Providers Care Reed Press Feeder Name Role Phone Jazmyn Mattson APRN Primary Care Provider [phone] Allergies Active Allergy Reactions Criticality Noted Date Comments Green Leonard Peppers Other - please document in the comment field,Diarrhea,Naus ea High 12/22/2024 Nitrofurantoin Macrocrystal Hives,Unknown - Patient states they do not know rxn details Medium 10/25/2019 Paroxetine Other - please document in the comment field Low 08/07/2023 Other Reaction(s): Not available Sulfa Drugs Hives High 10/25/2019 Tree Nuts Itching,Diarrhea,Na usea High 12/22/2024 tree nut Medications ondansetron ODT (Zofran-ODT) 4 MG disintegrating tablet DISSOLVE 1 TABLET IN MOUTH THREE TIMES DAILY NEEDED FOR 30 DAYS Active hydrOXYzine HCl (Atarax) 25 MG tablet Take 1 tablet by mouth every 6 hours as needed for anxiety. 09/18/19 25 Active lamoTRIgine (LaMICtal) 150 MG tablet Take 1 tablet by mouth daily. 10/27/19 25 Active Creon 96888-791537 units capsule delayed-release particles capsule Take 3 capsules by mouth 3 times a day with meals. 10/27/19 25 Active traZODone (Desyrel) 50 MG tablet Take 1 tablet by mouth nightly. 07/20/19 25 Active Levomefolate Glucosamine (METHYLFOLATE PO) Take 30 mg by mouth daily. Active omeprazole (PriLOSEC) [address] capsule Take 1 capsule by mouth daily. 02/11/20 Active metoprolol succinate XL (Toprol-XL) 50 MG 24 hr tablet Take 1 tablet by mouth daily. Do not crush or chew. 30 tablet 11 03/17/20 25 026 Active hydrOXYzine pamoate (Vistaril) 25 MG capsule Take 1 capsule (25 mg) by mouth 3 (three) times a day if needed for itching. 025 Discontinued omeprazole (PriLOSEC) [address] capsule Take 1 capsule (20 mg) by mouth 1 (one) time each day. 07/19/19 025 Discontinued buPROPion XL (Wellbutrin XL) 300 MG 24 hr tablet Take 1 tablet by mouth every morning. DO NOT CHEW CRUSH OR SPLIT 12/01/19 025 Discontinued metoprolol tartrate (Lopressor) 50 MG tabletIndications: Tachycardia Take 1 tablet by mouth daily. 90 tablet 01/20/20 025 Discontinued Active Problems Problem Noted Date Diagnosed Date Nipple discharge 01/13/2025 Tachycardia, unspecified 12/22/2024 Puncture wound without forei gn body of unspecified breast, initial encounter 12/17/2024 Sleep disorder, unspecified 11/30/2024 Menometrorrhagia 11/19/2024 Pelvic floor dysfunction in female 11/19/2024 Multiple premature ventricular complexes 025 Right lower quadrant pain 07/29/2024 Urgency of urination 07/29/2024 Dizziness 07/14/2024 Hyperlipidemia 07/14/2024 Intermittent palpitations 07/14/2024 Obstructive sleep apnea syndrome 07/14/2024 Bipolar I disorder 07/06/2024 Kidney stone 07/05/2024 Alternating constipation and diarrhea 07/05/2024 Insulin resistance 07/05/2024 Upper abdominal pain 04/02/2024 Biliary colic 08/13/2023 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 Exocrine pancreatic insufficiency 07/25/2023 Clostridioides difficile infection 06/23/2023 Anxiety 06/20/2023 Familial chronic pancreatitis 06/20/2023 Gastroesophageal reflux disease 10/21/2022 Multiple joint pain 10/21/2022 Fatty liver 10/21/2022 Obesity, morbid, BMI 50 or higher 12/22/2021 Bradycardia 01/26/2021 Chest pressure 01/26/2021 Prediabetes 10/25/2019 Asthma PCOS (polycystic ovarian syndrome) Cholelithiasis Resolved Problems Problem Noted Date Diagnosed Date Resolved Date Fatigue 10/21/2022 02/27/2025 COVID-19 01/26/2021 02/27/2025 Confusion 01/26/2021 03/17/2025 Shortness of breath on exertion 01/26/2021 02/27/2025 Chest pain 01/26/2021 02/27/2025 Encounters Date Type Department Care Team Description 03/29/2025 Travel 03/17/2025 3:20 PM EDT Office Visit [facility] [address] , [address] [place] [address] Destini Ojeda MD Bradycardia (Primary Dx); PVC (premature ventricular contraction); Class 3 obesity 03/17/2025 Travel 03/16/2025 Telephone [facility] [address] , [address] [place] [address] RN 01/19/2025 Refill [facility] [address] [place] [address] Marcia Thacker APRN, LISA Tachycardia 01/17/2025 Refill [facility] [address] [place] [address] Marcia Thacker APRN, DNP Tachycardia from Last 3 Months Immunizations Immunization Administration Dates Next Due DTaP 03/13/1998, 6,1994,1994,1994 Hep B, Adolescent or Pediatric 5,1994,1994,1993 Hib (PRP-OMP) 09/08/1995, 5,1994,1993 IPV 03/13/1998, 5,1994,1993 Influenza, Unspecified 04/12/2008 Influenza, injectable, quadr ivalent, preservative free 03/31/2020 Influenza, seasonal, intrade rmal, preservative free 05/09/2017 MMR 03/13/1998,05/22/1995 Tdap 06/20/2021 Varicella 05/22/1995 Family History Medical History Relation Name Comments Hernia Father Hypertension, benign Father Pancreatic cancer Maternal Grandfather Prostate cancer Maternal Grandfather Diabetes Maternal Grandmother Diabetes Mother Hyperlipidemia Mother Hypertension, benign Mother Hypothyroidism Mother Colon cancer Other No Known Problems Paternal Grandfather Diabetes Paternal Grandmother Relation Name Status Comments Father Maternal Grandfather Maternal Grandmother Mother Other Paternal Grandfather Paternal Grandmother Social History Tobacco Use Types Packs/Day Years Used Date Smoking Tobacco: Former Cigarettes Q uit: 03/2022 Passive Smoke Exposure: Never Smokeless Tobacco: Never Tobacco Cessation:Counseling Given: Not Answered Alcohol Use Standard Drinks/Week Comments Not Currently [...] week 07/06/2024 How often do you attend [facility] or yarsanism services? More than 4 times per year 07/06/2024 Do you belong to any clubs o r organizations such as oriental orthodox groups, unions, fraternal or athletic groups, or [...] Recorded Patient Health Questionnaire-2 Score 0 12/22/2024 [facility] - Occupational Stress Questionnaire Answer Date [...] any time in the past 12 m [facility], were you homeless or living in a chcf (including now)? No 12/22/2024 Utilities Answer Date Recorded In the past 12 months has e [email or web address], gas, oil, or water [employer] threatened to shut off services in your home? No 12/22/2024 PHQ-2A Answer Date Recorded Patient Health Questionnaire-2 Score 0 10/21/2022 Comments No Sex and Gender Information Value Date Recorded Sex Assigned at Female 12/24/2022 9:54 PM EDT Legal Sex Female 8:45 PM EDT Gender Identity Female 12/24/2022 9:54 PM EDT Sexual Orientation Straight 12/24/2022 9: 54 PM EDT Last Filed Vital Signs Vital Sign Reading Time Taken Comments Blood Pressure 115/80 03/17/2025 3:46 PM EDT Patient is shaking and dizzy. Hands got red. She states sometimes they swell. Pulse 104 03/17/2025 3:46 PM EDT Temperature 36.9 C (98.5 F) 12/22/2024 1:17 PM EDT Respiratory Rate 16 12/22/2024 1:17 PM EDT Oxygen Saturation 97% 03/17/2025 3:4 6 PM EDT Inhaled Oxygen Concentration - - Weight 104 kg (228 lb 9.9 oz) 03/17/2025 3:23 PM EDT Height 154.9 cm (5' 1 ) 03/17/2025 3:23 PM EDT Body Mass Index 43.2 03/17/2025 3:23 PM EDT Plan of Treatment Upcoming Encounters Date Type Department Care Team (Late st Contact Info) Description 04/05/2025 9:30 AM EDT Appointment Medical Office Building Cardiac Diagnostic Testing Medical Office Building Echo Lab [address], [address] [place] [address] 06/20/2025 9:40 AM EST Office Visit [facility] [address], [address] [place] [address] Destini Ojeda MD [address] [place] [address] 10/07/2025 8:40 AM EDT Office Visit [facility] [address] [place] [address] Winter Pineda MD [address] [place] [address] Health Maintenance Due Date Last Done Comments [facility]-Infant/Child/Adol SDOH Screenings 1994 [facility]-Hepatitis A Vaccines (1 of 2 - Risk 2-dose series) 2013 [facility]-Pneumococcal Vaccine: Pediatrics (0 to 5 Years) and At-Risk Patients (6 to 49 Years) (1 of 2 - PCV) 2013 [facility]-Pap Smear 2015 03/19/2011, 02/08, 04/13/2008 HPV Vaccines (1 - 3-dose SCDM series) 2021 [facility]-Cervical Cancer Screening 02/08/2024 [facility]-HPV/Cotest 02/08/2024 03/19/2011, 02/08, 04/13/2008 [id number] Vaccine ( season) 2025 [facility]-Influenza Vaccine (#1) 02/07/202503/31, 05/09/2017, 04/12/2008 [facility]- SDOH Screenings 06/24/2025 [facility]-Adult SDOH Screenings 06/24/2025 12/22/2024 [facility]-Diabetes: Hemoglobin A1C 07/06/2025 07/06/2024, 10/21/2022, 01/26/2021, Additional history exists [facility]-Depression Screening 12/22/2025 12/22/2024, 12/07 [facility]-DTaP,Tdap,and Td Vaccines (7 - Td or Tdap) 06/20/2031 06/20/2021, 03/13/1998, 09/08/1995, Additional history exists [facility]-Zoster Vaccines (1 of 2) 02/08/2044 05/22/1995 [facility]-Hepatitis B Vaccines Completed 995, 1994, 1994, Additional history exists [facility]-Varicella Vaccines Discontinued 05/22/1995 [facility]-HIB Vaccines Completed 09/08/1995, , 1994, Additional history exists [facility]-IPV Vaccines Completed 03/13/1998, , 1994, Additional history exists [facility]-HIV Screening Completed 07/06/2024, , 01/26/2021 [facility]-Hepatitis C Screening Completed 2024, 03/31/2023, 03/31/2023, Additional history exists [facility]-Obesity Intervention Completed 025, 12/17/2024, 07/06/2024, Additional history exists [facility]-Rotavirus Vaccines Aged Out No lo nger eligible based on patient's age to complete this topic Procedures Procedure Name Priority Date/Time Associated Diagnosis Comments BASIC METABOLIC PANEL, PLASMA Routine 03/17/2025 4:38 PM EDT PVC (premature ventricular contraction) ECG ADULT Routine 03/17/2025 3:38 PM EDT Bradycardia HEPATITIS C ANTIBODY W/REFLEX TO HCV QUANT PCR Routine 07/06/2024 11:48 AM EST Need for hepatitis C screening test HIV 1/2 ANTIBODY/ANTIGEN SCREEN WITH REFLEX TO HIV I/II DIFFERENTIATION Routine 07/06/2024 11:48 AM EST Screening for human immunodeficiency virus HEMOGLOBIN A1C Routine 07/06/2024 11:48 AM EST Encounter to establish care Dizziness PVC's (premature ventricular contractions) CYTO DATA CONVERSION Routine 03/19/2011 12:00 AM EDT from Last 3 Months or Most Recently Relevant to Health Maintenance Results * (ABNORMAL) Basic metabolic panel (03/17/2025 4:38 PM EDT) Glucose, Plasma 106(H) 74 - 99 mg/dL 03/17/2025 5:48 PM EDT [facility] BUN, Plasma 9 7 - 21 mg/dL 03/17/2025 5:48 PM EDT [facility] Creatinine, Plasma 0.82 0.60 - 1.10 mg/dL 03/17/2025 5:48 PM EDT [facility] BUN/Creatinine Ratio 11 03/17/2025 5:48 PM EDT [facility] Sodium, Plasma 140 136 - 145 mmol/L 03/17/2025 5:48 PM EDT [facility] Potassium, Plasma 4.0 3.6 - 4.9 mmol/L 03/17/2025 5:48 PM EDT [facility] Chloride, Plasma 106 97 - 107 mmol/L 03/17/2025 5:48 PM EDT [facility] CO2, Plasma 23 22 - 29 mmol/L 03/17/2025 5:48 PM EDT [facility] Anion Gap 11 6 - 16 mmol/L 03/17/2025 5:48 PM EDT [facility] Total Calcium, Plasma 9.0 8.9 - 10.2 mg/dL 03/17/2025 5:48 PM EDT [facility] eGFRcr 98.2 mL/min/1.7 3m*2 03/17/2025 5:48 PM EDT [facility] Comment:Reported eGFRcr in m L/min/1.73m2 is based the CKD-EPI 2020 equation that does not use a race coefficient. Blood Venous blood specimen / Unknown Venipuncture / Unknown 03/17/2025 4:38 PM EDT 03/17/2025 4:39 PM EDT us Destini Ojeda MD LAB BLOOD ORDERABLES Final Re sult [facility] [address] [place] [address] * ECG Adult (Now - Performed in your clinic) (03/17/2025 3:38 PM EDT) EKG DIAGNOSIS CLASS Abnormal MUSE ECG Ventricular Rate 73 BPM MUSE ECG Atrial Rate 73 BPM MUSE ECG TX Interval 146 ms MUSE ECG QRSD Interval 82 ms MUSE ECG QT Interval 372 ms MUSE ECG QTC Interval 409 ms MUSE ECG P [place] 19 degrees MUSE ECG R [place] 8 degrees MUSE ECG T Wave [place] 41 degrees MUSE ECG Diagnosis Sinus rhythm with sinus arrhythmia with occasional premature ventricular complexes MUSE ECG Diagnosis Nonspecific T wave abnormality MUSE ECG Diagnosis Abnormal ECG MUSE ECG Diagnosis MUSE ECG Diagnosis Confirmed by Joel Cullen ([id number]) on 03/17/2025 4:21:39 PM MUSE ECG 03/17/2025 3:38 PM EDT 03/17/2025 4:21 PM EDT Destini Ojeda MD ECG ORDERABLES Final Result Performing Organization Address City/[facility]/ZIP Co de Phone Number MUSE ECG * HIV 1 & 2 Antibody/Antigen Screen (07/06/2024 11:48 AM EST) Pathologist [facility] HIV 1 & 2 Antibody/Antigen Screen Non Reactive Non Reactive 07/06/2024 7:15 PM EST [facility] Comment:Screening for HIV 1 & 2 antibodies, and P24 antigen is NONREACTIVE. No confirmatory testing is required. Blood Venous blood specimen / Unknown Venipuncture / Unknown 07/06/2024 11:48 AM EST 07/06/2024 11:48 AM EST Jazmyn Mattson APRN LAB BLOOD ORDERABLES Final Result Performing Organization Address [facility] Co de Phone Number [facility] [address] [phone] * Hepatitis C Antibody w/Reflex to HCV Quant PCR (07/06/2024 11:48 AM EST) Hepatitis C Antibody Negative Negative 07/06/2024 7:10 PM EST [facility] Blood Venous blood specimen / Unknown Venipuncture / Unknown 07/06/2024 11:48 AM EST 07/06/2024 11:48 AM EST Jazmyn Mattson APRN LAB BLOOD ORDERABLES Final Result Performing Organization Address City/[facility]/ZIP Co de Phone Number [facility] [address] [place] [address] * Hemoglobin A1c (07/06/2024 11:48 AM EST) Hemoglobin A1c 4.5 <5.7 % 07/06/2024 7:42 PM EST [facility] Blood Venous blood specimen / Unknown Venipuncture / Unknown 07/06/2024 11:48 AM EST 07/06/2024 11:48 AM EST Narrative [facility] - 07/06/2024 7:42 PM EST HA1C Interpretive Data: Diagnosis of Diabetes: Diabetic > or = 6.5% Pre-diabetic 5.7 to 6.4% Non-diabetic < or = 5.6% Glycemic Targets for Type I and Type II Diabetics: Non- Adults <7.0% Adults <6.0% Children and Adolescents <7.5% Source: [place] [employer]. Standards of medical care in diabetes,2017. Diabetes Care.2017:40 (suppl 1):S1-S135. HbA1c assay performed by an ion-exchange chromatography method that is certified traceable to the DCCT. us Jazmyn Mattson MENTAL RETARDATION AIDE LAB BLOOD ORDERABLES Final Result [facility] [address] [place] [address] * Cytology (03/19/2011 12:00 AM EDT) 03/19/2011 03/20/2011 11: 46 AM EDT Narrative [facility] - 03/21/2011 3:50 PM EDT [facility] MR #: [id number] [facility] [address] [place] [place] [address] 1995 (Age: 16) FW Collect Date: 03/19/2011 00:00 Receipt Date: 03/20/2011 11:46 Page 1 DEPARTMENT OF PATHOLOGY AND LABORATORY MEDICINE CYTOPATHOLOGY REPORT Email: [email or web address] [email or web address] ATTENDING MD/Practitioner: Orin Cruz Service: [facility] Location: [facility] Reported: 03/21/2011 15:50 Collected: 03/19/2011 00:00 INTERPRETATION A. THIN PREP (CERVICAL/VAGINAL): NEGATIVE FOR INTRAEPITHELIAL LESION OR MALIGNANCY. INFLAMMATORY CHANGE. SATISFACTORY FOR EVALUATION; ENDOCERVICAL/ TRANSFORMATION ZONE COMPONENT PRESENT. Slide scanned and imaged by [employer] ThinPrep Imaging System with manual review of all selected yoon. Electronically Signed Out By [facility] (ASCP) [facility] (ASCP) Cervical cytology is a screening test primarily for squamous cancers and precursors and has associated false negative and positive results. New technologies such as liquid based sampling may decrease but will not eliminate all false negative results. Regular screening and follow-up of unexplained clinical signs and symptoms are recommended to minimize false negative results. Please see the ASCCP website (www.asccp.org) for followup recommendations. If HPV testing was requested, correlation with the results is suggested (please call Microbiology at [phone] for results). CLINICAL INFORMATION: Menstrual History: Cyclic Date of Last Menstrual Period: 02/17 Contraceptive History: control pills Other Clinical Conditions: If ASCUS and > 24 years of age, HPV/DNA testing requested. SPECIMEN DESCRIPTION: A: THIN PREP (CERVICAL/VAGINAL) THIN PREP PROCESS CELLULAR ENHANCEMENT ICD: F: A; RT IMAGE [id number] SNOMED CODES: A; [id number] In cases where a pathologist has signed out the report, the service has been rendered in part by a resident. The signing pathologist has performed and is responsible for the reported pathologic evaluation. Alicja Leach APRN LAB PATHOLOGY ORDERABLES F inal Result [facility] from Last 3 Months or Most Recently Relevant to Health Maintenance Additional Health Concerns Infection Onset Date Last Indicated C. difficile 07/05/2024 07/05/2024 Insurance [facility] MED[facility] Advance Directives * Full Code (Latest Code Status on File) Date Activated Date Inactivated Comments 01/26/2021 8:53 PM 01/28/2021 8:21 PM Question Answer Comments Patient has decision-making capacity? Yes Care Teams Reed Press Feeder Relationship Specialty Start Date End Date Jazmyn Mattson, HANNAH [address] [place] [phone] PCP - General Family Medicine 07/06/24
--- OUTSIDE RECORDS SUMMARY | 2025-04-01 10:46 | XMS_ITS | Referral Summary ---
Author Organization [employer] ([place], [place], [place], [place]) Address [address] [place] [address] Care Team Providers Care Business Process Architect Name Role Phone Unavailable Primary Care Provider Unavailabl e Social History Tobacco Use Types Packs/Day Years Used Date Smoking Tobacco: Never Assessed Comments Unknown Sex and Gender Information Value Date Recorded Sex Assigned at Not on file Legal Sex Female 5:43 PM CDT Gender Identity Not on file Sexual Orientation Not on file Plan of Treatment Not on file Insurance MEDICAID OF [place] [facility]
--- OUTSIDE RECORDS SUMMARY | 2025-04-01 10:46 | XMS_ITS | Encounter Summary ---
Author Organization [employer] ([place], [place], [place], [place]) Address [address] [place] [address] Care Team Providers Care Youth Accommodation Support Worker Name Role Phone Unavailable Primary Care Provider Unavailabl e Encounter Details Date Type Department Care Team (Late st Contact Info) Description 12/30/2020 Transcribed Document [facility] [place] [address] [place] [address] ProviderKim MD [facility] [place], [place] [address] Social History Tobacco Use Types Packs/Day Years Used Date Smoking Tobacco: Never Assessed Comments Unknown Sex and Gender Information Value Date Recorded Sex Assigned at Not on file Legal Sex Female 5:43 PM CDT Gender Identity Not on file Sexual Orientation Not on file documented as of this encounter Miscellaneous Notes * [employer] Conversion Note - Kim ProviderMD - 12/30/2020 11:29 AM CDT Pain Assessment Entered On: 12/30/2020 12:37 EDT Performed On: 12/30/2020 12:37 EDT by Anabell Howard RN-PATIENT CARE BEDSIDE NON-EXEMPT Intervention Information: ketorolac Performed by Anabell Howard RN-PATIENT CARE BEDSIDE NON-EXEMPT on 12/30/2020 11:46:00 EDT ketorolac,30mg IV Push,Right Antecubit Simona Pain Assessment Pain Assessment : Follow-up assessment Pain Scale Used : 0-10 Scale Anabell Howard RN-PATIENT CARE BEDSIDE NON-EXEMPT - 12/30/2020 12:37 EDT Pain Scale Intensity : 4 Anabell Howard RN-PATIENT CARE BEDSIDE NON-EXEMPT - 12/30/2020 12:37 EDT Image 4 - Images currently included in the form version of this document have not been included in the text rendition version of the form. documented in this encounter Plan of Treatment Not on file documented as of this encounter Visit Diagnoses Not on filedocumented in this encounter
--- OUTSIDE RECORDS SUMMARY | 2025-04-01 10:46 | XMS_ITS | Encounter Summary ---
Author Organization [employer] ([place], [place], [place], [place]) Address [address] [place] [address] Care Team Providers Care Seasonal Clerk Name Role Phone Unavailable Primary Care Provider Unavailabl e Encounter Details Date Type Department Care Team (Late st Contact Info) Description 01/25/2021 Transcribed Document [facility] [place] [facility] [place] [facility] [address] ProviderKim MD [address] [place] [id number] Social History Tobacco Use Types Packs/Day Years Used Date Smoking Tobacco: Never Assessed Comments Unknown Sex and Gender Information Value Date Recorded Sex Assigned at Not on file Legal Sex Female 5:43 PM CDT Gender Identity Not on file Sexual Orientation Not on file documented as of this encounter Miscellaneous Notes * [employer]ner Conversion Note - Historical ProviderMD - 01/25/2021 10:56 AM CDT CR Chest 1 Vw Portable Ordered: 01/24/2021 Modified Reason for Exam: Cough 01/25/2021 08:51 01/25/2021 10:56 (BENNIE PEREZ PA-EMR) Reviewed by Provider, No further action required, Patient Contacted 01/25/2021 10:44 (BENNIE PEREZ PA-EMR) Reviewed by Provider, Called and Left Message no answer on her number, called mom number and asked if she will have patient call me and gave my number. Mom agreed Electronically signed by Eligio [facility] Conversion Infantry Senior Sergeant Cerner at 09/23/2022 5:03 PM CDT documented in this encounter Plan of Treatment Not on file documented as of this encounter Visit Diagnoses Not on filedocumented in this encounter
--- OUTSIDE RECORDS SUMMARY | 2025-04-01 10:46 | XMS_ITS | Encounter Summary ---
Author Organization [employer] ([place], [place], [place], [place]) Address [address] [place] [address] Care Team Providers Care Snow Ranger Name Role Phone Unavailable Primary Care Provider Unavailabl e Encounter Details Date Type Department Care Team (Late st Contact Info) Description 01/10/2021 Transcribed Document [facility] [place] Medicine [address] [place] [address] ProviderKim MD [address] [place] [address] Social History Tobacco Use Types Packs/Day Years Used Date Smoking Tobacco: Never Assessed Comments Unknown Sex and Gender Information Value Date Recorded Sex Assigned at Not on file Legal Sex Female 5:43 PM CDT Gender Identity Not on file Sexual Orientation Not on file documented as of this encounter Miscellaneous Notes * [employer]ner Conversion Note - Historical ProviderMD - 01/10/2021 8:18 PM CDT Broset Violence Assessment Entered On: 01/10/2021 22:43 EDT Performed On: 01/10/2021 22:43 EDT by Lizette Fuentes Rn Broset Violence Assessment Broset Violence Checklist of Symptoms : None Broset Violence Symptoms Subtotal : 0 Broset Violence Symptoms Indicator : Low risk (0) Lizette Fuentes Rn - 01/10/2021 22:43 EDT documented in this encounter Plan of Treatment Not on file documented as of this encounter Visit Diagnoses Not on filedocumented in this encounter
--- OUTSIDE RECORDS SUMMARY | 2025-04-01 10:46 | XMS_ITS | Encounter Summary ---
Author Organization [employer] ([place], [place], [place], [place]) Address [address] [place] [address] Care Team Providers Care Coronary Clinical Specialist Name Role Phone Unavailable Primary Care Provider Unavailabl e Encounter Details Date Type Department Care Team (Late st Contact Info) Description 01/21/2021 Transcribed Document [facility] [address] ProviderKim MD [address] [place] [address] Social History Tobacco Use Types Packs/Day Years Used Date Smoking Tobacco: Never Assessed Comments Unknown Sex and Gender Information Value Date Recorded Sex Assigned at Not on file Legal Sex Female 5:43 PM CDT Gender Identity Not on file Sexual Orientation Not on file documented as of this encounter Miscellaneous Notes * Cerner Conversion Note - Kim ProviderMD - 01/21/2021 7:00 PM CD[place] [address] ANIBAL CAM :1995 Visit Time:01/21/2021 [...] Within 2 to 3 days Where: [address] [place] [address]- [employer] (1) Allergies Macrobid (Nausea present) sulfa drugs (Rash) Immunizations This Visit No Immunizations Found Medications What How Much When Instructions Next Dose ondansetron (Zofran ODT 8 mg oral tablet, disintegrating) 1 Tablet(s) Oral Three Times A Day Duration: 3 Day(s) Pickup at [facility] multivitamin, ( Multivitamins) Oral Every Day tamsulosin (Flomax 0.4 mg oral capsule) 1 Capsule(s) Oral Every Day Duration: 7 Day(s) Pharmacy Information [facility]: [address] [place], [place] [id number] [phone] The home medications listed are only as [...] range between ( 0.0 and 7.0 ) [place] #: 0.18 K/uL -- Normal range between ( 0.16 and 1.00 ) [place] #: 0.00 x10(3)/uL -- Normal range between ( 0.00 and 0.80 ) [place] %: 7.7 % -- Normal range between [...] ) Urine Bilirubin Dipstick: Negative Urine Specific [place]: 1.019 -- Normal range between ( 1.005 [...] areas. Get rest and stay hydrated. Take lytf-pas-bxzskhx medicines, such as acetaminophen, to help you [...] provider. Document Revised: 05/11/2020 Document Reviewed: 05/11/2020 [employer] [place] Patient Education ?? 2020 [employer] COVID-19: Quarantine vs. Isolation QUARANTINE keeps [...] provider. Document Revised: 05/11/2020 Document Reviewed: 05/11/2020 [employer] Patient Education ?? 2020 [employer] COVID-19: How to Protect Yourself and Others Know how it spreads ??? There is currently no vaccine to prevent coronavirus disease 2019 (COVID-19). ??? The best way to prevent illness is to avoid being exposed to this virus. ??? The virus is thought to spread mainly from lscuxs-mx-wxwwif. ? Between people who are in close [...] are not readily available, use a hand software lead that contains at least 60% alcohol. Cover [...] are at higher risk of getting very sick.www.cdc.gov/coronavirus/2019-ncov/xqni-zowek-nrioycvcmie/aohbwl-wb-wjzrea -risk.html Cover your mouth and nose with [...] available, clean your hands with a hand software lead that contains at least 60% alcohol. Clean and disinfect ??? Clean AND disinfect frequently touched surfaces daily. This includes tables, doorknobs, light switches, countertops, handles, desks, phones, keyboards, toilets, faucets, and sinks. www.cdc.gov/coronavirus/2019-ncov/etlllmq-qvtezvg-bgej/mknrizgjwgis-xpqf-cezx. html ??? If surfaces are dirty, clean [...] Reviewed: 12/16/2019 Elsevier Patient Education ?? 2020 [employer] COVID-19 Vaccine Information The COVID-19 vaccines [...] water are not available, use alcohol-based hand software lead. ??? Avoid going out in public. Follow [...] https://www.cdc.gov/coronavirus/2019-ncov/vaccines/index.html ??? U.S. Food and Drug Administration: https://www.fda.gov/zfidknrig-ixaeikoricch-qas-response/ckp-wcezt-nzfeymjpln-a hq-whxaet-kryiiyfnn/scqfdpgkl-tpl-eciaxwwhqjqrs#gjdxm40dwav ??? World Health Organization: https://www.who.int/news-room/q-a-detail/coronavirus-disease-(covid-19)-vaccin es Summary [...] provider. Document Revised: 06/13/2020 Document Reviewed: 06/13/2020 [employer] Patient Education ?? 2020 [employer]. COVID-19 Frequently Asked Questions COVID-19 (coronavirus disease) [...] the coronavirus come from? In May 2019, [place] told the World Health Organization (WHO) about several cases of lung disease (human respiratory illness). These cases were linked to an open seafood and livestock market in the city of [facility]. The link to the seafood and livestock [...] and virus naming ??? World Health Organization: www.who.int/emergencies/diseases/lyubs-blhaavvihaa-5549/technical-guidance Who is at risk for complications from [...] water are not available, use alcohol-based hand software lead. ??? Avoid touching your face, mouth, nose, [...] (CDC): www.cdc.gov/coronavirus/2019-ncov/travelers ??? World Health Organization (WHO): www.who.int/emergencies/diseases/ckuen-zwxgsnjhffq-2060/travel-advice What should I do if I am sick? General instructions to stop the spread of infection ??? Wash your hands often with soap and water for at least 20 seconds. If soap and water are not available, use alcohol-based hand software lead. ??? Cough or sneeze into a tissue, [...] in hot, soapy water or use a area operations director. Air-dry your dishes. ??? Wash laundry in [...] Organization (WHO) ??? Information and news updates: www.who.int/emergencies/diseases/pagpn-lwyvrqodgac-9459 ??? Coronavirus health topic: www.who.int/health-topics/coronavirus ??? Questions and answers on COVID-19: www.who.int/news-room/q-a-detail/h-l-gehqgwkvjqmzc ??? Global tracker: [employer] [place] Academy of Pediatrics (AAP) ??? Information for families: www.healthychildren.org/Dominican/health-issues/conditions/chest-lungs/Pages/201 1-Dppnu-Lpcnddmhdym.aspx The coronavirus situation is changing rapidly. Check [...] provider. Document Revised: 05/23/2020 Document Reviewed: 05/23/2020 [employer] Patient Education ?? 2020 [employer]. COVID-19 COVID-19 is a respiratory infection that [...] for serious illness. ??? Live in a alf or long-term care facility. ??? Have cancer. [...] managed at home with rest, fluids, and mngq-sci-jwbkxjf medicines. There are currently no prescription medicines [...] safe for you. General instructions ??? Take aoub-utz-mkwlyir and prescription medicines only as told by [...] are not available, use an alcohol-based hand software lead. ??? Avoid touching your mouth, face, eyes, [...] water are not available, use alcohol-based hand software lead. ??? Stay away from other members of [...] a weak immune system, live in a alf, or have a chronic disease. ??? There [...] provider. Document Revised: 05/23/2020 Document Reviewed: 05/23/2020 [employer] Patient Education ?? 2020 [employer]. Emergency Awareness and Preventative Care STROKE is [...] Assistance with quitting is available by contacting 1-344-VDMW-NOW. This is a free resource providing counseling, [...] was given the opportunity to ask questions. Patient/Tab Machine Operator Name: Patient/Tab Machine Operator Signature: Relationship to Patient: Clinician/Hospital Tab Machine Operator Signature: Please Provide a Telephone Number Where You Can Be Reached: Is it Permissible To Leave a Message? Date: documented in this encounter Plan of Treatment Not on file documented as of this encounter Visit Diagnoses Not on filedocumented in this encounter
--- OUTSIDE RECORDS SUMMARY | 2025-04-01 10:46 | XMS_ITS | Encounter Summary ---
Author Organization [employer] ([place], [place], [place], [place]) Address [address] [place] [address] Care Team Providers Care Certified Pest Control Technician Name Role Phone Unavailable Primary Care Provider Unavailabl e Encounter Details Date Type Department Care Team (Late st Contact Info) Description 01/10/[address] [facility] [place] Replaced by [facility] [place] [address] ProviderKim MD [facility] [place], [place] [id number] Social History Tobacco Use Types Packs/Day Years Used Date Smoking Tobacco: Never Assessed Comments Unknown Sex and Gender Information Value Date Recorded Sex Assigned at Not on file Legal Sex Female 5:43 PM CDT Gender Identity Not on file Sexual Orientation Not on file documented as of this encounter Miscellaneous Notes * Cerner Conversion Note - Historical ProviderMD - 01/10/2021 8:18 PM CDT [place] Suicide Severity Rating Scale (C-SSRS) Entered On: 01/10/2021 22:43 EDT Performed On: 01/10/2021 22:43 EDT by Lizette Fuentes Rn [place] Suicide Severity Rating Scale (C-SSRS) CSSRS Past Month Wish to be : No CSSRS Past Month Suicidal Thoughts : No CSSRS Lifetime Suicide Behavior : No Suicide Severity Rating Score : 0 Suicide Severity Rating : No Additional Care Required at this time Lizette Fuentes Rn - 01/10/2021 22:43 EDT Electronically signed by Elig[facility] Conversion Bill Checker Cerner at 09/23/2022 5:05 PM CDT documented in this encounter Plan of Treatment Not on file documented as of this encounter Visit Diagnoses Not on filedocumented in this encounter
--- OUTSIDE RECORDS SUMMARY | 2025-04-01 10:46 | XMS_ITS | Encounter Summary ---
Author Organization [employer] ([place], [place], [place], [place]) Address [address] [place] [address] Care Team Providers Care Countersinker Balance Screw Hole Name Role Phone Unavailable Primary Care Provider Unavailabl e Reason for Referral * Consultation (Routine) - Closed Specialty Diagnoses / Procedures Referred By Contac t Referred To Contact Behavioral Health Diagnoses Attention deficit hyperactivity disorder (ADHD), unspecified ADHD type Attention deficit Cat Madison APRN [address] [place] [address] Phone: tel: Maylin Elizondo, [place] [address] [place] [address] Phone: tel: fax: Referral ID Status Reason Start Date Expiration Date V isits Requested Visits Authorized [id number] Closed Specialty Services Required 06/17/2024 06/17/2025 1 1 Encounter Details Date Type Department Care Team (Late st Contact Info) Description 06/17/[address] [facility] Scheduling [address] [place] [id number] Cat Madison APRN [address] [place] [address] Attention deficit hyperactivity disorder (ADHD), unspecified ADHD type (Primary Dx); Attention deficit Social History Tobacco Use Types Packs/Day Years Used Date Smoking Tobacco: Never Assessed Comments Unknown Sex and Gender Information Value Date Recorded Sex Assigned at Not on file Legal Sex Female 5:43 PM CDT Gender Identity Not on file Sexual Orientation Not on file documented as of this encounter Plan of Treatment Scheduled Referrals Name Type Priority Associated Diagnoses Orde r Schedule Ambulatory referral to Behavioral Health Outpatient Referral Routine Attention deficit hyperactivity disorder (ADHD), unspecified ADHD type Attention deficit Expected: 06/17/2024, Expires: 06/17/2025 documented as of this encounter Visit Diagnoses Diagnosis Attention deficit hyperactivity disorder (ADHD), unspecified ADHD type- Primary Attention deficit documented in this encounter
--- OUTSIDE RECORDS SUMMARY | 2025-04-01 10:46 | XMS_ITS | Encounter Summary ---
Author Organization Healthcare Address [address] [place] [address] Care Team Providers Care Accounts Receivable Specialist Name Role Phone Jazmyn Mattson APRN Primary Care Provider [phone] Encounter Details Date Type Department Care Team (Latest Contact Info) Description 03/17/2025 Travel Social History Tobacco Use Types Packs/Day [...] week 07/06/2024 How often do you attend [facility] or protestant services? More than 4 times per year 07/06/2024 Do you belong to any clubs o r organizations such as mandaen groups, unions, fraternal or athletic groups, or [...] Recorded Patient Health Questionnaire-2 Score 0 12/22/2024 [facility] Occupational Stress [...] any time in the past 12 m [facility], were you homeless or living in a usp (including now)? No 12/22/2024 Utilities Answer Date [...] Medical Office Building Echo Lab [address], [address] [place] [address] 06/20/2025 9:40 AM EST Office Visit [facility] [place] [address], [address] [place] [address] Destini Ojeda MD [address] [place] [address] 10/07/2025 8:40 AM EDT Office Visit [facility] [address] [place] [address] Winter Pineda MD [address] [place] [address] documented as of this encounter Visit Diagnoses [...] documented as of this encounter Care Teams Accounts Receivable Specialist Relationship Specialty Start Date End Date Jazmyn Mattson APRN [address] [place] [address] PCP - General Family Medicine 07/06/24 documented as of this encounter
--- OUTSIDE RECORDS SUMMARY | 2025-04-01 10:47 | XMS_ITS | Clinical Summary ---
Author Organization [facility] Address [address] [place] [address] Care Team Providers Care Valuation Manager Name Role Phone Unknown, Attending Provider Primary Care Provide r Unavailable Source Comments This information has been disclosed to you from confidential records protectedfrom disclosure by state law. You shall make no further disclosure of thisinformation without the specific, written, and informed release of theindividual to whom it pertains, or as otherwise permitted by law. A generalauthorization for the release of medical or other information is not sufficientfor the purposes of therelease of HIV test results or diagnoses. [id number] Allergies Active Allergy Reactions Criticality Noted Date Comments Nitrofurantoin Hives Medium 10/25/2019 Nitrofurantoin Macrocrystal Hives,Nausea And Vomiting Medium 10/25/2019 Other Reaction(s): Unknown - Patient states they do not know rxn details Nitrofurantoin Monohyd/M-Cryst 08/07/2023 Other Reaction(s): Not available Paroxetine 08/07/2023 Other Reaction(s): Not available Sulfa (Sulfonamide Antibiotics) Hives High 10/25/2019 Medications omeprazole (PRILOSEC) 20 MG capsule Take 1 capsule (20 mg total) by mouth before breakfast. 07/19/2023 Active ondansetron (ZOFRAN) 4 MG tablet Take 1 tablet (4 mg total) by mouth every 8 hours as needed. 07/29/2023 Active hydrOXYzine pamoate (VISTARIL) 25 MG capsule Take 1 capsule (25 mg total) by mouth every 3 hours as needed for Itching. 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 Family History Medical History Relation Comments Hypertension Father Diabetes Maternal Grandmother Diabetes Mother Hypertension Mother Pancreatic Cancer Other Diabetes Paternal Grandfather Relation Status Comments Father Maternal Grandmother Mother Other Alive Paternal Grandfather Social History Tobacco Use Types Packs/Day Years Used Date Smoking Tobacco: Former Cigarettes Q uit: 03/2022 Smokeless Tobacco: Never Tobacco Cessation:Counseling Given: Not Answered Alcohol Use Standard Drinks/Week Comments Not Currently 0 (1 standard drink = 0.6 oz pur e alcohol) PHQ-2 Answer Date Recorded PHQ-2 Total Score 0 10/22/2023 Yearly Questionnaire Answer Date Record ed Do you need any assistance w ith obtaining housing, meals, medication, transportation or medical equipment? No 08/12 Assistance needed for: Not on file 4 Yearly Questionnaire Answer Date Record ed Do you need any assistance w ith obtaining housing, meals, medication, transportation or medical equipment? No 08/12 Assistance needed for: Not on file 4 Yearly Questionnaire Answer Date Record ed Do you need any assistance w ith obtaining housing, meals, medication, transportation or medical equipment? No 08/12 Assistance needed for: Not on file 4 Comments No Sex and Gender Information Value Date Recorded Sex Assigned at Not on file Legal Sex Female 1:00 PM EST Gender Identity Not on file Sexual Orientation Not on file Last Filed Vital Signs Vital Sign Reading Time Taken Comments Blood Pressure 119/74 10/22/2023 10:14 AM EDT Pulse 99 10/22/2023 10:14 AM EDT Temperature 36.8 C (98.3 F) 10/17/2023 12:59 PM EDT Respiratory Rate 16 10/17/2023 1:20 PM EDT Oxygen Saturation 99% 10/22/2023 10:14 AM EDT Inhaled Oxygen Concentration 99% 10/22/2023 1 0:14 AM EDT Weight 108 kg (238 lb) 10/22/2023 10:14 AM EDT Height 154.9 cm (5' 1 ) 10/22/2023 10:14 AM EDT Body Mass Index 44.97 10/22/2023 10:14 AM EDT Plan of Treatment Health Maintenance Due Date Last Done Comments Diabetes Screening 1995 Hepatitis C Screening (MyChart) 1995 Immunization: DTaP/Tdap/Td (6 - Tdap) 2005 03/13/1998, 09/08/1995, 1995, Additional history exists Alcohol Misuse Screening 02/08/2012 HIV Screening 02/08/2012 Cervical Cancer Screening/Pap Smear (MyChart) 02/08/2024 Depression Screening 10/21/2024 10/22/2023, 08/13/19 Immunization: COVID-19 ( season) 2025 Immunization: Influenza (MyChart) (#1) 2025 03/31/2020, 04/12/2008 Immunization: Hepatitis B Completed 1995, 1995, 1995, Additional history exists Immunization: Pneumococcal Aged Out N o longer eligible based on patient's age to complete this topic [place] [address] Care Teams Valuation Manager Relationship Specialty Start Date End Date Unknown, Attending Provider PCP - General 09/02/23
--- OUTSIDE RECORDS SUMMARY | 2025-04-01 10:47 | XMS_ITS | Data Portability ---
Author Organization [place] - [place] - [place] [facility] ADMIN Address [address] [place] [id number] Care Team Providers Care Audio Experience Expert Name Role Phone GEORGIE ROGERS Primary Care Provider [phone] Assessment Encounter Date Assessment Date Assessment LastModified by Organization Details LastModified Time 09/23/2023 09/23/2023 28-year-old female with: 1) Familial chronic pancreatitis: She reports a remote history of moderate alcohol use. None currently. PeTH test was negative. Serum lipase, serum triglycerides, IgG subclasses were unremarkable. -Fecal elastase was normal. Creon did not improve her diarrhea (tested positive for C. diff at that time). -SPINK 1 Nucleotide change: c.101A>G. Amino Acid change: [id number], missense variant, heterozygous, associated with an approximately 20 fold increased risk of chronic pancreatitis. -She appears to be managing well overall regarding symptoms related to chronic pancreatitis. She has established care with UC and is scheduled for upcoming MRI and lab work. Will request records from there at her next OV. 2) GERD: Currently well managed with Omeprazole 20 mg p.o. once daily. 3) C. difficile infection: First recurrence. Will treat due to high suspicion given symptoms and recent antibiotic use. She completed treatment with oral vancomycin 3 months ago with improvement. Dificid was denied at that time. -Start Dificid BID x 10 days (if covered). Will have staff try to get this approved. 4) Fatigue/weight gain/polydipsia: Check labs per below. She is at risk for diabetes due to pancreatic disease. f/u 4 weeks [email or web address] Not available 09/23/2023 19:07:16 10/15/2023 10/15/2023 28-year-old female with: 1) Familial chronic pancreatitis: She reports a remote history of moderate alcohol use. None currently. PeTH test was negative. Serum lipase, serum triglycerides, IgG subclasses were unremarkable. -Fecal elastase was normal. Creon did not improve her diarrhea (tested positive for C. diff at that time). -SPINK 1 Nucleotide change: c.101A>G. Amino Acid change: p.[id number], missense variant, heterozygous, associated with an approximately 20 fold increased risk of chronic pancreatitis. -She appears to be managing well overall regarding symptoms related to chronic pancreatitis. She has established care with UC and recently completed an MRI and lab work there. She is also scheduled for an EUS there at her next visit. Will request records. 2) GERD: Recently with some breakthrough heartburn that she is requiring TUMs for. Increase Omeprazole to 40 mg p.o. daily. 3) C. difficile infection: x2 occurrences. Treated with Vancomycin initially, but had recurrence 3 months later and was treated with Dificid. Symptoms have resolved. 4) Vitamin D deficiency: Continue supplementation. Plan to recheck levels at follow-up. f/u 4 months [email or web address] Not available 10/15/2023 13:32:40 04/02/2024 04/02/2024 29-year-old female with: 1) Hereditary pancreatitis: She reports a remote history of moderate alcohol use. None currently. PeTH test was negative. Serum lipase, serum triglycerides, IgG subclasses were unremarkable. -Fecal elastase was normal. Creon did not improve her diarrhea (tested positive for C. diff at that time). -SPINK 1 Nucleotide change: c.101A>G. Amino Acid change: p.[id number], missense variant, heterozygous, associated with an approximately 20 fold increased risk of chronic pancreatitis. -She appears to be managing well overall regarding symptoms of pancreatitis. She has established care with UC and Dr. Garcia. MRI and EUS performed there earlier this year were not c/w chronic pancreatitis. She is follow-up up there as needed. -She has quit smoking x1 week currently. -I have provided her with samples of Creon to trial. 2) Upper abdominal pain and nausea: Not c/w her prior episodes of pancreatitis. I suspect biliary colick. -Obtain GBUS and HIDA scan -Start Ondansetron as needed 3) GERD: Continue PPI 4) Alternating constipation and diarrhea: She has a history of C. difficile infection: x2 occurrences. Treated with Vancomycin initially, but had recurrence 3 months later and was treated with Dificid. If Gallbladder workup is negative, consider repeat stool PCR. f/u 3-4 weeks [email or web address] Not available 04/02/2024 14:58:42 11/19/2024 11/19/2024 29-year-old female with: 1) Hereditary pancreatitis: She reports a remote history of moderate alcohol use. None currently. PeTH test was negative. Serum lipase, serum triglycerides, IgG subclasses were unremarkable. -Fecal elastase was normal. Creon did not improve her diarrhea (tested positive for C. diff at that time). -SPINK 1 Nucleotide change: c.101A>G. Amino Acid change: [id number], missense variant, heterozygous, associated with an approximately 20 fold increased risk of chronic pancreatitis. -She appears to be managing well overall regarding symptoms of pancreatitis. CREON has been very helpful. She previously established care with UC and Dr. Garcia. MRI and EUS performed there earlier this year were not c/w chronic pancreatitis. She is follow-up up there as needed. -She has quit smoking. -Continue Creon 2) Chronic nausea: Continue Zofran as needed. This is stable, somewhat improved overall. -GBUS and HIDA were previously ordered, but she did no complete due to symptom improvement. 3) GERD: Continue PPI. Refills provided today. 4) Pelvic floor dysfunction: She has chronic alternating bowel habits and intermittent urinary leakage. She has 4 children, 3 by section. -Refer to PT for pelvic floor therapy 5) History of C. diff infection: x2 occurrences. Treated with Vancomycin initially, but had recurrence 3 months later and was treated with Dificid. 6) Menorrhagia/pelv ic pain: Refer to gynecology f/u 3-4 weeks [email or web address] Not available 11/19/2024 11:08:26 Plan of Treatment Reminders Order Date Submit Date Provider Last Modified By Organization Details Last Modified Time Details Appointments Establish ed Visit 15 min 2025 08:45A M Royce Berumen PA-C Not available Not available Not available Lab TSH + free T4, serum 2024 025 [email or web address] 22 [facility] (Registration ), [address], [place], [address], 08/24/2024 10:48:04 HbA1c (hemoglob in A1c), blood 2023 024 JULITA [facility], [address], [address], [place], [address], 09/24/2023 07:13:31 TSH + free T4, serum 2023 024 JULITA [facility], [address], [address], [place], [address], 09/24/2023 07:13:27 CMP, serum or plasma 2023 024 JULITA [facility], [address], [address], [place], [address], 09/24/2023 07:13:30 CBC w/ auto diff 2023 024 JULITA [facility], [address], [address], [place], [address], 09/24/2023 07:13:28 vitamin D, 25-hydrox y, total, serum 2023 024 JULITA [facility], [address], [address], [place], [address], 09/24/2023 07:13:32 Referral gynecolog ist referral 2024 025 [email or web address] Mary Beth Casper MD, [address], [address], [place], [address], 11/19/2024 09:59:24 pelvic floor therapy referral 2024 025 [email or web address] Not available 11/19/2024 09:59:24 registere d dietitian referral [address] [facility] [place], [address], [address], [place], [address], 11/22/2024 15:52:44 Procedures event monitor placement (PROC) 2024 025 [email or web address] Not available 10/14/2024 13:03:26 Surgeries None recorded. Imaging home sleep study [address] (Centralized Scheduling), [address], [place], [address], 08/24/2024 10:48:35 US, echocardi ogram, transthor acic, complete, w/ color flow [address] - Imaging, [address] [facility], [place], [address], 11/22/2024 14:55:12 electroca rdiogram [address] [facility], [address], [place], [address], 07/29/2024 14:32:44 US, gallbladd er 2023 024 [email or web address] [address] [facility], [address] [place], [address], 04/16/2024 12:42:46 NM, hepatobil iary scan, w/ CCK 2023 024 [email or web address] [address] [facility], [address] [place], [address], 04/16/2024 12:42:46 Medication Orders ondansetr on 4 mg disintegr ating tablet [email or web address] [facility], [address] [place] [address], [address], 11/19/2024 10:52:44 omeprazol e 40 mg capsule,d elayed release 2024 025 [facility], [address], [address], 11/19/2024 09:59:32 ondansetr on 4 mg disintegr ating tablet 2023 024 [facility], [address], [address], 04/02/2024 11:09:43 omeprazol e 40 mg capsule,d elayed release 2023 024 [facility], [address], [address], 10/15/2023 13:33:49 Dificid 200 mg tablet 2023 025 [facility], [address], [address], 07/14/2024 13:36:31 Patient TargetsNo targets recorded. Patient InstructionsNo instructions recorded. Reason for Referral Registered Dietitian Referra l for Body mass index 40+ - severely obese Referring Physician: Andreea Wright, Cardiovascular Disease, Encounter Date: 07/14/2024 Pelvic Floor Therapy Referra l for Female pelvic floor dysfunction Referring Physician: Royce Berumen, Gastroenterology, Encounter Date: 11/19/2024 Sales Performance Analyst Referral for Po lycystic ovary syndrome Referring Physician: Royce Berumen, Gastroenterology, Encounter Date: 11/19/2024 Results Created Date Observation Date Name Description Value Unit Range Abnormal Flag Note LastModifiedBy Organization Detail LastModifiedTime 09/23/19 24 09/24/2023 TSH+F REE T4 TSH 1.960 uIU/m L 0.450- 4.500 Not Available [facility] ([facility]] [facility]) [address] [facility], [place], [address], 09/24/2023 07:13:27 09/23/19 24 09/24/2023 TSH+F REE T4 T4,free(dire ct) 0.97 NG/dL 0.82-1 .77 Not Available [facility] ([facility]) [address] [facility], [place], [address], 09/24/2023 07:13:27 09/23/19 24 09/24/2023 CBC WITH DIFFE RENTI AL/PL ATELE T WBC 5.2 x10e3 /uL 3.4-10 .8 Not Available [facility] ([facility]) [address] [facility], [place], [address], 09/24/2023 07:13:28 09/23/19 24 09/24/2023 CBC WITH DIFFE RENTI AL/PL ATELE T RBC 5.04 x10e6 /uL 3.77-5 .28 Not Available [facility] ([facility]) [address] [facility], [place], [address], 09/24/2023 07:13:28 09/23/19 24 09/24/2023 CBC WITH DIFFE RENTI AL/PL ATELE T hemoglobin 13.9 g/dL 11.1-1 5.9 Not Available [facility] ([facility]) [address] [place], [address], 09/24/2023 07:13:28 09/23/19 24 09/24/2023 CBC WITH DIFFE RENTI AL/PL ATELE T hematocrit 42.0 % 34.0-4 6.6 Not Available [facility] ([facility]) [address] [place], [address], 09/24/2023 07:13:28 09/23/19 24 09/24/2023 CBC WITH DIFFE RENTI AL/PL ATELE T MCV 83 fL 79-97 Not Available [facility] ([facility]) [address] [place], [address], 09/24/2023 07:13:28 09/23/19 24 09/24/2023 CBC WITH DIFFE RENTI AL/PL ATELE T MCH 27.6 pg 26.6-3 3.0 Not Available [facility] ([facility]) [address] [facility], [place], [address], 09/24/2023 07:13:28 09/23/19 24 09/24/2023 CBC WITH DIFFE RENTI AL/PL ATELE T MCHC 33.1 g/dL 31.5-3 5.7 Not Available [facility] ([facility]) [address] [facility], [place], [address], 09/24/2023 07:13:28 09/23/19 24 09/24/2023 CBC WITH DIFFE RENTI AL/PL ATELE T RDW 12.5 % 11.7-1 5.4 Not Available [facility] ([facility]) [address] [facility], [place], [address], 09/24/2023 07:13:28 09/23/19 24 09/24/2023 CBC WITH DIFFE RENTI AL/PL ATELE T platelets 252 x10e3 /uL 150-45 0 Not Available [facility] ([facility]) [address] [facility], [place], [address], 09/24/2023 07:13:28 09/23/19 24 09/24/2023 CBC WITH DIFFE RENTI AL/PL ATELE T neutrophils 67 % not estab. Not Available [facility] ([facility]) [address] [facility], [place], [address], 09/24/2023 07:13:28 09/23/19 24 09/24/2023 CBC WITH DIFFE RENTI AL/PL ATELE T lymphs 27 % not estab. Not Available [facility] ([facility]) [address] [facility], [place], [address], 09/24/2023 07:13:28 09/23/19 24 09/24/2023 CBC WITH DIFFE RENTI AL/PL ATELE T monocytes 5 % not estab. Not Available [facility] ([facility]) [address] [facility], [place], [address], 09/24/2023 07:13:28 09/23/19 24 09/24/2023 CBC WITH DIFFE RENTI AL/PL ATELE T eos 1 % not estab. Not Available [facility] ([facility]) [address] [facility], [place], [address], 09/24/2023 07:13:28 09/23/19 24 09/24/2023 CBC WITH DIFFE RENTI AL/PL ATELE T basos 0 % not estab. Not Available [facility] ([facility]) [address] [facility], [place], [address], 09/24/2023 07:13:28 09/23/19 24 09/24/2023 CBC WITH DIFFE RENTI AL/PL ATELE T immature cells TNT LINE SUPERVISOR Not Available [facility] ([facility]) [address] [place], [address], 09/24/2023 07:13:28 09/23/19 24 09/24/2023 CBC WITH DIFFE RENTI AL/PL ATELE T neutrophils (absolute) 3.4 x10e3 /uL 1.4-7. 0 Not Available [facility] ([facility]) [address] [facility], [place], [address], 09/24/2023 07:13:28 09/23/19 24 09/24/2023 CBC WITH DIFFE RENTI AL/PL ATELE T lymphs (absolute) 1.4 x10e3 /uL 0.7-3. 1 Not Available [facility] ([facility]) [address] [facility], [place], [address], 09/24/2023 07:13:28 09/23/19 24 09/24/2023 CBC WITH DIFFE RENTI AL/PL ATELE T monocytes(ab solute) 0.3 x10e3 /uL 0.1-0. 9 Not Available [facility] ([facility]) [address] [facility], [place], [address], 09/24/2023 07:13:28 09/23/19 24 09/24/2023 CBC WITH DIFFE RENTI AL/PL ATELE T eos (absolute) 0.1 x10e3 /uL 0.0-0. 4 Not Available [facility] ([facility]) [address] [facility], [place], [address], 09/24/2023 07:13:28 09/23/19 24 09/24/2023 CBC WITH DIFFE RENTI AL/PL ATELE T baso (absolute) 0.0 x10e3 /uL 0.0-0. 2 Not Available [facility] ([facility]) [address] [facility], [place], [address], 09/24/2023 07:13:28 09/23/19 24 09/24/2023 CBC WITH DIFFE RENTI AL/PL ATELE T immature granulocytes 0 % not estab. Not Available [facility] ([facility]) [address] [facility], [place], [address], 09/24/2023 07:13:28 09/23/19 24 09/24/2023 CBC WITH DIFFE RENTI AL/PL ATELE T immature grans (abs) 0.0 x10e3 /uL 0.0-0. 1 Not Available [facility] ([facility]) [address] [facility], [place], [address], 09/24/2023 07:13:28 09/23/19 24 09/24/2023 CBC WITH DIFFE RENTI AL/PL ATELE T NRBC TNT LINE SUPERVISOR Not Available [facility] ([facility]) [address] [facility], [place], [address], 09/24/2023 07:13:28 09/23/19 24 09/24/2023 CBC WITH DIFFE ASIFTI AL/PL KATHERYNLE T hematology comments: TNT LINE SUPERVISOR Not Available [facility] ([facility]) [address] [place], [address], 09/24/2023 07:13:28 09/23/19 24 09/24/2023 COMP. METAB OLIC PANEL (14) glucose 93 mg/dL 70-99 Not Available [facility] ([facility]) [address] [place], [address], 09/24/2023 07:13:29 09/23/19 24 09/24/2023 COMP. METAB OLIC PANEL (14) BUN 15 mg/dL 6-20 Not Available [facility] ([facility]) [address] [place], [address], 09/24/2023 07:13:29 09/23/19 24 09/24/2023 COMP. METAB OLIC PANEL (14) creatinine 0.77 mg/dL 0.57-1 .00 Not Available [facility] ([facility]) [address] [place], [address], 09/24/2023 07:13:29 09/23/19 24 09/24/2023 COMP. METAB OLIC PANEL (14) eGFR 107 mL/mi n/1.7 3 >59 Not Available [facility] ([facility]) [address] [place], [address], 09/24/2023 07:13:29 09/23/19 24 09/24/2023 COMP. METAB OLIC PANEL (14) BUN/creatini ne ratio 19 9-23 Not Available [facility] ([facility]) [address] [place], [address], 09/24/2023 07:13:29 09/23/19 24 09/24/2023 COMP. METAB OLIC PANEL (14) sodium 143 mmol/ L 134-14 4 Not Available [facility] ([facility]) [address] [place], [address], 09/24/2023 07:13:29 09/23/19 24 09/24/2023 COMP. METAB OLIC PANEL (14) potassium 4.3 mmol/ L 3.5-5. 2 Not Available [facility] ([facility]) [address] [place], [address], 09/24/2023 07:13:29 09/23/19 24 09/24/2023 COMP. METAB OLIC PANEL (14) chloride 106 mmol/ L 96-106 Not Available [facility] ([facility]) [address] [place], [address], 09/24/2023 07:13:29 09/23/19 24 09/24/2023 COMP. METAB OLIC PANEL (14) carbon dioxide, total 21 mmol/ L 20-29 Not Available [facility] ([facility]) [address] [place] [place], [address], 09/24/2023 07:13:29 09/23/19 24 09/24/2023 COMP. METAB OLIC PANEL (14) calcium 9.4 mg/dL 8.7-10 .2 Not Available [facility] ([facility]) [address] [facility] [place], [address], 09/24/2023 07:13:29 09/23/19 24 09/24/2023 COMP. METAB OLIC PANEL (14) protein, total 6.5 g/dL 6.0-8. 5 Not Available [facility] ([facility]) [address] [facility] [place], [address], 09/24/2023 07:13:29 09/23/19 24 09/24/2023 COMP. METAB OLIC PANEL (14) albumin 3.9 g/dL 4.0-5. 0 below low normal Not Available [facility] ([facility]) [address] [facility] [place], [address], 09/24/2023 07:13:29 09/23/19 24 09/24/2023 COMP. METAB OLIC PANEL (14) globulin, total 2.6 g/dL 1.5-4. 5 Not Available [facility] ([facility]) [address] [facility], [place], [address], 09/24/2023 07:13:29 09/23/19 24 09/24/2023 COMP. METAB OLIC PANEL (14) A/G ratio 1.5 1.2-2. 2 Not Available [facility] ([facility]) [address] [facility], [place], [address], 09/24/2023 07:13:29 09/23/19 24 09/24/2023 COMP. METAB OLIC PANEL (14) bilirubin, total 0.3 mg/dL 0.0-1. 2 Not Available [facility] ([facility]) [address] [facility], [place], [address], 09/24/2023 07:13:29 09/23/19 24 09/24/2023 COMP. METAB OLIC PANEL (14) alkaline phosphatase 58 IU/L 44-121 Not Available [facility] ([facility]) [address] [facility], [place], [address], 09/24/2023 07:13:29 09/23/19 24 09/24/2023 COMP. METAB OLIC PANEL (14) AST (SGOT) 32 IU/L 0-40 Not Available [facility] ([facility]) [address] [facility], [place], [address], 09/24/2023 07:13:29 09/23/19 24 09/24/2023 COMP. METAB OLIC PANEL (14) ALT (SGPT) 26 IU/L 0-32 Not Available [facility] ([facility]) [address] [facility], [place], [address], 09/24/2023 07:13:29 09/23/19 24 09/24/2023 HEMOG LOBIN A1C hemoglobin A1C 5.0 % 4.8-5. 6 Predi abete s: 5.7 - 6.4 Diabe dave: >6.4 Glyce scott contr ol for adult s with diabe dave: <7.0 Not Available [facility] ([facility]) [address] [facility], [place], [address], 09/24/2023 07:13:31 09/23/19 24 09/24/2023 VITAM IN D, 25-HY DROXY vitamin D, 25-hydroxy 21.2 NG/mL 30.0-1 00.0 below low normal Vitam in D defic iency has been defin ed by the Insti tute of Medic ine and an Endoc rine Socie ty pract ice guide line as a level of serum 25-OH vitam in D less than 20 ng/mL (1,2) . The Endoc rine Socie ty went on to furth er defin e vitam in D insuf ficie ncy as a level betwe en 21 and 29 ng/mL (2). 1. IOM (Inst itute of Medic ine). 2009. Dieta ry refer ence lasha es for calci um and D. Ashley valle [place]: The [facility] Press . 2. Fiona graves MF, Matilde nicholson [place], Jossy off-F errar i STERLING, et al. Evalu ation , treat ment, and preve ntion of vitam in D defic iency : an Endoc rine Socie ty clini noa pract ice guide line. JCEM. 2010; 96(7) :1911 -30. Not Available [facility] ([facility]) [address] [facility], [place], [address], 09/24/2023 07:13:31 09/23/19 24 09/23/2023 PLEANDRES E NOTE please note Commen t The date and/o r time of colle ction was not indic ated on the requi sitio n as requi red by state and ashley al law. The date of recei pt of the speci men was used as the colle ction date if not suppl ied. Not Available [facility] ([facility]) [address] [facility], [place], [address], 09/24/2023 07:13:32 12/24/19 24 12/24/2023 GASTR OINTE GILDA L PANEL ,STL PCR campylobacte r NOT DETECT ED not detect ed CAMPY LOBAC TER AND CRYPT OSPOR IDIUM RESUL TS WILL BE CONFI RMED BEFOR E FINAL RESUL TS REPOR HÉCTOR. Not Available [facility] ([facility]) [address] [facility], [place], [address], 12/24/2023 21:17:17 12/24/19 24 12/24/2023 GASTR OINTE GILDA L PANEL ,STL PCR C difficile toxin A/B NOT DETECT ED not detect ed Not Available [facility] ([facility]) [address] [facility], [place], [address], 12/24/2023 21:17:17 12/24/19 24 12/24/2023 GASTR OINTE GILDA L PANEL ,STL PCR plesiomonas shigelloides NOT DETECT ED not detect ed Not Available [facility] ([facility]) [address] [facility], [place], [address], 12/24/2023 21:17:17 12/24/19 24 12/24/2023 GASTR OINTE GILDA L PANEL ,STL PCR salmonella NOT DETECT ED not detect ed Not Available [facility] ([facility]) [address] [place], [address], 12/24/2023 21:17:17 12/24/19 24 12/24/2023 GASTR OINTE GILDA L PANEL ,STL PCR vibrio NOT DETECT ED not detect ed Not Available [facility] ([facility]) [address] [facility], [place], [address], 12/24/2023 21:17:17 12/24/19 24 12/24/2023 GASTR OINTE GILDA L PANEL ,STL PCR vibrio cholerae NOT DETECT ED not detect ed Not Available [facility] ([facility]) [address] [facility], [place], [address], 12/24/2023 21:17:17 12/24/19 24 12/24/2023 GASTR OINTE GILDA L PANEL ,STL PCR yersinia enterocoliti ca NOT DETECT ED not detect ed Not Available [facility] ([facility]) [address] [facility], [place], [address], 12/24/2023 21:17:17 12/24/19 24 12/24/2023 GASTR OINTE GILDA L PANEL ,STL PCR enteroaggreg ative E coli NOT DETECT ED not detect ed Not Available [facility] ([facility]) [address] [facility], [place], [address], 12/24/2023 21:17:17 12/24/19 24 12/24/2023 GASTR OINTE GILDA L PANEL ,STL PCR enteropathog enic E coli DETECT ED not detect ed delta Not Available [facility] ([facility]) [address] [place], [address], 12/24/2023 21:17:17 12/24/19 24 12/24/2023 GASTR OINTE GILDA L PANEL ,STL PCR enterotoxige leonard E coli lt/st NOT DETECT ED not detect ed Not Available [facility] ([facility]) [address] [place], [address], 12/24/2023 21:17:17 12/24/19 24 12/24/2023 GASTR OINTE GILDA L PANEL ,STL PCR shiga-toxin- producing E coli NOT DETECT ED not detect ed Not Available [facility] ([facility]) [address] [place], [address], 12/24/2023 21:17:17 12/24/19 24 12/24/2023 GASTR OINTE GILDA L PANEL ,STL PCR E coli O157 N/A not detect ed Not Available [facility] ([facility]) [address] [facility], [place], [address], 12/24/2023 21:17:17 12/24/19 24 12/24/2023 GASTR OINTE GILDA L PANEL ,STL PCR shigella/ent eroinvasive E coli NOT DETECT ED not detect ed Not Available [facility] ([facility]) [address] [facility], [place], [address], 12/24/2023 21:17:17 12/24/19 24 12/24/2023 GASTR OINTE GILDA L PANEL ,STL PCR cryptosporid ium NOT DETECT ED not detect ed Not Available [facility] ([facility]) [address] [facility], [place], [address], 12/24/2023 21:17:17 12/24/19 24 12/24/2023 GASTR OINTE GILDA L PANEL ,STL PCR cyclospora cayetanensis NOT DETECT ED not detect ed Not Available [facility] ([facility]) [address] [facility], [place], [address], 12/24/2023 21:17:17 12/24/19 24 12/24/2023 GASTR OINTE GILDA L PANEL ,STL PCR entamoeba histolytica NOT DETECT ED not detect ed Not Available [facility] ([facility]) [address], [place], [address], 12/24/2023 21:17:17 12/24/19 24 12/24/2023 GASTR OINTE GILDA L PANEL ,STL PCR giardia lamblia NOT DETECT ED not detect ed Not Available [facility] ([facility]) [address] [place], [address], 12/24/2023 21:17:17 12/24/19 24 12/24/2023 GASTR OINTE GILDA L PANEL ,STL PCR adenovirus F 40/41 NOT DETECT ED not detect ed Not Available [facility] ([facility]) [address], [place], [address], 12/24/2023 21:17:17 12/24/19 24 12/24/2023 GASTR OINTE GILDA L PANEL ,STL PCR astrovirus NOT DETECT ED not detect ed Not Available [facility] ([facility]) [address], [place], [address], 12/24/2023 21:17:17 12/24/19 24 12/24/2023 GASTR OINTE GILDA L PANEL ,STL PCR norovirus GI/gii NOT DETECT ED not detect ed Not Available [facility] ([facility]) [address], [place], [address], 12/24/2023 21:17:17 12/24/19 24 12/24/2023 GASTR OINTE GILDA L PANEL ,STL PCR rotavirus A NOT DETECT ED not detect ed Not Available [facility] ([facility]) [address], [place], [address], 12/24/2023 21:17:17 12/24/19 24 12/24/2023 GASTR OINTE GILDA L PANEL ,STL PCR sapovirus NOT DETECT ED not detect ed Test Metho d Limit ation s: This assay does not disti nguis h betwe en viabl e and non-v iable organ isms/ This test does not deter mine antib iotic susce ptibi litie s. The use of forme d or conta minat ed stool sampl es are not recom mendez d. Parker eous resul ts may occur from impro per speci men colle ction , handl ing or stora ge, prese nce of inhib itors , prese nce of seque nce varia nts in the gene targe ts of the assay , techn ical error s or sampl e mix-u p. Posit [place] C.dif ficil e resul ts may not be clini jessica relev ant in child asif under the age of two. Consu ltati on with an Infec tious Disea se Pedia trici an is recom mendez d. Test Metho dolog y: BioFi re FilmA rray GI Panel - Melti ng curve shawna sis, PCR, multi plex, rever se trans cript ase Not Available [facility] ([facility]) [address], [place], [address], 12/24/2023 21:17:17 07/14/19 25 07/14/2024 THYRO ID STIMU LATIN G HORMO NE thyroid stim hormone 0.95 mIU/L 0.36-3 .74 Not Available [facility] ([facility]) [address], [place], [address], 07/14/2024 15:39:56 07/14/19 25 07/14/2024 T4 FREE T4 free 0.85 NG/dL 0.76-1 .46 Not Available [facility] ([facility]) [address], [place], [address], 07/14/2024 15:39:58 07/14/19 25 10/01/2024 elect rocar diogr am No observ ation record ed. [facility] [address], [place], [address], 10/01/2024 15:13:53 07/27/19 25 07/22/2024 home sleep study No observ ation record ed. [email or web address] Not Available 10:48:35 07/29/19 25 07/14/2024 elect rocar diogr am No observ ation record ed. [email or web address] Not Available 14:32:35 10/15/19 25 07/14/[address] ment (PROC ) No observ ation record ed. [email or web address] Not Available 10/2024 13:45:51 Result Notes None recorded. Problems Name Problem SNOMED Code Status Onset Date Resolution Date Notes Provider Name and Address Organization Details Recorded Time Obesity 339044214 Active Not Available [facility] 3 07:33:40 Heartburn 33988952 Active Not Available [facility] 3 07:33:40 Gestation period, 22 weeks 86778150 Active Not Available [facility] 3 07:33:40 Urinary tract infectious disease 88249787 Active Not Available [facility] 3 07:33:40 Metabolic dysfunction-a ssociated steatohepatit is 817263476 Active Not Available [facility] 3 07:33:40 Loss of appetite 92023580 Active Not Available [facility] 3 07:33:40 Acute asthma 481684824 Active Not Available [facility] 3 07:33:40 Rectal hemorrhage 14370257 Active Not Available [facility] 3 07:33:40 Dysuria 15385707 Active Not Available [facility] 3 07:33:40 85094818 Active Not Available [facility] 3 07:33:40 Steatotic liver disease 732910296 Active Not Available [facility] 3 07:33:40 Kidney stone 09704661 Active Not Available [facility] 3 07:33:40 Morbid obesity 330457557 Active Not Available [facility] 3 07:33:40 Irregular periods 29369749 Active Not Available [facility] 3 07:33:40 Constipation alternates with diarrhea 946694066 Active Not Available [facility] 3 07:33:40 Insulin resistance 602933995 Active Not Available [facility] 3 07:33:40 Gestation period, 20 weeks 90590572 Active Not Available [facility] 3 07:33:40 Gastroesophag eal reflux disease without esophagitis 274439319 Active Not Available [facility] 3 07:33:40 Closed traumatic dislocation of patellofemora l joint 747336623 Active Not Available [facility] 3 07:33:40 Weight gain 4974152 Active Not Available [facility] 3 07:33:40 Injury of knee 507318615 Active Not Available [facility] 3 07:33:40 Abdominal pain 79784110 Active Not Available [facility] 3 07:33:40 Chronic pancreatitis 846771734 Active [address], [place], [address] , [place] [facility] & [place] 4 11:47:28 Nausea 212933843 Active [address], [place], [address] , [place] [facility] & [place] 4 11:47:37 Anxiety 87261065 Active [address], [place], [address] , [place] [facility] & [place] 4 11:47:41 Clostridioide s difficile infection 195882968 Active [address], [place], [address] , [place] [facility] & [place] 4 10:46:05 Exocrine pancreatic insufficiency 15367530 Active [address], [place], [address] , [place] [facility] & [place] 4 10:02:17 Familial chronic pancreatitis 454574575 Active [address], [place], [address] , [place] [facility] & [place] 4 10:11:37 Fatigue 85303822 Active [address], [place], [address] , [place] [facility] & [place] 4 14:30:49 Excessive thirst 79177690 Active [address], [place], [address] , [place] [facility] [place] & [place] 4 19:06:13 Vitamin D deficiency 35777479 Active 2023 Royce Berumen PA-C [address], [place], [address] , [place] [facility] [place] & [place] 4 15:16:23 Acute diarrhea 321307358 Active 2023 Royce Berumen PA-C [address] , [place], [address] , [place] [facility] [place] & [place] 4 14:30:24 Intestinal infection caused by Escherichia coli 393903847 Active 2023 Royce Berumen PA-C [address] , [place], [address] , [place] [facility] [place] & [place] 4 13:17:24 Upper abdominal pain 88963843 Active 2023 Royce Berumen PA-C [address] , [place], [address] , [place] [facility] [place] & [place] 4 11:06:46 Dizziness 557960548 [facility] [place], [address] , [place] [facility] [place] & [place] 5 13:35:18 Nicotine user 353468797 Active [address] , [place], [address] , [place] [facility] [place] [facility] [place] 5 13:35:53 Intermittent palpitations 434580792 Active [address] , [place], [address] , [place] [facility] [place] [facility] [place] 5 13:54:15 Obstructive sleep apnea syndrome 42572456 Active [address], [place], [address] , [place] [facility] [place] & [place] 5 10:26:17 Hyperlipidemi a 91482082 Active 2024 ANDREEA WRIGHT NP [address], [place], [address] , [place] [facility] [place] & [place] 5 10:28:17 Multiple premature ventricular complexes 314612700 Active 2024 ANDREEA WRIGHT NP [address], [place], [address] , [place] [facility] [place] 5 14:57:35 Polycystic ovary syndrome 085316223 Active 2024 Royce Berumen PA-C [address], [place], [address] , [place] [facility] [place] 5 09:50:57 Female pelvic floor dysfunction 230410324 Active 2024 Royce Berumen PA-C [address] , [place], [address] , [place] [facility] [place] 5 09:52:44 Pelvic floor dysfunction 254579283 Active 2024 Royce Berumen PA-C [address] , [place], [address] , [place] [facility] [place] [facility] [place] 5 11:09:17 Menometrorrha anuj 231072752 Active 2024 Royce Berumen PA-C [address], [place], [address] , [place] [facility] [place] & [place] 5 11:09:37 Problem Notes None recorded. Procedures Surgical History Date Name Laterality Status Provider Name and Address Organization Details Recorded Time 06/09/19 22 EGD completed SATYA [place] [facility] [place] 2023 10:47:42 01/29/20 21 Date of Last Pap Smear completed ELSY TAY [place] [facility] [place] & [place] 12/26/2022 11:40:58 06/09/19 21 Appendectomy completed SATYA [place]Y [place] [facility] [place] 2023 10:47:42 06/09/19 21 Abdominal Surgery completed SATYA [place]Y [place] [facility] [place] 2023 10:47:42 06/09/19 20 [employer] Surgery [place] SATYA [place] [facility] [place] 2023 10:47:42 06/09/19 18 Abdominal Surgery completed SAT[place] [facility] [place] 2023 10:47:42 06/09/19 16 Other completed SAT[place] [facility] [place] 2023 10:47:42 06/09/19 14 Other completed SATYA [place]Y [place] [facility] [place] 2023 10:47:42 Imaging Results None recorded. Procedure Notes None recorded. Medical Equipment None Reported. Allergies Allergen ID Allergen Name Allergen Category Reaction Reaction Severity Criticality Documentation Date Start Date Code Code System Note Provider Name and Address Organization Details Recorded Time 573742 burger pepper food abdominal pain diarrhea nausea vomiting severe severe severe mild Not available 12/08/2023 Coreen Ronaldtravis Carrero ranjeet, COREEN [facility] & [place] 4 11:51:30 006756 tree nut food abdominal pain diarrhea nausea moderate severe moderate Not available 12/08/2023 Other react ions and sever ities : 'Itch ing - Moder ate'. Coreenjose Carrero ranjeet COREEN [facility] & [place] 4 11:51:30 56548 paroxetin e Not available Not available Not available Not available 03/04/2022 08847 RxNorm Bessy Girard ranjeet, COREEN - [facility] & [place] 2 17:51:46 23545 Substance with sulfonami de structure and antibacte rial mechanism of action (substanc e) medicatio n hives Not available [facility] 03/05/20222019 01257 8003 SNOMED COREEN Ponce [facility] & [place] 3 18:23:07 07891 nitrofura ntoin medicatio n hives moderate Not available 09/20/20222019 7454 RxNorm COREEN Ponce [facility] & [place] 3 18:24:21 31775 Macrobid medicatio n Not available Not available Not available 09/23/2022 03254 1 RxNorm COREEN Marroquin [facility] & [place] 3 14:09:22 Medications Name Sig Start Date Stop Date Status Note LastModified by Organization Details LastModified Time vitamin d3 (gabriela) 50mcg cap TAKE 1 CAPSULE BY MOUTH ONCE DAILY WITH MEALS 07/14 completed Not Available Not Available Not Available Miralax 17 gram oral powder packet Take 5 packets 3 times a day by oral route as directed for 1 day. 07/14 completed Not Available Not Available Not Available lamotrigine 150 mg tablet TAKE 1 TABLET BY MOUTH ONCE DAILY active Not Available Not Available No t Available trazodone 50 mg tablet TAKE 1/2 (HALF)-2 TABLETS BY MOUTH AT BEDTIME NEEDED active Not Available Not Available No t Available azithromyci n 250 mg tablet TAKE 2 TABLETS BY MOUTH ON DAY 1, AND THEN TAKE 1 TABLET BY MOUTH ONCE A DAY ON DAY 2 THROUGH DAY 5 09/23 completed Not Available Not Available Not Available ibuprofen 800 mg tablet TAKE 1 TABLET BY MOUTH THREE TIMES DAILY NEEDED FOR 7 DAYS 02/07 completed Not Available Not Available Not Available fluconazole 150 mg tablet TAKE 1 TABLET BY MOUTH ONCE DAILY FOR 2 DAYS 02/07 completed Not Available Not Available Not Available ondansetron HCl 4 mg tablet TAKE 2 TABLETS BY MOUTH EVERY 6 TO 8 HOURS NEEDED FOR 10 DAYS 07/14 completed Not Available Not Available Not Available prednisone 20 mg tablet TAKE 1 TABLET BY MOUTH TWICE DAILY 09/23 completed Not Available Not Available Not Available Pyridium 200 mg tablet Take 1 tablet 3 times a day by oral route as needed for 3 days. 02/07 completed Not Available Not Available Not Available metronidazo le 500 mg tablet Take 1 {tablet} twice a day by oral route. 03/05 completed Not Available Not Available Not Available hydroxyzine HCl 50 mg tablet Take 1 tablet by mouth once daily 07/14 completed Not Available Not Available Not Available ciprofloxac in 500 mg tablet Take 1 tablet twice a day by oral route for 3 days. 07/14 completed Not Available Not Available Not Available omeprazole 40 mg capsule,del ayed release TAKE 1 CAPSULE BY MOUTH ONCE DAILY OR ACID REFLUX active Not Available Not Available No t Available doxycycline monohydrate 100 mg tablet 09/23 completed Not Available Not Available Not Available butalbital- acetaminoph en-caffeine 50 mg-325 mg-40 mg tablet TAKE 1 TABLET BY MOUTH EVERY 6 HOURS NEEDED FOR HEADACHE 09/23 completed Not Available Not Available Not Available vancomycin 125 mg capsule TAKE 1 CAPSULE BY MOUTH EVERY 6 HOURS FOR 10 DAYS 07/14 completed Not Available Not Available Not Available lamotrigine 25 mg tablet TAKE 1 TABLET BY MOUTH ONCE DAILY FOR 2 WEEKS THEN INCREASE TO 2 TABLETS ONCE DAILY FOR 2 WEEKS THEN START THE 100MG SCRIPT 11/19 completed Not Available Not Available Not Available ketorolac 10 mg tablet TAKE 1 TABLET BY MOUTH EVERY 6 HOURS NEEDED FOR PAIN FOR 3 DAYS 09/23 completed Not Available Not Available Not Available cefadroxil 500 mg capsule TAKE 2 CAPSULES BY MOUTH ONCE DAILY FOR 10 DAYS 04/22 completed Not Available Not Available Not Available oxycodone-a cetaminophe n 5 mg-325 mg tablet TAKE 1 TABLET BY MOUTH EVERY 6 HOURS NEEDED FOR PAIN 09/23 completed Not Available Not Available Not Available methocarbam ol 750 mg tablet TAKE 1 TABLET BY MOUTH EVERY 8 HOURS NEEDED FOR PAIN 07/14 completed Not Available Not Available Not Available tamsulosin 0.4 mg capsule TAKE 1 CAPSULE BY MOUTH AT BEDTIME 09/23 completed Not Available Not Available Not Available codeine-but albital-ASA -caffeine 30 mg-50 mg-325 mg-40 mg capsule Take 1 {capsule_ as_needed } 6 times a day by oral route. 03/05 completed Not Available Not Available Not Available benzonatate 100 mg capsule TAKE 1 CAPSULE BY MOUTH THREE TIMES DAILY NEEDED FOR COUGH 07/14 completed Not Available Not Available Not Available omeprazole 20 mg capsule,del ayed release TAKE 1 CAPSULE BY MOUTH ONCE DAILY 30 MINUTES BEFORE A MEAL FOR 30 DAYS 07/14 completed Not Available Not Available Not Available hydroxyzine HCl 25 mg tablet TAKE 1 TO 2 TABLETS BY MOUTH ONCE DAILY NEEDED 11/19 completed Not Available Not Available Not Available metoprolol succinate ER 25 mg tablet,exte nded release 24 hr Take 1 tablet every day by oral route for 30 days. 11/19 completed Not Available Not Available Not Available Pepcid 20 mg tablet Take 1 {tablet_a t_bedtime _as_neede d} by oral route. 03/05 completed Not Available Not Available Not Available polyethylen e glycol 3350 17 gram/dose oral powder 04/22 completed Not Available Not Available Not Available levofloxaci n 500 mg tablet TAKE 1 TABLET BY MOUTH ONCE DAILY 07/14 completed Not Available Not Available Not Available levofloxaci n 750 mg tablet TAKE 1 TABLET BY MOUTH ONCE DAILY 09/23 completed Not Available Not Available Not Available methylpredn isolone 4 mg tablets in a dose pack TAKE BY MOUTH DIRECTED ON INSIDE OF PACKAGE 07/14 completed Not Available Not Available Not Available propranolol 20 mg tablet TAKE 1 TABLET BY MOUTH TWICE DAILY NEEDED FOR SITUATION AL ANXIETY active Not Available Not Available No t Available ondansetron 4 mg disintegrat ing tablet DISSOLVE 1 TABLET IN MOUTH THREE TIMES DAILY NEEDED active Not Available Not Available No t Available cefdinir 300 mg capsule Take 1 {capsule} by oral route. 03/05 completed Not Available Not Available Not Available lamotrigine 100 mg tablet TAKE 1 TABLET BY MOUTH ONCE DAILY active Not Available Not Available No t Available naproxen 500 mg tablet TAKE 1 TABLET BY MOUTH EVERY 8 HOURS NEEDED FOR PAIN 07/14 completed Not Available Not Available Not Available amoxicillin 875 mg-potassiu m clavulanate 125 mg tablet TAKE 1 TABLET BY MOUTH TWICE DAILY FOR 14 DAYS 04/02 completed Not Available Not Available Not Available hydroxyzine pamoate 25 mg capsule TAKE 1 CAPSULE BY MOUTH EVERY 8 HOURS NEEDED FOR ANXIETY AND PANIC ATTACK 11/19 completed Not Available Not Available Not Available Zithromax 500 mg tablet Take 2 {tablets} s by oral route. 03/05 completed Not Available Not Available Not Available bupropion HCl XL 300 mg 24 hr tablet, extended release TAKE 1 TABLET BY MOUTH IN THE MORNING SWALLOW WHOLE active Not Available Not Available No t Available bupropion HCl XL 150 mg 24 hr tablet, extended release TAKE 1 TABLET BY MOUTH IN THE MORNING SWALLOW WHOLE active Not Available Not Available No t Available Vegetable Laxative 8.6 mg tablet 04/22 completed Not Available Not Available Not Available cholecalcif mai (vitamin D3) 50 mcg (2,000 unit) capsule Take 1 capsule every day by oral route with meal(s) for 90 days. 07/14 completed Not Available Not Available Not Available Mucus Relief ER 600 mg tablet, extended release TAKE 2 TABLETS BY MOUTH TWICE DAILY NEEDED FOR COUGH 07/14 completed Not Available Not Available Not Available Dificid 200 mg tablet TAKE 1 TABLET BY MOUTH TWICE DAILY FOR 10 DAYS 07/14 completed Not Available Not Available Not Available Creon 36,000 unit-114,00 0 unit-180,00 0 unit capsule,del ayed release take 2 capsules by mouth with meals then take 1 capsule with snacks, up to 8 capsules daily 2024 active Not Available Not Available Not Avai lable Vraylar 1.5 mg capsule TAKE 1 CAPSULE BY MOUTH ONCE DAILY 07/14 completed Not Available Not Available Not Available BinaxNOW COVID-19 Ag Self Test kit Use as Directed on the Package 09/23 completed Not Available Not Available Not Available Vitals Date Recorded Body height Body mass index (BMI) Body weight Heart rate Oxygen saturation Oxygen saturation in Arterial blood by Pulse oximetry Systolic And Diastolic Provider Name and Address Organization Details Last Updated DateTime 5 154.94 cm 42.9 kg/m2 431956. 47 g 118 /min 97 % 97 % 118/78 mm[Hg] [facility] [place] 5 13:41:37 Date Recorded Body height Body mass index (BMI) Body weight Body temperature Oxygen saturation Oxygen saturation in Arterial blood by Pulse oximetry Heart rate Heart rate Systolic And Diastolic Provider Name and Address Organization Details Last Updated DateTime 4 154.94 cm 42.3 kg/m2 602294. 05 g 97.8 [degF] 99 % 99 % 80 /min 87 /min 112/80 mm[Hg] Reema ANGELA - [facility] & [place] 4 13:35:37 Date Recorded Body height Provider Name an d Address Organization Details Last Updated DateTime 10/15/2023 154.94 cm Reema ANGELA - [facility] - [facility] & [place] 10/15/2023 13:21:16 Date Recorded Body height Body mass index (BMI) Body weight Body temperature Oxygen saturation Oxygen saturation in Arterial blood by Pulse oximetry Heart rate Systolic And Diastolic Provider Name and Address Organization Details Last Updated DateTime 5 154.94 cm 43.2 kg/m2 036132. 93 g 98.2 [degF] 99 % 99 % 66 /min 116/60 mm[Hg] Yesy ANGELA - NT [facility] & [place] 5 09:32:45 Date Recorded Body height Body mass index (BMI) Body weight Body temperature Heart rate Heart rate Oxygen saturation Oxygen saturation in Arterial blood by Pulse oximetry Systolic And Diastolic Provider Name and Address Organization Details Last Updated DateTime 4 154.94 cm 42.9 kg/m2 060186. 83 g 97.9 [degF] 83 /min 82 /min 99 % 99 % 135/90 mm[Hg] Rosalinda Tucriosdwell COREEN Arita NT [facility] & [place] 4 10:14:27 Social History Question Answer Notes LastModified by Organizat ion Details LastModified Time Tobacco Smoking Status Current Every Day Smoker SATYA NIECY pollack, COREEN - [facility] & [place] 2023 10:47:42 Do You Have An Advance Directive? No Information not available 12/26/2022 Are You Blind Or Do You Have Difficulty Seeing? No Information not available 12/26/2022 What Is Your Level Of Caffeine Consumption? Moderate [email or web address] Information not available 07/25/2023 What Was The Date Of Your Most Recent Tobacco Screening? 07/31/2022 Information not available 2023 Are You Passively Exposed To Smoke? No Information not available 2023 How Much Tobacco Do You Smoke? No Information not available 2023 How Many Years Have You Smoked Tobacco? 2 Information not available 2023 Sex: Female Functional Status Question Answer Note LastModified by Organizat ion Details LastModified Time Do you use any illicit or recreational drugs? Yes Information not available 12/26/2022 What is your level of alcohol consumption? Occasional [email or web address] Information not available 09/23/2022 Do you or have you ever used smokeless tobacco? [id number] Information n ot available 12/26/2022 What is your exercise level? Occasional Information not available 12/26/2022 Mental Status Question Answer Note LastModified by Organization D etails LastModified Time Do you feel stressed (tense, restless, nervous, or anxious, or unable to sleep at night)? [id number] Information not available 12/26/2022 Family History Relationship Description Onset Age of this Age Resolved Age Notes LastModified by Organization Details LastModified Time Mother Allergy pt. added direct ly (07/31) CHART_MERGE Not available 09/18/2022 07:33:39 Mother Anemia pt. added direct ly (07/31) CHART_MERGE Not available 09/18/2022 07:33:39 Mother Disorder of endocrine system pt. added direct ly (07/31) CHART_MERGE Not available 09/18/2022 07:33:39 Mother Gastroesopha geal reflux disease pt. added direct ly (07/31) CHART_MERGE Not available 09/18/2022 07:33:39 Mother Mental health problem pt. added direct ly (07/31) CHART_MERGE Not available 09/18/2022 07:33:39 Mother Hypercholest erolemia pt. added direct ly (07/31) CHART_MERGE Not available 09/18/2022 07:33:39 Mother Hypertensive disorder pt. added direct ly (07/31) CHART_MERGE Not available 09/18/2022 07:33:39 Father Allergy pt. added direct ly (07/31) CHART_MERGE Not available 09/18/2022 07:33:39 Father Gastroesopha geal reflux disease pt. added direct ly (07/31) CHART_MERGE Not available 09/18/2022 07:33:39 Father Obesity pt. added direct ly (07/31) CHART_MERGE Not available 09/18/2022 07:33:39 Father Mental health problem pt. added direct ly (07/31) CHART_MERGE Not available 09/18/2022 07:33:39 Father Hypercholest erolemia pt. added direct ly (07/31) CHART_MERGE Not available 09/18/2022 07:33:39 Father Hypertensive disorder pt. added direct ly (07/31) CHART_MERGE Not available 09/18/2022 07:33:39 Brother Allergy pt. added direct ly (07/31) CHART_MERGE Not available 09/18/2022 07:33:39 Brother Gastroesopha geal reflux disease pt. added direct ly (07/31) CHART_MERGE Not available 09/18/2022 07:33:39 Brother Obesity pt. added direct ly (07/31) CHART_MERGE Not available 09/18/2022 07:33:39 Brother Mental health problem pt. added direct ly (07/31) CHART_MERGE Not available 09/18/2022 07:33:39 Son Allergy pt. added direct ly (07/31) CHART_MERGE Not available 09/18/2022 07:33:39 Son Mental health problem pt. added direct ly (07/31) CHART_MERGE Not available 09/18/2022 07:33:39 Daughter Allergy pt. added direct ly (07/31) CHART_MERGE Not available 09/18/2022 07:33:39 Daughter Anemia pt. added direct ly (07/31) CHART_MERGE Not available 09/18/2022 07:33:39 Daughter Headache pt. added direct ly (07/31) CHART_MERGE Not available 09/18/2022 07:33:39 Daughter Mental health problem pt. added direct ly (07/31) CHART_MERGE Not available 09/18/2022 07:33:39 Maternal Grandmother Disorder of endocrine system pt. added direct ly (07/31) CHART_MERGE Not available 09/18/2022 07:33:39 Paternal Grandmother Disorder of endocrine system pt. added direct ly (07/31) CHART_MERGE Not available 09/18/2022 07:33:39 Paternal Grandmother Gastroesopha geal reflux disease pt. added direct ly (07/31) CHART_MERGE Not available 09/18/2022 07:33:39 Paternal Grandmother Hypertensive disorder pt. added direct ly (07/31) CHART_MERGE Not available 09/18/2022 07:33:39 Paternal Uncle Gastroesopha geal reflux disease pt. added direct ly (07/31) CHART_MERGE Not available 09/18/2022 07:33:39 Paternal Uncle Mental health problem pt. added direct ly (07/31) CHART_MERGE Not available 09/18/2022 07:33:39 Maternal Aunt Mental health problem pt. added direct ly (07/31) CHART_MERGE Not available 09/18/2022 07:33:39 Medical History Condition Response Obesity Y Kidney Stones Y Back Problems Y Kidney or Bladder Problems Y Depression Y GI Problems Y Acne Y Anemia Y Reflux/GERD Y Liver Disease Y History of STI Y Psychiatric/Mental Health Condition Y Headaches Y Gynecological History Statement/Question Response Abnormal Pap N Flow Moderate Date of LMP 07/31/2022 Sexually Active? Y Menses Monthly Y Duration of Flow (days) 4 Date of Last Pap Smear 01/28/2021 Current Control Method Tubal Ligat ion Age at Menarche 27 Obstetrics History GPAL:G 0 P 0 0 0 0 Immunizations Vaccine Type Date Status Note Provider Nam e and Address Organization Details Recorded Time DTaP, 5 pertussis antigens 5 completed Not Available [facility] 09/18/2022 07:33:41 DTaP, 5 pertussis antigens 6 completed Not Available [facility] 09/18/2022 07:33:41 Hep B, adolescent or pediatric 5 completed Not Available [facility] 09/18/2022 07:33:41 DTaP, 5 pertussis antigens 5 completed Not Available [facility] 09/18/2022 07:33:41 DTaP, 5 pertussis antigens 4 completed Not Available [facility] 09/18/2022 07:33:41 MMR 8 completed Not Available [facility] 09/18/2022 07:33:41 Hep B, adolescent or pediatric 4 completed Not Available [facility] 09/18/2022 07:33:41 IPV 4 completed Not Available [facility] 09/18/2022 07:33:41 Hib (PRP-T) 5 completed Not Available [facility] 09/18/2022 07:33:41 Influenza, split virus, quadrivalent, PF 0 completed Not Available [facility] 09/18/2022 07:33:41 Hib (PRP-T) 6 completed Not Available [facility] 09/18/2022 07:33:41 DTaP, 5 pertussis antigens 8 completed Not Available [facility] 09/18/2022 07:33:41 Hib (PRP-T) 4 completed Not Available [facility] 09/18/2022 07:33:41 influenza, seasonal, intradermal, preservative free 7 completed Not Available [facility] 09/18/2022 07:33:41 Hib (PRP-T) 5 completed Not Available [facility] 09/18/2022 07:33:41 MMR 5 completed Not Available [facility] 09/18/2022 07:33:41 IPV 8 completed Not Available [facility] 09/18/2022 07:33:41 Hep B, adolescent or pediatric 4 completed Not Available [facility] 09/18/2022 07:33:41 IPV 5 completed Not Available [facility] 09/18/2022 07:33:41 varicella 5 completed Not Available [facility] 09/18/2022 07:33:41 IPV 5 completed Not Available [facility] 09/18/2022 07:33:41 Past Encounters Encounter ID Performer Location Encounter Start Date Encounter Closed Date Diagnosis/Indication Diagnosis SNOMED-CT Code Diagnosis ICD10 Code Diagnosis IMO Codes Diagnosis Note [id number] Zaki Gómez MD [facility] and [address] [place] [address] 03/05/2022 12:56:32 03/05/2022 13:32:33 Diarrhea 29246731 R19.7 Will plan to recheck stool studies at this time. Recommend starting probiotics and avoiding alot of dairy products at this time. [id number] Jonathan Buitrago Jr, MD [facility] U[facility] [address] [facility] [id number] 09/23/2022 13:56:08 09/23/2022 14:37:50 Kidney stone 75763170 N20.0 patient with bilateral nonobstruc ting stones and a 5 mm obstructin g stone at the left UPJ which she has passed. Her symptoms have resolved and we discussed measures to decrease her risk for stone formation. She drinks a lot of lemonade and we discussed that that is a good inhibitor for stones. She was also given a low oxalate diet instructed drink at least 60 oz of fluid per day. Recurrent urinary tract infection 681174406 N39.0 patient with history of recurring urinary tract infections . We discussed possible causes of UTIs and good hydration is important. We also discussed cranberry tablets as a means to prevent UTIs. She was reassured her urine today looks good. [id number] Marcia Thacker DNP, JUNIOR-C, [facility]ANNHA [facility] [address] [facility] [place] [address] 11/28/2022 10:28:39 11/28/2022 10:48:03 Tendinitis of right wrist region [id number] 5316902 M67.833 [id number] Marcia Thacker DNP, JUNIOR-C, HANNAH [facility] [address] [facility] [place] [address] 12/26/2022 11:30:09 12/26/2022 11:44:00 Acute urinary tract infection 082625590 N39.0 [id number] HANNAH Field [facility] [address] [facility] [place] [address] 2023 10:35:05 2023 11:06:13 Dysuria 26512497 R30.0 Low back pain 090470565 M54.50 Urinalysis only shows trace of leukocytes .Will send off for a culture.Co unseled patient on concern for kidney stone. If pain persists or worsens or urinary symptoms develop advised to go to ER. [id number] Zander Rao MD [facility] [place] [address] 04/25/2023 09:31:51 04/25/2023 11:29:54 Diarrhea 00574463 R19.7 Abdominal pain 93142256 R10.9 Hematochezia 202778908 K 92.1 Unintentio nal weight loss 756205440 R63.4 [id number] Royce Berumen PA-C [facility] [address] [address] 06/20/2023 10:46:25 06/20/2023 11:55:08 Chronic pancreatitis 815164118 K86.1 Gastroesop hageal reflux disease without esophagitis 129680762 K21.9 Nausea 246144388 R11.0 Anxiety 75643095 F41.9 Constipati on alternates with diarrhea 705347036 R19.7 [id number] Royce Berumen PA-C [facility] [address] [address] 07/25/2023 09:08:58 07/25/2023 10:10:53 Gastroesophageal reflux disease without esophagitis 862086169 K21.9 Nausea 580026810 R11.0 Anxiety 07778553 F41.9 Constipati on alternates with diarrhea 091038112 R19.7 Exocrine p ancreatic insufficiency 06376244 K86.81 Familial c hronic pancreatitis 166552023 K86.1 SPINK 1 Nucleotide change: c.101A>G. Amino Acid change: p.Ujx64ce, missense variant, heterozygo us, associated with an approximat marsha 20 fold increased risk of chronic pancreatit is. [id number] Royce Berumen PA-C [facility] [address] [address] 09/23/2023 13:27:56 09/23/2023 14:41:32 Familial chronic pancreatitis 322525715 K86.1 SPINK 1 Nucleotide change: c.101A>G. Amino Acid change: p.Ihi84tz, missense variant, heterozygo us, associated with an approximat marsha 20 fold increased risk of chronic pancreatit is. Gastroesop hageal reflux disease without esophagitis 263994028 K21.9 Nausea 437584870 R11.0 Anxiety 49761821 F41.9 Constipati on alternates with diarrhea 382109037 R19.7 Exocrine p ancreatic insufficiency 66942397 K86.81 Clostridio ides difficile infection 228491637 A04.72 Called patient and made her aware of positive C. diff and sapovirus on stool study. Rx for Dificid was sent to her pharmacy. Good hand hygeine was counseled. She will follow up. Fatigue 71117746 R53.83 Excessive thirst 8225288 7 R63.1 [id number] Royce Berumen PA-C [facility] [address] [address] 10/15/2023 13:07:35 10/15/2023 13:33:35 Familial chronic pancreatitis 346895003 K86.1 SPINK 1 Nucleotide change: c.101A>G. Amino Acid change: p.Zth36ts, missense variant, heterozygo us, associated with an approximat marsha 20 fold increased risk of chronic pancreatit is. Gastroesop hageal reflux disease without esophagitis 056606951 K21.9 Nausea 994310035 R11.0 Anxiety 64795987 F41.9 Constipati on alternates with diarrhea 779170379 R19.7 Exocrine p ancreatic insufficiency 98329038 K86.81 Clostridio ides difficile infection 740694301 A04.72 Fatigue 19290014 R53.83 Excessive thirst 1407345 7 R63.1 [id number] Royce Berumen PA-C [facility] [address] [address] 04/02/2024 10:02:12 04/02/2024 11:16:56 Familial chronic pancreatitis 457823984 K86.1 SPINK 1 Nucleotide change: c.101A>G. Amino Acid change: p.Kbv99ao, missense variant, heterozygo us, associated with an approximat marsha 20 fold increased risk of chronic pancreatit is. Gastroesop hageal reflux disease without esophagitis 755370828 K21.9 Nausea 369791996 R11.0 Constipati on alternates with diarrhea 882661908 R19.7 Upper abdominal pain 831 29197 R10.10 [id number] Herson Hatch MD [facility] [address] [place] [address] 07/14/2024 13:05:38 07/14/2024 14:22:59 Dizziness 240659148 R42 EKG completed in office and personally reviewed and interprete d by me.Finding s in noteECHOEv ent monitor Nicotine user 895040110 Z72.0 Complete nicotine cessation strongly urged.Risk s associated with nicotine including cardiovasc ular affects of [place] strokeTips and resources provided as noted below We discuss many products that can help you quit smoking. These products include a nicotine patch, gum, lozenge, nasal spray, and inhaler or other prescripti on medication s For more helpful tips and resources, visit:[facility] [place]' s smoke-free programs at www.smokef ree.gov 877-44U-QU IT ) Total of 7 minutes were spent discussing the above Pt is setting a quit date Intermitte nt palpitations 351883077 R00.2 TSH free T41 week event monitorEch o to evaluate EF, diastolic function, valves and pulmonary pressures Obstructiv e sleep apnea syndrome 17249864 G47.33 WILLIS s/shst Body mass index 40+ - severely obese 152798359 Z68.41 wants a air conditioning equipment mechanic referralLo w-carbohyd rate and low-fat dietIncrea se exercise to 30 minutes a day.Increa se fruits and fresh vegetable intake and decrease processed foods and sugars Hyperlipidemia 34899554 E78.5 Low fat/carboh ydrate dietIncrea se exerciseLo se weight [id number] Royce Berumen PA-C [facility] [address] [facility] [address] [place] [address] 11/19/2024 09:26:00 11/19/2024 10:03:12 Familial chronic pancreatitis 591207877 K86.1 SPINK 1 Nucleotide change: c.101A>G. Amino Acid change: p.Pnn95nb, missense variant, heterozygo us, associated with an approximat marsha 20 fold increased risk of chronic pancreatit is. Upper abdominal pain 831 01948 R10.10 Gastroesop hageal reflux disease without esophagitis 606818866 K21.9 Constipati on alternates with diarrhea 073544766 R19.7 Polycystic ovary syndrome 031579237 E28.2 [id number] Female pel dawood floor dysfunction 090265755 M62.89 9713391114 Nausea 430702643 R11.0 Health Concerns Section Related Observation LastModified by Organization Detai ls LastModified Time None Recorded Concern Status LastModified by Organization Details LastModified Time None Recorded Advance Directives Directive N: Payers Insurance Date Sequence Insurance Name Policy Number Policy Jerome Covered Member ID Jerome Member ID Guarantor Name 03/31/2024 1 [facility] Kenna N Mills [id number] Kenna N Mills 03/31/2024 1 [employer] [place] ([place] Kenna N Mills [id number] Kenna N Mills 12/15/2019 SLIDING FEE SCHEDULE - DISCOUNT Kenna N Mills 03/31/2024 1 [employer] [place] Kenna N Mills [id number] Kenna N Mills 03/31/2024 1 [place] - FFS/TRADITION AL Kenna N Mills [id number] Kenna N Mills 11/23/2024 1 [employer] [place] Kenna N Mills [id number] Kenna N Mills Notes Date Note Type Note Provider Name and Address Organization Details Recorded Time 09/23/2023 text/html PREVIOUS (06/20/23): Ms. Mills returns to the office today for procedure follow-up. She underwent EGD/EUS/colonoscopy on 04/29/23 in evaluation of nausea, acid reflux, abdominal pain, and alternating constipation and diarrhea. Colonoscopy was normal. EGD showed an irregular z-line. EUS was suggestive of chronic pancreatitis, fatty liver, and showed a large gallstone in the gallbladder. Currently, she reports feeling improved overall with less abdominal pain than when she was seen previously here. She denies current alcohol use, but states that she moderately consumed alcohol when she was younger. She reports a maternal great uncle that had pancreatic cancer. She has continued to experience alternating constipation and diarrhea. Her nausea has been more manageable but she complains of frequent heartburn. She is take TUMS frequently for this. She complains of significant anxiety and is scheduled to see psychiatry next month. She is out of vistaril and requests refill. PREVIOUS (07/25/23): Ms. Mills returns to the office today for follow-up regarding chronic panreatitis and recent C. difficile infection. She completed treatment with oral vancomycin. Her diarrhea has resolved and her stools are more formed. She continues to experience intermittent RUQ bloating and some indigestion. She also has noticed some undigested food particles with her stools. Her heartburn is significantly improved with recent addition of a daily PPI. 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 CURRENT (09/23/23): Ms. Mills returns to the office today with complaint of recurrent diarrhea. She was treated for C. difficile infection in June with oral vancomycin. Her diarrhea resolved, but she has recently experienced recurrence of foul smelling watery stools with bloating and abdominal cramping. She states she was treated with oral Levaquin 3 weeks ago for UTI. She denies bloody stools. She has established care with the [facility] regarding hereditary pancreatitis with chronic pancreatitis. She also complains of fatigue, weight gain, and polydipsia. Royce Berumen PA-C [address] , [place], [address], [place] - [facility] - [place] & [place] 09/23/2023 19:08:00 10/15/2023 text/html PREVIOUS (06/20/23): Ms. Mills returns to the office today for procedure follow-up. She underwent EGD/EUS/colonoscopy on 04/29/23 in evaluation of nausea, acid reflux, abdominal pain, and alternating constipation and diarrhea. Colonoscopy was normal. EGD showed an irregular z-line. EUS was suggestive of chronic pancreatitis, fatty liver, and showed a large gallstone in the gallbladder. Currently, she reports feeling improved overall with less abdominal pain than when she was seen previously here. She denies current alcohol use, but states that she moderately consumed alcohol when she was younger. She reports a maternal great uncle that had pancreatic cancer. She has continued to experience alternating constipation and diarrhea. Her nausea has been more manageable but she complains of frequent heartburn. She is take TUMS frequently for this. She complains of significant anxiety and is scheduled to see psychiatry next month. She is out of vistaril and requests refill. PREVIOUS (07/25/23): Ms. Mills returns to the office today for follow-up regarding chronic panreatitis and recent C. difficile infection. She completed treatment with oral vancomycin. Her diarrhea has resolved and her stools are more formed. She continues to experience intermittent RUQ bloating and some indigestion. She also has noticed some undigested food particles with her stools. Her heartburn is significantly improved with recent addition of a daily PPI. 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 PREVIOUS (09/23/23): Ms. Mills returns to the office today with complaint of recurrent diarrhea. She was treated for C. difficile infection in June with oral vancomycin. Her diarrhea resolved, but she has recently experienced recurrence of foul smelling watery stools with bloating and abdominal cramping. She states she was treated with oral Levaquin 3 weeks ago for UTI. She denies bloody stools. She has established care with the [facility] regarding hereditary pancreatitis with chronic pancreatitis. She also complains of fatigue, weight gain, and polydipsia. CURRENT (10/15/23): Ms. Mills presents via telephonic encounter today for follow-up regarding recent C diff infection and hereditary pancreatitis. She completed treatment with Dificid b.i.d. times 10 days recently. Her diarrhea has resolved. She is feeling well overall at this time. She states that she recently had MRI performed at the [facility] that showed atrophic pancreas but was otherwise normal pancreatic parenchyma. She states she was noted to have an adrenal lesion as well. She is scheduled for upcoming endoscopic ultrasound there as well. She complains of increased need to use Tums due to breakthrough heartburn despite taking omeprazole 20 mg once daily. Her heartburn seems to be worse in the evening hours. I spent a total of 13 minutes during this real-time clinical encounter that was initiated by the patient which started at 1314 and ended at 1327. Consent was obtained to engage in telephonic service. Greater than 50% of the time spent was devoted to counseling and coordinating care including review of patient record, patient lab data and studies as well as discussing diagnostic evaluation and workup, planned therapeutic intervention and further disposition of care. Royce Berumen PA-C [address], [place], [address], [facility] 10/15/2023 14:41:17 04/02/2024 text/html CURRENT (04/02/24) Ms. Mills is a very pleasant 29-year-old female with history of chronic pancreatitis and SPINK1 mutation as well as history of recurrent C. difficile infection. She has recently developed post-prandial nausea and epigastric abdominal pain. She is having loose stools that alternate with constipation, not like her prior bouts of C. diff. She is concerned over possible gallbladder pathology. She follows with regarding hereditary pancreatitis. Royce Berumen PA-C [address], [place], [address], [facility] & [place] 04/02/2024 14:58:57 07/14/2024 text/html ROS as noted in the HPI 29yo here today for dizziness, presyncope, tachy eval PCP/Referral: Yaquelin Rogers Complaints of dizziness/presyncop e and tachycardia concerns. 12 lead completed at PCP noting PVC.LEUNG with hiking. Reports WILLIS s/s. Reports had issues with bradycardia when she was hospitalized with COVID shortly after childbirth back in 2020. ECHO completed then, see details below and bradycardia resolved. Reports PND. A lot of her symptoms may be associated to longstanding WILLIS untreated. PCP ordered event monitor, but since Dr. Hatch does over read we will get quicker results if placed in clinic today and pt live in [place] and this will save an extra trip. Urged her to quit vaping. Denies typical chest pain, shortness of breath at rest, peripheral edema, palpitations, presyncope, syncope. Outside records personally reviewed - see detailed results below. +WILLIS: HST+PVCs: 1 week event monitor, ECHO. Consider BB+Obese/HLD: Wt loss/diet changes -> would like to be referred to a air conditioning equipment mechanic+nicotine user: wants to quit cold turkey EKG 07/14/24: 76bpm NSR 130/86/411 NML axis/intervals ECHO: Order ECHO 2020: The left ventricle is mildly dilated. There is normal left ventricular myocardial thickness and mass. The LVEF is visually estimated at 60 - 65%. The left ventricular wall motion is normal. The left ventricular filling pressure is normal.Right Ventricle Right ventricle size is moderately dilated. The right ventricular basal diameter is dilated (>41 mm). The right ventricular mid-cavity diameter is dilated (>35 mm). The estimated global right ventricular systolic function based upon the tricuspid annular plane of systolic excursion (TAPSE) is normal (>=17 mm). Labs: Reviwed from PCP. TSH was slighlty elevated and given complaints will repeat with free T4 Significant Family hx: Denies Tobacco: smoke 1pk/wk x 10yrs and now Vapes - wants to quitETOH: DeniesIllicit: DeniesTHC occassionalcaffeine : recently Quit caffeine ANDREEA WRIGHT NP [address], [place], [address], [facility] 07/15/2024 10:34:11 11/19/2024 text/html CURRENT (04/02/24) Ms. Mills is a very pleasant 29-year-old female with history of familial pancreatitis and SPINK1 mutation as well as history of recurrent C. difficile infection. She presents to the office today for routine follow-up. She has been experiencing some mid to lower abdominal/pelvic discomfort. She is concerned that her symptoms are gynecologic related. She reports menorrhagia and has a history of PCOS. She is experiencing constipation and intermittent leakage of urine. She has chronic nausea that is currently stable with use of ondansetron as needed. Royce Berumen PA-C [address], [place], [address], [facility] 11/19/2024 11:08:53 OBGyn Episode No OBEpisode recorded.
--- OUTSIDE RECORDS SUMMARY | 2025-04-01 10:47 | XMS_ITS | Encounter Summary ---
Author Organization Healthcare Address [address] [place] [address] Care Team Providers Care Service Desk Analyst Name Role Phone Jazmyn Mattson APRN Primary Care Provider [phone] Encounter Details Date Type Department Care Team ([facility] st Contact Info) Description 03/16/2025 Telephone [facility] [place] [address], [address] [place] [address], RN Social History Tobacco Use Types Packs/Day Years [...] 07/06/2024 How often do you attend chur ch or yarsani services? More than 4 times per year 07/06/2024 Do you belong to any clubs o r organizations such as sabianism groups, unions, fraternal or athletic groups, or [...] Recorded Patient Health Questionnaire-2 Score 0 12/22/2024 [facility] - Occupational Stress Questionnaire Answer Date Recorded [...] any time in the past [address] [facility], were you homeless or living in a detention (including now)? No 12/22/2024 Utilities Answer Date [...] PM EDT documented as of this encounter Miscellaneous Notes * Telephone Encounter - Africa Lane RN - 03/16/2025 9:09 AM EDT RN LVM to confirm pt appt. Africa Lane RN documented in this encounter Plan of Treatment Upcoming Encounters Date Type Department Care Team (Late st Contact Info) Description 04/05/2025 9:30 AM EDT Appointment Medical Office Building Cardiac Diagnostic Testing Medical Office Building Echo Lab [address] , [address] [place] [address] 06/20/2025 9:40 AM EST Office Visit [facility] [place] [address], [address] [place] [address] Destini Ojeda MD [address] [place] [address] 10/07/2025 8:40 AM EDT Office Visit [facility] [address] [place] [address] Winter Pineda MD [address] [place] [address] documented as of this encounter Visit Diagnoses Not on filedocumented in this encounter Additional Health Concerns Infection Onset Date Last Indicated Resolved Time C. difficile 07/05/2024 07/05/2024 Assessment Noted Time PHQ-9 Depression Total Score: 0 12/23/19 25 1:23 PM EDT A fall risk assessment has been complete d for the patient 10/21/2022 10:37 AM EDT A Body Mass Index follow-up plan has been documented for the patient 12/22/2024 1:48 PM EDT documented as of this encounter Care Teams Service Desk Analyst Relationship Specialty Start Date End Date Jazmyn Mattson APRN [address] [place] [id number] PCP - General Family Medicine 07/06/24 documented as of this encounter
--- OUTSIDE RECORDS SUMMARY | 2025-04-01 10:47 | XMS_ITS | Encounter Summary ---
Author Organization Healthcare Address [address] [place] [address] Care Team Providers Care [employer] Supervisor Name Role Phone Jazmyn Mattson APRN Primary Care Provider [phone] Encounter Details Date Type Department Care Team (Late st Contact Info) Description 12/17/2024 Results Follow-Up [facility] [address] [place] [address] Jazmyn Mattson, BEHAVIORAL HEALTH CONSULTANT [address] [place] [address] Social History Tobacco Use Types Packs/Day Years Used Date Smoking Tobacco: Former Cigarettes Q uit: 03/2022 Smokeless Tobacco: Current Comments:VAPES EVERYDAY Alcohol Use Standard Drinks/Week Comments Not Currently [...] often do you attend chur ch or jewish services? More than 4 times per year 07/06/2024 Do you belong to any clubs o r organizations such as congregation groups, unions, fraternal or athletic groups, or [...] Recorded Patient Health Questionnaire-2 Score 0 12/22/2024 [facility] - Occupational Stress Questionnaire Answer Date [...] any time in the past 12 m [facility], were you homeless or living in a jail (including now)? No 12/22/2024 Utilities Answer Date [...] PM EDT documented as of this encounter Functional Status * Over the past 2 weeks, how often have you been bothered by any of the following problems? Question Answer Date of Assessment Author Little interest or pleasure in doing things Not at all 12/22/2024 1:23 PM EDT Maylin Quispe Feeling down, depressed, or hopeless Not at all 12/22/2024 1:23 PM EDT Maylin Quispe Patient Health Questionnaire -2 Score 0 12/22/2024 1:23 PM EDT Maylin Quispe * Question Answer Date of Assessment Author Trouble falling or staying a sleep, or sleeping too much Not at all 12/22/2024 1:23 PM Maylin Bowden Feeling tired or having tiffanie le energy Not at all 12/22/2024 1:23 PM Maylin Bowden Poor appetite or overeating Not at all 12/22/2024 1: 23 PM Maylin Bowden Feeling bad about yourself - or that you are a failure or have let yourself or your family down Not at all 12/22/2024 1:23 PM Maylin Bowden Trouble concentrating on thi ngs, such as reading the newspaper or watching television Not at all 12/22/2024 1:23 PM Maylin Bowden Moving or speaking so slowly that other people could have noticed? Or the opposite - being so fidgety or restless that you have been moving around a lot more than usual. Not at all 12/22/2024 1:23 PM RUELT Maylin Whitehead Thoughts that you would be b diane off or hurting yourself in some way Not at all 12/22/2024 1:23 PM Maylin Bowden Patient Health Questionnaire -9 Score 0 12/22/2024 1:23 PM Maylin Bowden * Calculated C-SSRS Risk Score (Lifetime/Recent) Answer Date of Assessment Author No Risk Indicated 12/17/2024 12:51 PM EDT Reema Cabrera * How difficult have these problems made it for you to do your work, take care of things at home, or get along with other people? Answer Date of Assessment Author Not difficult at all 12/22/2024 1:23 PM EDT Maylin Brunner * Question Answer Date of Assessment Author 1. Wish to be (Past 1 Month) No 025 12:51 PM EDT Reema Cabrera 2. Non-Specific Active Suici braulio Thoughts (Past 1 Month) No 12/17/2024 12:51 PM EDT Nell Cabrera P 6. Suicidal Behavior (Lifetime) No 12:51 PM RUELT Reema Cabrera documented as of this encounter Miscellaneous Notes * Telephone Encounter - Sara Sorenson LPN - 12/20/2024 3:32 PM EDT Spoke to pt to discuss her sternum pain. Pt reports it as tightness and a dull ache. Denies shortness of breath, nausea. Pt thinks this is coming from her breast lump discussed with Jazmyn at visit last week. Pt scheduled. Advised for worsening symptoms to go to ER, pt verbalized understanding. documented in this encounter Plan of Treatment Upcoming Encounters Date Type Department Care Team (Late st Contact Info) Description 04/05/2025 9:30 AM EDT Appointment Medical Office Building Cardiac Diagnostic Testing Medical Office Building Echo Lab [address], [address] [place] [address] 06/20/2025 9:40 AM EST Office Visit [facility] [place] [address], [address] [place] [address] Destini Ojeda MD [address] [place] [address] 10/07/2025 8:40 AM EDT Office Visit [facility] [address] [place] [address] Winter Pineda MD [address] [place] [address] documented as of this encounter Visit Diagnoses Not on filedocumented in this encounter Additional Health Concerns Infection Onset Date Last Indicated Resolved Time C. difficile 07/05/2024 07/05/2024 Assessment Noted Time PHQ-9 Depression Total Score: 0 12/18/19 25 12:50 PM EDT A fall risk assessment has been complete d for the patient 10/21/2022 10:37 AM EDT A Body Mass Index follow-up plan has been documented for the patient 12/17/2024 1:36 PM EDT documented as of this encounter Care Teams [employer] Supervisor Relationship Specialty Start Date End Date Jazmyn Mattson, [place] [id number] PCP - General Family Medicine 07/06/24 documented as of this encounter
== END 2025-03-31 23:59 | disposition home or self-care (01) ==
LOC: LAB.DROPOF 04-01 10:40
PROVIDERS: PCP Student in an Organized Health Care Education/Training Program; Visit Provider Student in an Organized Health Care Education/Training Program
DX: N39.0 Urinary tract infection, site not specified (principal); N89.8 Other specified noninflammatory disorders of vagina
CPT/HCPCS: 87086; 87088; 87186; 87491; 87563; 87591; 87661